=== PATIENT | male | born 1955 | race African-American/Black ===

== ENCOUNTER 2016-06-25 13:33 | Inpatient (IN) | payer OTHER ==
[~2016-06-25] VITALS: Ht 172.7 cm; Wt 60.1 kg
[2016-06-25] MEDS: ASPIRIN 81 MG CHEW TAB CHEW SCH (09:00)
[~2016-06-25 13:33] MED LIST: AMLO5 PO; ASPI81 CHEW; ATOR40TA49 PO; BRIM.2%O RIGHT EYE; CALC0.25 PO; GABA400 PO; HYDR10SO PO; LACT PO; MIDO5TAB PO; NOVOLOGMXP SQ; PRED5 PO; PROG5CAP PO; PROT40TA PO; RIVA15 PO; TEMA7.5 PO; VITA200017 PO
[2016-06-25 13:36] VITALS: BP 173/94; PULSE 56; RESP 18; TEMP 97.7; O2SAT 100
[2016-06-25] MEDS ORDERED: SODIUM CHLORIDE 0.9% FLUSH 5 ML FLUSH IVF PRN ×2 (13:45→17:30)
[2016-06-25 13:48] VITALS: O2SAT 100
--- NOTE | 2016-06-25 13:54 | PD ---
HPI Chief Complaint: Seizure Time Seen by Provider: 13:40 Travel History International Travel<30 days: No Contact w/Intl Traveler<30days: No Traveled to known affect area: No History of Present Illness HPI This is a 61-year-old male who presents to the emergency department having been witnessed in a wheelchair on the road falling forward hitting his head and having a seizure. Patient had a generalized tonic-clonic seizure which lasted about 2 minutes and then subsided. He was noted to have a blood sugar of 26 in the field. He was given an amp of D50 and his blood sugar improved to the 110s. Despite his blood sugar improving he had another witnessed seizure that lasted about a minute long with EMS. The patient reports that he has a history of seizure but his primary care doctor Dr. Long and took him off of seizure medication. He is not sure why he is not sure what he used to be on. He does have a history of a kidney transplant and is followed by Dr. Cabezas. Currently he is reporting head pain and right knee pain. PFSH Past Medical History Hx Anticoagulant Therapy: Yes Arthritis: Yes Asthma: No Autoimmune Disease: No Blood Disorders: No Anxiety: No Depression: Yes Heart Rhythm Problems: No Cancer: No Cardiac Catheterization: Yes Cardiovascular Problems: Yes High Cholesterol: Yes Chemotherapy: No Chest Pain: Yes Congestive Heart Failure: No COPD: Yes Cerebrovascular Accident: No Coronary Artery Disease: Yes Diabetes: Yes Patient Takes Glucophage: No Dialysis: Yes (STOPPED DIALYSIS ON 05/18/2013) Diminished Hearing: No Endocrine: Yes Gastrointestinal Disorders: Yes (Hepatitis C) GERD: No Glaucoma: Yes (NO SIGHT RT EYE) Genitourinary: Yes (RIGHT KIDNEY TRANSPLANT) Headaches: Yes Hepatitis: Yes (HEPATITIS C) Hiatal Hernia: No Hypertension: Yes Immune Disorder: No Implanted Vascular Access Dvce: Yes (AV FISTULA) Kidney Stones: No Medical other: Yes Musculoskeletal: Yes (LEFT BKA) Neurologic: Yes Psychiatric: No Reproductive: No Respiratory: Yes Immunizations Current: Yes Migraines: No Radiation Therapy: No Renal Failure: Yes (KIDNEY TRANSPLANT) Seizures: No Sickle Cell Disease: No Sleep Apnea: No Thyroid Disease: No Ulcer: Yes Tetanus Vaccination: Unknown Past Surgical History Abdominal Surgery: No AICD: No Arteriovenous Shunt: Yes (NOT IN USE, LEFT AV SHUNT) Body Medical Devices: CARDIAC STENT Cardiac Surgery: Yes (cardiac stenting) Coronary Stent: Yes Ear Surgery: No Endocrine Surgery: No Eye Surgery: Yes (r eye removed due to glaucoma) Genitourinary Surgery: Yes (MAY 17, 2013 - RIGHT KIDNEY TRANSPLANT) Gynecologic Surgery: No Hysterectomy: No Insulin Pump: No Joint Replacement: No Neurologic Surgery: No Oral Surgery: No Pacemaker: No Thoracic Surgery: No Other Surgery: Yes (cysy on back, LBKA, OD enuceation, kidney transplant) Social History Alcohol Use: No Tobacco Use: No (STATES HE QUIT 2006) Substance Use: No Allergies-Medications (Allergen,Severity, Reaction): Coded Allergies: No Known Allergies (Unverified , 06/25/16) Reported Meds & Prescriptions Reported Meds & Active Scripts Active Midodrine Hcl (Midodrine) 5 Mg Tab 5 Mg PO TID 30 Days Please hold until seen by drying machine receiver Norvasc (Amlodipine Besylate) 5 Mg Tab 5 Mg PO DAILY 30 Days Please use if systolic blood pressure greater than 140 Temazepam7.5 M1 7.5 Mg Cap 7.5 Mg PO HS PRN Lipitor 40 Mg Tab (Atorvastatin Calcium) 40 Mg Tab 40 Mg PO HS Neurontin (Gabapentin) 400 Mg Cap 400 Mg PO Q8HR Acidophilu1 1 Tab Tab 1 Tab PO Q12HR Xarelto 15 Mg T15 Mg 15 Mg Tab 15 Mg PO BIDPC Hydrocodone/Acetaminophen (Miscellaneous Medication) 1 Tab 1 Tab PO Q4H PRN Aspirin Low Str81 M3 81 Mg Chw 81 Mg CHEW DAILY Novolog Mix 70/30 100 Units/Ml Inj 16 Units SQ DAILY@08,17 30 Days Prograf5 M1 5 Mg Cap 5 Mg PO Q12HR Alphagan 0.2% (Brimonidine Tartrate) 5 Ml Soln 1 Drop RIGHT EYE HS Calcitriol 0.25 Mcg Cap 0.25 Mcg PO DAILY Vitamin D3 Super Strength (Cholecalciferol) 2,000 Unit Cap 2,000 Unit PO DAILY Protonix (Pantoprazole Sodium) 40 Mg Tabdr 40 Mg PO DAILY Deltasone 5 mg Tab (Prednisone) 5 Mg Tab 5 Mg PO DAILY Review of Systems Except as stated in HPI: all other systems reviewed are Neg Physical Exam Narrative GENERAL: Unwell-appearing, covered in sand SKIN: Abrasion in the mid right forehead and on the right patella HEAD: Atraumatic. Normocephalic. EYES: Pupils equal and round. No injection or drainage. ENT: Moist mucous membranes NECK: Trachea midline. Cervical collar in place. CARDIOVASCULAR: Regular rate and rhythm. No murmur appreciated. RESPIRATORY: Clear to auscultation. Breath sounds equal bilaterally. GASTROINTESTINAL: Abdomen soft, non-tender, nondistended. MUSCULOSKELETAL: Left BKA. NEUROLOGICAL: Awake and alert. No obvious cranial nerve deficits. Moving all extremities. PSYCHIATRIC: Appropriate mood and affect; insight and judgment normal. Data Data Last Documented VS Vital Signs Date Time Temp Pulse Resp B/P Pulse Ox O2 Delivery O2 Flow Rate FiO2 06/25/16 13:51 56 18 100 Room Air 06/25/16 13:36 97.7 173/94 Orders Complete Blood Count With Diff (06/25/16 13:41) Drug Screen, Random Urine (06/25/16 13:41) Blood Glucose (06/25/16 13:41) Ecg Monitoring (06/25/16 13:41) Iv Access Insert/Monitor (06/25/16 13:41) Oximetry (06/25/16 13:41) Comprehensive Metabolic Panel (06/25/16 13:41) Sodium Chloride 0.9% Flush (Ns Flush) (06/25/16 13:45) Ua Includes Microscopic (06/25/16 13:41) Ct Brain W/O Iv Contrast(Rout) (06/25/16 ) Ct Cerv Spine W/O Contrast (06/25/16 ) Fosphenytoin Inj (Cerebyx Inj) (06/25/16 14:00) Knee, Complete (4vws) (06/25/16 ) Morphine Inj (Morphine Inj) (06/25/16 14:00) Consult Vascular Access Team (06/25/16 ) Vascular Poc Ultrasound (06/25/16 ) D10w Inj (Dextrose 10% In Water Inj) (06/25/16 16:30) Dextrose 50% In Rosaura (Syr) Inj (D50w (Syr (06/25/16 16:30) Admit Order (Ed Use Only) (06/25/16 16:26) Labs Laboratory Tests Test 06/25/16 15:14 White Blood Count 7.0 TH/MM3 Red Blood Count 6.68 MIL/MM3 Hemoglobin 16.1 GM/DL Hematocrit 51.6 % Mean Corpuscular Volume 77.2 FL Mean Corpuscular Hemoglobin 24.1 PG Mean Corpuscular Hemoglobin 31.2 % Concent Red Cell Distribution Width 18.9 % Platelet Count 175 TH/MM3 Mean Platelet Volume 9.8 FL Neutrophils (%) (Auto) 83.1 % Lymphocytes (%) (Auto) 8.3 % Monocytes (%) (Auto) 7.9 % Eosinophils (%) (Auto) 0.3 % Basophils (%) (Auto) 0.4 % Neutrophils # (Auto) 5.8 TH/MM3 Lymphocytes # (Auto) 0.6 TH/MM3 Monocytes # (Auto) 0.6 TH/MM3 Eosinophils # (Auto) 0.0 TH/MM3 Basophils # (Auto) 0.0 TH/MM3 CBC Comment AUTO DIFF Sodium Level 142 MEQ/L Potassium Level 3.9 MEQ/L Chloride Level 109 MEQ/L Carbon Dioxide Level 25.2 MEQ/L Anion Gap 8 MEQ/L Blood Urea Nitrogen 38 MG/DL Creatinine 1.57 MG/DL Estimat Glomerular Filtration 55 ML/MIN Rate Random Glucose 51 MG/DL Calcium Level 9.0 MG/DL Total Bilirubin 1.2 MG/DL Aspartate Amino Transf 27 U/L (AST/SGOT) Alanine Aminotransferase 25 U/L (ALT/SGPT) Alkaline Phosphatase 97 U/L Total Protein 7.7 GM/DL Albumin 3.5 GM/DL MDM Medical Decision Making Medical Screen Exam Complete: Yes Emergency Medical Condition: Yes Interpretation(s) Afebrile, no tachycardia, hypertensive No leukocytosis Renal insufficiency with elevated BUN Urinalysis: No infection Urine drug screen is negative for infection Differential Diagnosis Seizure, hypoglycemia, infection, medication toxicity, electrolyte abnormality Narrative Course This is a 61-year-old male who has a history kidney transplant and diabetes who presents to the emergency department having had a seizure in the setting of hypoglycemia. He was placed on a monitor and an IV was established in the emergency department. Blood sugar was rechecked several times and ultimately went down to 40 despite EMS treatment with D50. Patient was given an additional D50 dose, was given a meal and was started on D10 normal saline. He was given a bolus of fosphenytoin in the setting of seizure. He has no evidence of sepsis. His creatinine is slightly elevated but at baseline. Patient will be admitted for close monitoring of blood glucose. Critical Care Narrative Aggregate critical care time was 35 minutes. Time to perform other separately billable procedures was not included in the critical care time. My time did not include minutes spent treating any other patients simultaneously or on activities that did not directly contribute to the patient's treatment. The services I provided to this patient were to treat and/or prevent clinically significant deterioration that could result in: disability, I provided critical care services requiring my management, as noted below: Chart data review, documentation time, medication orders and management, vital sign assessments/reviewing monitor data, ordering and reviewing lab tests, ordering and interpreting/reviewing x-rays and diagnostic studies, care of the patient and discussion of the patient with the admitting physicians. Physician Communication Physician Communication Discussed with Dr. Faustin Diagnosis Primary Impression: Hypoglycemia Additional Impression: Seizure Admitting Information Admitting Physician Requests: Admit Veronica Foote MD Jun 25, 2016 13:54
[2016-06-25] MEDS ORDERED: FOSPHENYTOIN INJ 800 MGPE in SODIUM CHLORIDE 0.9% INJ 50 ML IV ONE (14:00)
[2016-06-25] MEDS ORDERED: MORPHINE SULFATE 4 MG/ML INJ IV PUSH ONE (14:00)
--- NOTE | 2016-06-25 14:33 | RADRPT ---
EXAM DATE/TIME: 06/25/2016 14:17 [facility] COMPARISON: CT BRAIN W/O CONTRAST, March 22, 2016, 13:46. INDICATIONS : Possible seizure today; head and neck pain. RADIATION DOSE: 35.79 CTDIvol (mGy) MEDICAL HISTORY : Cardiovascular disease. Hypertension. Hepatitis C. SURGICAL HISTORY : None. ENCOUNTER: Initial ACUITY: 1 day PAIN SCALE: 4/10 LOCATION: cranial TECHNIQUE: Multiple contiguous axial images were obtained of the head. Using automated exposure control and adj ustment of the mA and/or kV according to patient size, radiation dose was kept as low as reasonably a chievable to obtain optimal diagnostic quality images. FINDINGS: CEREBRUM: The ventricles are normal for age. No evidence of midline shift, mass lesion, hemorrhage or acute in farction. No extra-axial fluid collections are seen. POSTERIOR FOSSA: The cerebellum and brainstem are intact. The 4th ventricle is midline. The cerebellopontine angle i s unremarkable. EXTRACRANIAL: The visualized portion of the orbits is intact. SKULL: The calvaria is intact. No evidence of skull fracture. CONCLUSION: Negative for an acute process. Timmy Rodríguez MD FACR on June 25, 2016 at 14:30 Board Certified Radiologist. This report was verified electronically.
--- NOTE | 2016-06-25 14:49 | RADRPT ---
EXAM DATE/TIME: 06/25/2016 14:17 [facility] COMPARISON: CT CERVICAL SPINE W/O CONTRAST, March 22, 2016, 13:46. INDICATIONS: Possible seizure today; head and neck pain. RADIATION DOSE: 17.99 CTDIvol (mGy) MEDICAL HISTORY: Cardiovascular disease. Hyperparathyroidism. Hepatitis C. SURGICAL HISTORY: None. ENCOUNTER: Initial ACUITY: 1 day PAIN SCALE: 4/10 LOCATION: Neck TECHNIQUE: Volumetric scanning of the cervical spine was performed. Multiplanar reconstructions in the sagittal, coronal and oblique axial planes were performed. Using automated exposure control and adjustment o f the mA and/or kV according to patient size, radiation dose was kept as low as reasonably achievable to obtain optimal diagnostic quality images. FINDINGS: Extensive degenerative changes are present in the cervical spine with partially bridging osteophytes at C4-C5, C6 and C7. There are degenerative changes at C1 and C2. C2-C3: There is very minimal disc bulging eccentric to the right without significant spinal stenosis, neural foramina are adequate. C3-C4: There is very minimal interspace ridging present without significant spinal stenosis, neural foramina adequate. C4-C5: Mild uncinate ridging is present with minimal right-sided neural foramina encroachment. C5-C6: Moderate uncinate ridging is present with mild bilateral neural foramina encroachment. C6-C7: The bony spinal canal is normal in size. No evidence of disc bulge or herniation. The neural forami na are bilaterally patent. C7-T1: The bony spinal canal is normal in size. No evidence of disc bulge or herniation. The neural forami na are bilaterally patent. CONCLUSION: Degenerative changes as described above in the cervical spine. Most significant finding is the bridg ing osteophytes anteriorly. Timmy Rodríguez MD FACR on June 25, 2016 at 14:31 Board Certified Radiologist. This report was verified electronically.
--- NOTE | 2016-06-25 14:55 | RADRPT ---
EXAM DATE/TIME: 06/25/2016 14:28 [facility] COMPARISON: No previous studies available for comparison. INDICATIONS : Pain after falling. MEDICAL HISTORY : Hypertension. Hepatitis C. Cardiovascular disease. Seizures. SURGICAL HISTORY : Left lower leg amputation. ENCOUNTER: Initial ACUITY: 1 day PAIN SCORE: 4/10 LOCATION: Right Knee FINDINGS: Mineralization is normal. There is no evidence of fracture or joint effusion. Alignment is normal. Th ere are prominent vascular calcifications in the soft tissues. CONCLUSION: No acute bony findings Salas Gonzalez MD on June 25, 2016 at 14:49 Board Certified Radiologist. This report was verified electronically.
[2016-06-25 15:25] LABS: AUTOMATED NEUTROPHIL # 5.8 TH/MM3 (1.8-7.7); BASOPHIL % 0.4 % (0.0-2.0); EOSINOPHIL % 0.3 % (0.0-4.0); HEMATOCRIT 51.6 % (39.0-51.0); LYMPH % 8.3 % (9.0-44.0); LYMPHOCYTE # 0.6 TH/MM3 (1.0-4.8); MEAN CELL VOLUME 77.2 FL (80.0-100.0); MEAN CORPUSCULAR HEMOGLOBIN 24.1 PG (27.0-34.0); MEAN CORPUSCULAR HGB CONC 31.2 % (32.0-36.0); MONO % 7.9 % (0.0-8.0); NEUT % 83.1 % (16.0-70.0); PLATELET COUNT 175 TH/MM3 (150-450); RED BLOOD COUNT 6.68 MIL/MM3 (4.50-5.90); RED CELL DISTRIBUTION WIDTH 18.9 % (11.6-17.2)
[2016-06-25 15:44] LABS: HEMO FLAGS AUTO DIFF
[2016-06-25 15:46] LABS: ALT (GPT) 25 U/L (12-78); ANION GAP 8 MEQ/L (5-15); AST (GOT) 27 U/L (15-37); BICARBONATE 25.2 MEQ/L (21.0-32.0); BLOOD UREA NITROGEN 38 MG/DL (7-18); CHLORIDE 109 MEQ/L (98-107); GLOMERULAR FILTRATION RATE 55 ML/MIN (>89); POTASSIUM 3.9 MEQ/L (3.5-5.1); SODIUM (NA) 142 MEQ/L (136-145)
[2016-06-25 15:49] LABS: ALKALINE PHOSPHATASE 97 U/L (45-117); TOTAL BILIRUBIN ADULT 1.2 MG/DL (0.2-1.0)
[2016-06-25] MEDS ORDERED: DEXTROSE 50% IN WATER 50 ML SYRINGE IV ONE (16:30)
[2016-06-25] MEDS ORDERED: DEXTROSE 10% INJ 1,000 ML IV SCH (16:30)
[2016-06-25] MEDS ORDERED: cloNIDine HCL 0.1 MG TAB PO PRN (17:30)
[2016-06-25] MEDS ORDERED: GLUCAGON 1 MG/ML VIAL OTHER PRN (17:30)
[2016-06-25] MEDS ORDERED: DEXTROSE 50% IN WATER 50 ML VIAL(D50) IV PUSH PRN (17:30)
[2016-06-25] MEDS: predniSONE 5 MG TAB PO SCH (17:30)
--- NOTE | 2016-06-25 17:38 | HHI.HP ---
Dr. Monet [facility] Service [facility] Primary Care Physician Matt Monet MD Admission Diagnosis hypoglycemia, seizure Diagnoses: Chief Complaint: Seizure Travel History International Travel<30 Days: No Contact w/Intl Traveler <30 Da: No Traveled to Known Affected Are: No History of Present Illness 61-year-old male with past medical history of renal transplant, HTN, HLD, DM, GERD, glaucoma, CAD, hep C, DVT who presented after seizure. The patient states that he was taking the bus to perform in today. He states he was feeling dizzy, and the next thing he knows he was in the ED. According to bystanders, the patient fell out of his wheelchair and was having generalized tonic-clonic seizure activity which lasted approximately 2 minutes. He was noted to be hyperglycemic with a blood glucose of 26 by EMS. He was given D50 in the field. Blood glucoses in the ED have been 86 and 51. The patient was started on D10 infusion. Other than the dizziness, the patient denies any sweating, shortness of breath, chest pain, vision changes. He did sustain abrasions to his forehead and right knee. He states he takes 16 units of insulin twice a day at home, managed by his PCP, Dr Monet. He does not check his blood sugar at home. He states that he has a history of seizures, last seizure 3 months ago, however he denies ever being put on antiseizure medication. He was at one point on gabapentin for extremity neuropathy and mood. He also reports that he used to be on Xarelto for LLE stump DVT, but he stopped taking that. Review of Systems Other 10 point review of systems performed and was negative except as stated in the history of present illness Past Family Social History Past Medical History Chronic kidney disease status post renal transplant Hypertension Hyperlipidemia Diabetes mellitus GERD Glaucoma Cardiac artery disease Hepatitis C History of DVT Possible history of seizures Past Surgical History Kidney transplant 2006 Cardiac catheterization with PCI Hx LUE AVF Left AKA Right eye enucleation Reported Medications Midodrine Hcl (Midodrine) 5 Mg Tab 5 Mg PO TID 30 Days Please hold until seen by residential therapist Norvasc (Amlodipine Besylate) 5 Mg Tab 5 Mg PO DAILY 30 Days Please use if systolic blood pressure greater than 140 Temazepam7.5 M1 7.5 Mg Cap 7.5 Mg PO HS PRN Lipitor 40 Mg Tab (Atorvastatin Calcium) 40 Mg Tab 40 Mg PO HS Neurontin (Gabapentin) 400 Mg Cap 400 Mg PO Q8HR Acidophilu1 1 Tab Tab 1 Tab PO Q12HR Xarelto 15 Mg T15 Mg 15 Mg Tab 15 Mg PO BIDPC Hydrocodone/Acetaminophen (Miscellaneous Medication) 1 Tab 1 Tab PO Q4H PRN Aspirin Low Str81 M3 81 Mg Chw 81 Mg CHEW DAILY Novolog Mix 70/30 100 Units/Ml Inj 16 Units SQ DAILY@ 30 Days Prograf5 M1 5 Mg Cap 5 Mg PO Q12HR Alphagan 0.2% (Brimonidine Tartrate) 5 Ml Soln 1 Drop RIGHT EYE HS Calcitriol 0.25 Mcg Cap 0.25 Mcg PO DAILY Vitamin D3 Super Strength (Cholecalciferol) 2,000 Unit Cap 2,000 Unit PO DAILY Protonix (Pantoprazole Sodium) 40 Mg Tabdr 40 Mg PO DAILY Deltasone 5 mg Tab (Prednisone) 5 Mg Tab 5 Mg PO DAILY Allergies: Coded Allergies: No Known Allergies (Unverified , 06/25/16) Active Ordered Medications Current Medications Medications (Trade) Dose Ordered Sig/Pramod Route Start Time Stop Time Status Last Admin IV Flush 2 ml 2 ml UNSCH PRN IVF 06/25/16 13:45 (Dextrose 10% In Water Inj) 1,000 ml @ 42 mls/hr [id number] IV 06/25/16 16:30 (Norvasc) 5 mg DAILY PO 06/26/16 09:00 UNV (Lipitor) 40 mg HS PO 06/25/16 21:00 UNV (Alphagan 0.2% Opth Soln) 1 drop HS RIGHT EYE 06/25/16 21:00 UNV (Rocaltrol) 0.25 mcg DAILY PO 06/26/16 09:00 UNV (Protonix) 40 mg DAILY PO 06/26/16 09:00 UNV (Deltasone) 5 mg DAILY PO 06/25/16 17:30 Non-Formulary Medication 81 mg DAILY CHEW 06/26/16 09:00 UNV Non-Formulary Medication 2,000 unit DAILY PO 1/7/17 09:00 UNV Non-Formulary Medication 5 mg Q12HR PO 06/25/16 21:00 UNV Family History Father had high blood pressure and diabetes Social History Denies any alcohol, tobacco, or illegal drug use wheelchair bound Physical Exam Vital Signs Vital Signs Date Time Temp Pulse Resp B/P Pulse Ox O2 Delivery O2 Flow Rate FiO2 06/25/16 13:51 56 18 100 Room Air 06/25/16 13:48 100 Room Air 06/25/16 13:36 97.7 56 18 173/94 100 Physical Exam GENERAL: Well-developed well-nourished. In no acute distress. SKIN: Warm and dry. Superficial abrasions with bleeding on the forehead and right knee. HEENT: Normocephalic. Left eye pupil round. Right eye s/p enucleation. Mucous membranes pink and moist. CARDIOVASCULAR: Regular rate and rhythm. No murmur appreciated. RESPIRATORY: No accessory muscle use. Clear to auscultation. Breath sounds equal bilaterally. GASTROINTESTINAL: Abdomen soft, non-tender, nondistended. Bowel sounds x4. MUSCULOSKELETAL: Left AKA. No clubbing or cyanosis. No edema. NEUROLOGICAL: Awake and alert. No focal neurological deficits. Moves upper and lower extremities spontaneously. Normal speech. Strength 5/5. PSYCHIATRIC: Appropriate mood and affect; insight and judgment fair to normal. Laboratory Laboratory Tests Test 06/25/16 15:14 White Blood Count 7.0 Red Blood Count 6.68 Hemoglobin 16.1 Hematocrit 51.6 Mean Corpuscular Volume 77.2 Mean Corpuscular Hemoglobin 24.1 Mean Corpuscular Hemoglobin 31.2 Concent Red Cell Distribution Width 18.9 Platelet Count 175 Mean Platelet Volume 9.8 Neutrophils (%) (Auto) 83.1 Lymphocytes (%) (Auto) 8.3 Monocytes (%) (Auto) 7.9 Eosinophils (%) (Auto) 0.3 Basophils (%) (Auto) 0.4 Neutrophils # (Auto) 5.8 Lymphocytes # (Auto) 0.6 Monocytes # (Auto) 0.6 Eosinophils # (Auto) 0.0 Basophils # (Auto) 0.0 CBC Comment AUTO DIFF Sodium Level 142 Potassium Level 3.9 Chloride Level 109 Carbon Dioxide Level 25.2 Anion Gap 8 Blood Urea Nitrogen 38 Creatinine 1.57 Estimat Glomerular Filtration 55 Rate Random Glucose 51 Calcium Level 9.0 Total Bilirubin 1.2 Aspartate Amino Transf 27 (AST/SGOT) Alanine Aminotransferase 25 (ALT/SGPT) Alkaline Phosphatase 97 Total Protein 7.7 Albumin 3.5 Result Diagram: 06/25/16 1514 06/25/16 1514 Imaging Last Impressions Knee X-Ray 06/25/16 0000 Signed Impressions: Service Date/Time: Saturday, June 25, 2016 14:28 - CONCLUSION: No acute bony findings Salas Gonzalez MD Head CT 06/25/16 0000 Signed Impressions: Service Date/Time: Saturday, June 25, 2016 14:17 - CONCLUSION: Negative for an acute process. Timmy Rodríguez MD FACR Cervical Spine CT 06/25/16 0000 Signed Impressions: Service Date/Time: Saturday, June 25, 2016 14:17 - CONCLUSION: Degenerative changes as described above in the cervical spine. Most significant finding is the bridging osteophytes anteriorly. Timmy Rodríguez MD FACR Assessment and Plan Problem List: (1) Diabetes ICD Code: E11.9 Status: Chronic (2) Seizure ICD Code: R56.9 Status: Acute (3) Hypoglycemia ICD Code: E16.2 Status: Acute (4) Hypertension ICD Code: I10 Status: Chronic (5) Hyperlipidemia ICD Code: E78.5 Status: Chronic (6) Chronic kidney disease (CKD) ICD Code: N18.9 Status: Chronic Assessment and Plan 61-year-old male with past medical history of renal transplant, HTN, HLD, DM, GERD, glaucoma, CAD, hep C, DVT who presented after seizure Seizure: Likely secondary to hypoglycemia as below. Head CT performed, unremarkable. Reviewed EEG 12/03, no epileptic activity at that time. Reviewed brain MRI from 12/03, no acute process. Load with fosphenytoin in the ED. No further AEDs unless EEG positive. Check UDS. Seizure precautions. Neuro checks. PT/OT. Diabetes mellitus with symptomatic hypoglycemia: Patient with persistent hyperglycemia in the ED despite D50. Hold home insulin regimen. Continue D10 IVF. Low sliding scale coverage if needed with hypoglycemia protocol. Check hemoglobin A1c. Head and right knee injury: Secondary to seizure as above. Abrasions on the forehead and right knee on exam. Cervical spine CT with chronic degenerative changes, no acute process. Right knee x-ray with no fracture. Wound care consult. Oxycodone as needed for pain. Hypertension: Currently accelerated. Reconcile confirm home meds. Continue amlodipine. Clonidine as needed. CKD stage III with history of renal transplant: Creatinine 1.57, previously 1.47 on 05/26/16. Stable. Continue prednisone and Prograf. DVT prophylaxis: Would avoid SCDs with PVD. Hold off on chemical prophylaxis for now with bleeding abrasions. GUILLAUME nava. Written by Arben Talbot, acting as scribe for Dr. Faustin on 06/25/16 at 17:38. Code Status Full code Discussed Condition With Patient Attending Statement The documentation accurately reflects the work performed [id number] by me on at 17:38. Problem Qualifiers (1) Diabetes: Qualified Code: E10.649 - Type 1 diabetes mellitus with hypoglycemia and without coma (2) Hypertension: Qualified Code: I10 - Essential hypertension (3) Chronic kidney disease (CKD): Qualified Code: N18.3 - Chronic kidney disease (CKD), stage 3 (moderate) Arben Talbot Jun 25, 2016 17:38 Jimi Faustin DO Jun 25, 2016 19:01
[2016-06-25 17:42] LABS: BLOOD, URINE NEG (NEG); GLUCOSE,URINE 150 mg/dL (NEG); HYALINE CAST, URINE 1 /lpf (RARE); KETONE, URINE NEG (NEG); NITRITE,URINE NEG (NEG); PH, URINE 6.5 (5.0-8.5); URINE COLOR YELLOW (YELLW/STRAW)
[2016-06-25 17:58] LABS: AMPHETAMINE, URINE NEG (NEG); BARBITURATES, URINE NEG (NEG); COCAINE, URINE NEG (NEG)
[2016-06-25 19:00] LABS: CORRECTED NUCLEATED RBC 1 /100 WBC (0-0); EOSINOPHILS 1 % (0-4); NEUTROPHIL # MANUAL DIFF 6.2 TH/MM3 (1.8-7.7); POLYS (SEG NEUTROPHILS) 89 % (16-70); WBC DIFF SAMPLE 100
[2016-06-25 19:02] LABS: PLATELET ESTIMATE SMEAR NORMAL (NORMAL); PLATELET MORPHOLOGY NORMAL (NORMAL); SCAN/DIFF FINAL DIFF MANUAL
[2016-06-25 20:20] VITALS: BP 162/78; PULSE 58; RESP 16; O2SAT 99
[2016-06-25] MEDS: INSULIN ASPART SUPPLEMENTAL SCALE SQ SCH (20:58)
[2016-06-25] MEDS: ATORVASTATIN 40 MG TAB PO SCH (20:59)
[2016-06-25] MEDS ORDERED: TACROLIMUS PO SCH (21:00)
[2016-06-25] MEDS: TACROLIMUS 5 MG CAP PO SCH (22:54)
[2016-06-25] MEDS: BRIMONIDINE TARTRATE 0.2% OPHT SOLN 5 ML BTL RIGHT EYE SCH (22:54)
[2016-06-25] MEDS: SODIUM CHLORIDE 0.9% FLUSH 5 ML FLUSH IVF SCH (23:46)
[2016-06-26] VITALS (7 sets, daily range): BP systolic 116–159; BP diastolic 69–88; PULSE 59–72; RESP 16–18; TEMP 96.6–98; O2SAT 95–100
[2016-06-26] MEDS ORDERED: LORazepam 2 MG/ML VIAL IV PUSH PRN (03:00)
[2016-06-26 07:32] LABS: AUTOMATED NEUTROPHIL # 4.1 TH/MM3 (1.8-7.7); BASOPHIL % 0.6 % (0.0-2.0); EOSINOPHIL # 0.1 TH/MM3 (0-0.4); EOSINOPHIL % 1.5 % (0.0-4.0); HEMATOCRIT 53.9 % (39.0-51.0); LYMPH % 15.8 % (9.0-44.0); LYMPHOCYTE # 0.9 TH/MM3 (1.0-4.8); MEAN CELL VOLUME 76.8 FL (80.0-100.0); MEAN CORPUSCULAR HEMOGLOBIN 23.8 PG (27.0-34.0); MEAN CORPUSCULAR HGB CONC 31.1 % (32.0-36.0); MONO % 8.3 % (0.0-8.0); NEUT % 73.8 % (16.0-70.0); PLATELET COUNT 187 TH/MM3 (150-450); RED BLOOD COUNT 7.02 MIL/MM3 (4.50-5.90); RED CELL DISTRIBUTION WIDTH 19.3 % (11.6-17.2); WHITE BLOOD COUNT 5.5 TH/MM3 (4.0-11.0)
[2016-06-26 07:37] LABS: HEMO FLAGS AUTO DIFF
[2016-06-26] MEDS: INSULIN ASPART SUPPLEMENTAL SCALE SQ SCH ×4 (07:42→20:40)
[2016-06-26] MEDS ORDERED: amLODIPine BESYLATE 5 MG TAB PO SCH (09:00)
[2016-06-26] MEDS ORDERED: CHOLECALCIFEROL 2000 UNIT PO SCH (09:00)
[2016-06-26] MEDS ORDERED: ASPIRIN CHEW SCH (09:00)
[2016-06-26] MEDS: TACROLIMUS 5 MG CAP PO SCH ×2 (09:21→20:39)
[2016-06-26] MEDS: CHOLECALCIFEROL (VIT D3) 1000 UNIT TAB PO SCH (09:22)
[2016-06-26] MEDS: ASPIRIN 81 MG CHEW TAB CHEW SCH (09:22)
[2016-06-26] MEDS: predniSONE 5 MG TAB PO SCH (09:22)
[2016-06-26] MEDS: CALCITRIOL 0.25 MCG CAP PO SCH (09:22)
[2016-06-26] MEDS: PANTOPRAZOLE SOD 40 MG DELAYED RELEASE TAB PO SCH (09:22)
[2016-06-26] MEDS: SODIUM CHLORIDE 0.9% FLUSH 5 ML FLUSH IVF SCH ×2 (09:23→20:39)
--- NOTE | 2016-06-26 09:35 | HHI.PR ---
Subjective Remarks The patient was sitting up in a wheelchair. He said he had no events overnight. He had questions regarding his insurance inability to obtain a prosthesis for his left lower extremity. He mentions depression. He denies any plans to harm himself or others. Discussed with nursing. Objective Vitals Vital Signs Date Time Temp Pulse Resp B/P Pulse Ox O2 Delivery O2 Flow Rate FiO2 06/26/16 06:06 96.6 59 17 159/88 99 06/26/16 02:34 Room Air 06/26/16 02:34 60 16 156/69 98 Room Air 06/25/16 20:20 58 16 162/78 99 Room Air 06/25/16 13:51 56 18 100 Room Air 06/25/16 13:48 100 Room Air 06/25/16 13:36 97.7 56 18 173/94 100 I/O 06/25/16 06/25/16 06/25/16 06/26/16 06/26/16 06/26/16 06:59 14:59 22:59 06:59 14:59 22:59 Intake Total 482 ml Balance 482 ml Intake IV Total 482 ml Result Diagram: 06/26/16 0553 06/25/16 1514 Imaging Last Impressions Knee X-Ray 06/25/16 0000 Signed Impressions: Service Date/Time: Saturday, June 25, 2016 14:28 - CONCLUSION: No acute bony findings Salas Gonzalez MD Head CT 06/25/16 0000 Signed Impressions: Service Date/Time: Saturday, June 25, 2016 14:17 - CONCLUSION: Negative for an acute process. Timmy Rodríguez MD FACR Cervical Spine CT 06/25/16 0000 Signed Impressions: Service Date/Time: Saturday, June 25, 2016 14:17 - CONCLUSION: Degenerative changes as described above in the cervical spine. Most significant finding is the bridging osteophytes anteriorly. Timmy Rodríguez MD FACR Objective Remarks GENERAL: Well-developed well-nourished. In no acute distress. SKIN: Warm and dry. Bandage on the forehead. HEENT: Normocephalic. Left eye pupil round. Right eye s/p enucleation. Mucous membranes pink and moist. CARDIOVASCULAR: Regular rate and rhythm. Grade 3 systolic murmur appreciated. RESPIRATORY: No accessory muscle use. Clear to auscultation. Breath sounds equal bilaterally. GASTROINTESTINAL: Abdomen soft, non-tender, nondistended. Bowel sounds x4. MUSCULOSKELETAL: Left AKA. No clubbing or cyanosis. No edema. NEUROLOGICAL: Awake and alert. No focal neurological deficits. Moves upper and lower extremities spontaneously. Normal speech. Strength 5/5. PSYCHIATRIC: Slightly flattened affect. Procedures None. Medications and IVs Current Medications Medications (Trade) Dose Ordered Sig/Pramod Route Start Time Stop Time Status Last Admin (Norvasc) 5 mg DAILY PO 06/26/16 09:00 06/26/16 09:22 (Lipitor) 40 mg HS PO 06/25/16 21:00 (Alphagan 0.2% Opth Soln) 1 drop HS RIGHT EYE 06/25/16 21:00 06/25/16 22:54 (Rocaltrol) 0.25 mcg DAILY PO 06/26/16 09:00 06/26/16 09:22 (Protonix) 40 mg DAILY PO 06/26/16 09:00 06/26/16 09:22 (Deltasone) 5 mg DAILY PO 06/25/16 17:30 06/26/16 09:22 (NS Flush) 2 ml UNSCH PRN IVF 06/25/16 17:30 (NS Flush) 2 ml BID IVF 06/25/16 21:00 06/26/16 09:23 (Vitamin D3) 2,000 units DAILY PO 06/26/16 09:00 06/26/16 09:22 (D50w (Vial) Inj) 25 ml UNSCH PRN IV PUSH 06/25/16 17:30 (Glucagon Inj) 1 mg UNSCH PRN OTHER 06/25/16 17:30 (Catapres) 0.1 mg Q6H PRN PO 06/25/16 17:30 (Roxicodone) 5 mg Q4H PRN PO 06/25/16 17:45 06/26/16 06:01 (Aspirin Chew) 81 mg DAILY CHEW 06/25/16 09:00 06/26/16 09:22 (Prograf) 5 mg Q12HR PO 06/25/16 21:00 06/26/16 09:21 Lorazepam 1 mg 1 mg Q5M PRN IV PUSH 06/26/16 03:00 (D5W-NS 1000 ml Inj) 1,000 ml @ 42 mls/hr [id number] IV 06/26/16 09:45 06/26/16 09:43 A/P Problem List: (1) Diabetes ICD Code: E11.9 Status: Chronic (2) Seizure ICD Code: R56.9 Status: Acute (3) Hypoglycemia ICD Code: E16.2 Status: Acute (4) Hypertension ICD Code: I10 Status: Chronic (5) Hyperlipidemia ICD Code: E78.5 Status: Chronic (6) Chronic kidney disease (CKD) ICD Code: N18.9 Status: Chronic Assessment and Plan Seizure disorder Likely secondary to hypoglycemia. Head CT performed, unremarkable. Reviewed EEG 12/03, no epileptic activity at that time. Reviewed brain MRI from 12/03, no acute process. Loaded with fosphenytoin in the ED. - No further AEDs indicated unless EEG positive. - Check UDS. - Seizure precautions. - Neuro checks/ seizure precautions. - PT/OT. Case management consult for possible rehab. - IVFs with dextrose. - Ativan as needed. - consider neurology consult. Diabetes mellitus with symptomatic hypoglycemia Patient with persistent hypoglycemia in the ED despite D50. - Hold home insulin regimen. - Change D10 to D5W. - Low sliding scale coverage if needed with hypoglycemia protocol. - Check hemoglobin A1c. Head and right knee injury Secondary to seizure. Abrasions on the forehead and right knee on exam. Cervical spine CT with chronic degenerative changes, no acute process. Right knee x-ray with no fracture. - Wound care consult. - Oxycodone as needed for pain. Hypertension Currently elevated. - Continue home meds. Increase amlodipine 06/26. - Clonidine as needed. CKD stage III with history of renal transplant Creatinine 1.57, previously 1.47 on 05/26/16. Stable. - Continue prednisone and Prograf. - avoid nephrotoxic agents. - check Prograf level. DVT The pt was previously on Xarelto but has not taken that medication in many months. - d/c Xarelto s/t noncompliance and the pt being a fall risk. - outpt follow-up. DVT prophylaxis: Heparin. Discharge Planning Awaiting clinical improvement. Problem Qualifiers (1) Diabetes: Qualified Code: E10.649 - Type 1 diabetes mellitus with hypoglycemia and without coma (2) Hypertension: Qualified Code: I10 - Essential hypertension (3) Chronic kidney disease (CKD): Qualified Code: N18.3 - Chronic kidney disease (CKD), stage 3 (moderate) Jiim Faustin DO Jun 26, 2016 09:35
[2016-06-26] MEDS ORDERED: DEXT 5%-NACL 0.9% 1000 ML INJ 1,000 ML IV SCH (09:45)
[2016-06-26] MEDS ORDERED: amLODIPine BESYLATE 5 MG TAB PO ONE (10:00)
[2016-06-26 10:23] LABS: SCAN/DIFF AUTO DIFF CONFIRMED; TARGET CELLS 1+ (NORMAL)
[2016-06-26] MEDS: HEPARIN SODIUM - SQ 10,000 UNITS/ML VIAL SQ SCH ×2 (13:49→21:31)
[2016-06-26 19:21] LABS: ALKALINE PHOSPHATASE 96 U/L (45-117); ALT (GPT) 23 U/L (12-78); ANION GAP 7 MEQ/L (5-15); AST (GOT) 29 U/L (15-37); BLOOD UREA NITROGEN 34 MG/DL (7-18); CHLORIDE 105 MEQ/L (98-107); GLOMERULAR FILTRATION RATE 59 ML/MIN (>89); POTASSIUM 4.9 MEQ/L (3.5-5.1); SODIUM (NA) 139 MEQ/L (136-145); TOTAL BILIRUBIN ADULT 0.8 MG/DL (0.2-1.0)
--- NOTE | 2016-06-26 20:01 | MG ---
cc: MORGAN KLEIN M.D. Lab No: 17-30 Date: 06/26/2016 Age: Sex: M Race: TECHNIQUE: 17 channel EEG. DESCRIPTION: The background rhythm is a symmetrical alpha rhythm, frequency 8 Hz, amplitude is about 10-20 microvolts. There is some muscle artifact present. There are no lateralizing features seen. There are no epileptiform discharges present. Photic results in a normal driving response. INTERPRETATION: Normal EEG. MD KEITH Martinez/JUN /4:58 PM /7:52 PM
[2016-06-26] MEDS: ATORVASTATIN 40 MG TAB PO SCH (20:39)
[2016-06-26] MEDS: BRIMONIDINE TARTRATE 0.2% OPHT SOLN 5 ML BTL RIGHT EYE SCH ×2 (20:42→20:44)
[2016-06-27 00:03] VITALS: BP 138/65; PULSE 70; RESP 17; TEMP 98; O2SAT 98
[2016-06-27 04:02] VITALS: BP 116/65; PULSE 69; RESP 17; TEMP 97.2; O2SAT 96
[2016-06-27 06:24] LABS: BICARBONATE 21.3 MEQ/L (21.0-32.0)
[2016-06-27 06:25] LABS: POTASSIUM 4.9 MEQ/L (3.5-5.1)
[2016-06-27] MEDS: INSULIN ASPART SUPPLEMENTAL SCALE SQ SCH ×3 (06:33→15:11)
[2016-06-27] MEDS: HEPARIN SODIUM - SQ 10,000 UNITS/ML VIAL SQ SCH ×2 (06:33→13:40)
[2016-06-27 08:00] VITALS: BP 109/79; PULSE 93; RESP 18; TEMP 97.5; O2SAT 96
[2016-06-27] MEDS ORDERED: amLODIPine BESYLATE 5 MG TAB PO SCH (09:00)
[2016-06-27] MEDS: predniSONE 5 MG TAB PO SCH (09:53)
[2016-06-27] MEDS: ASPIRIN 81 MG CHEW TAB CHEW SCH (09:53)
[2016-06-27] MEDS: PANTOPRAZOLE SOD 40 MG DELAYED RELEASE TAB PO SCH (09:53)
[2016-06-27] MEDS: TACROLIMUS 5 MG CAP PO SCH (09:53)
[2016-06-27] MEDS: CHOLECALCIFEROL (VIT D3) 1000 UNIT TAB PO SCH (09:53)
[2016-06-27] MEDS: SODIUM CHLORIDE 0.9% FLUSH 5 ML FLUSH IVF SCH (09:54)
[2016-06-27] MEDS: CALCITRIOL 0.25 MCG CAP PO SCH (11:12)
[2016-06-27 12:00] VITALS: BP 134/72; PULSE 76; RESP 18; TEMP 97.9; O2SAT 95
[2016-06-27 13:54] LABS: HEMOGLOBIN A1a 1.2 %; HEMOGLOBIN A1b 1.4 %; HEMOGLOBIN Ao 77.9 %; HEMOGLOBIN F 1.6 %; HEMOGLOBIN LA1C 1.9 %; HEMOGLOBIN P3 4.9 %
[2016-06-27] MEDS ORDERED: OXYC-392 PO (15:55)
[2016-06-27] MEDS ORDERED: NOVOLOGMXP SQ (15:55)
--- NOTE | 2016-06-27 15:56 | HHI.DCPOC ---
Discharge Care Plan Diagnosis: (1) Diabetes (2) Chronic kidney disease (CKD) (3) Seizure (4) Hypoglycemia (5) Head injury, acute, without loss of consciousness Goals to Promote Your Health * To prevent worsening of your condition and complications * To maintain your health at the optimal level Directions to Meet Your Goals Take your medications as prescribed Follow your dietary instruction Follow activity as directed Keep your appointments as scheduled Take your immunizations and boosters as scheduled If your symptoms worsen call your PCP, if no PCP go to Urgent Care Center or Emergency Room Smoking is Dangerous to Your Health. Avoid second hand smoke Call the 24-hour hour crisis hotline for domestic abuse at Jimi Faustin DO Jun 27, 2016 15:56
[2016-06-27 16:00] VITALS: BP 124/74; PULSE 86; RESP 18; TEMP 97.6; O2SAT 96
--- NOTE | 2016-06-27 16:02 | HHI.PR ---
Subjective Remarks The patient said that he was feeling well. He said that the reason he passed out was because his sugars were too low. He was wondering what insulin regimen he should be on. Otherwise he said he wanted to go home. He had no other acute complaints. Discussed with nursing. Objective Vitals Vital Signs Date Time Temp Pulse Resp B/P Pulse Ox O2 Delivery O2 Flow Rate FiO2 06/27/16 12:00 97.9 76 18 134/72 95 06/27/16 08:00 97.5 93 18 109/79 96 06/27/16 04:02 97.2 69 17 116/65 96 06/27/16 00:03 98.0 70 17 138/65 98 06/26/16 20:36 98.0 69 18 116/73 100 06/26/16 16:00 97.8 72 18 140/82 100 I/O 06/26/16 06/26/16 06/26/16 06/27/16 06/27/16 06/27/16 07:00 15:00 23:00 07:00 15:00 23:00 Intake Total 482 ml 763 ml 612 ml 240 ml Output Total 290 ml Balance 482 ml 763 ml 322 ml 240 ml Intake Oral 480 ml 480 ml 240 ml IV Total 482 ml 283 ml 132 ml Output Urine Total 290 ml # Voids 5 1 1 # Bowel Movements 4 0 0 Result Diagram: 06/26/16 0553 06/27/16 0515 Imaging Last Impressions Knee X-Ray 06/25/16 0000 Signed Impressions: Service Date/Time: Saturday, June 25, 2016 14:28 - CONCLUSION: No acute bony findings Salas Gonzalez MD Head CT 06/25/16 0000 Signed Impressions: Service Date/Time: Saturday, June 25, 2016 14:17 - CONCLUSION: Negative for an acute process. Timmy Rodríguez MD FACR Cervical Spine CT 06/25/16 0000 Signed Impressions: Service Date/Time: Saturday, June 25, 2016 14:17 - CONCLUSION: Degenerative changes as described above in the cervical spine. Most significant finding is the bridging osteophytes anteriorly. Timmy Rodríguez MD FACR Objective Remarks GENERAL: Well-developed well-nourished. In no acute distress. SKIN: Warm and dry. Bandage on the forehead. HEENT: Normocephalic. Left eye pupil round. Right eye s/p enucleation. Mucous membranes pink and moist. CARDIOVASCULAR: Regular rate and rhythm. Grade 3 systolic murmur appreciated. RESPIRATORY: No accessory muscle use. Clear to auscultation. Breath sounds equal bilaterally. GASTROINTESTINAL: Abdomen soft, non-tender, nondistended. Bowel sounds x4. MUSCULOSKELETAL: Left AKA. No clubbing or cyanosis. No edema. NEUROLOGICAL: Awake and alert. No focal neurological deficits. Moves upper and lower extremities spontaneously. Normal speech. Strength 5/5. PSYCHIATRIC: Mood and affect appropriate. Procedures None. Medications and IVs Current Medications Medications (Trade) Dose Ordered Sig/Pramod Route Start Time Stop Time Status Last Admin (Lipitor) 40 mg HS PO 06/25/16 21:00 06/26/16 20:39 (Alphagan 0.2% Opth Soln) 1 drop HS RIGHT EYE 06/25/16 21:00 06/26/16 20:44 (Rocaltrol) 0.25 mcg DAILY PO 06/26/16 09:00 06/27/16 11:12 (Protonix) 40 mg DAILY PO 06/26/16 09:00 06/27/16 09:53 (Deltasone) 5 mg DAILY PO 06/25/16 17:30 06/27/16 09:53 (NS Flush) 2 ml UNSCH PRN IVF 06/25/16 17:30 (NS Flush) 2 ml BID IVF 06/25/16 21:00 06/27/16 09:54 (Vitamin D3) 2,000 units DAILY PO 06/26/16 09:00 06/27/16 09:53 (D50w (Vial) Inj) 25 ml UNSCH PRN IV PUSH 06/25/16 17:30 (Glucagon Inj) 1 mg UNSCH PRN OTHER 06/25/16 17:30 (Catapres) 0.1 mg Q6H PRN PO 06/25/16 17:30 (Roxicodone) 5 mg Q4H PRN PO 06/25/16 17:45 06/27/16 13:40 (Aspirin Chew) 81 mg DAILY CHEW 06/25/16 09:00 06/27/16 09:53 (Prograf) 5 mg Q12HR PO 06/25/16 21:00 06/27/16 09:53 (Ativan Inj) 1 mg Q5M PRN IV PUSH 06/26/16 03:00 (Norvasc) 10 mg DAILY PO 06/27/16 09:00 06/27/16 09:53 (Heparin Inj) 5,000 units Q8HR SQ 06/26/16 14:00 06/27/16 13:40 A/P Problem List: (1) Diabetes ICD Code: E11.9 Status: Chronic (2) Seizure ICD Code: R56.9 Status: Acute (3) Hypoglycemia ICD Code: E16.2 Status: Acute (4) Hypertension ICD Code: I10 Status: Chronic (5) Hyperlipidemia ICD Code: E78.5 Status: Chronic (6) Chronic kidney disease (CKD) ICD Code: N18.9 Status: Chronic Assessment and Plan Seizure disorder Likely secondary to hypoglycemia. Head CT performed, unremarkable. Urine drug screen negative. Reviewed EEG 12/03, no epileptic activity at that time. Reviewed brain MRI from 12/03, no acute process. Loaded with fosphenytoin in the ED. EEG negative. - d/c D5W. - Neuro checks/ seizure precautions. - PT/OT. Case management consult. - Ativan as needed. - decrease insulin regimen upon discharge. Diabetes mellitus with symptomatic hypoglycemia Patient with persistent hypoglycemia in the ED despite D50. Improved and now off of D5W. A1c around 10%. - resume home insulin regimen at 10 units 70/30 daily. The pt was on BID dosing at home. Check blood sugars often at home. - follow up with PCP. - Low sliding scale coverage. Head and right knee injury Secondary to seizure. Abrasions on the forehead and right knee on exam. Cervical spine CT with chronic degenerative changes, no acute process. Right knee x-ray with no fracture. - Wound care consult requested. - Oxycodone as needed for pain. Hypertension Improved. - Continue home meds. - Clonidine as needed. CKD stage III with history of renal transplant Creatinine 1.57, previously 1.47 on 05/26/16. Stable. Prograf level therapeutic. - Continue prednisone and Prograf. - avoid nephrotoxic agents. DVT The pt was previously on Xarelto but has not taken that medication in many months. - hold Xarelto s/t noncompliance and the pt being a fall risk. - outpt follow-up. DVT prophylaxis: Heparin. Discharge Planning D/c home. Problem Qualifiers (1) Diabetes: Qualified Code: E10.649 - Type 1 diabetes mellitus with hypoglycemia and without coma (2) Hypertension: Qualified Code: I10 - Essential hypertension (3) Chronic kidney disease (CKD): Qualified Code: N18.3 - Chronic kidney disease (CKD), stage 3 (moderate) Jimi Faustin DO Jun 27, 2016 16:02
== END 2016-06-27 20:30 | disposition home or self-care (01) | DRG 638 ==
LOC: NEPE 13:33 → NEDA 16:30 → N06B 06-26 05:37
PROVIDERS: ADMIT Hospitalist; ATTEND Hospitalist
DX: E10.649 Type 1 diabetes mellitus with hypoglycemia without coma (principal); G40.89 Other seizures; N18.3 Chronic kidney disease, stage 3 (moderate); Z94.0 Kidney transplant status; Z89.612 Acquired absence of left leg above knee; I12.9 Hypertensive chronic kidney disease with stage 1 through stage 4 chronic kidney disease, or unspecified chronic kidney disease; M25.561 Pain in right knee; M19.90 Unspecified osteoarthritis, unspecified site; F32.9 Major depressive disorder, single episode, unspecified; E78.00 Pure hypercholesterolemia, unspecified; J44.9 Chronic obstructive pulmonary disease, unspecified; I25.10 Atherosclerotic heart disease of native coronary artery without angina pectoris; B19.20 Unspecified viral hepatitis C without hepatic coma; H54.41 Blindness, right eye, normal vision left eye; H40.9 Unspecified glaucoma; Z87.891 Personal history of nicotine dependence; E78.5 Hyperlipidemia, unspecified; K21.9 Gastro-esophageal reflux disease without esophagitis; G62.9 Polyneuropathy, unspecified; Z91.19 Patient's noncompliance with other medical treatment and regimen; Z99.3 Dependence on wheelchair; Z86.718 Personal history of other venous thrombosis and embolism; Z79.4 Long term (current) use of insulin; S00.81XA Abrasion of other part of head, initial encounter; S80.211A Abrasion, right knee, initial encounter; W05.0XXA Fall from non-moving wheelchair, initial encounter; Y92.410 Unspecified street and highway as the place of occurrence of the external cause
CPT/HCPCS: 70450; 72125; 73564; 76937; 80048; 80053; 80197; 80307; 81001; 82948; 83036; 83735; 85007; 85025; 85027; 95819; 96374; J1644; J1815; J2270; J7042; J7507; J7512; Q2009

== ENCOUNTER 2016-10-27 01:36 | Emergency (ER) | payer OTHER ==
[~2016-10-27 01:36] MED LIST changes: +OXYC-392 PO
--- NOTE | 2016-10-27 02:12 | PD ---
HPI Chief Complaint: General Weakness Time Seen by Provider: 01:45 Travel History International Travel<30 days: No Contact w/Intl Traveler<30days: No History of Present Illness HPI The patient is a 61 year old male who presents to the [facility] emergency department with a history of reportedly experiencing a burning/hot sensation on the right side of his body that began 3-4 weeks ago. He reports that he saw his primary care physician at the [facility], however he did not think to mention it to them. He reports that he resides at home and has a caregiver that helps him. The patient reports that today he began to have diarrhea and has had 4 episodes. The patient denies having any blood in his stool or black or tarry stools. The patient reports having a subjective fever. The patient reports having right-sided upper and lower quadrant abdominal pain. The patient reports that when he has a burning sensation in the right side of his body and makes him have tremors on the left side of his body. He denies having any chest pain or chest pressure. He denies having any shortness of breath. He denies having any cough or congestion. The patient denies neck pain, vomiting, urinary symptoms, one-sided weakness, slurred speech, facial droop, or difficulty with word finding ability. PFSH Past Medical History Narrative Medical The patient's past medical history is significant for a history of renal failure previously on dialysis with an AV fistula in the left upper extremity, however in April 2013 he had a renal transplant done and is no longer on dialysis. 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 Hx Anticoagulant Therapy: Yes Arthritis: Yes Asthma: No Autoimmune Disease: No Blood Disorders: No Anxiety: No Depression: Yes Heart Rhythm Problems: No Cancer: No Cardiac Catheterization: Yes Cardiovascular Problems: Yes High Cholesterol: Yes Chemotherapy: No Chest Pain: Yes Congestive Heart Failure: No COPD: Yes Cerebrovascular Accident: No Coronary Artery Disease: Yes Diabetes: Yes Dialysis: Yes (STOPPED DIALYSIS ON 05/18/2013) Diminished Hearing: No Endocrine: Yes Gastrointestinal Disorders: Yes (Hepatitis C) GERD: No Glaucoma: Yes (NO SIGHT RT EYE) Genitourinary: Yes (RIGHT KIDNEY TRANSPLANT) Headaches: Yes Hepatitis: Yes (HEPATITIS C) Hiatal Hernia: No Hypertension: Yes Immune Disorder: No Implanted Vascular Access Dvce: Yes (AV FISTULA) Kidney Stones: No Musculoskeletal: Yes (LEFT BKA 2005) Neurologic: Yes Psychiatric: No Reproductive: No Respiratory: Yes Immunizations Current: Yes Migraines: No Radiation Therapy: No Renal Failure: Yes (KIDNEY TRANSPLANT) Seizures: No Sickle Cell Disease: No Sleep Apnea: No Thyroid Disease: No Ulcer: Yes Past Surgical History Narrative Surgical The patient's past surgical history is significant for a left [id number] amputation, history of cardiac catheterization with stent placement, history of AV fistula placement, right eye removal due to glaucoma Abdominal Surgery: No AICD: No Arteriovenous Shunt: Yes (NOT IN USE, LEFT AV SHUNT) Body Medical Devices: CARDIAC STENT Cardiac Surgery: Yes (cardiac stenting) Coronary Stent: Yes Ear Surgery: No Endocrine Surgery: No Eye Surgery: Yes (r eye removed due to glaucoma) Genitourinary Surgery: Yes (MAY 17, 2013 - RIGHT KIDNEY TRANSPLANT) Gynecologic Surgery: No Hysterectomy: No Insulin Pump: No Joint Replacement: No Neurologic Surgery: No Oral Surgery: No Pacemaker: No Thoracic Surgery: No Other Surgery: Yes (cysy on back, LBKA, OD enuceation, kidney transplant) Social History Alcohol Use: No Tobacco Use: No (STATES HE QUIT 2006) Substance Use: No Allergies-Medications (Allergen,Severity, Reaction): Coded Allergies: No Known Allergies (Unverified , 10/27/16) Reported Meds & Prescriptions Reported Meds & Active Scripts Active Oxycodone (Oxycodone HCl) 5 Mg Tab 5 Mg PO Q4H PRN Novolog Mix 70-30 Inj (Insulin Aspart Prota 70%/Aspart 30%) 1,000 Unit/10 Ml Vial 10 Units SQ DAILY Midodrine Hcl (Midodrine) 5 Mg Tab 5 Mg PO TID 30 Days Please hold until 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 by 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 Norvasc (Amlodipine Besylate) 5 Mg Tab 5 Mg PO DAILY 30 Days Please use if systolic blood pressure greater than 140 Temazepam7.5 M1 7.5 Mg Cap 7.5 Mg PO HS PRN Lipitor 40 Mg Tab (Atorvastatin Calcium) 40 Mg Tab 40 Mg PO HS Neurontin (Gabapentin) 400 Mg Cap 400 Mg PO Q8HR Acidophilu1 1 Tab Tab 1 Tab PO Q12HR Xarelto 15 Mg T15 Mg 15 Mg Tab 15 Mg PO BIDPC Hydrocodone/Acetaminophen (Miscellaneous Medication) 1 Tab 1 Tab PO Q4H PRN Aspirin Low Str81 M3 81 Mg Chw 81 Mg CHEW DAILY Prograf5 M1 5 Mg Cap 5 Mg PO Q12HR Alphagan 0.2% (Brimonidine Tartrate) 5 Ml Soln 1 Drop RIGHT EYE HS Calcitriol 0.25 Mcg Cap 0.25 Mcg PO DAILY Vitamin D3 Super Strength (Cholecalciferol) 2,000 Unit Cap 2,000 Unit PO DAILY Protonix (Pantoprazole Sodium) 40 Mg Tabdr 40 Mg PO DAILY Deltasone 5 mg Tab (Prednisone) 5 Mg Tab 5 Mg PO DAILY Review of Systems Except as stated in HPI: all other systems reviewed are Neg General / Constitutional: No: Fever Eyes: No: Visual changes HENT: No: Headaches, Congestion Cardiovascular: No: Chest Pain or Discomfort, Dyspnea on exertion Respiratory: No: Cough, Shortness of Breath Gastrointestinal: Positive: Diarrhea, Abdominal Pain, Changes in Bowel Habits, No: Nausea, Vomiting, Hematemesis, Hematochezia, Constipation, Indigestion, Loss of Appetite Genitourinary: No: Dysuria Musculoskeletal: Positive: Pain (burning sensation of the right side of the body) Skin: Positive Other (burning sensation in the right side of the body), No Rash Neurologic: Positive: Tremor, No: Weakness, Focal Abnormalities, Slurred Speech, Sensory Disturbance Psychiatric: No: Depression Endocrine: No: Polydipsia Hematologic/Lymphatic: No: Easy Bruising Physical Exam Narrative General: The patient is a well-developed well-nourished male experiencing intermittent tremulousness involving the left upper extremity. Head and Neck exam: Head is normocephalic atraumatic. Eyes: The patient has an irregularly and of the right eye. The patient's left eye pupil is reactive to light. Nose: Midline septum with pink mucous membranes Mouth: Dentition unremarkable. Moist mucus membranes. Posterior oropharynx is not erythematous. No tonsillar hypertrophy. Uvula midline. Airway patent. Neck: No palpable lymphadenopathy. No nuchal rigidity. No thyromegaly. Cardiovascular: Regular rate and rhythm without murmurs, gallops, or rubs. Lungs: Clear to auscultation bilaterally. No wheezes, rhonchi, or rales. Abdomen: Soft, with tenderness on palpation of the right upper and right lower quadrant of the abdomen, no other tenderness on palpation of the midepigastric area, left upper or left lower quadrant of the abdomen. No guarding, rebound, or rigidity. Negative Manlius sign. No focal tenderness on palpation of McBurney' s point. Normal bowel sounds are audible. Extremities: No clubbing, cyanosis, or edema. The patient has a left ractz-kep-tjec amputation. The patient has 2+ pulses in bilateral upper extremities. The patient has a 2+ dorsalis pedis pulse in the right lower extremity. Back: No spinous process tenderness to palpation. Right-sided CVA tenderness on palpation. Neurologic Exam: Cranial nerves 2-12 were intact on exam. Strength is 5/5 in all 4 extremities. No sensory deficits noted. The patient is intermittently tremulous on examination worse on the left side of his body. Skin Exam: No rash noted. Intact skin that is warm and dry. Data Data Last Documented VS Vital Signs Date Time Temp Pulse Resp B/P Pulse Ox O2 Delivery O2 Flow Rate FiO2 10/27/16 07:00 69 19 210/100 97 Room Air 10/27/16 02:28 98.3 Orders Electrocardiogram (10/27/16 02:02) Complete Blood Count With Diff (10/27/16 02:02) Comprehensive Metabolic Panel (10/27/16 02:02) Creatine Kinase (Cpk) (10/27/16 02:02) Ckmb (Isoenzyme) Profile (10/27/16 02:02) Troponin I (10/27/16 02:02) B-Type Natriuretic Peptide (10/27/16 02:02) Prothrombin Time / Inr (Pt) (10/27/16 02:02) Act Partial Throm Time (Ptt) (10/27/16 02:02) Blood Culture (10/27/16 02:02) Lipase (10/27/16 02:02) Urinalysis - C+S If Indicated (10/27/16 02:02) Magnesium (Mg) (10/27/16 02:02) Ammonia (10/27/16 02:02) Thyroid Stimulating Hormone (10/27/16 02:02) Chest, Single Ap (10/27/16 02:02) Ct Brain W/O Iv Contrast(Rout) (10/27/16 02:02) Ct Abd/Pel W Iv Contrast(Rout) (10/27/16 02:02) Iv Access Insert/Monitor (10/27/16 02:02) Ecg Monitoring (10/27/16 02:02) Oximetry (10/27/16 02:02) Drug Screen, Random Urine (10/27/16 02:02) Alcohol (Ethanol) (10/27/16 02:02) Salicylates (Aspirin) (10/27/16 02:02) Tylenol (Acetaminophen) (10/27/16 02:02) Lactic Acid Sepsis Protocol (10/27/16 02:02) CKMB (10/27/16 03:40) CKMB% (10/27/16 03:40) Iohexol 350 Inj (Omnipaque 350 Inj) (10/27/16 05:51) Labs Laboratory Tests Test 10/27/16 10/27/16 10/27/16 02:10 02:25 03:40 White Blood Count 4.7 TH/MM3 Red Blood Count 6.03 MIL/MM3 Hemoglobin 15.3 GM/DL Hematocrit 47.5 % Mean Corpuscular Volume 78.8 FL Mean Corpuscular Hemoglobin 25.5 PG Mean Corpuscular Hemoglobin 32.3 % Concent Red Cell Distribution Width 16.3 % Platelet Count 171 TH/MM3 Mean Platelet Volume 9.6 FL Neutrophils (%) (Auto) 59.2 % Lymphocytes (%) (Auto) 25.5 % Monocytes (%) (Auto) 12.5 % Eosinophils (%) (Auto) 2.0 % Basophils (%) (Auto) 0.8 % Neutrophils # (Auto) 2.8 TH/MM3 Lymphocytes # (Auto) 1.2 TH/MM3 Monocytes # (Auto) 0.6 TH/MM3 Eosinophils # (Auto) 0.1 TH/MM3 Basophils # (Auto) 0.0 TH/MM3 CBC Comment DIFF FINAL Differential Comment Prothrombin Time 10.9 SEC Prothromb Time International 1.0 RATIO Ratio Activated Partial 25.9 SEC Thromboplast Time B-Type Natriuretic Peptide 75 PG/ML Salicylates Level LESS THAN 1.7 MG/DL Lactic Acid Level 0.8 mmol/L Sodium Level 143 MEQ/L Potassium Level 4.0 MEQ/L Chloride Level 105 MEQ/L Carbon Dioxide Level 27.4 MEQ/L Anion Gap 11 MEQ/L Blood Urea Nitrogen 28 MG/DL Creatinine 1.31 MG/DL Estimat Glomerular Filtration 68 ML/MIN Rate Random Glucose 135 MG/DL Calcium Level 8.8 MG/DL Magnesium Level 2.0 MG/DL Total Bilirubin 0.8 MG/DL Aspartate Amino Transf 43 U/L (AST/SGOT) Alanine Aminotransferase 30 U/L (ALT/SGPT) Alkaline Phosphatase 114 U/L Ammonia 21 MCMOL/L Total Creatine Kinase 203 U/L Creatine Kinase MB 1.5 NG/ML Troponin I LESS THAN 0.02 NG/ML Total Protein 7.0 GM/DL Albumin 3.2 GM/DL Lipase 312 U/L Thyroid Stimulating Hormone 1.310 uIU/ML 3rd Gen Acetaminophen Level LESS THAN 2.0 MCG/ML Ethyl Alcohol Level LESS THAN 3 MG/DL MDM Medical Decision Making Medical Screen Exam Complete: Yes Emergency Medical Condition: Yes Medical Record Reviewed: Yes Interpretation(s) Last Impressions Head CT 10/27/16201 Signed Impressions: Service Date/Time: Thursday, October 27, 2016 05:39 - CONCLUSION: No acute disease. Beka Delacruz Jr., MD Chest X-Ray 10/27/16201 Signed Impressions: Service Date/Time: Thursday, October 27, 2016 02:29 - CONCLUSION: No acute infiltrate. Hyperinflation suggesting COPD. Beka Delacruz Jr., MD Abdomen/Pelvis CT 10/27/16201 Signed Impressions: Service Date/Time: Thursday, October 27, 2016 05:42 - CONCLUSION: 1. No acute on amounting. 2. Diverticulosis of the colon. 3. Right renal transplant. 4. 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 Beka Delacruz Jr., MD Differential Diagnosis Neuropathy, versus skin infection, versus intra-abdominal process such as acute cholecystitis, versus colitis, versus appendicitis, versus malingering, versus somatization Narrative Course During the course of the patients emergency department visit, the patients history, examination, and differential diagnosis were reviewed with the patient. The patient had IV access obtained and blood work sent for analysis. The patient was placed on a lunchroom monitor with oximetry and blood pressure monitoring. An EKG was done on arrival. The patient was noted to have a sinus rhythm heart rate is 71, no acute ST segment elevation or depression. The patients laboratory studies were reviewed and remarkable for a white count of 4.7, hemoglobin 15.3, platelets 171 with 12.5 monocytes , CMP is remarkable for BUN of 28, creatinine 1.31, glucose 135, lactic acid 0.8, AST 43, CPK 203, troponin I less than 0.02, ammonia level is 21, albumin 3.2, TSH 1.3, lipase 312 , PT PTT unremarkable. Salicylate less than 1.7, acetaminophen less than 2, alcohol level less than 3. Radiology studies were reviewed and remarkable for a chest x-ray that shows no acute abnormality, COPD changes are noted. CT scan of the brain showed no acute abnormality. CT scan of the abdomen and pelvis showed no acute abnormality. Diverticulosis is noted. We did discuss the possibility that the burning sensations on the right side of his body could be related to a neuropathy. I recommended that he have close follow-up with his primary care doctor to discuss this further. We did discuss that there are medications that can help with nerve related pain if the symptoms continue. The patient is resting comfortably and feels better, is alert and in no distress. The patients results and examination findings were discussed with the patient. The repeat examination is unremarkable and benign. The history, exam, diagnostic testing, and current condition do not suggest any significant pathology to warrant further testing, continued ED treatment, admission, or surgical evaluation at this point. The vital signs have been stable. The patient does not have uncontrollable pain, intractable vomiting, or other significant symptoms. The patient's condition is stable and appropriate for discharge. The patient will pursue further outpatient evaluation with a primary care physician or other designated or consulting physician as indicated in the discharge instructions. The patient expressed understanding and was agreeable with this plan. Diagnosis Primary Impression: Abdominal pain Qualified Code: R10.11 - Right upper quadrant abdominal pain Additional Impressions: Tremulousness Burning sensation Referrals: Primary Care Physician 2 days Patient Instructions: Abdominal Pain (ED), General Instructions Med/Other Pt SpecificInfo: No Change to Meds Disposition: 01 DISCHARGE HOME Condition: Stable Emma Swan MD October 27, 2016 02:12
[2016-10-27 02:28] VITALS: BP 182/104; PULSE 87; RESP 20; TEMP 98.3; O2SAT 98
[2016-10-27 02:37] LABS: AUTOMATED NEUTROPHIL # 2.8 TH/MM3 (1.8-7.7); BASOPHIL % 0.8 % (0.0-2.0); EOSINOPHIL # 0.1 TH/MM3 (0-0.4); HEMATOCRIT 47.5 % (39.0-51.0); HEMO FLAGS DIFF FINAL; LYMPH % 25.5 % (9.0-44.0); LYMPHOCYTE # 1.2 TH/MM3 (1.0-4.8); MEAN CELL VOLUME 78.8 FL (80.0-100.0); MEAN CORPUSCULAR HEMOGLOBIN 25.5 PG (27.0-34.0); MEAN CORPUSCULAR HGB CONC 32.3 % (32.0-36.0); MONO % 12.5 % (0.0-8.0); NEUT % 59.2 % (16.0-70.0); PLATELET COUNT 171 TH/MM3 (150-450); RED BLOOD COUNT 6.03 MIL/MM3 (4.50-5.90); RED CELL DISTRIBUTION WIDTH 16.3 % (11.6-17.2); WHITE BLOOD COUNT 4.7 TH/MM3 (4.0-11.0)
--- NOTE | 2016-10-27 02:47 | RADRPT ---
EXAM DATE/TIME: 10/27/2016 02:29 [facility] COMPARISON: CHEST SINGLE AP, March 15, 2016, 21:01. INDICATIONS : Cough. MEDICAL HISTORY : Cardiovascular disease. Hypertension Hepatitis C. SURGICAL HISTORY : None. ENCOUNTER: Initial ACUITY: 1 day PAIN SCORE: 4/10 LOCATION: Bilateral chest FINDINGS: A single portable frontal view the chest show lungs to be hyperinflated. No infiltrate or effusion. H eart is mildly enlarged. Bony structures are unremarkable. CONCLUSION: No acute infiltrate. Hyperinflation suggesting COPD. Beka Delacruz Jr., MD on October 27, 2016 at 2:45 Board Certified Radiologist. This report was verified electronically.
[2016-10-27 02:48] LABS: APTT (PATIENT) 25.9 SEC (24.3-30.1); PROTHROMBIN TIME - PATIENT 10.9 SEC (9.8-11.6)
[2016-10-27 04:36] VITALS: BP 190/102; PULSE 68; RESP 18; O2SAT 99
[2016-10-27 05:17] LABS: ANION GAP 11 MEQ/L (5-15); AST (GOT) 43 U/L (15-37); BICARBONATE 27.4 MEQ/L (21.0-32.0); BLOOD UREA NITROGEN 28 MG/DL (7-18); CHLORIDE 105 MEQ/L (98-107); GLOMERULAR FILTRATION RATE 68 ML/MIN (>89); SODIUM (NA) 143 MEQ/L (136-145)
[2016-10-27 05:23] LABS: ACETAMINOPHEN LESS THAN 2.0 MCG/ML (10.0-30.0); ALKALINE PHOSPHATASE 114 U/L (45-117); ALT (GPT) 30 U/L (12-78); CREATINE KINASE 203 U/L (39-308); TOTAL BILIRUBIN ADULT 0.8 MG/DL (0.2-1.0)
[2016-10-27 05:35] LABS: CKMB 1.5 NG/ML (0.5-3.6)
[2016-10-27] MEDS ORDERED: IOHEXOL 350 MG/ML 10 ML VIAL (for RAD DIAG) IV ONE (05:51)
--- NOTE | 2016-10-27 06:26 | RADRPT ---
EXAM DATE/TIME: 10/27/2016 05:39 [facility] COMPARISON: CT BRAIN W/O CONTRAST, June 25, 2016, 14:17. INDICATIONS : Fever with altered mental status. RADIATION DOSE: 45.85 CTDIvol (mGy) MEDICAL HISTORY : Cardiovascular disease. Hypertension. Chronic obstructive pulmonary disease.Hep C DVT Diabetes SURGICAL HISTORY : Right kidney transplant ENCOUNTER: Initial ACUITY: 1 day PAIN SCALE: 0/10 LOCATION: cranial TECHNIQUE: Multiple contiguous axial images were obtained of the head. Using automated exposure control and adj ustment of the mA and/or kV according to patient size, radiation dose was kept as low as reasonably a chievable to obtain optimal diagnostic quality images. FINDINGS: CEREBRUM: The ventricles are normal for age. No evidence of midline shift, mass lesion, hemorrhage or acute in farction. No extra-axial fluid collections are seen. POSTERIOR FOSSA: The cerebellum and brainstem are intact. The 4th ventricle is midline. The cerebellopontine angle i s unremarkable. EXTRACRANIAL: The right globe is small. Left lobe is unremarkable. SKULL: The calvaria is intact. No evidence of skull fracture. CONCLUSION: No acute disease. Beka Delacruz Jr., MD on October 27, 2016 at 6:24 Board Certified Radiologist. This report was verified electronically.
--- NOTE | 2016-10-27 06:31 | RADRPT ---
EXAM DATE/TIME: 10/27/2016 05:42 [facility] COMPARISON: CT ABDOMEN & PELVIS W CONTRAST, January 08, 2013, 2:34. INDICATIONS : Right upper and lower qaudrant pain. IV CONTRAST: 90 cc Omnipaque 350 (iohexol) IV ORAL CONTRAST: No oral contrast ingested. RADIATION DOSE: 4.71 CTDIvol (mGy) MEDICAL HISTORY : Cardiovascular disease. Hypertension. Chronic obstructive pulmonary disease.Hep C DVT Diabetes SURGICAL HISTORY : Right kidney transplant ENCOUNTER: Initial ACUITY: 1 day PAIN SCALE: 6/10 LOCATION: Right upper quadrant lower qaudrant TECHNIQUE: Volumetric scanning of the abdomen and pelvis was performed. Using automated exposure control and ad justment of the mA and/or kV according to patient size, radiation dose was kept as low as reasonably achievable to obtain optimal diagnostic quality images. FINDINGS: LOWER LUNGS: Mild cardiomegaly without effusion. Coronary artery atherosclerotic calcifications. Clear lung bases. LIVER: Homogeneous density without lesion. There is no dilation of the biliary tree. No calcified gallston es. SPLEEN: Normal size without lesion. PANCREAS: Within normal limits. KIDNEYS: The [place] kidneys are atrophic. There is a right lower quadrant renal transplant. No hydronephrosis. The transplant enhances normally with contrast. ADRENAL GLANDS: Within normal limits. VASCULAR: There is no aortic aneurysm. There is occlusion of the left superficial femoral artery within its pro ximal extent. BOWEL/MESENTERY: The stomach, small bowel, and colon demonstrate no acute abnormality. There is no free intraperitone al air or fluid. Diffuse colon diverticulosis without acute inflammation. ABDOMINAL WALL: Within normal limits. RETROPERITONEUM: There is no lymphadenopathy. BLADDER: No wall thickening or mass. REPRODUCTIVE: Within normal limits. INGUINAL: There is no lymphadenopathy or hernia. MUSCULOSKELETAL: Within normal limits for patient age. CONCLUSION: 1. No acute on amounting. 2. Diverticulosis of the colon. 3. Right renal transplant. 4. 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 Beka Delacruz Jr., MD on October 27, 2016 at 6:25 Board Certified Radiologist. This report was verified electronically.
[2016-10-27 07:00] VITALS: BP 210/100; PULSE 69; RESP 19; O2SAT 97
--- NOTE | 2016-10-27 19:44 | EKG ---
Date Performed: 10/27/2016 Time Performed: 01:31:44 PTAGE: 61 years EKG: Sinus rhythm ANTEROSEPTAL Q WAVES Compared to prior tracing no significant change DOCTOR: Jasmine Arboleda Interpretating Date/Time 10/27/2016 19:42:44
== END 2016-10-27 07:45 | disposition home or self-care (01) ==
LOC: NEPE 01:36
DX: R10.11 Right upper quadrant pain (principal); R25.1 Tremor, unspecified; R20.8 Other disturbances of skin sensation; R05 Cough; I25.10 Atherosclerotic heart disease of native coronary artery without angina pectoris; B19.20 Unspecified viral hepatitis C without hepatic coma; J44.9 Chronic obstructive pulmonary disease, unspecified; E11.22 Type 2 diabetes mellitus with diabetic chronic kidney disease; I12.0 Hypertensive chronic kidney disease with stage 5 chronic kidney disease or end stage renal disease; N18.6 End stage renal disease; Z79.4 Long term (current) use of insulin; Z79.899 Other long term (current) drug therapy; Z87.891 Personal history of nicotine dependence; Z94.0 Kidney transplant status
CPT/HCPCS: 70450; 71010; 74177; 80053; 80307; 82140; 82550; 82552; 83605; 83690; 83735; 83880; 84443; 84484; 85025; 85610; 85730; 87040; 93005; 99285; Q9967

== ENCOUNTER 2017-02-03 14:05 | Observation (INO) | payer OTHER ==
[~2017-02-03] VITALS: Ht 165.1 cm; Wt 56.3 kg
[2017-02-03] VITALS (7 sets, daily range): BP systolic 114–170; BP diastolic 68–97; PULSE 66–69; RESP 16; TEMP 97.1–99.1; O2SAT 97–100
[2017-02-03] MEDS ORDERED: SODIUM CHLOR 0.9% 1000 ML INJ 1,000 ML IV ONE (14:18)
--- NOTE | 2017-02-03 14:22 | PD ---
HPI Chief Complaint: General Weakness Time Seen by Provider: 14:18 Travel History International Travel<30 days: No Contact w/Intl Traveler<30days: No Traveled to known affect area: No History of Present Illness HPI 61-year-old male with history of diabetes, hypertension, high cholesterol, right eye blindness, glaucoma, renal transplant, currently on tacrolimus, status post left AKA, multiple medical issues, presents to the ER today for 1 week history of general weakness, frequent urination, and was found by EMS on the side of the road appearing fairly tired and initially was disoriented. However, he is awake and oriented here in the ER. He denies any recent vomiting , fevers, chest pains, shortness of breath, or any other symptoms. Modifying Factors: None Associated Signs & Symptoms: General weakness, frequent urination, lethargy Risk Factors: Diabetic, multiple medical issues PFSH Past Medical History Hx Anticoagulant Therapy: Yes Arthritis: Yes Asthma: No Autoimmune Disease: No Blood Disorders: No Anxiety: No Depression: Yes Heart Rhythm Problems: No Cancer: No Cardiac Catheterization: Yes Cardiovascular Problems: Yes High Cholesterol: Yes Chemotherapy: No Chest Pain: Yes Congestive Heart Failure: No COPD: Yes Cerebrovascular Accident: No Coronary Artery Disease: Yes Diabetes: Yes Patient Takes Glucophage: No Dialysis: Yes (STOPPED DIALYSIS ON 05/18/2013) Diminished Hearing: No Endocrine: Yes Gastrointestinal Disorders: Yes (Hepatitis C) GERD: No Glaucoma: Yes (NO SIGHT RT EYE) Genitourinary: Yes (RIGHT KIDNEY TRANSPLANT) Headaches: Yes Hepatitis: Yes (HEPATITIS C) Hiatal Hernia: No Hypertension: Yes Immune Disorder: No Implanted Vascular Access Dvce: Yes (AV FISTULA) Kidney Stones: No Medical other: Yes Musculoskeletal: Yes (LEFT BKA 2005) Neurologic: Yes Psychiatric: No Reproductive: No Respiratory: Yes Immunizations Current: Yes Migraines: No Radiation Therapy: No Renal Failure: Yes (KIDNEY TRANSPLANT) Seizures: No Sickle Cell Disease: No Sleep Apnea: No Thyroid Disease: No Ulcer: Yes Tetanus Vaccination: Unknown Past Surgical History Abdominal Surgery: No AICD: No Arteriovenous Shunt: Yes (NOT IN USE, LEFT AV SHUNT) Body Medical Devices: CARDIAC STENT Cardiac Surgery: Yes (cardiac stenting) Coronary Stent: Yes Ear Surgery: No Endocrine Surgery: No Eye Surgery: Yes (r eye removed due to glaucoma) Genitourinary Surgery: Yes (MAY 17, 2013 - RIGHT KIDNEY TRANSPLANT) Gynecologic Surgery: No Hysterectomy: No Insulin Pump: No Joint Replacement: No Neurologic Surgery: No Oral Surgery: No Pacemaker: No Thoracic Surgery: No Other Surgery: Yes (cysy on back, LBKA, OD enuceation, kidney transplant) Social History Alcohol Use: No Tobacco Use: No (STATES HE QUIT 2006) Substance Use: No Allergies-Medications (Allergen,Severity, Reaction): Coded Allergies: No Known Allergies (Unverified , 10/27/16) Reported Meds & Prescriptions Reported Meds & Active Scripts Active Oxycodone (Oxycodone HCl) 5 Mg Tab 5 Mg PO Q4H PRN Novolog Mix 70-30 Inj (Insulin Aspart Prota 70%/Aspart 30%) 1,000 Unit/10 Ml Vial 10 Units SQ DAILY Reported Systane (Eyelid Cleanser Combination #9) 1 Each Towelette 1 Drop LEFT EYE BID Combigan Opth Drops (Brimonidine-Timolol Opth Drops) 0.2-0.5% Soln 1 Drop LEFT EYE TID Vitamin D (Cholecalciferol) 2,000 Unit Cap 1 Cap PO DAILY Flomax (Tamsulosin HCl) 0.4 Mg Cap 0.4 Mg PO HS Furosemide 40 Mg Tab 40 Mg PO DAILY Atorvastatin (Atorvastatin Calcium) 40 Mg Tab 40 Mg PO HS Calcitriol 0.25 Mcg Cap 0.25 Mcg PO DAILY Aspirin 81 (Aspirin) 81 Mg Tabdr 81 Mg PO DAILY Metoprolol Tartrate 100 Mg Tab 100 Mg PO BID Pantoprazole (Pantoprazole Sodium) 40 Mg Tab 40 Mg PO DAILY Gabapentin 400 Mg Cap 400 Cap PO TID Prednisone 5 Mg Tab 5 Mg PO DAILY Tacrolimus 1 Mg Cap 5 Mg PO Q12H Review of Systems Except as stated in HPI: all other systems reviewed are Neg Physical Exam Narrative GENERAL: Well-developed elderly -Italian male patient currently in mild distress, tired appearing. Awake and oriented 3. SKIN: Focused skin assessment warm/dry. HEAD: Atraumatic. Normocephalic. EYES: Right eye blindness. Left Pupil equal and round. No scleral icterus. No injection or drainage. ENT: No nasal bleeding or discharge. Mucous membranes pink and moist. NECK: Trachea midline. No JVD. CARDIOVASCULAR: Regular rate and rhythm. No murmur appreciated. RESPIRATORY: No accessory muscle use. Clear to auscultation. Breath sounds equal bilaterally. GASTROINTESTINAL: Abdomen soft, non-tender, nondistended. Hepatic and splenic margins not palpable. MUSCULOSKELETAL: No obvious deformities. No clubbing. No cyanosis. No edema. Left leg AKA. NEUROLOGICAL: Awake and alert. No obvious cranial nerve deficits. Motor grossly within normal limits. Normal speech. PSYCHIATRIC: Appropriate mood and affect; insight and judgment normal. Data Data Last Documented VS Vital Signs Date Time Temp Pulse Resp B/P Pulse Ox O2 Delivery O2 Flow Rate FiO2 02/03/17 15:21 99 02/03/17 14:15 69 16 02/03/17 14:11 99.1 114/68 Orders Electrocardiogram (02/03/17 14:18) Complete Blood Count With Diff (02/03/17 14:18) Comprehensive Metabolic Panel (02/03/17 14:18) Magnesium (Mg) (02/03/17 14:18) Ckmb (Isoenzyme) Profile (02/03/17 14:18) Troponin I (02/03/17 14:18) Act Partial Throm Time (Ptt) (02/03/17 14:18) Prothrombin Time / Inr (Pt) (02/03/17 14:18) Urinalysis - C+S If Indicated (02/03/17 14:18) Chest, Single Ap (02/03/17 14:18) Ecg Monitoring (02/03/17 14:18) Iv Access Insert/Monitor (02/03/17 14:18) Oximetry (02/03/17 14:18) Sodium Chloride 0.9% Flush (Ns Flush) (02/03/17 14:30) Sodium Chlor 0.9% 1000 Ml Inj (Ns 1000 M (02/03/17 14:18) Lactic Acid Sepsis Protocol (02/03/17 14:18) Blood Culture (02/03/17 14:18) Lorazepam Inj (Ativan Inj) (02/03/17 15:06) Lorazepam Inj (Ativan Inj) (02/03/17 15:09) Lorazepam Inj (Ativan Inj) (02/03/17 16:30) Lorazepam Inj (Ativan Inj) (02/03/17 16:30) Insulin Human Regular Inj (Novolin R Inj (02/03/17 16:45) Tacrolimus ([id number]) Prograf (02/03/17 16:38) Labs Laboratory Tests Test 02/03/17 15:00 White Blood Count 5.3 TH/MM3 Red Blood Count 6.78 MIL/MM3 Hemoglobin 16.6 GM/DL Hematocrit 54.8 % Mean Corpuscular Volume 80.9 FL Mean Corpuscular Hemoglobin 24.5 PG Mean Corpuscular Hemoglobin 30.2 % Concent Red Cell Distribution Width 15.2 % Platelet Count 246 TH/MM3 Mean Platelet Volume 11.8 FL Neutrophils (%) (Auto) 78.6 % Lymphocytes (%) (Auto) 12.8 % Monocytes (%) (Auto) 7.6 % Eosinophils (%) (Auto) 0.6 % Basophils (%) (Auto) 0.4 % Neutrophils # (Auto) 4.2 TH/MM3 Lymphocytes # (Auto) 0.7 TH/MM3 Monocytes # (Auto) 0.4 TH/MM3 Eosinophils # (Auto) 0.0 TH/MM3 Basophils # (Auto) 0.0 TH/MM3 CBC Comment AUTO DIFF Prothrombin Time 11.5 SEC Prothromb Time International 1.0 RATIO Ratio Activated Partial 26.0 SEC Thromboplast Time Sodium Level 133 MEQ/L Potassium Level 4.3 MEQ/L Chloride Level 97 MEQ/L Carbon Dioxide Level 24.6 MEQ/L Anion Gap 11 MEQ/L Blood Urea Nitrogen 43 MG/DL Creatinine 1.90 MG/DL Estimat Glomerular Filtration 44 ML/MIN Rate Random Glucose 530 MG/DL Lactic Acid Level 1.4 mmol/L Calcium Level 9.6 MG/DL Magnesium Level 1.8 MG/DL Total Bilirubin 1.2 MG/DL Aspartate Amino Transf 18 U/L (AST/SGOT) Alanine Aminotransferase 25 U/L (ALT/SGPT) Alkaline Phosphatase 118 U/L Total Creatine Kinase 51 U/L Troponin I 0.03 NG/ML Total Protein 7.3 GM/DL Albumin 3.2 GM/DL [facility] Medical Decision Making Medical Screen Exam Complete: Yes Emergency Medical Condition: Yes Medical Record Reviewed: Yes Interpretation(s) Initial EKG shows sinus rhythm at a rate of 67 bpm with LVH. Last 24 hours Impressions Chest X-Ray 02/03/17 2898 Signed Impressions: Service Date/Time: January 14:25 - CONCLUSION: No acute disease. Luke Zepeda MD Laboratory Tests Test 02/03/17 15:00 Red Blood Count 6.78 MIL/MM3 (4.50-5.90) Hematocrit 54.8 % (39.0-51.0) Mean Corpuscular Hemoglobin 24.5 PG (27.0-34.0) Mean Corpuscular Hemoglobin 30.2 % Concent (32.0-36.0) Mean Platelet Volume 11.8 FL (7.0-11.0) Neutrophils (%) (Auto) 78.6 % (16.0-70.0) Lymphocytes # (Auto) 0.7 TH/MM3 (1.0-4.8) Sodium Level 133 MEQ/L (136-145) Chloride Level 97 MEQ/L (98-107) Blood Urea Nitrogen 43 MG/DL (7-18) Creatinine 1.90 MG/DL (0.60-1.30) Estimat Glomerular Filtration 44 ML/MIN (>89) Rate Random Glucose 530 MG/DL (74-106) Total Bilirubin 1.2 MG/DL (0.2-1.0) Alkaline Phosphatase 118 U/L (45-117) Albumin 3.2 GM/DL (3.4-5.0) Differential Diagnosis Dehydration versus hyperglycemia versus DKA versus sepsis versus metabolic issues versus heat exhaustion versus UTI Narrative Course While in the ER, patient has a generalized seizure but is atypical and that the patient is able to respond to direction and speaks a few words. He was given 2 doses of 2 mg Ativan with resolution a seizure. Lab work shows elevated BUN and creatinine of bit above baseline concerning for underlying dehydration. His blood pressure was low and IV fluids had been given in the ER. At this point, my plan would be to admit him for further evaluation and treatment. Case was discussed with Dr. Mendez for admission. Diagnosis Primary Impression: Seizure Additional Impressions: Hyperglycemia due to type 1 diabetes mellitus Dehydration Admitting Information Admitting Physician Requests: Admit Keena Stewart MD Feb 03, 2017 14:22
[2017-02-03] MEDS ORDERED: PANT40TA3 PO (14:27)
[2017-02-03] MEDS ORDERED: EYELPAD2 LEFT EYE (14:27)
[2017-02-03] MEDS ORDERED: ASPI-110 PO (14:27)
[2017-02-03] MEDS ORDERED: FURO40TA PO (14:27)
[2017-02-03] MEDS ORDERED: VITA200013 PO (14:27)
[2017-02-03] MEDS ORDERED: ATOR40TA16 PO (14:27)
[2017-02-03] MEDS ORDERED: PRED5TAB PO (14:27)
[2017-02-03] MEDS ORDERED: TACR1CAP PO (14:27)
[2017-02-03] MEDS ORDERED: TAMS5CAP PO (14:27)
[2017-02-03] MEDS ORDERED: GABA400C5 PO (14:27)
[2017-02-03] MEDS ORDERED: METO100T PO (14:27)
[2017-02-03] MEDS ORDERED: CALC0.25 PO (14:27)
[2017-02-03] MEDS ORDERED: COMB0.2S LEFT EYE (14:27)
[2017-02-03] MEDS ORDERED: SODIUM CHLORIDE 0.9% FLUSH 10 ML FLUSH IVF PRN (14:30)
--- NOTE | 2017-02-03 14:50 | RADRPT ---
EXAM DATE/TIME: 02/03/2017 14:25 [facility] COMPARISON: CHEST SINGLE AP, October 27, 2016, 2:29. INDICATIONS : Chest pain, weakness. MEDICAL HISTORY : Hypertension. Hypercholesterolemia. Hepatitis C. CAD. COPD. DVT. PVD. Diabetic. SURGICAL HISTORY : Cardiac stents. AV shunt. Left nephrectomy. Right kidney transplant. Left BKA. ENCOUNTER: Initial ACUITY: 1 day PAIN SCORE: 7/10 LOCATION: chest FINDINGS: A single view of the chest demonstrates the lungs to be symmetrically aerated without evidence of mas s, infiltrate or effusion. The cardiomediastinal contours are unremarkable. Osseous structures are intact. CONCLUSION: No acute disease. Luke Zepeda MD on February 03, 2017 at 14:48 Board Certified Radiologist. This report was verified electronically.
[2017-02-03] MEDS ORDERED: LORazepam 2 MG/ML VIAL ONE ×2 (15:06→15:09)
[2017-02-03 15:30] LABS: AUTOMATED NEUTROPHIL # 4.2 TH/MM3 (1.8-7.7); BASOPHIL % 0.4 % (0.0-2.0); CHLORIDE 97 MEQ/L (98-107); EOSINOPHIL % 0.6 % (0.0-4.0); HEMATOCRIT 54.8 % (39.0-51.0); LYMPH % 12.8 % (9.0-44.0); LYMPHOCYTE # 0.7 TH/MM3 (1.0-4.8); MEAN CELL VOLUME 80.9 FL (80.0-100.0); MEAN CORPUSCULAR HEMOGLOBIN 24.5 PG (27.0-34.0); MEAN CORPUSCULAR HGB CONC 30.2 % (32.0-36.0); MONO % 7.6 % (0.0-8.0); NEUT % 78.6 % (16.0-70.0); PLATELET COUNT 246 TH/MM3 (150-450); POTASSIUM 4.3 MEQ/L (3.5-5.1); RED BLOOD COUNT 6.78 MIL/MM3 (4.50-5.90); RED CELL DISTRIBUTION WIDTH 15.2 % (11.6-17.2); SODIUM (NA) 133 MEQ/L (136-145); WHITE BLOOD COUNT 5.3 TH/MM3 (4.0-11.0)
[2017-02-03 15:34] LABS: ANION GAP 11 MEQ/L (5-15); BICARBONATE 24.6 MEQ/L (21.0-32.0); BLOOD UREA NITROGEN 43 MG/DL (7-18); MAGNESIUM 1.8 MG/DL (1.5-2.5)
[2017-02-03 15:36] LABS: PROTHROMBIN TIME - PATIENT 11.5 SEC (9.8-11.6)
[2017-02-03 15:37] LABS: ALT (GPT) 25 U/L (12-78); AST (GOT) 18 U/L (15-37); GLOMERULAR FILTRATION RATE 44 ML/MIN (>89)
[2017-02-03 15:39] LABS: TOTAL BILIRUBIN ADULT 1.2 MG/DL (0.2-1.0)
[2017-02-03 15:48] LABS: HEMO FLAGS AUTO DIFF
[2017-02-03 16:25] LABS: ALKALINE PHOSPHATASE 118 U/L (45-117)
[2017-02-03 16:26] LABS: CREATINE KINASE 51 U/L (39-308)
[2017-02-03] MEDS ORDERED: LORazepam 2 MG/ML VIAL IV PUSH ONE ×2 (16:30)
[2017-02-03] MEDS ORDERED: INSULIN HUMAN REGULAR 1,000 UNITS/10 ML VIAL IV PUSH ONE (16:45)
[2017-02-03 16:57] LABS: SCAN/DIFF AUTO DIFF CONFIRMED
[2017-02-03] MEDS ORDERED: DEXTROSE 50% IN WATER 50 ML VIAL(D50) IV PRN (17:15)
[2017-02-03] MEDS ORDERED: ONDANSETRON HCL 4 MG/2 ML VIAL IVP PRN (17:15)
[2017-02-03] MEDS ORDERED: SODIUM CHLORIDE 0.9% FLUSH 10 ML FLUSH IV FLUSH PRN (17:15)
[2017-02-03] MEDS ORDERED: NALOXONE HCL 0.4 MG/ML AMP IV PRN (17:15)
[2017-02-03] MEDS ORDERED: GLUCAGON 1 MG/ML VIAL OTHER PRN (17:15)
[2017-02-03] MEDS ORDERED: SENNOSIDES 8.6 MG TAB PO PRN (17:15)
[2017-02-03] MEDS ORDERED: ACETAMINOPHEN 325 MG TAB PO PRN (17:15)
[2017-02-03] MEDS ORDERED: MAGNESIUM HYDROXIDE SUSP 30 ML CUP PO PRN (17:15)
[2017-02-03] MEDS ORDERED: LACTULOSE SYRUP 20 GM/30 ML CUP PO PRN (17:15)
[2017-02-03] MEDS ORDERED: BISACODYL 10 MG SUPP RECTAL PRN (17:15)
--- NOTE | 2017-02-03 17:21 | HHI.HP ---
[facility] Service [facility] Primary Care Physician Matt Monet MD Admission Diagnosis dehydration/altered mental status/seizures Diagnoses: (1) Uncontrolled diabetes mellitus Diagnosis: Principal (2) Metabolic encephalopathy Diagnosis: Principal (3) Seizure-like activity Diagnosis: Principal (4) Acute on chronic kidney disease, stage 3 Diagnosis: Principal Chief Complaint: Brought in by EMS because of found on roadside feel tired and is orientated Travel History International Travel<30 Days: No Contact w/Intl Traveler <30 Da: No Traveled to Known Affected Are: No History of Present Illness Written by Nima Mg, acting as scribe for Dr. Mendez on 02/03/17 at 17: 06. 61-year-old male who has known the hospital from multiple admissions with rather complex medical history of hypertension, hyperlipidemia, coronary artery disease, diabetes, blindness right eye, left below the knee amputation, chronic kidney disease status post transplantation who was brought to the hospital by EMS because he was found on the roadside fairly tired and this orientated. Was unable to obtain any information from the patient at bedside secondary to patient given 4 mg of Ativan due to seizure-like activity. Information was taken from ER physician and medical records. ER physician indicated that the patient was brought in by EMS and patient had questionable seizure-like activity however the patient was responding and following commands during this activity, however patient was given Ativan 2 mg 2 for the activity. Patient had workup done which did indicate worsening of his renal functions. Laboratory studies do indicate elevated glucose in which ER physician stated that the patient did not take his insulin this morning. No obvious signs of infection have been found. ER physician is recommending that the patient be observed in the hospital for further workup and recommendations. Review of Systems ROS Limitations: Clinical Condition Past Family Social History Past Medical History Unable to obtain any information from the patient, information taken from medical records Hypertension Hyperlipidemia Diabetes Coronary artery disease History coronary stent placement Right eye blindness Status post kidney transplant in April 2013 for the indication of end-stage renal disease History of hepatitis C exposure Chronic anemia Hyperparathyroidism Peripheral vascular disease History of glaucoma History of depression History of COPD Past Surgical History Unable to obtain information with the patient, information taken from medical records Right eye surgery Left below the knee amputation Kidney transplant AV fistula Allergies: Coded Allergies: No Known Allergies (Unverified , 10/27/16) Family History Unable to obtain any information from the patient, information taken from medical records Reviewed is significant for diabetes Social History Unable to obtain any information from the patient, information taken from medical records Patient states that he quit smoking in 2005, prior to that he smoked a pack of cigarettes a day since he was 19 years old. Patient states that he quit drinking alcohol in 2005, patient states that he quit using crack cocaine in 2005. Physical Exam Vital Signs Vital Signs Date Time Temp Pulse Resp B/P Pulse Ox O2 Delivery O2 Flow Rate FiO2 02/03/17 15:21 99 02/03/17 14:15 69 16 97 02/03/17 14:11 99.1 69 16 114/68 97 Physical Exam GENERAL: Well-developed, well-nourished, in no acute distress. Patient is difficult to arouse, unknown whether due to encephalopathy or medication effect. Unable to obtain orientation HEENT: Head is normocephalic without any lesions or masses noted. Facial features are symmetric. Eyes: Right eye is enucleated, left thigh appears to be bulging and injected. NECK: Supple without any masses. Trachea midline no deviation. No JVD, no bruits are appreciated CARDIAC: Regular rhythm, regular rate. S1/S2 are heard. 2/6 aortic murmur, no gallops or rubs. LUNGS: Clear to auscultation bilaterally. No wheeze, rhonchi or rales. No use of accessory muscles on inspiration or expiration. ABDOMEN: Soft, nontender. Nondistended. Bowel sounds heard in all 4 quadrants. No organomegaly or masses. Negative rebound, negative guarding. Patient wearing diaper which appears to be wet with urine, however no stool noted EXTREMITIES: No edema, pulses are equal bilaterally. No cyanosis or clubbing. Left [id number] amputation, right foot second digit amputation NEUROLOGY: Unable to ascertain mood and affect. Unable to obtain cranial nerves. Patient with altered mentation likely secondary to medication effect Laboratory Laboratory Tests Test 02/03/17 15:00 White Blood Count 5.3 Red Blood Count 6.78 Hemoglobin 16.6 Hematocrit 54.8 Mean Corpuscular Volume 80.9 Mean Corpuscular Hemoglobin 24.5 Mean Corpuscular Hemoglobin 30.2 Concent Red Cell Distribution Width 15.2 Platelet Count 246 Mean Platelet Volume 11.8 Neutrophils (%) (Auto) 78.6 Lymphocytes (%) (Auto) 12.8 Monocytes (%) (Auto) 7.6 Eosinophils (%) (Auto) 0.6 Basophils (%) (Auto) 0.4 Neutrophils # (Auto) 4.2 Lymphocytes # (Auto) 0.7 Monocytes # (Auto) 0.4 Eosinophils # (Auto) 0.0 Basophils # (Auto) 0.0 CBC Comment AUTO DIFF Differential Comment AUTO DIFF CONFIRMED Prothrombin Time 11.5 Prothromb Time International 1.0 Ratio Activated Partial 26.0 Thromboplast Time Sodium Level 133 Potassium Level 4.3 Chloride Level 97 Carbon Dioxide Level 24.6 Anion Gap 11 Blood Urea Nitrogen 43 Creatinine 1.90 Estimat Glomerular Filtration 44 Rate Random Glucose 530 Lactic Acid Level 1.4 Calcium Level 9.6 Magnesium Level 1.8 Total Bilirubin 1.2 Aspartate Amino Transf 18 (AST/SGOT) Alanine Aminotransferase 25 (ALT/SGPT) Alkaline Phosphatase 118 Total Creatine Kinase 51 Troponin I 0.03 Total Protein 7.3 Albumin 3.2 Date/Time Procedure Status Source Growth 02/03/17 15:28 Aerobic Blood Culture Received Blood Peripheral Pending 02/03/17 15:28 Anaerobic Blood Culture Received Blood Peripheral Pending Result Diagram: 02/03/17 1500 02/03/17 1500 Imaging Last Impressions Chest X-Ray 02/03/17 1418 Signed Impressions: Service Date/Time: January 14:25 - CONCLUSION: No acute disease. Luke Zepeda MD Assessment and Plan Assessment and Plan Metabolic encephalopathy, unknown etiology Could be secondary to post ictal state, seizures, medication effect Obtain CT scan of the brain, urine drug screen, alcohol level Seizure precautions Obtain EEG Ativan as needed for seizures Diabetes, uncontrolled Patient with elevated glucose, however no anion gap Accu-Cheks with sliding scale insulin Check beta hydroxybutyrate Acute renal failure superimposed on chronic kidney disease stage III in a patient with known renal transplant Could be secondary to dehydration, poor by mouth intake Continue IV hydration Monitor renal functions Avoid nephrotoxins Continue antirejection medication DVT prevention Subcutaneous heparin This note was transcribed by scribe [Nima Mg]. I, Dr. Howard Mendez personally performed the history, physical exam, and medical decision making; and confirmed the accuracy of the information in the transcribed note. Authenticated by Dr. Howard Mendez on 02/03/17 at 1715. Nima Mg Feb 03, 2017 17:21 Howard Mendez MD Feb 03, 2017 18:01
[2017-02-03] MEDS ORDERED: LORazepam 2 MG/ML VIAL IV PUSH PRN (17:30)
[2017-02-03] MEDS: SODIUM CHLOR 0.9% 1000 ML INJ 1,000 ML IV SCH (17:33)
[2017-02-03 17:35] LABS: BETA-HYDROXYBUTYRATE 2.54 MMOL/L (0.00-0.39)
[2017-02-03 17:48] LABS: ALCOHOL LESS THAN 3 MG/DL (0-5)
[2017-02-03 17:59] LABS: BLOOD, URINE SMALL (NEG); GLUCOSE,URINE 500 mg/dL (NEG); KETONE, URINE TRACE mg/dL (NEG); NITRITE,URINE NEG (NEG); PH, URINE 5.5 (5.0-8.5)
[2017-02-03] MEDS ORDERED: NON-FORMULARY DRUG (Brimonidine-Timolol Opth Drops (Combigan Opth Drops) 1 DROP) LEFT EYE SCH (18:00)
[2017-02-03 18:07] LABS: URINE COLOR YELLOW (YELLW/STRAW)
[2017-02-03 18:08] LABS: COMMENT (UR) CULT NOT INDICATED; CULTURE IF INDICATED CULT NOT INDICATED; RBC, URINE 0-3 /hpf (0-3); SQUAMOUS EPITHELIAL CELL URINE 0-5 /hpf (0-5)
[2017-02-03] MEDS: HEPARIN SODIUM - SQ 10,000 UNITS/ML VIAL SQ SCH (18:44)
[2017-02-03] MEDS: TACROLIMUS 5 MG CAP PO SCH (20:00)
[2017-02-03] MEDS: TAMSULOSIN HCL 0.4 MG CAP PO SCH (21:00)
[2017-02-03] MEDS: ATORVASTATIN 40 MG TAB PO SCH (21:00)
--- NOTE | 2017-02-03 21:20 | RADRPT ---
EXAM DATE/TIME: 02/03/2017 19:58 [facility] COMPARISON: CT BRAIN W/O CONTRAST, October 27, 2016, 5:39. INDICATIONS : Found unresponsive. Altered mental status RADIATION DOSE: 64.74 CTDIvol (mGy) MEDICAL HISTORY : Hypertension. Seizures. Diabetes mellitus type 2.Blind right eye SURGICAL HISTORY : Non-responsive. right eye surgery ENCOUNTER: Initial ACUITY: 1 day PAIN SCALE: Non-responsive LOCATION: cranial TECHNIQUE: Multiple contiguous axial images were obtained of the head. Using automated exposure control and adj ustment of the mA and/or kV according to patient size, radiation dose was kept as low as reasonably a chievable to obtain optimal diagnostic quality images. DICOM format image data is available electro nically for review and comparison. FINDINGS: CEREBRUM: The ventricles are normal for age. No evidence of midline shift, mass lesion, hemorrhage or acute in farction. No extra-axial fluid collections are seen. POSTERIOR FOSSA: The cerebellum and brainstem are intact. The 4th ventricle is midline. The cerebellopontine angle i s unremarkable. EXTRACRANIAL: Right eye prosthesis all previously ruptured right globe unchanged since October. SKULL: The calvaria is intact. No evidence of skull fracture. CONCLUSION: 1. No acute intracranial abnormalities. Chronic white matter ischemic changes. Extensive dental alexa s. Right eye prosthesis or previously ruptured globe. Kem Vidal MD on February 03, 2017 at 21:15 Board Certified Radiologist. This report was verified electronically.
[2017-02-03] MEDS: TIMOLOL MALEATE 0.5% OPHT SOLN 5 ML BTL LEFT EYE SCH (21:53)
[2017-02-03] MEDS: BRIMONIDINE TARTRATE 0.2% OPHT SOLN 5 ML BTL LEFT EYE SCH (21:53)
[2017-02-03] MEDS: SODIUM CHLORIDE 0.9% FLUSH 10 ML FLUSH IV FLUSH SCH (21:55)
[2017-02-03] MEDS: INSULIN ASPART SUPPLEMENTAL SCALE SQ SCH (22:06)
[2017-02-04] VITALS (8 sets, daily range): BP systolic 111–153; BP diastolic 79–90; PULSE 69–81; RESP 16–20; TEMP 96.7–99.1; O2SAT 97–100
[2017-02-04] MEDS: SODIUM CHLOR 0.9% 1000 ML INJ 1,000 ML IV SCH ×3 (01:55→15:10)
[2017-02-04] MEDS ORDERED: MORPHINE SULFATE 4 MG/ML INJ IV PUSH ONE (02:30)
[2017-02-04] MEDS: TACROLIMUS 5 MG CAP PO SCH ×2 (06:00→18:41)
[2017-02-04 06:01] LABS: AUTOMATED NEUTROPHIL # 6.5 TH/MM3 (1.8-7.7); BASOPHIL % 0.1 % (0.0-2.0); EOSINOPHIL % 0.4 % (0.0-4.0); HEMATOCRIT 48.8 % (39.0-51.0); HEMO FLAGS DIFF FINAL; LYMPH % 11.5 % (9.0-44.0); LYMPHOCYTE # 0.9 TH/MM3 (1.0-4.8); MEAN CELL VOLUME 79.6 FL (80.0-100.0); MEAN CORPUSCULAR HEMOGLOBIN 26.3 PG (27.0-34.0); MONO % 7.9 % (0.0-8.0); NEUT % 80.1 % (16.0-70.0); PLATELET COUNT 181 TH/MM3 (150-450); RED BLOOD COUNT 6.13 MIL/MM3 (4.50-5.90); RED CELL DISTRIBUTION WIDTH 14.5 % (11.6-17.2)
[2017-02-04] MEDS: HEPARIN SODIUM - SQ 10,000 UNITS/ML VIAL SQ SCH ×2 (06:12→18:41)
[2017-02-04] MEDS: INSULIN ASPART SUPPLEMENTAL SCALE SQ SCH ×4 (06:16→21:57)
[2017-02-04 06:27] LABS: BICARBONATE 23.7 MEQ/L (21.0-32.0); POTASSIUM 3.9 MEQ/L (3.5-5.1)
[2017-02-04] MEDS: CALCITRIOL 0.25 MCG CAP PO SCH (08:55)
[2017-02-04] MEDS: predniSONE 5 MG TAB PO SCH (08:55)
[2017-02-04] MEDS: BRIMONIDINE TARTRATE 0.2% OPHT SOLN 5 ML BTL LEFT EYE SCH ×2 (08:56→21:53)
[2017-02-04] MEDS: ASPIRIN EC 81 MG TABEC PO SCH (08:56)
[2017-02-04] MEDS: TIMOLOL MALEATE 0.5% OPHT SOLN 5 ML BTL LEFT EYE SCH ×2 (08:57→21:53)
[2017-02-04] MEDS: CHOLECALCIFEROL (VIT D3) 1000 UNIT TAB PO SCH (08:57)
[2017-02-04] MEDS: PANTOPRAZOLE SOD 40 MG DELAYED RELEASE TAB PO SCH (08:58)
[2017-02-04] MEDS: SODIUM CHLORIDE 0.9% FLUSH 10 ML FLUSH IV FLUSH SCH ×2 (08:59→21:00)
--- NOTE | 2017-02-04 10:19 | HHI.PR ---
Subjective Remarks Reviewing the events leading up to the hospitalization. The patient reports has been feeling very weak. He remembered being outside and apparently he passed out. Currently reports is feeling okay except for generalized weakness. He admits that he does not take insulin every day. He could not tell me about his other home medications. Objective Vitals Vital Signs Date Time Temp Pulse Resp B/P Pulse Ox O2 Delivery O2 Flow Rate FiO2 02/04/17 09:45 98.0 77 16 150/86 100 02/04/17 04:00 99.1 72 18 145/82 99 02/04/17 00:00 97.4 69 18 111/79 97 02/03/17 20:35 99 Nasal Cannula 3.00 02/03/17 20:00 66 02/03/17 20:00 97.6 66 16 149/76 100 02/03/17 18:20 97.1 69 16 160/97 100 02/03/17 18:03 99 Nasal Cannula 2.00 02/03/17 15:21 99 02/03/17 15:15 67 16 170/88 100 Nasal Cannula 2 02/03/17 14:15 69 16 97 02/03/17 14:11 99.1 69 16 114/68 97 I/O 02/03/17 02/03/17 02/03/17 02/04/17 02/04/17 02/04/17 07:00 15:00 23:00 07:00 15:00 23:00 Intake Total 1000 ml Output Total 400 ml Balance 600 ml Intake IV Total 1000 ml Output Urine Total 400 ml # Bowel Movements 0 Result Diagram: 02/04/17 0508 02/04/17 0508 Imaging Last Impressions Chest X-Ray 02/03/17 1418 Signed Impressions: Service Date/Time: January 14:25 - CONCLUSION: No acute disease. Luke Zepeda MD Head CT 02/03/17 0000 Signed Impressions: Service Date/Time: January 19:58 - CONCLUSION: 1. No acute intracranial abnormalities. Chronic white matter ischemic changes. Extensive dental caries. Right eye prosthesis or previously ruptured globe. Kem Vidal MD Objective Remarks GENERAL: Chronically ill-appearing male in no apparent distress. CARDIOVASCULAR: Normal rate and regular rhythm. 2/6 JARVIS, best heard in aortic area. RESPIRATORY: Good respiratory efforts. Breath sounds equal and clear to auscultation bilaterally. GASTROINTESTINAL: Abdomen soft, non-tender, non-distended. Normal active bowel sounds MUSCULOSKELETAL: Status post left AKA, stump is healed. Status post right second toe amputation. NEURO: Alert & Oriented x4 to person, place, time, situation. PSYCH: Appropriate mood and affect. A/P Problem List: (1) Uncontrolled diabetes mellitus ICD Code: E11.65 Status: Acute (2) Metabolic encephalopathy ICD Code: G93.41 Status: Acute (3) Seizure-like activity ICD Code: R56.9 Status: Acute (4) Acute on chronic kidney disease, stage 3 ICD Code: N18.3 Status: Acute Assessment and Plan Metabolic encephalopathy, unknown etiology. Could be secondary to post ictal state, seizures, uremia, pain medication side effect. Patient is noncompliant with insulin. Blood glucose on presentation was in the 400s. Head CT was unremarkable for any acute brain abnormalities. - Encephalopathy resolved. Ativan as needed for seizures. It was reported patient had seizures but EEG has been normal. Diabetes, uncontrolled. Non compliant with medications. Hemoglobin A1c last month was 13 Accu-Cheks with sliding scale insulin. Patient counseled on the need to be compliant. Acute renal failure superimposed on chronic kidney disease stage III in a patient with known renal transplant - Improving with IV hydration. Continue IV hydration Monitor renal functions Avoid nephrotoxins Continue antirejection medication Physical deconditioning: Physical therapy consult. DVT prevention Subcutaneous heparin Discharge Planning Obtain physical therapy evaluation. Started diet. If continues to improve. May be discharged tomorrow. He is noncompliant, getting close to his baseline. Howard Mendez MD Feb 04, 2017 10:19
--- NOTE | 2017-02-04 14:52 | EKG ---
Date Performed: 02/03/2017 Time Performed: 14:12:44 PTAGE: 61 years EKG: Sinus rhythm LEFT VENTRICULAR HYPERTROPHY AND ST-T CHANGE ABNORMAL ECG PREVIOUS TRACING 10/27/201607.20.44 Since previous tracing, no significant change noted DOCTOR: Moe Stallworth Interpretating Date/Time 02/04/2017 14:52:20
[2017-02-04] MEDS ORDERED: ACETAMINOPHEN/HYDROcodone 325 MG/5 MG TAB PO PRN (21:15)
[2017-02-04] MEDS: ATORVASTATIN 40 MG TAB PO SCH (21:54)
[2017-02-04] MEDS: TAMSULOSIN HCL 0.4 MG CAP PO SCH (21:54)
[2017-02-05] MEDS: SODIUM CHLOR 0.9% 1000 ML INJ 1,000 ML IV SCH ×2 (01:07→09:51)
[2017-02-05 01:31] VITALS: BP 166/91; PULSE 78; RESP 22; TEMP 98; O2SAT 99
[2017-02-05] MEDS: TACROLIMUS 5 MG CAP PO SCH (06:35)
[2017-02-05] MEDS: HEPARIN SODIUM - SQ 10,000 UNITS/ML VIAL SQ SCH (06:35)
[2017-02-05] MEDS: INSULIN ASPART SUPPLEMENTAL SCALE SQ SCH ×3 (07:00→16:00)
[2017-02-05 07:21] LABS: POTASSIUM 4.3 MEQ/L (3.5-5.1)
[2017-02-05 07:25] LABS: BICARBONATE 20.8 MEQ/L (21.0-32.0)
[2017-02-05 08:00] VITALS: BP 148/87; PULSE 79; RESP 16; TEMP 98.5; O2SAT 92
[2017-02-05 08:10] VITALS: O2SAT 94
[2017-02-05] MEDS: SODIUM CHLORIDE 0.9% FLUSH 10 ML FLUSH IV FLUSH SCH (09:00)
[2017-02-05] MEDS: TIMOLOL MALEATE 0.5% OPHT SOLN 5 ML BTL LEFT EYE SCH (09:48)
[2017-02-05] MEDS: BRIMONIDINE TARTRATE 0.2% OPHT SOLN 5 ML BTL LEFT EYE SCH (09:48)
[2017-02-05] MEDS: ASPIRIN EC 81 MG TABEC PO SCH (09:50)
[2017-02-05] MEDS: CALCITRIOL 0.25 MCG CAP PO SCH (09:50)
[2017-02-05] MEDS: PANTOPRAZOLE SOD 40 MG DELAYED RELEASE TAB PO SCH (09:50)
[2017-02-05] MEDS: CHOLECALCIFEROL (VIT D3) 1000 UNIT TAB PO SCH (09:51)
[2017-02-05] MEDS: predniSONE 5 MG TAB PO SCH (09:51)
[2017-02-05 12:00] VITALS: BP 139/82; PULSE 71; RESP 18; TEMP 98.2; O2SAT 93
--- NOTE | 2017-02-05 12:34 | HHI.PR ---
Objective Vitals Vital Signs Date Time Temp Pulse Resp B/P Pulse Ox O2 Delivery O2 Flow Rate FiO2 02/05/17 08:10 94 Nasal Cannula 2.00 02/05/17 08:00 98.5 79 16 148/87 92 02/05/17 04:44 02/05/17 01:31 98.0 78 22 166/91 99 02/04/17 20:30 99 Nasal Cannula 2.00 02/04/17 16:00 97.7 81 20 140/90 100 I/O 02/04/17 02/04/17 02/04/17 02/05/17 02/05/17 02/05/17 07:00 15:00 23:00 07:00 15:00 23:00 Intake Total 0 ml 2497 ml Output Total 525 ml 750 ml Balance -525 ml 2497 ml -750 ml Intake Oral 0 ml 840 ml IV Total 1657 ml Output Urine Total 525 ml 750 ml # Bowel Movements 1 0 Result Diagram: 02/04/17 0508 02/05/17 0552 A/P Problem List: (1) Uncontrolled diabetes mellitus ICD Code: E11.65 - Type 2 diabetes mellitus with hyperglycemia Status: Acute (2) Metabolic encephalopathy ICD Code: G93.41 - Metabolic encephalopathy Status: Acute (3) Seizure-like activity ICD Code: R56.9 - Unspecified convulsions Status: Acute (4) Acute on chronic kidney disease, stage 3 ICD Code: N18.3 - Chronic kidney disease, stage 3 (moderate) Status: Acute Megan Ferguson MD Feb 05, 2017 12:34
--- NOTE | 2017-02-05 13:19 | HHI.DS ---
Discharge Summary Admission Date Feb 03, 2017 at 16:55 Discharge Date: Feb 05, 2017 Admitting Diagnosis dehydration/altered mental status/seizures (1) Uncontrolled diabetes mellitus ICD Code: E11.65 Diagnosis: Principal (2) Metabolic encephalopathy ICD Code: G93.41 Diagnosis: Principal (3) Seizure-like activity ICD Code: R56.9 Diagnosis: Principal (4) Acute on chronic kidney disease, stage 3 ICD Code: N18.3 Diagnosis: Principal Procedures None Brief History - From Admission Written by Nima Mg, acting as scribe for Dr. Mendez on 02/03/17 at 17: 06. 61-year-old male who has known the hospital from multiple admissions with rather complex medical history of hypertension, hyperlipidemia, coronary artery disease, diabetes, blindness right eye, left below the knee amputation, chronic kidney disease status post transplantation who was brought to the hospital by EMS because he was found on the roadside fairly tired and this orientated. Was unable to obtain any information from the patient at bedside secondary to patient given 4 mg of Ativan due to seizure-like activity. Information was taken from ER physician and medical records. ER physician indicated that the patient was brought in by EMS and patient had questionable seizure-like activity however the patient was responding and following commands during this activity, however patient was given Ativan 2 mg 2 for the activity. Patient had workup done which did indicate worsening of his renal functions. Laboratory studies do indicate elevated glucose in which ER physician stated that the patient did not take his insulin this morning. No obvious signs of infection have been found. ER physician is recommending that the patient be observed in the hospital for further workup and recommendations. CBC/BMP: 02/04/17 0508 02/05/17 0552 Significant Findings Laboratory Tests Test 02/03/17 02/03/17 02/04/17 02/05/17 15:00 17:50 05:08 05:52 Red Blood Count 6.78 MIL/MM3 6.13 MIL/MM3 (4.50-5.90) (4.50-5.90) Hematocrit 54.8 % (39.0-51.0) Mean Corpuscular Hemoglobin 24.5 PG 26.3 PG (27.0-34.0) (27.0-34.0) Mean Corpuscular Hemoglobin 30.2 % Concent (32.0-36.0) Mean Platelet Volume 11.8 FL (7.0-11.0) Neutrophils (%) (Auto) 78.6 % 80.1 % (16.0-70.0) (16.0-70.0) Lymphocytes # (Auto) 0.7 TH/MM3 0.9 TH/MM3 (1.0-4.8) (1.0-4.8) Sodium Level 133 MEQ/L (136-145) Chloride Level 97 MEQ/L 110 MEQ/L 111 MEQ/L (98-107) (98-107) (98-107) Blood Urea Nitrogen 43 MG/DL (7-18) 38 MG/DL (7-18) 26 MG/DL (7-18) Creatinine 1.90 MG/DL (0.60-1.30) Estimat Glomerular Filtration 44 ML/MIN (>89) 68 ML/MIN (>89) 75 ML/MIN (>89) Rate Random Glucose 530 MG/DL 142 MG/DL 177 MG/DL (74-106) (74-106) (74-106) Total Bilirubin 1.2 MG/DL (0.2-1.0) Alkaline Phosphatase 118 U/L (45-117) Albumin 3.2 GM/DL (3.4-5.0) B-Hydroxybutyrate 2.54 MMOL/L (0.00-0.39) Urine Glucose (UA) 500 mg/dL (NEG) Urine Ketones TRACE mg/dL (NEG) Urine Occult Blood SMALL (NEG) Mean Corpuscular Volume 79.6 FL (80.0-100.0) Carbon Dioxide Level 20.8 MEQ/L (21.0-32.0) Imaging Last Impressions Chest X-Ray 02/03/17 1418 Signed Impressions: Service Date/Time: January 14:25 - CONCLUSION: No acute disease. Luke Zepeda MD Head CT 02/03/17 0000 Signed Impressions: Service Date/Time: January 19:58 - CONCLUSION: 1. No acute intracranial abnormalities. Chronic white matter ischemic changes. Extensive dental caries. Right eye prosthesis or previously ruptured globe. Kem Vidal MD PE at Discharge GENERAL: Chronically ill-appearing male in no apparent distress. CARDIOVASCULAR: Normal rate and regular rhythm. 2/6 JARVIS, best heard in aortic area. RESPIRATORY: Good respiratory efforts. Breath sounds equal and clear to auscultation bilaterally. GASTROINTESTINAL: Abdomen soft, non-tender, non-distended. Normal active bowel sounds MUSCULOSKELETAL: Status post left AKA, stump is healed. Status post right second toe amputation. NEURO: Alert & Oriented x4 to person, place, time, situation. PSYCH: Appropriate mood and affect. Hospital Course The patient presented with altered mental status with unknown etiology possibly secondary to a post ictal state her pain medication side effect. Blood glucose on presentation was in the 400s and patient is noncompliant with insulin and does not check his blood sugars. Head CT was unremarkable, his encephalopathy resolved. He had no further episodes of altered mental status. His EEG was normal. The patient also had some mild acute kidney injury superimposed on top of chronic kidney disease stage III in a patient with previous known renal transplant this resolved with IV fluids. The patient is stable and will be discharged home. He is noncompliant, I recommend that he follow-up with his primary care physician Dr. Simon within the next 2 days. We will arrange him a ride home as he states he primarily gets around by wheeling himself in his wheelchair. Pt Condition on Discharge: Stable Discharge Disposition: Discharge Home Discharge Time: > 30 minutes Discharge Instructions DIET: Follow Instructions for: Heart Healthy Diet, Diabetic Diet Activities you can perform: Regular-No Restrictions Continued Medications: Aspirin DR (Aspirin 81) 81 Mg Tabdr 81 MG PO DAILY Ref 0 TAB Atorvastatin (Atorvastatin) 40 Mg Tab 40 MG PO HS Cholesterol Management #30 Ref 0 TAB Brimonidine-Timolol Opth Drops (Combigan Opth Drops) 0.2-0.5% Soln 1 DROP LEFT EYE TID Glaucoma Ref 0 BOTTLE Calcitriol (Calcitriol) 0.25 Mcg Cap 0.25 MCG PO DAILY Calcium Supplement #30 Ref 0 CAP Cholecalciferol (Vitamin D) 2,000 Unit Cap 1 CAP PO DAILY Eyelid Cleanser Combination #9 (Systane) 1 Each Towelette 1 DROP LEFT EYE BID Furosemide (Furosemide) 40 Mg Tab 40 MG PO DAILY #30 Ref 0 TAB Gabapentin (Gabapentin) 400 Mg Cap 400 CAP PO TID #30 Ref 0 CAP Insulin Aspart Protam-Asp 70-30 Inj (Novolog Mix 70-30 Inj) 1,000 Unit/10 Ml Vial 10 UNITS SQ DAILY Blood Sugar Management #10 Ref 0 ML Metoprolol Tartrate (Metoprolol Tartrate) 100 Mg Tab 100 MG PO BID #60 Ref 0 TAB Oxycodone (Oxycodone) 5 Mg Tab 5 MG PO Q4H PRN pain #12 TAB Pantoprazole (Pantoprazole) 40 Mg Tab 40 MG PO DAILY Reflux #30 Ref 0 TAB Prednisone (Prednisone) 5 Mg Tab 5 MG PO DAILY Ref 0 TAB Tacrolimus (Tacrolimus) 1 Mg Cap 5 MG PO Q12H Prevent Transplant Reject #240 Ref 0 CAP Tamsulosin (Flomax) 0.4 Mg Cap 0.4 MG PO HS Manage Prostate Problems #30 Ref 0 CAP Megan Ferguson MD Feb 05, 2017 13:19
--- NOTE | 2017-02-07 08:08 | MG ---
cc: RAY PACHECO M.D. Lab No: [id number] Date: Age: Sex: M Race: Hyperventilation was not performed. HISTORY: Generalized weakness. A 61-year-old man with seizures. Headaches. Syncope. MEDICATIONS: Ativan. DESCRIPTION OF THE RECORDING: A normal-appearing 11 hertz, 50 microvolt diffuse rhythm is seen. The recording overall is synchronous and symmetric. I do not see any hemisphere asymmetries. No epileptiform or seizure activity is noted. Hyperventilation was not performed. Photic stimulation was performed without significant posterior driving. IMPRESSION: A normal EEG. No evidence for a focal or diffuse abnormality. MD AJAY Sharma/JUN /7:42 PM /8:07 AM
== END 2017-02-05 16:12 | disposition home or self-care (01) ==
LOC: PHED 14:05 → PHEDA 16:55 → PH3A 18:15
PROVIDERS: ADMIT Family Medicine; ATTEND Family Medicine
DX: G93.41 Metabolic encephalopathy (principal); E11.22 Type 2 diabetes mellitus with diabetic chronic kidney disease; E11.65 Type 2 diabetes mellitus with hyperglycemia; E78.5 Hyperlipidemia, unspecified; I12.0 Hypertensive chronic kidney disease with stage 5 chronic kidney disease or end stage renal disease; N17.9 Acute kidney failure, unspecified; N18.3 Chronic kidney disease, stage 3 (moderate); I25.10 Atherosclerotic heart disease of native coronary artery without angina pectoris; Z91.19 Patient's noncompliance with other medical treatment and regimen; R56.9 Unspecified convulsions; Z94.0 Kidney transplant status; Z91.14 Patient's other noncompliance with medication regimen; Z79.899 Other long term (current) drug therapy; Z79.4 Long term (current) use of insulin
CPT/HCPCS: 51702; 70450; 71010; 76937; 80048; 80053; 80197; 80307; 81001; 82010; 82550; 82948; 83605; 83735; 84484; 85025; 85610; 85730; 87040; 93005; 95819; 96361; 96372; 96374; 97162; 99285; G0378; G8987; G8988; J1644; J1815; J2060; J2270; J7030; J7507; J7512

== ENCOUNTER 2017-02-06 17:38 | Inpatient (IN) | payer OTHER ==
[~2017-02-06] VITALS: Ht 172.7 cm; Wt 65.8 kg
[2017-02-06] VITALS (9 sets, daily range): BP systolic 82–153; BP diastolic 49–73; PULSE 97–111; RESP 16–18; TEMP 101.1–103; O2SAT 97–98
[~2017-02-06 17:38] MED LIST changes: -AMLO5 PO; +ASPI-110 PO; -ASPI81 CHEW; +ATOR40TA16 PO; -ATOR40TA49 PO; -BRIM.2%O RIGHT EYE; +COMB0.2S LEFT EYE; +EYELPAD2 LEFT EYE; +FURO40TA PO; -GABA400 PO; +GABA400C5 PO; -HYDR10SO PO; -LACT PO; +METO100T PO; -MIDO5TAB PO; +PANT40TA3 PO; -PRED5 PO; +PRED5TAB PO; -PROG5CAP PO; -PROT40TA PO; -RIVA15 PO; +TACR1CAP PO; +TAMS5CAP PO; -TEMA7.5 PO; +VITA200013 PO; -VITA200017 PO
[2017-02-06] MEDS ORDERED: PANTOPRAZOLE INJ 80 MG in SODIUM CHLORIDE 0.9% INJ 35 ML IV ONE (17:58)
[2017-02-06] MEDS ORDERED: SODIUM CHLOR 0.9% 1000 ML INJ 1,000 ML IV SCH (17:58)
[2017-02-06] MEDS ORDERED: PANTOPRAZOLE INJ 80 MG in SODIUM CHLORIDE 0.9% INJ 100 ML IV SCH (17:58)
--- NOTE | 2017-02-06 17:58 | PD ---
HPI Chief Complaint: GI bleed Time Seen by Provider: 17:45 Travel History International Travel<30 days: No Contact w/Intl Traveler<30days: No Traveled to known affect area: No History of Present Illness HPI This 61-year-old male is brought by ambulance with complaint that he vomited blood tonight. Says he did not have much to eat today. He was admitted to the hospital a few days ago with dehydration. He has a history of kidney transplant in 2012. He has a history of diabetes since he age of 42. 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 He has no history of GI bleed. He does not drink alcohol. He does say that he had some blood in his urine after the Mcmillan catheter was removed yesterday. After coming into the emergency department patient was noted to have a fever PFSH Past Medical History Hx Anticoagulant Therapy: Yes Arthritis: Yes Asthma: No Autoimmune Disease: No Blood Disorders: No Anxiety: No Depression: Yes Heart Rhythm Problems: No Cancer: No Cardiac Catheterization: Yes Cardiovascular Problems: Yes High Cholesterol: Yes Chemotherapy: No Chest Pain: Yes Congestive Heart Failure: No COPD: Yes Cerebrovascular Accident: No Coronary Artery Disease: Yes Diabetes: Yes Dialysis: Yes (STOPPED DIALYSIS ON 05/18/2013) Diminished Hearing: No Endocrine: Yes Gastrointestinal Disorders: Yes (Hepatitis C) GERD: No Glaucoma: Yes (NO SIGHT RT EYE) Genitourinary: Yes (RIGHT KIDNEY TRANSPLANT) Headaches: Yes Hepatitis: Yes (HEPATITIS C) Hiatal Hernia: No Hypertension: Yes Immune Disorder: No Implanted Vascular Access Dvce: Yes (AV FISTULA) Kidney Stones: No Musculoskeletal: Yes (LEFT BKA 2005) Neurologic: Yes Psychiatric: No Reproductive: No Respiratory: Yes Immunizations Current: Yes Migraines: No Radiation Therapy: No Renal Failure: Yes (KIDNEY TRANSPLANT) Seizures: No Sickle Cell Disease: No Sleep Apnea: No Thyroid Disease: No Ulcer: Yes Past Surgical History Abdominal Surgery: No AICD: No Arteriovenous Shunt: Yes (NOT IN USE, LEFT AV SHUNT) Body Medical Devices: CARDIAC STENT Cardiac Surgery: Yes (cardiac stenting) Coronary Stent: Yes Ear Surgery: No Endocrine Surgery: No Eye Surgery: Yes (r eye removed due to glaucoma) Genitourinary Surgery: Yes (MAY 17, 2013 - RIGHT KIDNEY TRANSPLANT) Gynecologic Surgery: No Hysterectomy: No Insulin Pump: No Joint Replacement: No Neurologic Surgery: No Oral Surgery: No Pacemaker: No Thoracic Surgery: No Other Surgery: Yes (cysy on back, LBKA, OD enuceation, kidney transplant) Social History Alcohol Use: No Tobacco Use: No (STATES HE QUIT 2006) Substance Use: No Allergies-Medications (Allergen,Severity, Reaction): Coded Allergies: No Known Allergies (Unverified , 10/27/16) Reported Meds & Prescriptions Reported Meds & Active Scripts Active Oxycodone (Oxycodone HCl) 5 Mg Tab 5 Mg PO Q4H PRN Novolog Mix 70-30 Inj (Insulin Aspart Prota 70%/Aspart 30%) 1,000 Unit/10 Ml Vial 10 Units SQ DAILY Reported Systane (Eyelid Cleanser Combination #9) 1 Each Towelette 1 Drop LEFT EYE BID Combigan Opth Drops (Brimonidine-Timolol Opth Drops) 0.2-0.5% Soln 1 Drop LEFT EYE TID Vitamin D (Cholecalciferol) 2,000 Unit Cap 1 Cap PO DAILY Flomax (Tamsulosin HCl) 0.4 Mg Cap 0.4 Mg PO HS Furosemide 40 Mg Tab 40 Mg PO DAILY Atorvastatin (Atorvastatin Calcium) 40 Mg Tab 40 Mg PO HS Calcitriol 0.25 Mcg Cap 0.25 Mcg PO DAILY Aspirin 81 (Aspirin) 81 Mg Tabdr 81 Mg PO DAILY Metoprolol Tartrate 100 Mg Tab 100 Mg PO BID Pantoprazole (Pantoprazole Sodium) 40 Mg Tab 40 Mg PO DAILY Gabapentin 400 Mg Cap 400 Cap PO TID Prednisone 5 Mg Tab 5 Mg PO DAILY Tacrolimus 1 Mg Cap 5 Mg PO Q12H Review of Systems General / Constitutional: Positive: Fever, Chills Eyes: No: Diploplia, Blurred Vision HENT: No: Headaches Cardiovascular: No: Chest Pain or Discomfort, Palpitations Respiratory: No: Cough Gastrointestinal: Positive: Nausea, Vomiting Genitourinary: Positive: Hematuria, No: Urgency, Frequency Musculoskeletal: No: Myalgias, Arthralgias Skin: No Rash, No Itching Neurologic: Positive: Weakness Psychiatric: No: Anxiety, Depression Endocrine: No: Heat Intolerance Hematologic/Lymphatic: No: Easy Bruising Physical Exam Narrative GENERAL: Thin male chronically ill SKIN: Focused skin assessment warm/dry. HEAD: Atraumatic. Normocephalic. EYES: He is blind in the right eye ENT: No nasal bleeding or discharge. Mucous membranes pink and moist. NECK: Trachea midline. No JVD. CARDIOVASCULAR: Regular rate and rhythm. No murmur appreciated. RESPIRATORY: No accessory muscle use. Clear to auscultation. Breath sounds equal bilaterally. GASTROINTESTINAL: Abdomen soft, non-tender, nondistended. Hepatic and splenic margins not palpable. MUSCULOSKELETAL: No obvious deformities. No clubbing. No cyanosis. No edema. There is a left [id number] amputation NEUROLOGICAL: Awake and alert. No obvious cranial nerve deficits. Motor grossly within normal limits. Normal speech. PSYCHIATRIC: Appropriate mood and affect; insight and judgment normal. Data Data Last Documented VS Vital Signs Date Time Temp Pulse Resp B/P (MAP) Pulse Ox O2 Delivery O2 Flow Rate FiO2 02/06/17 21:16 102.4 111 16 114/72 (86) 97 Orders Orders Complete Blood Count With Diff (02/06/17 17:58) Comprehensive Metabolic Panel (02/06/17 17:58) Prothrombin Time / Inr (Pt) (02/06/17 17:58) Act Partial Throm Time (Ptt) (02/06/17 17:58) Ua Includes Microscopic (02/06/17 17:58) Type And Screen (02/06/17 17:58) Ecg Monitoring (02/06/17 17:58) Iv Access Insert/Monitor (02/06/17 17:58) Oximetry (02/06/17 17:58) Ondansetron Inj (Zofran Inj) (02/06/17 18:00) Sodium Chlor 0.9% 1000 Ml Inj (Ns 1000 M (02/06/17 17:58) Sodium Chloride 0.9% Flush (Ns Flush) (02/06/17 18:00) Sodium Chloride 0.9... W/Pantoprazole In (02/06/17 17:58) Chest, Single Ap (02/06/17 17:58) Blood Culture (02/06/17 18:03) Lactic Acid Sepsis Protocol (02/06/17 18:04) Pantoprazole Inj (Protonix Inj) (02/06/17 19:15) Pantoprazole Inj (Protonix Inj) (02/06/17 19:15) Acetaminophen (Tylenol) (02/06/17 20:00) Sodium Chlorid 0.9% 500 Ml Inj (Ns 500 M (02/06/17 20:00) Piperacil-Tazo 4.5 Gm Premix (Zosyn 4.5 (02/06/17 20:30) Sodium Chlor 0.9% 1000 Ml Inj (Ns 1000 M (02/06/17 21:00) Sodium Chlor 0.9% 1000 Ml Inj (Ns 1000 M (02/06/17 21:30) Insulin Human Regular Inj (Novolin R Inj (02/06/17 21:30) Beta Hydroxybutyrate (Acetone) (02/06/17 20:29) Labs Laboratory Tests Test 02/06/17 19:15 02/06/17 20:29 02/06/17 20:30 Prothrombin Time 14.2 SEC Prothromb Time International Ratio 1.3 RATIO Activated Partial Thromboplast Time 29.0 SEC White Blood Count 17.3 TH/MM3 Red Blood Count 5.52 MIL/MM3 Hemoglobin 14.0 GM/DL Hematocrit 44.4 % Mean Corpuscular Volume 80.3 FL Mean Corpuscular Hemoglobin 25.4 PG Mean Corpuscular Hemoglobin Concent 31.6 % Red Cell Distribution Width 14.9 % Platelet Count 164 TH/MM3 Mean Platelet Volume 10.6 FL Neutrophils (%) (Auto) 95.0 % Lymphocytes (%) (Auto) 1.3 % Monocytes (%) (Auto) 3.6 % Eosinophils (%) (Auto) 0.0 % Basophils (%) (Auto) 0.1 % Neutrophils # (Auto) 16.5 TH/MM3 Lymphocytes # (Auto) 0.2 TH/MM3 Monocytes # (Auto) 0.6 TH/MM3 Eosinophils # (Auto) 0.0 TH/MM3 Basophils # (Auto) 0.0 TH/MM3 CBC Comment AUTO DIFF Differential Total Cells Counted 100 Neutrophils % (Manual) 72 % Band Neutrophils % 17 % Lymphocytes % 3 % Monocytes % 4 % Neutrophils # (Manual) 16.1 TH/MM3 Metamyelocytes 4 % Differential Comment FINAL DIFF MANUAL Platelet Estimate NORMAL Platelet Morphology Comment CLUMPED Ovalocytes 1+ Blood Urea Nitrogen 31 MG/DL Creatinine 1.80 MG/DL Random Glucose 357 MG/DL Total Protein 5.6 GM/DL Albumin 2.1 GM/DL Calcium Level 7.8 MG/DL Alkaline Phosphatase 87 U/L Aspartate Amino Transf (AST/SGOT) 19 U/L Alanine Aminotransferase (ALT/SGPT) 15 U/L Total Bilirubin 1.8 MG/DL Sodium Level 143 MEQ/L Potassium Level 3.9 MEQ/L Chloride Level 107 MEQ/L Carbon Dioxide Level 18.5 MEQ/L Anion Gap 18 MEQ/L Estimat Glomerular Filtration Rate 47 ML/MIN Lactic Acid Level 2.6 mmol/L Urine Color YELLOW Urine Turbidity MOD Urine pH 5.5 Urine Specific [place] 1.020 Urine Protein 100 mg/dL Urine Glucose (UA) 1000 OR GREATER mg/dL Urine Ketones 15 mg/dL Urine Occult Blood MOD Urine Nitrite NEG Urine Bilirubin NEG Urine Leukocyte Esterase TRACE Urine RBC 4-9 /hpf Urine WBC 15-19 /hpf Urine WBC Clumps OCC Urine Squamous Epithelial Cells 0-5 /hpf Urine Bacteria MANY /hpf MDM Medical Decision Making Medical Screen Exam Complete: Yes Emergency Medical Condition: Yes Medical Record Reviewed: Yes Differential Diagnosis Differential includes GI bleed, sepsis, UTI, pneumonia Narrative Course Chest x-ray is negative. He does have UTI with 15-19 white cells. He has been started on Zosyn and vancomycin. He did have brown stool is guaiac positive. He is on Protonix drip Sepsis Criteria SIRS Criteria (2 or more): Temp > 100.9 or < 96.8, Heart rate over 90, WBC > 35054, < 4000 or > 10% bands Sepsis Criteria (SIRS+source): Infect source susp/known Severe Sepsis (+one): Lactate >2 Diagnosis Primary Impression: Urinary tract infection Additional Impressions: Sepsis possible GI bleed Admitting Information Admitting Physician Requests: Admit Luis Richardson MD Feb 06, 2017 17:58
[2017-02-06] MEDS ORDERED: SODIUM CHLORIDE 0.9% FLUSH 10 ML FLUSH IVF PRN (18:00)
[2017-02-06] MEDS ORDERED: ONDANSETRON HCL 4 MG/2 ML VIAL IVP ONE (18:00)
--- NOTE | 2017-02-06 18:55 | RADRPT ---
EXAM DATE/TIME: 02/06/2017 18:46 [facility] COMPARISON: CHEST SINGLE AP, February 03, 2017, 14:25. INDICATIONS : Weakness. Nausea. Congestion. MEDICAL HISTORY : None. SURGICAL HISTORY : None. ENCOUNTER: Initial ACUITY: 1 day PAIN SCORE: 5/10 LOCATION: Bilateral chest FINDINGS: The lungs are clear without infiltrate, nodule, or mass. There is no appreciable pleural effusion fo r technique. Heart and mediastinum are unremarkable. CONCLUSION: No acute cardiopulmonary disease. Yvette Blackwell MD on February 06, 2017 at 18:53 Board Certified Radiologist. This report was verified electronically.
[2017-02-06] MEDS ORDERED: PANTOPRAZOLE 80 MG/35 ML NS - BOLUS IV ONE ×2 (19:15)
[2017-02-06] MEDS: PANTOPRAZOLE 80 MG/100 ML NS IV SCH ×2 (19:48)
[2017-02-06] MEDS ORDERED: ACETAMINOPHEN 325 MG TAB PO ONE (20:00)
[2017-02-06] MEDS ORDERED: SODIUM CHLORID 0.9% 500 ML INJ 500 ML IV ONE (20:00)
[2017-02-06 20:14] LABS: INTERNATIONAL NORMALIZED RATIO 1.3 RATIO; PROTHROMBIN TIME - PATIENT 14.2 SEC (9.8-11.6)
[2017-02-06] MEDS ORDERED: PIPERACIL-TAZO 4.5 GM PREMIX 100 ML IV ONE (20:30)
[2017-02-06 20:46] LABS: BLOOD, URINE MOD (NEG); GLUCOSE,URINE 1000 OR GREATER mg/dL (NEG); KETONE, URINE 15 mg/dL (NEG); NITRITE,URINE NEG (NEG); PH, URINE 5.5 (5.0-8.5)
[2017-02-06 20:55] LABS: CHLORIDE 107 MEQ/L (98-107); POTASSIUM 3.9 MEQ/L (3.5-5.1); SODIUM (NA) 143 MEQ/L (136-145)
[2017-02-06] MEDS ORDERED: SODIUM CHLOR 0.9% 1000 ML INJ 1,000 ML IV ONE ×3 (21:00→22:15)
[2017-02-06 21:02] LABS: AUTOMATED NEUTROPHIL # 16.5 TH/MM3 (1.8-7.7); BASOPHIL % 0.1 % (0.0-2.0); HEMATOCRIT 44.4 % (39.0-51.0); LYMPH % 1.3 % (9.0-44.0); LYMPHOCYTE # 0.2 TH/MM3 (1.0-4.8); MEAN CELL VOLUME 80.3 FL (80.0-100.0); MEAN CORPUSCULAR HEMOGLOBIN 25.4 PG (27.0-34.0); MEAN CORPUSCULAR HGB CONC 31.6 % (32.0-36.0); MONO % 3.6 % (0.0-8.0); PLATELET COUNT 164 TH/MM3 (150-450); RED BLOOD COUNT 5.52 MIL/MM3 (4.50-5.90); RED CELL DISTRIBUTION WIDTH 14.9 % (11.6-17.2); WHITE BLOOD COUNT 17.3 TH/MM3 (4.0-11.0)
[2017-02-06 21:06] LABS: HEMO FLAGS AUTO DIFF
[2017-02-06 21:12] LABS: BACTERIA, URINE MANY /hpf; URINE COLOR YELLOW (YELLW/STRAW); WBC, URINE 15-19 /hpf (0-5)
[2017-02-06 21:13] LABS: SQUAMOUS EPITHELIAL CELL URINE 0-5 /hpf (0-5)
[2017-02-06 21:16] LABS: ALKALINE PHOSPHATASE 87 U/L (45-117); ALT (GPT) 15 U/L (12-78); ANION GAP 18 MEQ/L (5-15); AST (GOT) 19 U/L (15-37); BICARBONATE 18.5 MEQ/L (21.0-32.0); BLOOD UREA NITROGEN 31 MG/DL (7-18); GLOMERULAR FILTRATION RATE 47 ML/MIN (>89); TOTAL BILIRUBIN ADULT 1.8 MG/DL (0.2-1.0)
[2017-02-06 21:22] LABS: BANDS 17 % (0-6); METAMYELOCYTES 4 % (0-1); NEUTROPHIL # MANUAL DIFF 16.1 TH/MM3 (1.8-7.7); POLYS (SEG NEUTROPHILS) 72 % (16-70); WBC DIFF SAMPLE 100
[2017-02-06 21:23] LABS: OVALOCYTES 1+ (NORMAL); PLATELET ESTIMATE SMEAR NORMAL (NORMAL); PLATELET MORPHOLOGY CLUMPED (NORMAL); SCAN/DIFF FINAL DIFF MANUAL
[2017-02-06] MEDS ORDERED: INSULIN HUMAN REGULAR 1,000 UNITS/10 ML VIAL SQ ONE (21:30)
[2017-02-06] MEDS ORDERED: ACETAMINOPHEN 325 MG TAB PO PRN (21:45)
[2017-02-06] MEDS ORDERED: NALOXONE HCL 0.4 MG/ML AMP IV PRN (21:45)
[2017-02-06] MEDS ORDERED: DEXTROSE 50% IN WATER 50 ML VIAL(D50) IV PRN (21:45)
[2017-02-06] MEDS ORDERED: SENNOSIDES 8.6 MG TAB PO PRN (21:45)
[2017-02-06] MEDS ORDERED: oxyCODONE/ACETAMINOPHEN 10 MG/325 MG TAB PO PRN (21:45)
[2017-02-06] MEDS ORDERED: LACTULOSE SYRUP 20 GM/30 ML CUP PO PRN (21:45)
[2017-02-06] MEDS ORDERED: GLUCAGON 1 MG/ML VIAL OTHER PRN (21:45)
[2017-02-06] MEDS ORDERED: ONDANSETRON HCL 4 MG/2 ML VIAL IVP PRN (21:45)
[2017-02-06] MEDS ORDERED: VANCOMYCIN INJ 750 MG in SODIUM CHLOR 0.9% 250 ML INJ 250 ML IV ONE (21:45)
[2017-02-06] MEDS ORDERED: SODIUM CHLORIDE 0.9% FLUSH 10 ML FLUSH IV FLUSH PRN (21:45)
[2017-02-06] MEDS ORDERED: oxyCODONE/ACETAMINOPHEN 5 MG/325 MG TAB PO PRN (21:45)
[2017-02-06 22:02] LABS: BETA-HYDROXYBUTYRATE 7.41 MMOL/L (0.00-0.39)
[2017-02-06 22:15] LABS: CREATINE KINASE 88 U/L (39-308)
[2017-02-06] MEDS ORDERED: IBUPROFEN 400 MG TAB PO ONE (22:15)
[2017-02-06] MEDS: ACETAMINOPHEN 325 MG TAB PO PRN (22:25)
[2017-02-06] MEDS: SODIUM CHLOR 0.9% 1000 ML INJ 1,000 ML IV SCH (22:25)
[2017-02-06 22:38] LABS: LACTIC ACID GHOST NOT REPORTABLE
[2017-02-06] MEDS ORDERED: HYDROCORTISONE SOD SUCCINATE 100 MG VIAL IV PUSH ONE (23:15)
[2017-02-07] VITALS (25 sets, daily range): BP systolic 57–149; BP diastolic 38–74; PULSE 78–98; RESP 14–21; TEMP 98.2–100; O2SAT 93–100
[2017-02-07] MEDS: TACROLIMUS 5 MG CAP PO SCH ×3 (00:03→20:51)
[2017-02-07] MEDS ORDERED: SODIUM CHLORID 0.9% 500 ML INJ 500 ML IV ONE (00:15)
[2017-02-07] MEDS ORDERED: NOREPINEPHRINE-DEXTROSE DRIP 250 ML IV PRN (01:15)
[2017-02-07] MEDS ORDERED: TERBUTALINE INJ 1 MG/ML AMP SQ PRN ×2 (01:15→06:00)
[2017-02-07] MEDS ORDERED: PIPERACIL-TAZO 3.375 GM PREMIX 50 ML IV SCH (03:00)
[2017-02-07] MEDS: PANTOPRAZOLE 80 MG/100 ML NS IV SCH ×4 (05:33→15:23)
[2017-02-07 05:47] LABS: AUTOMATED NEUTROPHIL # 17.9 TH/MM3 (1.8-7.7); BASOPHIL % 0.1 % (0.0-2.0); HEMATOCRIT 46.8 % (39.0-51.0); HEMO FLAGS AUTO DIFF; LYMPH % 1.5 % (9.0-44.0); LYMPHOCYTE # 0.3 TH/MM3 (1.0-4.8); MEAN CELL VOLUME 83.4 FL (80.0-100.0); MEAN CORPUSCULAR HEMOGLOBIN 25.7 PG (27.0-34.0); MEAN CORPUSCULAR HGB CONC 30.9 % (32.0-36.0); MONO % 6.4 % (0.0-8.0); PLATELET COUNT 134 TH/MM3 (150-450); RED BLOOD COUNT 5.61 MIL/MM3 (4.50-5.90); RED CELL DISTRIBUTION WIDTH 16.3 % (11.6-17.2); WHITE BLOOD COUNT 19.4 TH/MM3 (4.0-11.0)
[2017-02-07] MEDS ORDERED: SODIUM CHLOR 0.9% 1000 ML INJ 100 ML IV ONE (05:50)
[2017-02-07] MEDS ORDERED: SODIUM CHLOR 0.9% 1000 ML INJ 1,000 ML IV ONE ×2 (05:50)
[2017-02-07] MEDS ORDERED: PIPERACIL-TAZO 4.5 GM PREMIX 100 ML IV SCH ×2 (06:00→09:00)
[2017-02-07] MEDS ORDERED: CHLORHEXIDINE GLUCONATE 2 % 1 PACK (2 CLOTHS) TOP PRN ×2 (06:00→07:00)
[2017-02-07] MEDS ORDERED: Vancomycin Consult Pharmacy 1 EA OTHER SCH (06:00)
[2017-02-07] MEDS ORDERED: MISCELLANEOUS NURSING INFORMATION XX SCH ×2 (06:00→07:00)
[2017-02-07] MEDS ORDERED: RESP: ALBUTEROL 2.5 MG/IPRATROPIUM 0.5 MG NEB (PRN) INH (06:00)
[2017-02-07] MEDS ORDERED: SODIUM CHLORIDE 0.9% FLUSH 10 ML FLUSH IV FLUSH PRN (06:00)
[2017-02-07] MEDS ORDERED: VANCOMYCIN INJ 1,000 MG in SODIUM CHLOR 0.9% 250 ML INJ 250 ML IV SCH (06:00)
--- NOTE | 2017-02-07 06:00 | HHI.HP ---
[facility] Service Critical Care Medicine Primary Care Physician Matt Monet MD Admission Diagnosis UTI, SEPSIS, POSS GI BLEED Diagnosis: Travel History International Travel<30 Days: No Contact w/Intl Traveler <30 Da: No Traveled to Known Affected Are: No Review of Systems Constitutional: COMPLAINS OF: Fatigue, DENIES: Diaphoretic episodes, Fever, Weight gain, Weight loss, Chills, Dizziness, Change in appetite, Night Sweats Endocrine: DENIES: Heat/cold intolerance, Polydipsia, Polyuria, Polyphagia Eyes: DENIES: Blurred vision, Diplopia, Eye inflammation, Eye pain, Vision loss , Photosensitivity, Double Vision Ears, nose, mouth, throat: DENIES: Tinnitus, Hearing loss, Vertigo, Nasal discharge, Oral lesions, Throat pain, Hoarseness, Ear Pain, Running Nose, Epistaxis, Sinus Pain, Toothache, Odynophagia Respiratory: DENIES: Apneas, Cough, Snoring, Wheezing, Hemoptysis, Sputum production, Shortness of breath Cardiovascular: DENIES: Chest pain, Palpitations, Syncope, Dyspnea on Exertion , PND, Lower Extremity Edema, Orthopnea, Claudication Gastrointestinal: COMPLAINS OF: Abdominal pain, Nausea, Vomiting, DENIES: Black stools, Bloody stools, Constipation, Diarrhea, Difficulty Swallowing, Anorexia Genitourinary: DENIES: Sexual dysfunction, Urinary frequency, Urinary incontinence, Urgency, Hematuria, Dysuria, Nocturia, Penile Discharge, Testicular Pain, Testicular Swelling Musculoskeletal: DENIES: Joint pain, Muscle aches, Stiffness, Joint Swelling, Back pain, Neck pain Integumentary: DENIES: Abnormal pigmentation, Nail changes, Pruritus, Rash Hematologic/lymphatic: DENIES: Bruising, Lymphadenopathy Immunologic/allergic: DENIES: Eczema, Urticaria Neurologic: DENIES: Abnormal gait, Headache, Localized weakness, Paresthesias, Seizures, Speech Problems, Tremor, Poor Balance Psychiatric: DENIES: Anxiety, Confusion, Mood changes, Depression, Hallucinations, Agitation, Suicidal Ideation, Homicidal Ideation, Delusions Past Family Social History Allergies: Coded Allergies: No Known Allergies (Unverified , 10/27/16) Past Medical History Hypertension Hyperlipidemia Diabetes Coronary artery disease History coronary stent placement Right eye blindness Status post kidney transplant in April 2013 for the indication of end-stage renal disease History of hepatitis C exposure Chronic anemia Hyperparathyroidism Peripheral vascular disease History of glaucoma History of depression History of COPD Past Surgical History Right eye surgery - removal Left below the knee amputation Kidney transplant AV fistula Reported Medications Reported Meds & Active Scripts Active Oxycodone (Oxycodone HCl) 5 Mg Tab 5 Mg PO Q4H PRN Novolog Mix 70-30 Inj (Insulin Aspart Prota 70%/Aspart 30%) 1,000 Unit/10 Ml Vial 10 Units SQ DAILY Reported Systane (Eyelid Cleanser Combination #9) 1 Each Towelette 1 Drop LEFT EYE BID Combigan Opth Drops (Brimonidine-Timolol Opth Drops) 0.2-0.5% Soln 1 Drop LEFT EYE TID Vitamin D (Cholecalciferol) 2,000 Unit Cap 1 Cap PO DAILY Flomax (Tamsulosin HCl) 0.4 Mg Cap 0.4 Mg PO HS Furosemide 40 Mg Tab 40 Mg PO DAILY Atorvastatin (Atorvastatin Calcium) 40 Mg Tab 40 Mg PO HS Calcitriol 0.25 Mcg Cap 0.25 Mcg PO DAILY Aspirin 81 (Aspirin) 81 Mg Tabdr 81 Mg PO DAILY Metoprolol Tartrate 100 Mg Tab 100 Mg PO BID Pantoprazole (Pantoprazole Sodium) 40 Mg Tab 40 Mg PO DAILY Gabapentin 400 Mg Cap 400 Cap PO TID Prednisone 5 Mg Tab 5 Mg PO DAILY Tacrolimus 1 Mg Cap 5 Mg PO Q12H Active Ordered Medications Current Medications Medications (Trade) Dose Ordered Sig/Pramod Route PRN Reason Start Time Stop Time Status Last Admin Dose Admin Pantoprazole Sodium 80 mg/ Sodium Chloride 100 ml @ 10 mls/hr Q10H IV 02/06/17 19:15 02/07/17 05:33 Piperacillin Sod/ Tazobactam Sod 50 ml @ 100 mls/hr Q6H IV 02/07/17 03:00 02/07/17 03:52 Atorvastatin Calcium (Lipitor) 40 mg HS PO 02/07/17 21:00 Calcitriol (Rocaltrol) 0.25 mcg DAILY PO 02/07/17 09:00 Gabapentin (Neurontin) 400 mg TID PO 02/07/17 09:00 Prednisone (Deltasone) 5 mg DAILY PO 02/07/17 09:00 Tacrolimus (Prograf) 5 mg Q12H PO 02/06/17 21:45 02/07/17 00:03 Patient Own Medication PT OWN MED: SYST... BID LEFT EYE 02/07/17 09:00 Dextrose (D50w (Vial) Inj) 50 ml UNSCH PRN IV HYPOGLYCEMIA-SEE COMMENTS 02/06/17 21:45 Glucagon (Glucagon Inj) 1 mg UNSCH PRN OTHER HYPOGLYCEMIA-SEE COMMENTS 02/06/17 21:45 Insulin Aspart (NovoLOG SUPPLEMENTAL SCALE) 1 ACHS SLIDING SCALE SQ 02/07/17 07:00 Sodium Chloride 1,000 ml @ 70 mls/hr [id number] IV 02/06/17 21:38 02/06/17 22:25 Sodium Chloride (NS Flush) 2 ml UNSCH PRN IV FLUSH FLUSH AFTER USING IV ACCESS 02/06/17 21:45 Sodium Chloride (NS Flush) 2 ml BID IV FLUSH 02/07/17 09:00 Acetaminophen (Tylenol) 650 mg Q4H PRN PO TEMP > 100.4 02/06/17 21:45 02/06/17 22:25 Ondansetron HCl (Zofran Inj) 4 mg Q6H PRN IVP NAUSEA OR VOMITING 02/06/17 21:45 Acetaminophen (Tylenol) 650 mg Q6H PRN PO PAIN SCALE 1 TO 2 02/06/17 21:45 Oxycodone/ Acetaminophen (Percocet 5-325 Mg) 1 tab Q6H PRN PO PAIN SCALE 3 TO 5 02/06/17 21:45 Oxycodone/ Acetaminophen (Percocet 10-325 Mg) 1 tab Q6H PRN PO PAIN SCALE 6 TO 10 02/06/17 21:45 Morphine Sulfate (Morphine Inj) 1 mg Q3H PRN IV BREAKTHROUGH PAIN 02/06/17 21:45 Naloxone HCl (Narcan Inj) 0.4 mg UNSCH PRN IV SEE LABEL COMMENTS 02/06/17 21:45 Senna/Docusate Sodium (Zuleyka-Colace) 1 tab BID PO 02/07/17 09:00 Sennosides (Senokot) 17.2 mg Q12H PRN PO MODERATE - SEVERE CONSTIPATION 02/06/17 21:45 Lactulose (Lactulose Liq) 30 ml DAILY PRN PO SEVERE CONSITIPATION 02/06/17 21:45 Brimonidine Tartrate (Alphagan 0.2% Opth Soln) 1 drop DAILY@0900,1400,2100 LEFT EYE 02/07/17 09:00 Timolol Maleate (Timoptic 0.5% Opth Soln) 1 drop DAILY@0900,1400,2100 LEFT EYE 02/07/17 09:00 Norepinephrine Bitartrate 250 ml @ 7.5 mls/hr TITRATE PRN IV Blood pressure management 02/07/17 01:15 Terbutaline Sulfate (Brethine Inj) 1 mg UNSCH PRN SQ For Extravasation 02/07/17 01:15 Family History Reviewed is significant for diabetes Social History Patient states that he quit smoking in 2005, prior to that he smoked a pack of cigarettes a day since he was 19 years old. Patient states that he quit drinking alcohol in 2005, patient states that he quit using crack cocaine in 2005. Physical Exam Vital Signs Vital Signs Date Time Temp Pulse Resp B/P (MAP) Pulse Ox O2 Delivery O2 Flow Rate FiO2 02/07/17 04:00 90 02/07/17 03:34 98.6 89 21 99/58 (72) 97 02/07/17 03:10 139/69 (92) 02/07/17 03:05 126/74 (91) 02/07/17 02:55 78/55 (63) 02/07/17 02:49 88 18 109/40 (63) 99 Room Air 02/07/17 02:35 78 57/44 (48) 02/07/17 02:30 86 66/41 (49) 02/07/17 02:20 87 88/42 (57) 02/07/17 02:05 85 16 90/38 (55) 100 Room Air 02/07/17 01:29 98.9 90 16 91/40 (57) 100 Room Air 02/07/17 01:06 96 16 90/41 (57) 95 Room Air 02/07/17 00:52 96 16 70/49 (56) 95 Room Air 02/07/17 00:24 100.0 98 18 89/42 (58) 97 Room Air 02/06/17 23:30 101 18 82/49 (60) 97 Room Air 02/06/17 22:50 101.1 110 92/54 (67) 97 02/06/17 22:12 102.5 111 16 97/58 (71) 97 02/06/17 21:52 97 21 02/06/17 21:16 102.4 111 16 114/72 (86) 97 02/06/17 20:49 102.7 110 16 106/66 (79) 97 02/06/17 20:17 97 02/06/17 20:03 103.0 110 16 153/71 (98) 97 02/06/17 17:51 102.0 97 18 141/73 (95) 98 Physical Exam GENERAL: Well-nourished, well-developed patient. SKIN: Warm and dry. HEAD: Normocephalic. EYES: No scleral icterus. No injection or drainage. NECK: Supple, trachea midline. No JVD or lymphadenopathy. CARDIOVASCULAR: Regular rate and rhythm without murmurs, gallops, or rubs. RESPIRATORY: Breath sounds equal bilaterally. No accessory muscle use. GASTROINTESTINAL: Abdomen soft, non-tender, nondistended. MUSCULOSKELETAL: No cyanosis, or edema. Status post left leg amputation BACK: Nontender without obvious deformity. NEURO EXAM: GCS: M6 V5 E4 Mental Status: The patient is alert and oriented to person, place, and time with normal speech. Cranial Nerves: Visual acuity intact on left. The right eye is missing. Voice is normal. Tongue protrudes midline and moves symmetrically. Reflexes: Biceps, patellar, and Achilles are 2/4 on the right. No clonus. Left leg is missing Sensation: Sensation is intact on the right Motor: Good muscle tone. Strength is 5/5 Laboratory Laboratory Tests Test 02/06/17 19:15 02/06/17 20:29 02/06/17 20:30 02/06/17 23:07 Prothrombin Time 14.2 Prothromb Time International Ratio 1.3 Activated Partial Thromboplast Time 29.0 White Blood Count 17.3 Red Blood Count 5.52 Hemoglobin 14.0 Hematocrit 44.4 Mean Corpuscular Volume 80.3 Mean Corpuscular Hemoglobin 25.4 Mean Corpuscular Hemoglobin Concent 31.6 Red Cell Distribution Width 14.9 Platelet Count 164 Mean Platelet Volume 10.6 Neutrophils (%) (Auto) 95.0 Lymphocytes (%) (Auto) 1.3 Monocytes (%) (Auto) 3.6 Eosinophils (%) (Auto) 0.0 Basophils (%) (Auto) 0.1 Neutrophils # (Auto) 16.5 Lymphocytes # (Auto) 0.2 Monocytes # (Auto) 0.6 Eosinophils # (Auto) 0.0 Basophils # (Auto) 0.0 CBC Comment AUTO DIFF Differential Total Cells Counted 100 Neutrophils % (Manual) 72 Band Neutrophils % 17 Lymphocytes % 3 Monocytes % 4 Neutrophils # (Manual) 16.1 Metamyelocytes 4 Differential Comment FINAL DIFF MANUAL Platelet Estimate NORMAL Platelet Morphology Comment CLUMPED Ovalocytes 1+ Blood Urea Nitrogen 31 Creatinine 1.80 Random Glucose 357 Total Protein 5.6 Albumin 2.1 Calcium Level 7.8 Alkaline Phosphatase 87 Aspartate Amino Transf (AST/SGOT) 19 Alanine Aminotransferase (ALT/SGPT) 15 Total Bilirubin 1.8 Sodium Level 143 Potassium Level 3.9 Chloride Level 107 Carbon Dioxide Level 18.5 Anion Gap 18 Estimat Glomerular Filtration Rate 47 Lactic Acid Level 2.6 2.1 Total Creatine Kinase 88 B-Hydroxybutyrate 7.41 Urine Color YELLOW Urine Turbidity MOD Urine pH 5.5 Urine Specific [place] 1.020 Urine Protein 100 Urine Glucose (UA) 1000 OR GREATER Urine Ketones 15 Urine Occult Blood MOD Urine Nitrite NEG Urine Bilirubin NEG Urine Leukocyte Esterase TRACE Urine RBC 4-9 Urine WBC 15-19 Urine WBC Clumps OCC Urine Squamous Epithelial Cells 0-5 Urine Bacteria MANY Test 02/07/17 03:30 02/07/17 04:52 White Blood Count 19.4 Red Blood Count 5.61 Hemoglobin 14.4 Hematocrit 46.8 Mean Corpuscular Volume 83.4 Mean Corpuscular Hemoglobin 25.7 Mean Corpuscular Hemoglobin Concent 30.9 Red Cell Distribution Width 16.3 Platelet Count 134 Mean Platelet Volume 10.6 Neutrophils (%) (Auto) 92.0 Lymphocytes (%) (Auto) 1.5 Monocytes (%) (Auto) 6.4 Eosinophils (%) (Auto) 0.0 Basophils (%) (Auto) 0.1 Neutrophils # (Auto) 17.9 Lymphocytes # (Auto) 0.3 Monocytes # (Auto) 1.3 Eosinophils # (Auto) 0.0 Basophils # (Auto) 0.0 CBC Comment AUTO DIFF Date/Time Source Procedure Growth Status 02/06/17 20:30 Blood Peripheral Aerobic Blood Culture Pending Received 02/06/17 20:30 Blood Peripheral Anaerobic Blood Culture Pending Received Result Diagram: 02/07/17 0452 02/06/172028 Caprini VTE Risk Assessment Caprini VTE Risk Assessment: Mod/High Risk (score >= 2) Caprini Risk Assessment Model Point Value = 1 Point Value = 2 Point Value = 3 Point Value = 5 Age 41-60 Minor surgery BMI > 25 kg/m2 Swollen legs Varicose veins or History of unexplained or recurrent spontaneous Oral contraceptives or hormone replacement Sepsis (< 1 month) Serious lung disease, including pneumonia (< 1 month) Abnormal pulmonary function Acute myocardial infarction Congestive heart failure (< 1 month) History of inflammatory bowel disease Medical patient at bed rest Age 61-74 Arthroscopic surgery Major open surgery (> 45 min) Laparoscopic surgery (> 45 min) Malignancy Confined to bed (> 72 hours) Immobilizing plaster cast Central venous access Age >= 75 History of VTE Family history of VTE Factor V Leiden Prothrombin [id number] Lupus anticoagulant Anticardiolipin antibodies Elevated serum homocysteine Heparin-induced thrombocytopenia Other congenital or acquired thrombophilia Stroke (< 1 month) Elective arthroplasty Hip, pelvis, or leg fracture Acute spinal cord injury (< 1 month) Prophylaxis Regimen Total Risk Factor Score Risk Level Prophylaxis Regimen 0-1 Low Early ambulation 2 Moderate Order ONE of the following: *Sequential Compression Device (SCD) *Heparin 5000 units SQ BID 3-4 Higher Order ONE of the following medications: *Heparin 5000 units SQ TID *Enoxaparin/Lovenox 40 mg SQ daily (WT < 150 kg, CrCl > 30 mL/min) *Enoxaparin/Lovenox 30 mg SQ daily (WT < 150 kg, CrCl > 10-29 mL/min) *Enoxaparin/Lovenox 30 mg SQ BID (WT < 150 kg, CrCl > 30 mL/min) AND/OR *Sequential Compression Device (SCD) 5 or more Highest Order ONE of the following medications: *Heparin 5000 units SQ TID (Preferred with Epidurals) *Enoxaparin/Lovenox 40 mg SQ daily (WT < 150 kg, CrCl > 30 mL/min) *Enoxaparin/Lovenox 30 mg SQ daily (WT < 150 kg, CrCl > 10-29 mL/min) *Enoxaparin/Lovenox 30 mg SQ BID (WT < 150 kg, CrCl > 30 mL/min) AND *Sequential Compression Device (SCD) Assessment and Plan Assessment and Plan Hematemesis - Protonix IV twice a day - Nothing by mouth - GI consult evaluation - H&H stable - Due to monitor trend Hypotension - Leukocytosis and fever in the ED - Possible sepsis - Aggressive IV fluids resuscitation - Broad-spectrum antibiotics - Follow-up cultures - Infectious disease consult evaluation Diabetes/DKA - Insulin drip per DKA protocol - Hold long acting insulins due to nothing by mouth as well due to GI bleed Acute on chronic kidney failure - IV fluids resuscitation - Nephrology consult - Monitor tacrolimus level - Strict I's and O's - Creatinine and electrolyte level DVT GI prophylaxis - Teds SCDs - No pharmacological DVT prophylaxis due to questionable GI bleed - IV Protonix twice a day Critical Care: The total critical care time was 35 minutes. Time to perform other separately billable procedures was not included in the critical care time. Luis Kaye MD Feb 07, 2017 06:00
[2017-02-07 06:20] LABS: BICARBONATE 15.8 MEQ/L (21.0-32.0); POTASSIUM 4.4 MEQ/L (3.5-5.1)
[2017-02-07] MEDS ORDERED: GLUCAGON 1 MG/ML VIAL OTHER PRN ×2 (06:45→20:45)
[2017-02-07] MEDS ORDERED: POTASSIUM CHLOR 40 MEQ PREMIX 100 ML IV PRN ×2 (07:00)
[2017-02-07] MEDS ORDERED: SODIUM BICARBONATE 8.4% SOLN 50 MEQ/50 ML VIAL IV PRN ×2 (07:00)
[2017-02-07] MEDS ORDERED: POTASSIUM CHLOR 20 MEQ PREMIX 100 ML IV PRN ×5 (07:00)
[2017-02-07] MEDS ORDERED: SODIUM PHOSPHATE INJ 15 MMOL in SODIUM CHLORIDE 0.9% INJ 100 ML IV PRN (07:00)
[2017-02-07] MEDS: INSULIN ASPART SUPPLEMENTAL SCALE SQ SCH ×4 (07:00→20:51)
[2017-02-07] MEDS ORDERED: INSULIN ASPART SUPPLEMENTAL SCALE SQ SCH ×2 (07:00→21:00)
[2017-02-07 07:03] LABS: BANDS 28 % (0-6); METAMYELOCYTES 5 % (0-1); MYELOCYTES 6 % (0-0); NEUTROPHIL # MANUAL DIFF 18.8 TH/MM3 (1.8-7.7); POLYS (SEG NEUTROPHILS) 58 % (16-70); WBC DIFF SAMPLE 100
[2017-02-07 07:04] LABS: DOHLE BODIES PRESENT (NONE SEEN); PLATELET ESTIMATE SMEAR LOW (NORMAL); PLATELET MORPHOLOGY NORMAL (NORMAL); SCAN/DIFF FINAL DIFF MANUAL; TOXIC VACUOLATION PRESENT (NONE SEEN)
[2017-02-07] MEDS: PANTOPRAZOLE SODIUM 40 MG VIAL IV SCH ×2 (07:30→18:00)
[2017-02-07] MEDS: DEXT 5%-NACL 0.9% 1000 ML INJ 1,000 ML IV SCH ×4 (08:30→20:49)
[2017-02-07] MEDS ORDERED: SODIUM CHLORIDE 0.9% FLUSH 10 ML FLUSH IV FLUSH SCH (09:00)
[2017-02-07] MEDS ORDERED: NON-FORMULARY DRUG (Brimonidine-Timolol Opth Drops (Combigan Opth Drops) 1 DROP) LEFT EYE SCH (09:00)
[2017-02-07] MEDS ORDERED: predniSONE 5 MG TAB PO SCH (09:00)
[2017-02-07] MEDS: SYSTANE LEFT EYE SCH ×2 (09:00→20:51)
[2017-02-07] MEDS ORDERED: INSULIN REGULAR (IV INFUSION) 100 UNITS in SODIUM CHLORIDE 0.9% INJ 99 ML IV SCH (10:00)
--- NOTE | 2017-02-07 10:05 | PD.CONS ---
HPI History of Present Illness This is a 61 year old male who was brought to the ER by ambulance for evaluation and treatment after he vomited blood. The patient is a very poor historian and it is difficult to obtain any information from him. He states that he started having nausea and vomiting last and he went to the ER in [place] and then discharged home. According to the records he was admitted on 02/03 through 02/05 for uncontrolled diabetes, metabolic encephalopathy, seizure activity, and acute on chronic kidney disease. His symptoms resolved and he was discharged home. He then states that he had hematemesis on Tuesday. He initially told me that he was not having any abdominal pain, but later stated that he had severe abdominal pain whenever he vomits. He does have a history of heartburn but states he is able to control this with diet. He denies any current abdominal pain. He has not seen any blood in his stool, but reports that he was told by someone else that dark stool like his means he is having GI bleeding. He has a history of kidney transplant in 2012 and is on prednisone and tacrolimus. He takes Protonix. He denies any history of GI bleeding. He does have a history of hepatitis stating that he was diagnosed a few years ago. He is treatment elie. He denies any history of liver cirrhosis. He does not believe that he is ever had an upper endoscopy. He does not take Ibuprofen/Motrin/Aleve. He reports that he quit drinking 10 years ago. (Heidi Kim) PFSH Past Medical History Chronic kidney disease , S/P renal transplant Hypertension Hyperlipidemia Diabetes mellitus GERD Glaucoma Cardiac artery disease Hepatitis C, Tx naive History of DVT Possible history of seizures Past Surgical History Kidney transplant 2006 Cardiac catheterization with PCI Hx LUE AVF Left AKA Right eye enucleation (Heidi Kim) Coded Allergies: No Known Allergies (Unverified , 10/27/16) Medications Allergies Coded Allergies Type Severity Reaction Last Updated Verified No Known Allergies 10/27/16 No Active Scripts Medications Dose Route/Sig Max Daily Dose Days Date Category Systane (Eyelid Cleanser Combination #9) 1 Each Towelette 1 Drop LEFT EYE BID 02/03/17 Reported Combigan Opth Drops (Brimonidine-Timolol Opth Drops) 0.2-0.5% Soln 1 Drop LEFT EYE TID 02/03/17 Reported Vitamin D (Cholecalciferol) 2,000 Unit Cap 1 Cap PO DAILY 02/03/17 Reported Flomax (Tamsulosin HCl) 0.4 Mg Cap 0.4 Mg PO HS 02/03/17 Reported Furosemide 40 Mg Tab 40 Mg PO DAILY 02/03/17 Reported Atorvastatin (Atorvastatin Calcium) 40 Mg Tab 40 Mg PO HS 02/03/17 Reported Calcitriol 0.25 Mcg Cap 0.25 Mcg PO DAILY 02/03/17 Reported Aspirin 81 (Aspirin) 81 Mg Tabdr 81 Mg PO DAILY 02/03/17 Reported Metoprolol Tartrate 100 Mg Tab 100 Mg PO BID 02/03/17 Reported Pantoprazole (Pantoprazole Sodium) 40 Mg Tab 40 Mg PO DAILY 02/03/17 Reported Gabapentin 400 Mg Cap 400 Cap PO TID 02/03/17 Reported Prednisone 5 Mg Tab 5 Mg PO DAILY 02/03/17 Reported Tacrolimus 1 Mg Cap 5 Mg PO Q12H 02/03/17 Reported Oxycodone (Oxycodone HCl) 5 Mg Tab 5 Mg PO Q4H PRN 06/27/16 Rx Novolog Mix 70-30 Inj (Insulin Aspart Prota 70%/Aspart 30%) 1,000 Unit/10 Ml Vial 10 Units SQ DAILY 06/27/16 Rx Family History Father had high blood pressure and diabetes Social History Denies any alcohol (quit drinking 10 years ago), tobacco, or illegal drug use (Heidi Kim) Review of Systems Constitutional: COMPLAINS OF: Fatigue, DENIES: Weight loss Respiratory: DENIES: Cough, Hemoptysis, Sputum production Cardiovascular: DENIES: Chest pain Gastrointestinal: COMPLAINS OF: Abdominal pain, Black stools, Nausea, Vomiting , Heartburn, Hematemesis, DENIES: Bloody stools, Constipation, Diarrhea Musculoskeletal: DENIES: Joint pain Neurologic: DENIES: Headache Psychiatric: COMPLAINS OF: Confusion (Heidi Kim) GI Exam Vitals I&O Vital Signs Date Time Temp Pulse Resp B/P (MAP) Pulse Ox O2 Delivery O2 Flow Rate FiO2 02/07/17 07:50 99 21 02/07/17 06:00 88 02/07/17 04:00 90 02/07/17 04:00 90 14 93/51 (65) 96 02/07/17 03:34 98.6 89 21 99/58 (72) 97 02/07/17 03:10 139/69 (92) 02/07/17 03:05 126/74 (91) 02/07/17 02:55 78/55 (63) 02/07/17 02:49 88 18 109/40 (63) 99 Room Air 02/07/17 02:35 78 57/44 (48) 02/07/17 02:30 86 66/41 (49) 02/07/17 02:20 87 88/42 (57) 02/07/17 02:05 85 16 90/38 (55) 100 Room Air 02/07/17 01:29 98.9 90 16 91/40 (57) 100 Room Air 02/07/17 01:06 96 16 90/41 (57) 95 Room Air 02/07/17 00:52 96 16 70/49 (56) 95 Room Air 02/07/17 00:24 100.0 98 18 89/42 (58) 97 Room Air 02/06/17 23:30 101 18 82/49 (60) 97 Room Air 02/06/17 22:50 101.1 110 92/54 (67) 97 02/06/17 22:12 102.5 111 16 97/58 (71) 97 02/06/17 21:52 97 21 02/06/17 21:16 102.4 111 16 114/72 (86) 97 02/06/17 20:49 102.7 110 16 106/66 (79) 97 02/06/17 20:17 97 02/06/17 20:03 103.0 110 16 153/71 (98) 97 02/06/17 17:51 102.0 97 18 141/73 (95) 98 I/O 02/06/17 02/06/17 02/06/17 02/07/17 02/07/17 02/07/17 07:00 15:00 23:00 07:00 15:00 23:00 Intake Total 2413 ml 5628 ml Output Total 250 ml Balance 2413 ml 5378 ml Intake Oral 300 ml IV Total 2413 ml 5328 ml Output Urine Total 250 ml # Voids 4 # Bowel Movements 1 Laboratory Test 02/06/17 19:15 02/06/17 20:29 02/06/17 20:30 02/06/17 23:07 Prothrombin Time 14.2 SEC Prothromb Time International Ratio 1.3 RATIO Activated Partial Thromboplast Time 29.0 SEC White Blood Count 17.3 TH/MM3 Red Blood Count 5.52 MIL/MM3 Hemoglobin 14.0 GM/DL Hematocrit 44.4 % Mean Corpuscular Volume 80.3 FL Mean Corpuscular Hemoglobin 25.4 PG Mean Corpuscular Hemoglobin Concent 31.6 % Red Cell Distribution Width 14.9 % Platelet Count 164 TH/MM3 Mean Platelet Volume 10.6 FL Neutrophils (%) (Auto) 95.0 % Lymphocytes (%) (Auto) 1.3 % Monocytes (%) (Auto) 3.6 % Eosinophils (%) (Auto) 0.0 % Basophils (%) (Auto) 0.1 % Neutrophils # (Auto) 16.5 TH/MM3 Lymphocytes # (Auto) 0.2 TH/MM3 Monocytes # (Auto) 0.6 TH/MM3 Eosinophils # (Auto) 0.0 TH/MM3 Basophils # (Auto) 0.0 TH/MM3 CBC Comment AUTO DIFF Differential Total Cells Counted 100 Neutrophils % (Manual) 72 % Band Neutrophils % 17 % Lymphocytes % 3 % Monocytes % 4 % Neutrophils # (Manual) 16.1 TH/MM3 Metamyelocytes 4 % Differential Comment FINAL DIFF MANUAL Platelet Estimate NORMAL Platelet Morphology Comment CLUMPED Ovalocytes 1+ Blood Urea Nitrogen 31 MG/DL Creatinine 1.80 MG/DL Random Glucose 357 MG/DL Total Protein 5.6 GM/DL Albumin 2.1 GM/DL Calcium Level 7.8 MG/DL Alkaline Phosphatase 87 U/L Aspartate Amino Transf (AST/SGOT) 19 U/L Alanine Aminotransferase (ALT/SGPT) 15 U/L Total Bilirubin 1.8 MG/DL Sodium Level 143 MEQ/L Potassium Level 3.9 MEQ/L Chloride Level 107 MEQ/L Carbon Dioxide Level 18.5 MEQ/L Anion Gap 18 MEQ/L Estimat Glomerular Filtration Rate 47 ML/MIN Lactic Acid Level 2.6 mmol/L 2.1 mmol/L Total Creatine Kinase 88 U/L B-Hydroxybutyrate 7.41 MMOL/L Urine Color YELLOW Urine Turbidity MOD Urine pH 5.5 Urine Specific [place] 1.020 Urine Protein 100 mg/dL Urine Glucose (UA) 1000 OR GREATER mg/dL Urine Ketones 15 mg/dL Urine Occult Blood MOD Urine Nitrite NEG Urine Bilirubin NEG Urine Leukocyte Esterase TRACE Urine RBC 4-9 /hpf Urine WBC 15-19 /hpf Urine WBC Clumps OCC Urine Squamous Epithelial Cells 0-5 /hpf Urine Bacteria MANY /hpf Test 02/07/17 03:30 02/07/17 04:52 Nasal Screen MRSA (PCR) MRSA NOT DETECTED White Blood Count 19.4 TH/MM3 Red Blood Count 5.61 MIL/MM3 Hemoglobin 14.4 GM/DL Hematocrit 46.8 % Mean Corpuscular Volume 83.4 FL Mean Corpuscular Hemoglobin 25.7 PG Mean Corpuscular Hemoglobin Concent 30.9 % Red Cell Distribution Width 16.3 % Platelet Count 134 TH/MM3 Mean Platelet Volume 10.6 FL Neutrophils (%) (Auto) 92.0 % Lymphocytes (%) (Auto) 1.5 % Monocytes (%) (Auto) 6.4 % Eosinophils (%) (Auto) 0.0 % Basophils (%) (Auto) 0.1 % Neutrophils # (Auto) 17.9 TH/MM3 Lymphocytes # (Auto) 0.3 TH/MM3 Monocytes # (Auto) 1.3 TH/MM3 Eosinophils # (Auto) 0.0 TH/MM3 Basophils # (Auto) 0.0 TH/MM3 CBC Comment AUTO DIFF Differential Total Cells Counted 100 Neutrophils % (Manual) 58 % Band Neutrophils % 28 % Lymphocytes % 1 % Monocytes % 2 % Neutrophils # (Manual) 18.8 TH/MM3 Metamyelocytes 5 % Myelocytes 6 % Differential Comment FINAL DIFF MANUAL Toxic Vacuolation PRESENT Dohle Bodies PRESENT Platelet Estimate LOW Platelet Morphology Comment NORMAL Blood Urea Nitrogen 34 MG/DL Creatinine 2.53 MG/DL Random Glucose 328 MG/DL Calcium Level 8.3 MG/DL Sodium Level 141 MEQ/L Potassium Level 4.4 MEQ/L Chloride Level 109 MEQ/L Carbon Dioxide Level 15.8 MEQ/L Anion Gap 16 MEQ/L Estimat Glomerular Filtration Rate 32 ML/MIN Date/Time Source Procedure Growth Status 02/06/17 20:30 Blood Peripheral Aerobic Blood Culture Pending Received 02/06/17 20:30 Blood Peripheral Anaerobic Blood Culture Pending Received Physical Examination HEENT: Normocephalic; atraumatic; no jaundice. CHEST: CTA CARDIAC: RRR ABDOMEN: Soft, nondistended, nontender; no hepatosplenomegaly; bowel sounds are present in all four quadrants. EXTREMITIES: Left AKA SKIN: Normal; no rash; no jaundice. 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 Pt brought to the ER by [facility] for c/o hematemesis. He is a very poor historian and is not able to provide a good history. He has not had any hematemesis or vomiting since arrival to floor. HH stable 14.4/46.8---> 13.4/45.0. He denies abdominal pain, but then stated that he had severe abdominal pain when he vomited. He is not having any pain right now. No hx of PUD. Denies liver cirrhosis. He does have hx of renal transplant and takes prednisone. He is on PPI at home. He is in no acute distress. Will cont. PPI and schedule for EGD in am. - Leukocytosis. WBC 15.4. Pt on chronic steroids. - Elevated Glucose/Uncontrolled DM. Per attending. - Acute on CKD with hx of renal transplant. Creat 2.57. - CAD, HTN, Hyperlipidemia, PVD, Depression, COPD. - Hx HCV antibodies, but undetectable viral load x 2. PLAN: - Plan for egd in am - Obtain consents - NPO after MN - Clear liquids today - PPI - Monitor HH - Transfuse as necessary - Supportive care - Further recommendations to follow based on results of above - Pt seen and examined by Dr. Mclaughlin and myself and this note is written on his behalf (Heidi Kim) Physician Comments Seen and examined with Heidi. Plan as lined up above. EGD in AM , further recommendations to follow. (Miah Mclaughlin MD) Heidi Kim Feb 07, 2017 10:05 Miah Mclaughlin MD Feb 07, 2017 17:38
[2017-02-07] MEDS ORDERED: DEXTROSE 50% IN WATER 50 ML SYRINGE IV PRN (10:30)
[2017-02-07 11:01] LABS: ALT (GPT) 18 U/L (12-78); ANION GAP 17 MEQ/L (5-15); AST (GOT) 37 U/L (15-37); BICARBONATE 14.5 MEQ/L (21.0-32.0); BLOOD UREA NITROGEN 33 MG/DL (7-18); CHLORIDE 112 MEQ/L (98-107); GLOMERULAR FILTRATION RATE 31 ML/MIN (>89); POTASSIUM 4.3 MEQ/L (3.5-5.1); SODIUM (NA) 143 MEQ/L (136-145)
[2017-02-07 11:03] LABS: ALKALINE PHOSPHATASE 100 U/L (45-117); TOTAL BILIRUBIN ADULT 1.4 MG/DL (0.2-1.0)
[2017-02-07 11:05] LABS: AUTOMATED NEUTROPHIL # 14.5 TH/MM3 (1.8-7.7); BASOPHIL % 0.2 % (0.0-2.0); EOSINOPHIL # 0.1 TH/MM3 (0-0.4); EOSINOPHIL % 0.7 % (0.0-4.0); LYMPH % 0.9 % (9.0-44.0); LYMPHOCYTE # 0.1 TH/MM3 (1.0-4.8); MEAN CELL VOLUME 84.4 FL (80.0-100.0); MEAN CORPUSCULAR HEMOGLOBIN 25.2 PG (27.0-34.0); MONO % 4.4 % (0.0-8.0); NEUT % 93.8 % (16.0-70.0); PLATELET COUNT 141 TH/MM3 (150-450); RED BLOOD COUNT 5.33 MIL/MM3 (4.50-5.90); RED CELL DISTRIBUTION WIDTH 16.6 % (11.6-17.2); WHITE BLOOD COUNT 15.4 TH/MM3 (4.0-11.0)
[2017-02-07 11:10] LABS: HEMO FLAGS AUTO DIFF; MEAN CORPUSCULAR HGB CONC 29.8 % (32.0-36.0)
[2017-02-07] MEDS: SODIUM CHLOR 0.9% 1000 ML INJ 1,000 ML IV SCH ×7 (11:30→20:30)
[2017-02-07] MEDS: CALCITRIOL 0.25 MCG CAP PO SCH (11:32)
[2017-02-07] MEDS: SODIUM CHLORIDE 0.9% FLUSH 10 ML FLUSH IV FLUSH SCH ×2 (11:32→20:51)
[2017-02-07] MEDS: BRIMONIDINE TARTRATE 0.2% OPHT SOLN 5 ML BTL LEFT EYE SCH ×3 (11:32→20:50)
[2017-02-07] MEDS: TIMOLOL MALEATE 0.5% OPHT SOLN 5 ML BTL LEFT EYE SCH ×3 (11:32→20:50)
[2017-02-07] MEDS: DOCUSATE SODIUM 50 MG/SENNA 8.6 MG TAB PO SCH ×2 (11:33→20:51)
[2017-02-07] MEDS: GABAPENTIN 400 MG CAP PO SCH ×3 (11:35→18:18)
[2017-02-07 12:00] LABS: BANDS 24 % (0-6); METAMYELOCYTES 3 % (0-1); MYELOCYTES 1 % (0-0); NEUTROPHIL # MANUAL DIFF 14.8 TH/MM3 (1.8-7.7); POLYS (SEG NEUTROPHILS) 68 % (16-70); WBC DIFF SAMPLE 100
[2017-02-07 12:01] LABS: OVALOCYTES 1+ (NORMAL); PLATELET ESTIMATE SMEAR LOW (NORMAL); PLATELET MORPHOLOGY NORMAL (NORMAL); SCAN/DIFF FINAL DIFF MANUAL
[2017-02-07 12:39] LABS: LACTIC ACID GHOST NOT REPORTABLE
[2017-02-07] MEDS: POTASSIUM CHLOR 20 MEQ PREMIX 100 ML IV PRN ×2 (12:40→14:45)
--- NOTE | 2017-02-07 14:33 | PD.ID.CON ---
History of Present Illness Service ID Consult Requested By Dr Kaye Reason for Consult sepsis Primary Care Physician Matt Monet MD Diagnoses: History of Present Illness Pt is a poor historian and told me he dosenot know what happened to him This 61-year-old male with multiple med problems including kidney transplant in 2012, diabetes, COPD brought by ambulance with hemastoemesis x 1 day. Sp left leg AKA 2/2 diabetes complication and is blind in the right eye. He has no history of GI bleed. He does not drink alcohol. Has HCV On presentation leukocytosis 15-17 K, has bandemia up to 28% and lactic acidosi up to 3.1; his creatinin went up to 2.59 He has negative blood cultures for 1 day Review of Systems ROS Limitations: Poor Historian Past Family Social History Allergies: Coded Allergies: No Known Allergies (Unverified , 10/27/16) Past Medical History Hypertension Hyperlipidemia Diabetes Coronary artery disease History coronary stent placement Right eye blindness Status post kidney transplant in April 2013 for the indication of end-stage renal disease History of hepatitis C exposure Chronic anemia Hyperparathyroidism Peripheral vascular disease History of glaucoma History of depression History of COPD Past Surgical History Right eye surgery - removal 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 quit drinking alcohol in 2005, quit using crack cocaine in 2005. Physical Exam Vital Signs Vital Signs Date Time Temp Pulse Resp B/P (MAP) Pulse Ox O2 Delivery O2 Flow Rate FiO2 02/07/17 07:50 99 21 02/07/17 06:00 88 02/07/17 04:00 90 02/07/17 04:00 90 14 93/51 (65) 96 02/07/17 03:34 98.6 89 21 99/58 (72) 97 02/07/17 03:10 139/69 (92) 02/07/17 03:05 126/74 (91) 02/07/17 02:55 78/55 (63) 02/07/17 02:49 88 18 109/40 (63) 99 Room Air 02/07/17 02:35 78 57/44 (48) 02/07/17 02:30 86 66/41 (49) 02/07/17 02:20 87 88/42 (57) 02/07/17 02:05 85 16 90/38 (55) 100 Room Air 02/07/17 01:29 98.9 90 16 91/40 (57) 100 Room Air 02/07/17 01:06 96 16 90/41 (57) 95 Room Air 02/07/17 00:52 96 16 70/49 (56) 95 Room Air 02/07/17 00:24 100.0 98 18 89/42 (58) 97 Room Air 02/06/17 23:30 101 18 82/49 (60) 97 Room Air 02/06/17 22:50 101.1 110 92/54 (67) 97 02/06/17 22:12 102.5 111 16 97/58 (71) 97 02/06/17 21:52 97 21 02/06/17 21:16 102.4 111 16 114/72 (86) 97 02/06/17 20:49 102.7 110 16 106/66 (79) 97 02/06/17 20:17 97 02/06/17 20:03 103.0 110 16 153/71 (98) 97 02/06/17 17:51 102.0 97 18 141/73 (95) 98 Physical Exam CONSTITUTIONAL/GENERAL: This is an adequately nourished patient, in no apparent distress, appears acutely ill TUBES/LINES/DRAINS: SKIN: + ? minimal jaundice, rashes, or lesions. Skin temperature appropriate. Not diaphoretic. HEAD: Atraumatic. Normocephalic. EYES: OD - absent OS with some injected conjuntiva + ? minimal scleral icterus. No drainage. Fundi not examined. ENT: Hearing grossly normal. Nose without bleeding or purulent drainage.Oral mucosae dry without visible erythema, exudates, masses, or lesions. Dentition is poor NECK: Trachea midline. Supple, nontender. CARDIOVASCULAR: Regular rate and rhythm without murmurs, gallops, or rubs. No JVD. Peripheral pulses symmetric. RESPIRATORY/CHEST: Symmetric, unlabored respirations. Clear to auscultation. Breath sounds equal bilaterally. No wheezes, rales, or rhonchi. GASTROINTESTINAL: Abdomen soft, non-tender, distended. No hepato-splenomegaly, or palpable masses. No guarding. Bowel sounds present. GENITOURINARY: Without palpable bladder distension. Mcmillan catheter in place. He has a non tender RLQ mass cw renal allograft MUSCULOSKELETAL: Extremities without clubbing, cyanosis, or edema. No joint tenderness or effusion noted. No calf tenderness. No mottling or clubbing. LYMPHATICS: No palpable cervical or supraclavicular adenopathy. NEUROLOGICAL: Lethargic, but arousable. Somewhat confused .. Motor and sensory grossly within normal limits. Follows commands. Normal speech Moves all extremities. PSYCHIATRIC: calm and coopertaive Laboratory Laboratory Tests Test 02/06/17 19:15 02/06/17 20:29 02/06/17 20:30 02/06/17 23:07 Prothrombin Time 14.2 Prothromb Time International Ratio 1.3 Activated Partial Thromboplast Time 29.0 White Blood Count 17.3 Red Blood Count 5.52 Hemoglobin 14.0 Hematocrit 44.4 Mean Corpuscular Volume 80.3 Mean Corpuscular Hemoglobin 25.4 Mean Corpuscular Hemoglobin Concent 31.6 Red Cell Distribution Width 14.9 Platelet Count 164 Mean Platelet Volume 10.6 Neutrophils (%) (Auto) 95.0 Lymphocytes (%) (Auto) 1.3 Monocytes (%) (Auto) 3.6 Eosinophils (%) (Auto) 0.0 Basophils (%) (Auto) 0.1 Neutrophils # (Auto) 16.5 Lymphocytes # (Auto) 0.2 Monocytes # (Auto) 0.6 Eosinophils # (Auto) 0.0 Basophils # (Auto) 0.0 CBC Comment AUTO DIFF Differential Total Cells Counted 100 Neutrophils % (Manual) 72 Band Neutrophils % 17 Lymphocytes % 3 Monocytes % 4 Neutrophils # (Manual) 16.1 Metamyelocytes 4 Differential Comment FINAL DIFF MANUAL Platelet Estimate NORMAL Platelet Morphology Comment CLUMPED Ovalocytes 1+ Blood Urea Nitrogen 31 Creatinine 1.80 Random Glucose 357 Total Protein 5.6 Albumin 2.1 Calcium Level 7.8 Alkaline Phosphatase 87 Aspartate Amino Transf (AST/SGOT) 19 Alanine Aminotransferase (ALT/SGPT) 15 Total Bilirubin 1.8 Sodium Level 143 Potassium Level 3.9 Chloride Level 107 Carbon Dioxide Level 18.5 Anion Gap 18 Estimat Glomerular Filtration Rate 47 Lactic Acid Level 2.6 2.1 Total Creatine Kinase 88 B-Hydroxybutyrate 7.41 Urine Color YELLOW Urine Turbidity MOD Urine pH 5.5 Urine Specific [place] 1.020 Urine Protein 100 Urine Glucose (UA) 1000 OR GREATER Urine Ketones 15 Urine Occult Blood MOD Urine Nitrite NEG Urine Bilirubin NEG Urine Leukocyte Esterase TRACE Urine RBC 4-9 Urine WBC 15-19 Urine WBC Clumps OCC Urine Squamous Epithelial Cells 0-5 Urine Bacteria MANY Test 02/07/17 03:30 02/07/17 04:52 02/07/17 10:25 02/07/17 10:30 Nasal Screen MRSA (PCR) MRSA NOT DETECTED White Blood Count 19.4 15.4 Red Blood Count 5.61 5.33 Hemoglobin 14.4 13.4 Hematocrit 46.8 45.0 Mean Corpuscular Volume 83.4 84.4 Mean Corpuscular Hemoglobin 25.7 25.2 Mean Corpuscular Hemoglobin Concent 30.9 29.8 Red Cell Distribution Width 16.3 16.6 Platelet Count 134 141 Mean Platelet Volume 10.6 10.0 Neutrophils (%) (Auto) 92.0 93.8 Lymphocytes (%) (Auto) 1.5 0.9 Monocytes (%) (Auto) 6.4 4.4 Eosinophils (%) (Auto) 0.0 0.7 Basophils (%) (Auto) 0.1 0.2 Neutrophils # (Auto) 17.9 14.5 Lymphocytes # (Auto) 0.3 0.1 Monocytes # (Auto) 1.3 0.7 Eosinophils # (Auto) 0.0 0.1 Basophils # (Auto) 0.0 0.0 CBC Comment AUTO DIFF AUTO DIFF Differential Total Cells Counted 100 100 Neutrophils % (Manual) 58 68 Band Neutrophils % 28 24 Lymphocytes % 1 3 Monocytes % 2 1 Neutrophils # (Manual) 18.8 14.8 Metamyelocytes 5 3 Myelocytes 6 1 Differential Comment FINAL DIFF MANUAL FINAL DIFF MANUAL Toxic Vacuolation PRESENT Dohle Bodies PRESENT Platelet Estimate LOW LOW Platelet Morphology Comment NORMAL NORMAL Blood Urea Nitrogen 34 33 Creatinine 2.53 2.57 Random Glucose 328 350 Calcium Level 8.3 7.6 Sodium Level 141 143 Potassium Level 4.4 4.3 Chloride Level 109 112 Carbon Dioxide Level 15.8 14.5 Anion Gap 16 17 Estimat Glomerular Filtration Rate 32 31 Ovalocytes 1+ Total Protein 5.5 Albumin 2.0 Alkaline Phosphatase 100 Aspartate Amino Transf (AST/SGOT) 37 Alanine Aminotransferase (ALT/SGPT) 18 Total Bilirubin 1.4 Lactic Acid Level 3.1 Date/Time Source Procedure Growth Status 02/07/17 10:30 Blood Peripheral Aerobic Blood Culture Pending Received 02/07/17 10:30 Blood Peripheral Anaerobic Blood Culture Pending Received Result Diagram: 02/07/17 1025 02/07/17 1025 Imaging CXR negative Course His blood clx just showed a GNR in 09/21 Assessment and Plan Assessment and Plan Sepsis with gram negative bacteremia in immunopcopromised pt sp renal allograft - fever, leukocotosuis and lactic acidosis Probably complicated UTI Critically ill ARF on CKD Leukocytosis, severe bandemia : worse REC's: - fu urine clx - monitor clinically - dc vancomycin - if urine negative and/or shows GI smx will get no contrasted CT Zoë Hebert MD Feb 07, 2017 14:33
[2017-02-07] MEDS: PIPERACIL-TAZO 3.375 GM PREMIX 50 ML IV SCH (18:18)
[2017-02-07] MEDS ORDERED: DEXTROSE 50% IN WATER 50 ML VIAL(D50) IV PRN (20:45)
[2017-02-07] MEDS: ATORVASTATIN 40 MG TAB PO SCH (20:51)
[2017-02-07] MEDS: TAMSULOSIN HCL 0.4 MG CAP PO SCH (20:51)
[2017-02-07 23:26] LABS: BETA-HYDROXYBUTYRATE 0.12 MMOL/L (0.00-0.39); BICARBONATE 20.1 MEQ/L (21.0-32.0); MAGNESIUM 1.4 MG/DL (1.5-2.5); POTASSIUM 4.3 MEQ/L (3.5-5.1)
[2017-02-08] VITALS (13 sets, daily range): BP systolic 100–175; BP diastolic 51–63; PULSE 82–100; RESP 14–21; TEMP 97.6–99; O2SAT 91–99
[2017-02-08] MEDS ORDERED: VANCOMYCIN 1,000 MG/NS 250 ML IV SCH ×2
[2017-02-08] MEDS: PIPERACIL-TAZO 3.375 GM PREMIX 50 ML IV SCH ×3 (00:28→12:59)
[2017-02-08] MEDS ORDERED: DC Insulin drip 2 hrs post basal insulin dose ONE (00:45)
[2017-02-08] MEDS ORDERED: DEXTROSE 50% IN WATER 50 ML VIAL(D50) IV PRN (00:45)
[2017-02-08] MEDS ORDERED: GLUCAGON 1 MG/ML VIAL OTHER PRN (00:45)
[2017-02-08] MEDS ORDERED: DC previous DKA orders (HMC 1917) ONE (00:45)
[2017-02-08] MEDS: MAGNESIUM SULFATE 1 GM PREMIX 100 ML IV SCH ×2 (01:26→03:11)
[2017-02-08] MEDS: PANTOPRAZOLE 80 MG/100 ML NS IV SCH ×4 (02:19→12:59)
[2017-02-08 02:41] LABS: BACTERIA, URINE RARE /hpf; BLOOD, URINE SMALL (NEG); CALCIUM OXALATE CRYSTALS,URINE RARE /hpf; GLUCOSE,URINE 1000 mg/dL (NEG); KETONE, URINE 10 mg/dL (NEG); MUCUS URINE FEW /lpf (OCC); NITRITE,URINE NEG (NEG); PH, URINE 5.5 (5.0-8.5); URINE COLOR YELLOW (YELLW/STRAW)
[2017-02-08 02:43] LABS: COMMENT (UR) CULTURE INDICATED; CULTURE IF INDICATED CULTURE INDICATED
[2017-02-08] MEDS: CHLORHEXIDINE GLUCONATE 2 % 1 PACK (2 CLOTHS) TOP SCH (03:11)
[2017-02-08] MEDS ORDERED: CHLORHEXIDINE GLUCONATE 2 % 1 PACK (2 CLOTHS) TOP SCH (04:00)
[2017-02-08] MEDS: PANTOPRAZOLE SODIUM 40 MG VIAL IV SCH ×2 (06:00→18:21)
[2017-02-08] MEDS: INSULIN ASPART SUPPLEMENTAL SCALE SQ SCH ×4 (06:33→22:48)
[2017-02-08 07:36] LABS: AUTOMATED NEUTROPHIL # 14.1 TH/MM3 (1.8-7.7); BASOPHIL # 0.1 TH/MM3 (0-0.2); BASOPHIL % 0.6 % (0.0-2.0); EOSINOPHIL # 0.4 TH/MM3 (0-0.4); EOSINOPHIL % 2.4 % (0.0-4.0); HEMATOCRIT 43.2 % (39.0-51.0); LYMPH % 1.9 % (9.0-44.0); LYMPHOCYTE # 0.3 TH/MM3 (1.0-4.8); MEAN CELL VOLUME 81.8 FL (80.0-100.0); MEAN CORPUSCULAR HEMOGLOBIN 25.7 PG (27.0-34.0); MEAN CORPUSCULAR HGB CONC 31.5 % (32.0-36.0); MONO % 6.4 % (0.0-8.0); NEUT % 88.7 % (16.0-70.0); PLATELET COUNT 88 TH/MM3 (150-450); RED BLOOD COUNT 5.28 MIL/MM3 (4.50-5.90); RED CELL DISTRIBUTION WIDTH 16.9 % (11.6-17.2); WHITE BLOOD COUNT 15.9 TH/MM3 (4.0-11.0)
[2017-02-08 07:37] LABS: HEMO FLAGS AUTO DIFF
[2017-02-08 07:40] LABS: BANDS 35 % (0-6); METAMYELOCYTES 5 % (0-1); MYELOCYTES 3 % (0-0); NEUTROPHIL # MANUAL DIFF 15.3 TH/MM3 (1.8-7.7); PLATELET ESTIMATE SMEAR LOW (NORMAL); PLATELET MORPHOLOGY ENLARGED (NORMAL); POLYS (SEG NEUTROPHILS) 53 % (16-70); TOXIC GRANULATION 1+ (NORMAL); TOXIC VACUOLATION PRESENT (NONE SEEN); WBC DIFF SAMPLE 100
[2017-02-08 07:41] LABS: SCAN/DIFF FINAL DIFF MANUAL
[2017-02-08] MEDS: INSULIN DETEMIR 100 UNITS/ML VIAL SQ SCH (09:00)
[2017-02-08] MEDS: SODIUM CHLORIDE 0.9% FLUSH 10 ML FLUSH IV FLUSH SCH ×2 (09:00→22:28)
[2017-02-08] MEDS: DOCUSATE SODIUM 50 MG/SENNA 8.6 MG TAB PO SCH ×2 (09:00→21:00)
--- NOTE | 2017-02-08 10:55 | PD.CONS ---
HPI Service Nephrology Consult Requested By Reason for Consult Acute on CKD Primary Care Physician Matt Monet MD History of Present Illness This is a 61 y.o AAM with a hx of renal transplant and CKD 2 who came to ER for evaluation of hematemesis with abdominal pain. He presented with fever, fatigue, and vomiting. He was febrile on arrival with leukocytosis , and elevated lactic acid with the source of infection appears to be from UTI. Other PMH of HTN, DM II, CAD, and hepatitis C untreated. 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 He is confused this morning, answering only simple questions. Creatinine on arrival was 1.8 that has gradually increased to 3.19 today. He is making some urine via li but his renal transplant is extremely tender to palpation. We were consulted for management of renal failure. He is in route to EGD this morning, on Protonix gtt for GI bleed. He in on 0.9% NS @ 75 cc/hr. (Nila Mckeon) Review of Systems ROS Limitations: Altered Mental Status Constitutional: COMPLAINS OF: Fatigue, Change in appetite Cardiovascular: DENIES: Chest pain Gastrointestinal: COMPLAINS OF: Abdominal pain, Vomiting (Nila Mckeon) Past Family Social History Allergies: Coded Allergies: No Known Allergies (Unverified , 10/27/16) Past Medical History Status post kidney transplant in April 2013 for the indication of end-stage renal disease CKD 2, baseline creatinine 1.2, GFR 75 Hypertension Hyperlipidemia Diabetes Coronary artery disease History coronary stent placement Right eye blindness Hepatitis C exposure Chronic anemia Hyperparathyroidism Peripheral vascular disease History of glaucoma History of depression History of COPD Past Surgical History Right eye surgery - removal Left below the knee amputation Kidney transplant AV fistula Reported Medications Oxycodone (Oxycodone HCl) 5 Mg Tab 5 Mg PO Q4H PRN Novolog Mix 70-30 Inj (Insulin Aspart Prota 70%/Aspart 30%) 1,000 Unit/10 Ml Vial 10 Units SQ DAILY Systane (Eyelid Cleanser Combination #9) 1 Each Towelette 1 Drop LEFT EYE BID Combigan Opth Drops (Brimonidine-Timolol Opth Drops) 0.2-0.5% Soln 1 Drop LEFT EYE TID Vitamin D (Cholecalciferol) 2,000 Unit Cap 1 Cap PO DAILY Flomax (Tamsulosin HCl) 0.4 Mg Cap 0.4 Mg PO HS Furosemide 40 Mg Tab 40 Mg PO DAILY Atorvastatin (Atorvastatin Calcium) 40 Mg Tab 40 Mg PO HS Calcitriol 0.25 Mcg Cap 0.25 Mcg PO DAILY Aspirin 81 (Aspirin) 81 Mg Tabdr 81 Mg PO DAILY Metoprolol Tartrate 100 Mg Tab 100 Mg PO BID Pantoprazole (Pantoprazole Sodium) 40 Mg Tab 40 Mg PO DAILY Gabapentin 400 Mg Cap 400 Cap PO TID Prednisone 5 Mg Tab 5 Mg PO DAILY Tacrolimus 1 Mg Cap 5 Mg PO Q12H Active Ordered Medications Current Medications Medications (Trade) Dose Ordered Sig/Pramod Route Start Time Stop Time Status Last Admin Pantoprazole Sodium 80 mg/ Sodium Chloride 100 ml @ 10 mls/hr Q10H IV 02/06/17 19:15 02/08/17 02:19 (Lipitor) 40 mg HS PO 02/07/17 21:00 02/07/17 20:51 (Rocaltrol) 0.25 mcg DAILY PO 02/07/17 09:00 02/07/17 11:32 (Neurontin) 400 mg TID PO 02/07/17 09:00 02/07/17 18:18 (Deltasone) 5 mg DAILY PO 02/07/17 09:00 02/07/17 11:32 (Prograf) 5 mg Q12H PO 02/06/17 21:45 02/07/17 20:51 Patient Own Medication PT OWN MED: SYST... BID LEFT EYE 02/07/17 09:00 (NovoLOG SUPPLEMENTAL SCALE) 1 ACHS SLIDING SCALE SQ 02/07/17 07:00 (NS Flush) 2 ml UNSCH PRN IV FLUSH 02/06/17 21:45 (NS Flush) 2 ml BID IV FLUSH 02/07/17 09:00 02/07/17 20:51 (Tylenol) 650 mg Q4H PRN PO 02/06/17 21:45 02/06/17 22:25 (Zofran Inj) 4 mg Q6H PRN IVP 02/06/17 21:45 (Tylenol) 650 mg Q6H PRN PO 02/06/17 21:45 (Percocet 5-325 Mg) 1 tab Q6H PRN PO 02/06/17 21:45 (Percocet 10-325 Mg) 1 tab Q6H PRN PO 02/06/17 21:45 (Morphine Inj) 1 mg Q3H PRN IV 02/06/17 21:45 (Narcan Inj) 0.4 mg UNSCH PRN IV 02/06/17 21:45 (Zuleyka-Colace) 1 tab BID PO 02/07/17 09:00 02/07/17 11:33 (Senokot) 17.2 mg Q12H PRN PO 02/06/17 21:45 (Lactulose Liq) 30 ml DAILY PRN PO 02/06/17 21:45 (Alphagan 0.2% Opth Soln) 1 drop DAILY@0900,1400,2100 LEFT EYE 02/07/17 09:00 02/07/17 20:50 (Timoptic 0.5% Opth Soln) 1 drop DAILY@0900,1400,2100 LEFT EYE 02/07/17 09:00 02/07/17 20:50 Sodium Chloride 1,000 ml @ 75 mls/hr [id number] IV 02/07/17 05:50 (Protonix Inj) 40 mg Q12H IV 02/07/17 06:00 02/07/17 07:30 (Duoneb Neb) 1 ampule Q2HR NEB PRN INH 02/07/17 06:00 Pharmacy Profile Note 0 ml @ 0 mls/hr UNSCH OTHER 02/07/17 06:00 Norepinephrine Bitartrate 250 ml @ 7.5 mls/hr TITRATE PRN IV 02/07/17 06:00 (Brethine Inj) 1 mg UNSCH PRN SQ 02/07/17 06:00 (Flomax) 0.4 mg HS PO 02/07/17 21:00 02/07/17 20:51 Miscellaneous Information 1 Q361D XX 02/07/17 07:00 02/07/17 07:00 (Chlorhexidine 2% Cloth) 3 pack Taper DAILY@04 TOP 02/08/17 04:00 02/04/18 03:59 02/08/17 03:11 (Chlorhexidine 2% Cloth) 3 pack UNSCH PRN TOP 02/07/17 07:00 Miscellaneous Information SPECIFIC LAB TO BE LILIANA... 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, lives alone uses wheelchair needs assistance with ADLs (Nila Mckeon) Physical Exam Vital Signs Vital Signs Date Time Temp Pulse Resp B/P (MAP) Pulse Ox O2 Delivery O2 Flow Rate FiO2 02/08/17 10:38 91 02/08/17 08:00 97.8 84 16 115/51 (72) 95 02/08/17 08:00 84 02/08/17 06:00 82 02/08/17 04:00 99.0 84 14 111/53 (72) 95 02/08/17 04:00 84 02/08/17 02:00 86 02/08/17 00:00 98.1 90 19 135/59 (84) 97 02/08/17 00:00 90 02/07/17 23:44 93 21 02/07/17 22:00 87 02/07/17 20:00 99.2 85 14 111/56 (74) 97 02/07/17 20:00 85 02/07/17 18:00 84 02/07/17 16:00 88 02/07/17 16:00 98.8 88 17 126/58 (80) 96 02/07/17 14:00 92 02/07/17 12:00 91 02/07/17 12:00 98.5 91 19 149/68 (95) 98 Physical Exam Elderly AAM who appears ill dry mucous membranes; lungs clear S1/S2, regular rate, no murmurs abd flat, right lower quadrant tender to palpation li draining ext: no edema, left AKA Laboratory Laboratory Tests Test 02/07/17 15:12 02/07/17 22:35 02/08/17 02:20 02/08/17 05:30 Lactic Acid Level 3.0 Blood Urea Nitrogen 40 Creatinine 3.19 Random Glucose 155 Calcium Level 7.5 Phosphorus Level 0.4 Magnesium Level 1.4 Sodium Level 145 Potassium Level 4.3 Chloride Level 116 Carbon Dioxide Level 20.1 Anion Gap 9 Estimat Glomerular Filtration Rate 24 B-Hydroxybutyrate 0.12 Urine Color YELLOW Urine Turbidity CLOUDY Urine pH 5.5 Urine Specific [place] 1.021 Urine Protein 100 Urine Glucose (UA) 1000 Urine Ketones 10 Urine Occult Blood SMALL Urine Nitrite NEG Urine Bilirubin NEG Urine Urobilinogen LESS THAN 2.0 Urine Leukocyte Esterase SMALL Urine RBC 4 Urine WBC 18 Urine Calcium Oxalate Crystals RARE Urine Amorphous Sediment RARE Urine Bacteria RARE Urine Mucus FEW Microscopic Urinalysis Comment CULTURE INDICATED White Blood Count 15.9 Red Blood Count 5.28 Hemoglobin 13.6 Hematocrit 43.2 Mean Corpuscular Volume 81.8 Mean Corpuscular Hemoglobin 25.7 Mean Corpuscular Hemoglobin Concent 31.5 Red Cell Distribution Width 16.9 Platelet Count 88 Mean Platelet Volume 11.0 Neutrophils (%) (Auto) 88.7 Lymphocytes (%) (Auto) 1.9 Monocytes (%) (Auto) 6.4 Eosinophils (%) (Auto) 2.4 Basophils (%) (Auto) 0.6 Neutrophils # (Auto) 14.1 Lymphocytes # (Auto) 0.3 Monocytes # (Auto) 1.0 Eosinophils # (Auto) 0.4 Basophils # (Auto) 0.1 CBC Comment AUTO DIFF Differential Total Cells Counted 100 Neutrophils % (Manual) 53 Band Neutrophils % 35 Lymphocytes % 1 Monocytes % 3 Neutrophils # (Manual) 15.3 Metamyelocytes 5 Myelocytes 3 Differential Comment FINAL DIFF MANUAL Toxic Granulation 1+ Toxic Vacuolation PRESENT Platelet Estimate LOW Platelet Morphology Comment ENLARGED Date/Time Source Procedure Growth Status 02/07/17 10:30 Blood Peripheral Aerobic Blood Culture - Preliminary Gram Negative Benjamin Resulted 02/07/17 10:30 Blood Peripheral Anaerobic Blood Culture Pending Resulted 02/08/17 02:20 Urine Clean Catch Urine Culture Pending Received (Nila Mckeon) Result Diagram: 02/08/1730 02/07/17 2235 Imaging Last 72 hours Impressions Chest X-Ray 02/06/17 1168 Signed Impressions: Service Date/Time: Monday, February 06, 2017 18:46 - CONCLUSION: No acute cardiopulmonary disease. Yvette Blackwell MD (Nila Mckeon) Assessment and Plan Problem List: (1) Acute renal insufficiency ICD Codes: N28.9 - Disorder of kidney and ureter, unspecified Status: Acute Plan: Baseline CKD 2, creatinine 1.2, GFR 75 DEANA may be due to sepsis, end organ hypoperfusion renal function is worsening per today's labs he is on 0.9% NS, change to bicarb drip, oral intake encouraged obtain US of transplanted kidney avoid nephrotoxins daily renal panel continue immunosuppression as below (2) Renal transplant recipient ICD Codes: Z94.0 - Kidney transplant status Status: Chronic Plan: on prednisone and tacrolimus his tacrolimus level is pending (3) GI bleed ICD Codes: K92.2 - Gastrointestinal hemorrhage, unspecified Plan: GI following, to have EGD today on protonix drip (4) Diabetes ICD Codes: E11.9 - Diabetes mellitus Status: Chronic Plan: was in DKA, since arrival glucose has improved, beta hydroxybutyrate has normalized and his anion gap has closed continue insulin therapy (5) Sepsis ICD Codes: A41.9 - Sepsis, unspecified organism Status: Acute Plan: suspected urosepsis, cultures is in process ID following, he is on Zosyn now, given a dose of vancomycin follow lactic acid monitor clinically (6) Metabolic encephalopathy ICD Codes: G93.41 - Metabolic encephalopathy Status: Acute Plan: due to infection continue supportive care (Nila Mckeon) Assessment and Plan patient was seen and examined. Agree with above assessment and plan. Acute kidney injury: pre-renal vs ATN. Rule out pyelonephritis. Continue IVF. BP was really low: could have resulted in hypoperfusion injury to the kidney. Continue antibiotic. Obtain US of the transplanted kidney. Blood transfusion. GI workup. (Roshan Burciaga MD) Nila Mckeon Feb 08, 2017 10:55 Roshan Burciaga MD Feb 08, 2017 16:22
--- NOTE | 2017-02-08 11:47 | GIPROC ---
[facility] [address] [facility]. [facility], [id number] EGD PROCEDURE REPORT EXAM DATE: 02/08/2017 PATIENT NAME: Stephan Jackson MR #: [id number] BIRTHDATE: 1955 ATTENDING: Miah Mclaughlin MD ORDER #: [id number] CHIEF ACCOUNTING OFFICER: Georgia Montelongo and Clara Wynne STATUS: inpatient INDICATIONS: The patient is a 61 yr old male here for an EGD due to hematemesis PROCEDURE PERFORMED: EGD w/ biopsy MEDICATIONS: None and Per Anesthesia. TOPICAL ANESTHETIC: none CONSENT: The patient understands the risks and benefits of the procedure and understands that these risks include, but are not limited to: sedation, allergic reaction, infection, perforation and/or bleeding. Alternative means of evaluation and treatment include, among others: physical exam, x-rays, and/or surgical intervention. The patient elects to proceed with this endoscopic procedure. medical equipment was checked for proper function. Hand hygiene and appropriate measures for infection prevention was taken. After the risks, benefits and alternatives of the procedure were thoroughly explained, Informed consent was verified, confirmed and timeout was successfully executed by the treatment team. The patient was anesthetized with topical anesthesia and the Pentax [id number] endoscope was introduced through the mouth and advanced to the second portion of the duodenum. Retroflexion was performed and was normal The gastroscope was then slowly withdrawn and removed. ESOPHAGUS: The esophagus was otherwise normal. STOMACH: There was erythematous erosive gastritis in the gastric antrum. Multiple biopsies were performed. DUODENUM: The duodenal mucosa appeared normal in the bulb and second portion of the duodenum. ADVERSE EVENTS: There were no complications. IMPRESSIONS: 1. The esophagus was otherwise normal 2. There was erythematous gastritis in the gastric antrum; multiple biopsies were performed 3. Normal duodenal mucosa in the bulb and second portion of the duodenum 4. Retroflexion was performed and was normal RECOMMENDATIONS: Await biopsy results. Biopsy results will not be ready for 7-10 days. If you don't hear from us in two weeks, call our office for biopsy results. PATIENT CONDITION: stable DISPOSITION: Observation REPEAT EXAM: NONE Miah Mclaughlin MD eSigned: Miah Mclaughlin MD 02/08/2017 11:47 AM cc:
[2017-02-08] MEDS ORDERED: DO NOT ADM ANY ANTICOAGULANT DRUGS PRN (12:00)
[2017-02-08] MEDS: GABAPENTIN 400 MG CAP PO SCH ×2 (12:58→18:21)
[2017-02-08] MEDS: methylPREDNISolone SOD SUCC 40 MG/1 ML VIAL IV PUSH SCH (12:59)
[2017-02-08] MEDS: TACROLIMUS 5 MG CAP PO SCH ×2 (13:00→22:28)
[2017-02-08] MEDS: SYSTANE LEFT EYE SCH ×2 (13:00→21:00)
[2017-02-08] MEDS: CALCITRIOL 0.25 MCG CAP PO SCH (13:01)
[2017-02-08] MEDS: TIMOLOL MALEATE 0.5% OPHT SOLN 5 ML BTL LEFT EYE SCH (13:01)
[2017-02-08] MEDS: BRIMONIDINE TARTRATE 0.2% OPHT SOLN 5 ML BTL LEFT EYE SCH (13:02)
[2017-02-08] MEDS: SODIUM CHLOR 0.9% 1000 ML INJ 1,000 ML IV SCH ×2 (13:03→21:50)
--- NOTE | 2017-02-08 14:55 | HHI.IDPN ---
Subjective Subjective Remarks sp EGD today, found gastritis ANuric, UOP is minimal More + blood clx afebrile + diarrhea, 3 liquid BMs today co abd pain Antibiotics zosyn Past Medical History renal ttransplant Allergies: Coded Allergies: No Known Allergies (Unverified , 10/27/16) Objective . Vital Signs Date Time Temp Pulse Resp B/P (MAP) Pulse Ox O2 Delivery O2 Flow Rate FiO2 02/08/17 14:00 93 02/08/17 13:23 98 02/08/17 13:15 98.1 98 18 146/63 (90) 95 02/08/17 12:20 103 16 96 Nasal Cannula 2 02/08/17 12:15 98.5 102 16 136/72 (93) 96 Nasal Cannula 2 02/08/17 12:00 104 16 137/70 (92) 95 Nasal Cannula 2 02/08/17 11:45 105 16 137/65 (89) 99 Nasal Cannula 3 02/08/17 11:40 98.6 111 16 138/80 (99) 97 Nasal Cannula 3 02/08/17 10:38 91 02/08/17 08:00 97.8 84 16 115/51 (72) 95 02/08/17 08:00 84 02/08/17 06:00 82 02/08/17 04:00 99.0 84 14 111/53 (72) 95 02/08/17 04:00 84 02/08/17 02:00 86 02/08/17 00:00 98.1 90 19 135/59 (84) 97 02/08/17 00:00 90 02/07/17 23:44 93 21 02/07/17 22:00 87 02/07/17 20:00 99.2 85 14 111/56 (74) 97 02/07/17 20:00 85 02/07/17 18:00 84 02/07/17 16:00 88 02/07/17 16:00 98.8 88 17 126/58 (80) 96 02/08/17 02/08/17 02/09/17 15:00 23:00 07:00 Intake Total 693 ml Output Total 50 ml Balance 643 ml IV Total 543 ml Other 150 ml Output Urine Total 50 ml Estimated Blood Loss 0 ml . Laboratory Tests Test 02/06/17 20:29 02/07/17 04:52 02/07/17 10:25 02/08/17 05:30 White Blood Count 17.3 TH/MM3 19.4 TH/MM3 15.4 TH/MM3 15.9 TH/MM3 Red Blood Count 5.52 MIL/MM3 5.61 MIL/MM3 5.33 MIL/MM3 5.28 MIL/MM3 Hemoglobin 14.0 GM/DL 14.4 GM/DL 13.4 GM/DL 13.6 GM/DL Hematocrit 44.4 % 46.8 % 45.0 % 43.2 % Mean Corpuscular Volume 80.3 FL 83.4 FL 84.4 FL 81.8 FL Mean Corpuscular Hemoglobin 25.4 PG 25.7 PG 25.2 PG 25.7 PG Mean Corpuscular Hemoglobin Concent 31.6 % 30.9 % 29.8 % 31.5 % Red Cell Distribution Width 14.9 % 16.3 % 16.6 % 16.9 % Platelet Count 164 TH/MM3 134 TH/MM3 141 TH/MM3 88 TH/MM3 Mean Platelet Volume 10.6 FL 10.6 FL 10.0 FL 11.0 FL Neutrophils (%) (Auto) 95.0 % 92.0 % 93.8 % 88.7 % Lymphocytes (%) (Auto) 1.3 % 1.5 % 0.9 % 1.9 % Monocytes (%) (Auto) 3.6 % 6.4 % 4.4 % 6.4 % Eosinophils (%) (Auto) 0.0 % 0.0 % 0.7 % 2.4 % Basophils (%) (Auto) 0.1 % 0.1 % 0.2 % 0.6 % Neutrophils # (Auto) 16.5 TH/MM3 17.9 TH/MM3 14.5 TH/MM3 14.1 TH/MM3 Lymphocytes # (Auto) 0.2 TH/MM3 0.3 TH/MM3 0.1 TH/MM3 0.3 TH/MM3 Monocytes # (Auto) 0.6 TH/MM3 1.3 TH/MM3 0.7 TH/MM3 1.0 TH/MM3 Eosinophils # (Auto) 0.0 TH/MM3 0.0 TH/MM3 0.1 TH/MM3 0.4 TH/MM3 Basophils # (Auto) 0.0 TH/MM3 0.0 TH/MM3 0.0 TH/MM3 0.1 TH/MM3 CBC Comment AUTO DIFF AUTO DIFF AUTO DIFF AUTO DIFF Differential Total Cells Counted 100 100 100 100 Neutrophils % (Manual) 72 % 58 % 68 % 53 % Band Neutrophils % 17 % 28 % 24 % 35 % Lymphocytes % 3 % 1 % 3 % 1 % Monocytes % 4 % 2 % 1 % 3 % Neutrophils # (Manual) 16.1 TH/MM3 18.8 TH/MM3 14.8 TH/MM3 15.3 TH/MM3 Metamyelocytes 4 % 5 % 3 % 5 % Differential Comment FINAL DIFF MANUAL FINAL DIFF MANUAL FINAL DIFF MANUAL FINAL DIFF MANUAL Platelet Estimate NORMAL LOW LOW LOW Platelet Morphology Comment CLUMPED NORMAL NORMAL ENLARGED Ovalocytes 1+ 1+ Myelocytes 6 % 1 % 3 % Toxic Vacuolation PRESENT PRESENT Dohle Bodies PRESENT Toxic Granulation 1+ Laboratory Tests Test 02/06/17 20:29 02/06/17 23:07 02/07/17 04:52 02/07/17 10:25 Blood Urea Nitrogen 31 MG/DL 34 MG/DL 33 MG/DL Creatinine 1.80 MG/DL 2.53 MG/DL 2.57 MG/DL Random Glucose 357 MG/DL 328 MG/DL 350 MG/DL Total Protein 5.6 GM/DL 5.5 GM/DL Albumin 2.1 GM/DL 2.0 GM/DL Calcium Level 7.8 MG/DL 8.3 MG/DL 7.6 MG/DL Alkaline Phosphatase 87 U/L 100 U/L Aspartate Amino Transf (AST/SGOT) 19 U/L 37 U/L Alanine Aminotransferase (ALT/SGPT) 15 U/L 18 U/L Total Bilirubin 1.8 MG/DL 1.4 MG/DL Sodium Level 143 MEQ/L 141 MEQ/L 143 MEQ/L Potassium Level 3.9 MEQ/L 4.4 MEQ/L 4.3 MEQ/L Chloride Level 107 MEQ/L 109 MEQ/L 112 MEQ/L Carbon Dioxide Level 18.5 MEQ/L 15.8 MEQ/L 14.5 MEQ/L Anion Gap 18 MEQ/L 16 MEQ/L 17 MEQ/L Estimat Glomerular Filtration Rate 47 ML/MIN 32 ML/MIN 31 ML/MIN Lactic Acid Level 2.6 mmol/L 2.1 mmol/L Total Creatine Kinase 88 U/L Test 02/07/17 10:30 02/07/17 15:12 02/07/17 22:35 02/08/17 05:30 Lactic Acid Level 3.1 mmol/L 3.0 mmol/L Blood Urea Nitrogen 40 MG/DL Creatinine 3.19 MG/DL Random Glucose 155 MG/DL Calcium Level 7.5 MG/DL Phosphorus Level 0.4 MG/DL Magnesium Level 1.4 MG/DL Sodium Level 145 MEQ/L Potassium Level 4.3 MEQ/L Chloride Level 116 MEQ/L Carbon Dioxide Level 20.1 MEQ/L Anion Gap 9 MEQ/L Estimat Glomerular Filtration Rate 24 ML/MIN Microbiology Date/Time Source Procedure Growth Status 02/07/17 10:30 Blood Peripheral Aerobic Blood Culture - Preliminary Gram Negative Benjamin Resulted 02/07/17 10:30 Blood Peripheral Anaerobic Blood Culture - Preliminary NO GROWTH IN 1 DAY Resulted 02/07/17 10:25 Blood Peripheral Aerobic Blood Culture - Preliminary Gram Negative Benjamin Resulted 02/07/17 10:25 Blood Peripheral Anaerobic Blood Culture - Preliminary NO GROWTH IN 1 DAY Resulted 02/06/17 20:30 Blood Peripheral Aerobic Blood Culture - Preliminary Klebsiella Pneumoniae Resulted 02/06/17 20:30 Anaerobic Blood Culture - Preliminary Klebsiella Pneumoniae Resulted 02/06/17 20:25 Blood Peripheral Aerobic Blood Culture - Final Klebsiella Pneumoniae Resulted 02/06/17 20:25 Anaerobic Blood Culture - Preliminary Klebsiella Pneumoniae Resulted 02/08/17 02:20 Urine Clean Catch Urine Culture Pending Received Imaging Last Impressions Chest X-Ray 02/06/17 [id number] Signed Impressions: Service Date/Time: Monday, February 06, 2017 18:46 - CONCLUSION: No acute cardiopulmonary disease. Yvette Blackwell MD Physical Exam CONSTITUTIONAL/GENERAL: This is an adequately nourished patient, in no apparent distress, appears acutely ill TUBES/LINES/DRAINS: SKIN: + ? minimal jaundice, rashes, or lesions. Skin temperature appropriate. Not diaphoretic. HEAD: Atraumatic. Normocephalic. EYES: OD - absent OS with some injected conjuntiva + ? minimal scleral icterus. No drainage. Fundi not examined. ENT: Hearing grossly normal. Nose without bleeding or purulent drainage.Oral mucosae dry without visible erythema, exudates, masses, or lesions. Dentition is poor NECK: Trachea midline. Supple, nontender. CARDIOVASCULAR: Regular rate and rhythm without murmurs, gallops, or rubs. No JVD. Peripheral pulses symmetric. RESPIRATORY/CHEST: Symmetric, unlabored respirations. Clear to auscultation. Breath sounds equal bilaterally. No wheezes, rales, or rhonchi. GASTROINTESTINAL: Abdomen soft, non-tender, distended. No hepato-splenomegaly, or palpable masses. No guarding. Bowel sounds present. GENITOURINARY: Without palpable bladder distension. Mcmillan catheter in place with minimal amount of urine He has a non tender RLQ mass cw renal allograft MUSCULOSKELETAL: Extremities without clubbing, cyanosis, or edema. No joint tenderness or effusion noted. No calf tenderness. No mottling or clubbing. LYMPHATICS: No palpable cervical or supraclavicular adenopathy. NEUROLOGICAL: Lethargic, but arousable Motor and sensory grossly within normal limits. Follows commands. Normal speech Moves all extremities. PSYCHIATRIC: calm and coopertaive Assessment & Plan Remarks Sepsis with gram negative bacteremia in immunopcopromised pt sp renal allograft - fever, leukocotosuis and lactic acidosis - High grade Kleb pneumo bacteremia Probably complicated UTI Critically ill ARF on CKD, now anuric Abx associated diarrhea Abd pain, distention REC's: - fu urine clx - not contrasted CT A/P stool for C.diff adjust Pip Tazo repeat blood clx Zoë Hebert MD Feb 08, 2017 14:55
[2017-02-08] MEDS ORDERED: DIATRIZOATE MEGLUM/DIATRIZOATE SOD 9 ML CUP PO ONE (15:45)
[2017-02-08] MEDS ORDERED: PROPOFOL 200 MG/20 ML AMP IV ONE (16:30)
[2017-02-08] MEDS ORDERED: LACTATED RINGER'S 1000 ML INJ 500 ML IV ONE (16:32)
--- NOTE | 2017-02-08 17:45 | RADRPT ---
EXAM DATE/TIME: 02/08/2017 15:17 [place] COMPARISON: US KIDNEY / TRANSPLANT, May 21, 2013, 7:55. INDICATIONS : Increased lab values. MEDICAL HISTORY : Peripheral vascular disease. Hypercholesterolemia. Hepatitis C. Glaucoma. Coronaryartery disease. Hyp erlipidemia. Chest pain. HTN. DVT. Ulcer. COPD. Mumps. Renal disease and failure. Gait problems. Di abetes. SURGICAL HISTORY : Coronary artery stent. Left cataract extraction. Right eye removed. Left AV shunt. Cardiac catheter ization. Right kidney transplant. Left below knee amputation. Blood transfusions. Dialysis. ENCOUNTER: Initial ACUITY: 1 day PAIN SCORE: 6/10 LOCATION: Right lower quadrant MEASUREMENTS: TRANSPLANT KIDNEY: 13.1 x 6.5 x 7.0 cm LOCATION: Right lower quadrant. ARCUATE ARTERIES RESISTIVE INDEX: Upper - 1.0 Mid - 1.0 Lower - 1.0 MAIN RENAL ARTERY VELOCITY: (cm/sec): 22 MAIN RENAL VEIN: Patent EXTERNAL ILIAC ARTERY VELOCITY (cm/sec): 41.2 * NORMAL DOPPLER FINDINGS Arcuate arteries - RI = 0.6 - 0.8 Renal artery = under 200 cm/sec Renal vein = May be monophasic with continuous flow or demonstrate some pulsatility with cardiac cycl e FINDINGS: TRANSPLANT KIDNEY: Normal cortical thickness and echotexture. There is moderate hydronephrosis throughout the transplant . No stone or mass appreciated. A tiny focus of fluid adjacent to the superolateral pole. This measur es approximately 2 cm in greatest dimension. URINARY BLADDER: Not visualized. CONCLUSION: 1. Hydronephrosis. 2. Mild elevation of the resistive indices which can relate to the hydronephrosis. 3. 2 cm focus of fluid adjacent to the renal transplant. This is simple in appearance. Beka Delacruz Jr., MD on February 08, 2017 at 17:36 Board Certified Radiologist. This report was verified electronically.
[2017-02-08] MEDS: PIPERACIL-TAZO 2.25 GM PREMIX 50 ML IV SCH (18:21)
--- NOTE | 2017-02-08 18:33 | HHI.PR ---
Objective Vitals Result Diagram: 02/08/17 0530 02/07/17 2235 Anthony Mcallister MD Feb 08, 2017 18:33
--- NOTE | 2017-02-08 19:07 | HHI.CCPN ---
Subjective Remarks/Hospital Course 02/08: patient went for EGD yesterday with lots of blood in the stomach but no active signs of bleeding. today went back to EGD which found gastritis without any evidence of ulcerative disease. anion gap closed yesterday and transitioned off of insulin drip. blood growing klebsiella and ID on board, on abx. patient without complaints and feeling well and improved from yesterday. ROS negative. Objective Vital Signs Date Time Temp Pulse Resp B/P (MAP) Pulse Ox O2 Delivery O2 Flow Rate FiO2 02/08/17 17:45 97.8 100 18 100/61 (74) 93 02/08/17 12:20 Nasal Cannula 2 02/07/17 23:44 21 Intake and Output 02/08/17 02/08/17 02/08/17 07:59 15:59 23:59 Intake Total 1625 ml 693 ml Output Total 175 ml 50 ml Balance 1450 ml 643 ml Result Diagram: 02/08/1730 02/07/172234 Objective Remarks GENERAL: Well-nourished, well-developed patient. SKIN: Warm and dry. HEAD: Normocephalic. EYES: No scleral icterus. No injection or drainage. NECK: Supple, trachea midline. No JVD CARDIOVASCULAR: Regular rate and rhythm without murmurs, gallops, or rubs. RESPIRATORY: Breath sounds equal bilaterally. No accessory muscle use. GASTROINTESTINAL: Abdomen soft, non-tender, nondistended. MUSCULOSKELETAL: No cyanosis, or edema. Status post left leg amputation BACK: Nontender without obvious deformity. NEURO EXAM: RASS 0. CAM - . GCS 15. follows commands. A/P Assessment and Plan Hematemesis - Protonix IV twice a day, d/c drip. - advance diet. - GI consult evaluation - H&H stable - gastritis per EGD. Hypotension- resolved. Klebsiella Bacteremia - Leukocytosis and fever - resolving sepsis. - Aggressive IV fluids resuscitation - Broad-spectrum antibiotics - Follow-up cultures - Infectious disease consult evaluation Diabetes DKA- resolved. - SSI. Acute on chronic kidney injury - IV fluids resuscitation - Nephrology consult - Monitor tacrolimus level - Strict I's and O's - Creatinine and electrolyte level DVT GI prophylaxis - Teds SCDs - No pharmacological DVT prophylaxis due to gastritis. may likely be able to start tomorrow. - IV Protonix twice a day dispo: stable for transfer to floor with hospitalist following. Alexi Mills MD Feb 08, 2017 19:07
[2017-02-08 20:18] LABS: C. DIFF EPI 027 PRESUMPTIVE NEGATIVE (NEGATIVE)
[2017-02-08] MEDS: TAMSULOSIN HCL 0.4 MG CAP PO SCH (22:27)
[2017-02-08] MEDS: ATORVASTATIN 40 MG TAB PO SCH (22:27)
--- NOTE | 2017-02-08 23:08 | RADRPT ---
EXAM DATE/TIME: 02/08/2017 20:13 [facility] COMPARISON: CT ABDOMEN & PELVIS W CONTRAST, October 27, 2016, 5:42. CT ABDOMEN & PELVIS W/O CONTRAST, November 12, 2015, 21:47. INDICATIONS : Diffuse pain abdomen pain. ORAL CONTRAST: Partial prescribed oral contrast ingested. RADIATION DOSE: 11.35 CTDIvol (mGy) MEDICAL HISTORY : Cardiovascular disease. Hypertension. PVD, CAD. SURGICAL HISTORY : Carotid stent. Kidney transplant, AV Shunt. ENCOUNTER: Initial ACUITY: 2 days PAIN SCALE: Non-responsive LOCATION: Bilateral upper quadrant TECHNIQUE: Volumetric scanning of the abdomen and pelvis was performed. Using automated exposure control and ad justment of the mA and/or kV according to patient size, radiation dose was kept as low as reasonably achievable to obtain optimal diagnostic quality images. DICOM format image data is available electro nically for review and comparison. FINDINGS: LOWER LUNGS: There our small bilateral pleural effusions, right larger than left with associated compressive atele ctasis. There is right coronary artery calcification. Right gynecomastia is visualized. LIVER: Homogeneous density without lesion on this noncontrast examination. There is no dilation of the bili lisa tree. No calcified gallstones. SPLEEN: Normal size without lesion. PANCREAS: Within normal limits. KIDNEYS: Both [place] kidneys are atrophic. There is no hydronephrosis or mass. Right lower quadrant renal [place] splant is present with distended collecting system. There are surrounding surgical clips. ADRENAL GLANDS: Within normal limits. VASCULAR: There is no aortic aneurysm. There is severe arterial vascular calcification. BOWEL/MESENTERY: Stomach is distended but demonstrates no acute finding. Small bowel and colon demonstrate no acute ab normality. There is sigmoid diverticulosis. Small volume of free fluid is present within the abdomen and pelvis. There is no free intraperitoneal air. Appendix is normal. ABDOMINAL WALL: There is mild diffuse subcutaneous edema. RETROPERITONEUM: There is no lymphadenopathy. BLADDER: Decompressed with a Mcmillan catheter present. REPRODUCTIVE: Within normal limits. INGUINAL: There is no lymphadenopathy or hernia. MUSCULOSKELETAL: There are degenerative changes of the lumbar spine and hip joints. No acute finding is identified. CONCLUSION: 1. No acute abnormality is identified to explain the diffuse abdominal pain. 2. Small bilateral pleural effusions, right larger than left, with associated compressive atelectasis . 3. Anasarca. 4. [place] kidneys are atrophic consistent with history of end-stage renal disease. Right lower quadra nt transplant demonstrates mild degree of hydronephrosis. There is a small volume of free fluid in th e abdomen and pelvis. 5. Severe atherosclerotic disease. Salas Thompson MD on February 08, 2017 at 23:01 Board Certified Radiologist. This report was verified electronically.
[2017-02-09] VITALS (8 sets, daily range): BP systolic 112–160; BP diastolic 59–91; PULSE 78–92; RESP 17–20; TEMP 96.4–97.5; O2SAT 94–100
[2017-02-09] MEDS: BRIMONIDINE TARTRATE 0.2% OPHT SOLN 5 ML BTL LEFT EYE SCH ×4 (00:35→20:37)
[2017-02-09] MEDS: TIMOLOL MALEATE 0.5% OPHT SOLN 5 ML BTL LEFT EYE SCH ×4 (00:35→20:37)
[2017-02-09] MEDS: PIPERACIL-TAZO 2.25 GM PREMIX 50 ML IV SCH ×4 (00:46→17:43)
[2017-02-09] MEDS: PANTOPRAZOLE SODIUM 40 MG VIAL IV SCH ×2 (03:54→17:43)
[2017-02-09] MEDS: CHLORHEXIDINE GLUCONATE 2 % 1 PACK (2 CLOTHS) TOP SCH (04:00)
[2017-02-09] MEDS: INSULIN ASPART SUPPLEMENTAL SCALE SQ SCH ×4 (05:25→20:38)
[2017-02-09] MEDS: SODIUM CHLORIDE 0.9% FLUSH 10 ML FLUSH IV FLUSH SCH ×2 (09:00→20:37)
[2017-02-09] MEDS: DOCUSATE SODIUM 50 MG/SENNA 8.6 MG TAB PO SCH ×2 (09:41→20:40)
[2017-02-09] MEDS: TACROLIMUS 5 MG CAP PO SCH ×2 (10:07→20:42)
[2017-02-09] MEDS: GABAPENTIN 400 MG CAP PO SCH ×3 (10:07→17:43)
[2017-02-09] MEDS: CALCITRIOL 0.25 MCG CAP PO SCH (10:07)
[2017-02-09] MEDS: methylPREDNISolone SOD SUCC 40 MG/1 ML VIAL IV PUSH SCH (10:08)
[2017-02-09] MEDS: INSULIN DETEMIR 100 UNITS/ML VIAL SQ SCH (10:11)
[2017-02-09] MEDS: SYSTANE LEFT EYE SCH ×2 (10:14→20:37)
[2017-02-09] MEDS: SODIUM CHLOR 0.9% 1000 ML INJ 1,000 ML IV SCH (11:31)
--- NOTE | 2017-02-09 14:00 | MB ---
cc: LEDY RANKIN DATE OF CONSULTATION: 02/09/2017 HISTORY OF PRESENT ILLNESS This is a 61-year-old male who is a very poor historian. He stated he has had a recent seizure and was having fever at home. According to the chart, however, it says that he vomited blood last week and was being re-admitted. He does have a history of kidney transplant, at one point had pain over his transplanted area but presently he denies any pain. PAST MEDICAL HISTORY His past medical history is noted for: 1. Chronic kidney disease. 2. Hypertension. 3. Hyperlipidemia. 4. Diabetes. 5. Gastroesophageal reflux disease. 6. Glaucoma. 7. Coronary artery disease. 8. Hep C. 9. DVT. 10. Seizure disorder. 11. Kidney transplant 2006. 12. Cardiac catheterization. 13. Left AKA. 14. Right eye enucleation. ALLERGIES NO KNOWN DRUG ALLERGIES. MEDICATION For medications, please refer to the chart. FAMILY HISTORY Family history is notable for hypertension and diabetes. SOCIAL HISTORY Denies smoking, drinking or using drugs. REVIEW OF SYSTEMS Notes fatigue and some abdominal pain with nausea, vomiting but denies any bloody stools. Notes occasional confusion. The remaining review of systems were reviewed and are negative. PHYSICAL EXAMINATION VITAL SIGNS: His present vital signs, temperature is 97.1, heart rate 92, respiratory rate 18, 120/85. GENERAL: He is a well-developed, well-nourished 61-year-old male in no acute distress. HEENT: Normocephalic, atraumatic. Pupils: Right eye blindness. Left extraocular movements intact. NECK: Neck is supple. HEART: Regular rate and rhythm. LUNGS: Lungs are clear. ABDOMEN: Soft, nontender, nondistended. : Shows normal male external genitalia. Testes are descended. Mcmillan catheter is in place. EXTREMITIES: Show no cyanosis, clubbing or edema. LABORATORY VALUES White count 15.9, hemoglobin 13.6, hematocrit 43.2, platelet count of 88,000. Sodium 145, potassium 4.3, chloride 116, CO2 is 20, BUN 40, creatinine 3.1, glucose of 155, PT 14.2, INR 1.3, PTT is 29. Urinalysis shows 1000 glucose, small blood, 4 red cells, 18 white cells. Urine culture from 02/08 shows less than 10,000 CFU's. Initial blood culture from 02/06 showed Klebsiella pneumonia. IMAGING STUDIES Imaging studies include a CT scan of the abdomen and pelvis which shows mild degree of hydronephrosis of the right kidney with a small volume of free fluid in the abdomen and the pelvis. Renal ultrasound shows a 2 cm focus of fluid adjacent to the renal transplant which is simple in appearance and mild elevation in resistant indices which can relate to hydronephrosis. ASSESSMENT A 61-year-old male admitted with hematemesis and abdominal pain with possible fever, probable UTI given history and positive blood culture, urine culture was taken two days after antibiotics were started and is therefore negative. Continue with IV antibiotics. Maintain Mcmillan catheter. In the next few days we will recommend a repeat ultrasound to see if the hydronephrosis has improved and will reassess the resistive indexes. If evidence of obstruction may need a percutaneous nephrostomy tube placement, but will continue to monitor for now. Thank you for the consult and allowing me to participate in the care of this patient. Ledy FREEMAN /1:08 PM /1:41 PM
--- NOTE | 2017-02-09 14:23 | HHI.NPPN ---
Subjective Renal Failure: Chronic, Acute Interval History Awaiting AM labs. Called phlebotomy and they report he is a very difficult stick. The patient is resting, no major complaints. His abdomen is less tender. (Nila Mckeon) Objective Data Data 02/09/17 02/10/17 18:59 06:59 Intake Total 1000 ml Balance 1000 ml IV Total 1000 ml Vital Signs Date Time Temp Pulse Resp B/P (MAP) Pulse Ox O2 Delivery O2 Flow Rate FiO2 02/09/17 12:00 97.1 92 18 120/85 (97) 95 02/09/17 09:12 96 21 02/09/17 08:00 97.5 88 17 160/65 (96) 100 02/09/17 04:00 96.4 91 18 156/91 (112) 97 02/09/17 00:00 97.0 80 20 112/66 (81) 94 02/08/17 20:00 97.6 99 20 175/55 (95) 95 02/08/17 19:19 98 02/08/17 17:45 97.8 100 18 100/61 (74) 93 02/08/17 16:00 99 02/08/17 16:00 98.1 99 21 127/58 (81) 99 (Nila Mckeon) -: 02/08/17 0530 02/07/17 2235 Imaging Last 72 hours Impressions Renal Ultrasound 02/08/17 0000 Signed Impressions: Service Date/Time: Wednesday, February 08, 2017 15:17 - CONCLUSION: 1. Hydronephrosis. 2. Mild elevation of the resistive indices which can relate to the hydronephrosis. 3. 2 cm focus of fluid adjacent to the renal transplant. This is simple in appearance. Beka Delacruz Jr., MD Abdomen/Pelvis CT 02/08/17 0000 Signed Impressions: Service Date/Time: Wednesday, February 08, 2017 20:13 - CONCLUSION: 1. No acute abnormality is identified to explain the diffuse abdominal pain. 2. Small bilateral pleural effusions, right larger than left, with associated compressive atelectasis. 3. Anasarca. 4. [place] kidneys are atrophic consistent with history of end-stage renal disease. Right lower quadrant transplant demonstrates mild degree of hydronephrosis. There is a small volume of free fluid in the abdomen and pelvis. 5. Severe atherosclerotic disease. Salas Thompson MD Chest X-Ray 02/06/17 [id number] Signed Impressions: Service Date/Time: Monday, February 06, 2017 18:46 - CONCLUSION: No acute cardiopulmonary disease. Yvette Blackwell MD Tubes & Lines: Li (Maynor Mckeonon B. [employer] [place]) Physical Exam General Appearance: Well Developed, No Acute Distress, Comfortable (Mike,Nila B. [employer] [place]) Eyes Eye Exam: Pupils Equal (Mike,Nila [employer] [place]) Throat Throat Exam: Oral Mucosa [place] & Moist (Mike,Nila B. [employer] [place]) Pulmonary Resp Exam: Clear Bilaterally, Breath Sounds Equal (Mike,Nila [employer]. [employer] [place]) Cardiology CV Exam: Regular, Normal Sinus Rhythm (Mike,Nila [employer]. [employer] [place]) Gastrointestinal/Abdomen GI Exam: Soft, Bowel Sounds Present GI Remarks renal transplant palpable RLQ, non tender (Mike,Nila [employer] [place]) Musculoskeletal MS Exam: Joints Intact, Normal Tone, Unable to Ambulate MS Remarks s/p left AKA , well healed (Mike,Nila [employer] [place]) Integumentary Skin Exam: Clear, Warm, Dry (Mike,Nila [employer] [place]) Extremeties Extremities Exam: No Edema (Mike,Nila [employer]. [employer] [place]) Neurologic Neuro Exam: Alert, Awake, Oriented, Speech Clear, Moving All Extremities (Mike,Nila [employer]. [employer] [place]) Psychiatric Psych Exam: Appropriate Responses (MikeNila B. [employer] [place]) Assessment/Plan Discussed Condition With: Patient Assessment Summary: DEANA/Acute Renal Failure, Anemia of CKD, Proteinuria, Diabetes Mellitus, Transplant Kidney Status Electrolyte Assessment: Metabolic Acidosis Problem List: (1) Acute renal insufficiency ICD Codes: N28.9 - Disorder of kidney and ureter, unspecified Status: Acute Plan: Baseline CKD 2, creatinine 1.2, GFR 75 DEANA may be due to sepsis, hypotension, and end organ hypoperfusion renal US and CT show hydronephrosis of transplanted kidney urology has evaluated and recommend li with repeat US in next 1-2 days to ensure resolution; if blockage is present may need nephrostomy tube awaiting renal panel from today continue IVF, 1/2 NS @ 75 cc/hr until labs result avoid nephrotoxins , renally dose medications when appropriate daily renal panel continue immunosuppression as below (2) Renal transplant recipient ICD Codes: Z94.0 - Kidney transplant status Status: Chronic Plan: on tacrolimus 5 mg BID prednisone changed to IV solumedrol his tacrolimus level is pending (3) GI bleed ICD Codes: K92.2 - Gastrointestinal hemorrhage, unspecified Plan: GI following, off protonix drip (on BID dosing) he apparently had blood in the stomach without identification of site of bleeding on EGD, + gastritis (4) Diabetes ICD Codes: E11.9 - Diabetes mellitus Status: Chronic Plan: resolved DKA continue insulin therapy , monitor glucose (5) Sepsis ICD Codes: A41.9 - Sepsis, unspecified organism Status: Acute Plan: suspected urosepsis, although culture is negative (he was given antibiotics prior to culture being obtained) + Klebsiella ID following, he is on Zosyn and vancomycin follow lactic acid monitor clinically (6) Metabolic encephalopathy ICD Codes: G93.41 - Metabolic encephalopathy Status: Acute Plan: due to infection continue supportive care (Nila Mckeon) Plan patient was seen and examined. All the notes were reviewed. Labs ordered this morning, but results not available for some reason. Urology note reviewed. Continue antibiotic. Dr. Jose Eduardo Randle will follow from tomorrow, I will be back on Tuesday. (Roshan Burciaga MD) Nila Mckeon Feb 09, 2017 14:23 Roshan Burciaga MD Feb 09, 2017 20:32
--- NOTE | 2017-02-09 14:32 | HHI.PR ---
Subjective Remarks now very hungry- no further episodes of nausea or vomiting or hematemesis Objective Vitals Vital Signs Date Time Temp Pulse Resp B/P (MAP) Pulse Ox O2 Delivery O2 Flow Rate FiO2 02/09/17 12:00 97.1 92 18 120/85 (97) 95 02/09/17 09:12 96 21 02/09/17 08:00 97.5 88 17 160/65 (96) 100 02/09/17 04:00 96.4 91 18 156/91 (112) 97 02/09/17 00:00 97.0 80 20 112/66 (81) 94 02/08/17 20:00 97.6 99 20 175/55 (95) 95 02/08/17 19:19 98 02/08/17 17:45 97.8 100 18 100/61 (74) 93 02/08/17 16:00 99 02/08/17 16:00 98.1 99 21 127/58 (81) 99 I/O 02/08/17 02/08/17 02/08/17 02/09/17 02/09/17 02/09/17 07:00 15:00 23:00 07:00 15:00 23:00 Intake Total 1625 ml 693 ml 175 ml 475 ml 1000 ml Output Total 175 ml 50 ml 200 ml Balance 1450 ml 643 ml 175 ml 275 ml 1000 ml IV Total 1625 ml 543 ml 175 ml 475 ml 1000 ml Other 150 ml Output Urine Total 175 ml 50 ml 200 ml Estimated Blood Loss 0 ml # Voids 3 # Bowel Movements 1 4 Result Diagram: 02/08/17 0530 02/07/17 2235 Imaging Last Impressions Renal Ultrasound 02/08/17 0000 Signed Impressions: Service Date/Time: Wednesday, February 08, 2017 15:17 - CONCLUSION: 1. Hydronephrosis. 2. Mild elevation of the resistive indices which can relate to the hydronephrosis. 3. 2 cm focus of fluid adjacent to the renal transplant. This is simple in appearance. Beka Delacruz Jr., MD Abdomen/Pelvis CT 02/08/17 0000 Signed Impressions: Service Date/Time: Wednesday, February 08, 2017 20:13 - CONCLUSION: 1. No acute abnormality is identified to explain the diffuse abdominal pain. 2. Small bilateral pleural effusions, right larger than left, with associated compressive atelectasis. 3. Anasarca. 4. [place] kidneys are atrophic consistent with history of end-stage renal disease. Right lower quadrant transplant demonstrates mild degree of hydronephrosis. There is a small volume of free fluid in the abdomen and pelvis. 5. Severe atherosclerotic disease. Salas Thompson MD Chest X-Ray 02/06/17 [id number] Signed Impressions: Service Date/Time: Monday, February 06, 2017 18:46 - CONCLUSION: No acute cardiopulmonary disease. KFranklin Blackwell MD Objective Remarks awake and alert, oriented x 3 anicteric no nuchal rigidity lungs no rales or wheezes regular rhythm abdomen soft, nontender left AKA right lE- no edema neuro exam non focal Procedures 02/08- EGD- gastritis, biopsy done Urinary Catheter: Yes Assessment to: Continue Li insert reason: Measure Accurate Output Date of Insertion: Feb 06, 2017 A/P Assessment and Plan 61 years old male presenting with Hematemesis secondary to gastritis s/p EGD 02/08 with gastritis -change to po Protonix - advance to po regular diet- ADA, renal failure diet - H&H stable - PPI Hypotension- resolved. Klebsiella Bacteremia secondary to complicated UTI - Aggressive IV fluids resuscitation - on IV - Zosyn- ID service ff - Follow-up cultures - CT of the abdomen reviewed- Acute kidney injury on top of CKI- history of transplanted kidney - non oliguric- ff renal functions trending down and stabilizing. . patient very hard stick -keep li - Nephrology ff - seen by Urology- suggest ff up US in next few days Diabetes DKA- resolved. - SSI.. start home insulin regimen and adjust if tolerating good po - advance diet DVT GI prophylaxis - Teds SCDs - No pharmacological DVT prophylaxis due to gastritis. may likely be able to start tomorrow. - IV Protonix twice a day Anthony Mcallister MD Feb 09, 2017 14:32
[2017-02-09] MEDS: SODIUM CHLOR 0.45% 1000 ML INJ 1,000 ML IV SCH (15:21)
--- NOTE | 2017-02-09 15:52 | HHI.GIFU ---
Subjective Remarks Pt resting in bed, askign for solid food. NO bleeding. NO vomiting. (Kiana Villavicencio) Objective Vitals I&O Vital Signs Date Time Temp Pulse Resp B/P (MAP) Pulse Ox O2 Delivery O2 Flow Rate FiO2 02/09/17 12:00 97.1 92 18 120/85 (97) 95 02/09/17 09:12 96 21 02/09/17 08:00 97.5 88 17 160/65 (96) 100 02/09/17 04:00 96.4 91 18 156/91 (112) 97 02/09/17 00:00 97.0 80 20 112/66 (81) 94 02/08/17 20:00 97.6 99 20 175/55 (95) 95 02/08/17 19:19 98 02/08/17 17:45 97.8 100 18 100/61 (74) 93 02/08/17 16:00 99 02/08/17 16:00 98.1 99 21 127/58 (81) 99 I/O 02/08/17 02/08/17 02/08/17 02/09/17 02/09/17 02/09/17 07:00 15:00 23:00 07:00 15:00 23:00 Intake Total 1625 ml 693 ml 175 ml 475 ml 1000 ml 290 ml Output Total 175 ml 50 ml 200 ml 100 ml Balance 1450 ml 643 ml 175 ml 275 ml 1000 ml 190 ml IV Total 1625 ml 543 ml 175 ml 475 ml 1000 ml 290 ml Other 150 ml Output Urine Total 175 ml 50 ml 200 ml 100 ml Estimated Blood Loss 0 ml # Voids 3 # Bowel Movements 1 4 Laboratory Laboratory Tests Test 02/08/17 16:39 02/09/17 06:00 Stool C. difficile Toxin (PCR) NEGATIVE Stl C. difficile Toxin Epiderm 027 PRESUMPTIVE NEGATIVE Date/Time Source Procedure Growth Status 02/07/17 10:30 Blood Peripheral Aerobic Blood Culture - Final Klebsiella Pneumoniae Resulted 02/07/17 10:30 Blood Peripheral Anaerobic Blood Culture - Preliminary NO GROWTH IN 2 DAYS Resulted 02/08/17 02:20 Urine Clean Catch Urine Culture - Preliminary <10,000 CFU/ML GRAM NEGATIVE REMA Resulted Physical Exam HEENT: PERRL; normocephalic; atraumatic; no jaundice. right eye shut CHEST: CTA CARDIAC: Regular rate and rhythm with no murmur gallop or rubs. ABDOMEN: Soft, nondistended,mild diffuse TTP; no hepatosplenomegaly; bowel sounds are present in all four quadrants. EXTREMITIES: No clubbing, cyanosis, or edema. SKIN: Normal; no rash; no jaundice. AUTO DAMAGE ADJUSTER: No focal deficits; alert and oriented times three. (Kiana Villavicencio) Assessment and Plan Plan ASSESSMENT: - Upper GIB, Hematemesis. Pt brought to the ER by [facility] for c/o hematemesis. He is a very poor historian and is not able to provide a good history. He has not had any hematemesis or vomiting since arrival to floor. HH stable He denies abdominal pain, but then stated that he had severe abdominal pain when he vomited. He is not having any pain right now. No hx of PUD. Denies liver cirrhosis. He does have hx of renal transplant and takes prednisone. He is on PPI at home. s/p EGD found erythematous gastritis antrum, otherwise normal. - Leukocytosis. WBC 15.9. Pt on chronic steroids. - Elevated Glucose/Uncontrolled DM. Per attending. - Acute on CKD with hx of renal transplant. Creat 3.19 - CAD, HTN, Hyperlipidemia, PVD, Depression, COPD. - Hx HCV antibodies, but undetectable viral load x 2. PLAN: - await path - URSZULA - PPI - Monitor HH - Transfuse as necessary - Supportive care - Further recommendations to follow based on results of above - Pt seen and examined by Dr. Mclaughlin and myself and this note is written on his behalf (Kiana Villavicencio) Physician Comments Seen and examined, pathology results pending, will follow up with you. (Miah Mclaughlin MD) Kiana Villavicencio Feb 09, 2017 15:52 Miah Mclaughlin MD Feb 09, 2017 16:10
[2017-02-09] MEDS: TAMSULOSIN HCL 0.4 MG CAP PO SCH (20:37)
[2017-02-09] MEDS: ATORVASTATIN 40 MG TAB PO SCH (20:37)
[2017-02-09 22:18] LABS: BICARBONATE 12.1 MEQ/L (21.0-32.0); POTASSIUM 4.1 MEQ/L (3.5-5.1)
[2017-02-09 22:21] LABS: BETA-HYDROXYBUTYRATE 0.07 MMOL/L (0.00-0.39); CALCIUM-PROTEIN CORRECTED 8.2 MG/DL (8.5-10.1); TOTAL BILIRUBIN ADULT 0.6 MG/DL (0.2-1.0)
[2017-02-09] MEDS ORDERED: PHARMACY ORDERED LAB ONE (23:45)
[2017-02-10] VITALS (11 sets, daily range): BP systolic 136–188; BP diastolic 73–104; PULSE 76–92; RESP 16–20; TEMP 96.2–97.8; O2SAT 92–98
[2017-02-10] MEDS: PIPERACIL-TAZO 2.25 GM PREMIX 50 ML IV SCH ×4 (00:17→17:00)
[2017-02-10] MEDS: SODIUM CHLOR 0.9% 1000 ML INJ 1,000 ML IV SCH ×2 (00:30→12:24)
[2017-02-10] MEDS: SODIUM CHLOR 0.45% 1000 ML INJ 1,000 ML IV SCH ×2 (03:50→17:02)
[2017-02-10] MEDS: CHLORHEXIDINE GLUCONATE 2 % 1 PACK (2 CLOTHS) TOP SCH (04:00)
[2017-02-10] MEDS ORDERED: EPINEPHrine HCL (1:10,000) 1 MG/10 ML SYRINGE IV ONE ×2 (05:00)
[2017-02-10] MEDS ORDERED: SODIUM BICARBONATE 7.5% INJ 44.6 MEQ/50 ML SYR IV PUSH ONE (05:00)
[2017-02-10] MEDS ORDERED: ATROPINE SULFATE 1 MG/10 ML SYRINGE IV ONE (05:00)
[2017-02-10] MEDS ORDERED: SODIUM BICARBONATE 8.4% INJ 50 MEQ/50 ML SYR IV ONE (05:00)
[2017-02-10] MEDS ORDERED: AMIODARONE HCL 150 MG/3 ML VIAL IV ONE ×2 (05:00)
[2017-02-10] MEDS: PANTOPRAZOLE SODIUM 40 MG VIAL IV SCH (05:41)
[2017-02-10] MEDS: INSULIN ASPART SUPPLEMENTAL SCALE SQ SCH ×4 (05:46→21:00)
[2017-02-10] MEDS: TACROLIMUS 5 MG CAP PO SCH ×2 (08:28→21:33)
[2017-02-10] MEDS: CALCITRIOL 0.25 MCG CAP PO SCH (08:29)
[2017-02-10] MEDS: DOCUSATE SODIUM 50 MG/SENNA 8.6 MG TAB PO SCH ×2 (08:29→21:00)
[2017-02-10] MEDS: GABAPENTIN 400 MG CAP PO SCH ×2 (08:29→12:23)
[2017-02-10] MEDS: methylPREDNISolone SOD SUCC 40 MG/1 ML VIAL IV PUSH SCH (08:29)
[2017-02-10] MEDS: TIMOLOL MALEATE 0.5% OPHT SOLN 5 ML BTL LEFT EYE SCH ×3 (08:30→21:00)
[2017-02-10] MEDS: BRIMONIDINE TARTRATE 0.2% OPHT SOLN 5 ML BTL LEFT EYE SCH ×3 (08:30→21:00)
[2017-02-10] MEDS: INSULIN DETEMIR 100 UNITS/ML VIAL SQ SCH (08:37)
[2017-02-10] MEDS: SODIUM CHLORIDE 0.9% FLUSH 10 ML FLUSH IV FLUSH SCH ×2 (09:00→21:00)
[2017-02-10] MEDS: SYSTANE LEFT EYE SCH ×2 (09:00→21:00)
--- NOTE | 2017-02-10 10:48 | HHI.PR ---
Subjective Patient symptoms today Pt seen and examined. No vomiting. Feels ok. Objective Vital Signs Vital Signs Date Time Temp Pulse Resp B/P (MAP) Pulse Ox O2 Delivery O2 Flow Rate FiO2 02/10/17 09:00 97.8 82 20 185/104 (131) 98 02/10/17 08:00 97.0 80 18 161/84 (109) 96 02/10/17 04:00 96.2 81 18 148/88 (108) 96 02/10/17 00:00 97.6 76 18 136/87 (103) 95 02/09/17 20:00 96.6 80 18 119/77 (91) 97 02/09/17 16:45 78 02/09/17 16:00 96.5 88 17 133/59 (83) 95 02/09/17 12:00 97.1 92 18 120/85 (97) 95 Intake & Output 02/10/17 02/10/17 06:59 18:59 Intake Total 460 ml Output Total 600 ml Balance -140 ml Intake Oral 360 ml IV Total 100 ml Output Urine Total 600 ml # Voids 0 # Bowel Movements 1 Result Diagram: 02/08/17 0530 02/09/17 2030 Objective Remarks Abd:soft,nt,nd Li with clear urine Medications and IVs Current Medications Medications (Trade) Dose Ordered Sig/Pramod Route Start Time Stop Time Status Last Admin (Lipitor) 40 mg HS PO 02/07/17 21:00 02/09/17 20:37 (Rocaltrol) 0.25 mcg DAILY PO 02/07/17 09:00 02/10/17 08:29 (Neurontin) 400 mg TID PO 02/07/17 09:00 02/10/17 08:29 (Prograf) 5 mg Q12H PO 02/06/17 21:45 02/10/17 08:28 Patient Own Medication PT OWN MED: SYST... BID LEFT EYE 02/07/17 09:00 02/10/17 09:00 (NovoLOG SUPPLEMENTAL SCALE) 1 ACHS SLIDING SCALE SQ 02/07/17 07:00 02/10/17 05:46 (NS Flush) 2 ml UNSCH PRN IV FLUSH 02/06/17 21:45 02/08/17 12:59 (NS Flush) 2 ml BID IV FLUSH 02/07/17 09:00 02/09/17 20:37 (Tylenol) 650 mg Q4H PRN PO 02/06/17 21:45 02/06/17 22:25 (Zofran Inj) 4 mg Q6H PRN IVP 02/06/17 21:45 (Tylenol) 650 mg Q6H PRN PO 02/06/17 21:45 (Percocet 5-325 Mg) 1 tab Q6H PRN PO 02/06/17 21:45 (Percocet 10-325 Mg) 1 tab Q6H PRN PO 02/06/17 21:45 (Morphine Inj) 1 mg Q3H PRN IV 02/06/17 21:45 (Narcan Inj) 0.4 mg UNSCH PRN IV 02/06/17 21:45 (Zuleyka-Colace) 1 tab BID PO 02/07/17 09:00 02/10/17 08:29 (Senokot) 17.2 mg Q12H PRN PO 02/06/17 21:45 (Lactulose Liq) 30 ml DAILY PRN PO 02/06/17 21:45 (Alphagan 0.2% Opth Soln) 1 drop DAILY@0900,1400,2100 LEFT EYE 02/07/17 09:00 02/10/17 08:30 (Timoptic 0.5% Opth Soln) 1 drop DAILY@0900,1400,2100 LEFT EYE 02/07/17 09:00 02/10/17 08:30 Sodium Chloride 1,000 ml @ 75 mls/hr [id number] IV 02/07/17 05:50 02/10/17 00:30 (Protonix Inj) 40 mg Q12H IV 02/07/17 06:00 02/10/17 05:41 (Duoneb Neb) 1 ampule Q2HR NEB PRN INH 02/07/17 06:00 Norepinephrine Bitartrate 250 ml @ 7.5 mls/hr TITRATE PRN IV 02/07/17 06:00 (Brethine Inj) 1 mg UNSCH PRN SQ 02/07/17 06:00 (Flomax) 0.4 mg HS PO 02/07/17 21:00 02/09/17 20:37 Miscellaneous Information 1 Q361D XX 02/07/17 07:00 02/07/17 07:00 (Chlorhexidine 2% Cloth) 3 pack Taper DAILY@04 TOP 02/08/17 04:00 02/04/18 03:59 02/08/17 03:11 (Chlorhexidine 2% Cloth) 3 pack UNSCH PRN TOP 02/07/17 07:00 (Levemir Inj) 25 units DAILY SQ 02/08/17 09:00 02/10/17 08:37 (D50w (Vial) Inj) 50 ml UNSCH PRN IV 02/08/17 00:45 (Glucagon Inj) 1 mg UNSCH PRN OTHER 02/08/17 00:45 (SoluMEDROL INJ) 40 mg DAILY IV PUSH 02/08/17 12:00 02/10/17 08:29 Piperacillin Sod/ Tazobactam Sod 50 ml @ 100 mls/hr Q6HR IV 02/08/17 18:00 02/10/17 05:45 Sodium Chloride 1,000 ml @ 75 mls/hr [id number] IV 02/09/17 14:30 02/10/17 03:50 Assessment and Plan Assessment and Plan 61 y.o with h/o KTX with DEANA with sepsis and mild/moderate hydro of transplant kidney Creatinine worsening to 4. with BUN up to 56 Continue present medical management; IV ABX Maintain li catheter US in AM to evaluate hydronephrosis Srinath Ireland DO Feb 10, 2017 10:48
--- NOTE | 2017-02-10 11:11 | HHI.PR ---
Subjective Remarks no complains hungry, good po Objective Vitals Vital Signs Date Time Temp Pulse Resp B/P (MAP) Pulse Ox O2 Delivery O2 Flow Rate FiO2 02/10/17 09:00 97.8 82 20 185/104 (131) 98 02/10/17 08:00 97.0 80 18 161/84 (109) 96 02/10/17 04:00 96.2 81 18 148/88 (108) 96 02/10/17 00:00 97.6 76 18 136/87 (103) 95 02/09/17 20:00 96.6 80 18 119/77 (91) 97 02/09/17 16:45 78 02/09/17 16:00 96.5 88 17 133/59 (83) 95 02/09/17 12:00 97.1 92 18 120/85 (97) 95 I/O 02/09/17 02/09/17 02/09/17 02/10/17 02/10/17 02/10/17 06:59 14:59 22:59 06:59 14:59 22:59 Intake Total 475 ml 1000 ml 1960 ml 100 ml Output Total 200 ml 500 ml 200 ml Balance 275 ml 1000 ml 1460 ml -100 ml Intake Oral 1620 ml 0 ml IV Total 475 ml 1000 ml 340 ml 100 ml Output Urine Total 200 ml 500 ml 200 ml # Voids 3 0 # Bowel Movements 4 1 1 Result Diagram: 02/08/17 0530 02/09/17 2030 Imaging Last Impressions Renal Ultrasound 02/08/17 0000 Signed Impressions: Service Date/Time: Wednesday, February 08, 2017 15:17 - CONCLUSION: 1. Hydronephrosis. 2. Mild elevation of the resistive indices which can relate to the hydronephrosis. 3. 2 cm focus of fluid adjacent to the renal transplant. This is simple in appearance. Beka Delacruz Jr., MD Abdomen/Pelvis CT 02/08/17 0000 Signed Impressions: Service Date/Time: Wednesday, February 08, 2017 20:13 - CONCLUSION: 1. No acute abnormality is identified to explain the diffuse abdominal pain. 2. Small bilateral pleural effusions, right larger than left, with associated compressive atelectasis. 3. Anasarca. 4. [place] kidneys are atrophic consistent with history of end-stage renal disease. Right lower quadrant transplant demonstrates mild degree of hydronephrosis. There is a small volume of free fluid in the abdomen and pelvis. 5. Severe atherosclerotic disease. Salas Thompson MD Chest X-Ray 02/06/17 3038 Signed Impressions: Service Date/Time: Monday, February 06, 2017 18:46 - CONCLUSION: No acute cardiopulmonary disease. Yvette Blackwell MD Objective Remarks awake and alert, oriented x 3 anicteric no nuchal rigidity lungs no rales or wheezes regular rhythm abdomen soft, nontender some scrotal edema- mild erythema, no skin breakdown left AKA right LE- no edema neuro exam non focal Procedures 02/08- EGD- gastritis, biopsy done Date of Insertion: Feb 06, 2017 A/P Assessment and Plan 61 years old male presenting with Hematemesis secondary to gastritis s/p EGD 02/08 with gastritis -change to po Protonix - advance to po regular diet- ADA, renal failure diet - H&H stable - PPI Hypotension- resolved. Klebsiella Bacteremia secondary to complicated UTI Scrotal cellulitis - Aggressive IV fluids resuscitation - on IV - Zosyn- ID service ff - Follow-up cultures - CT of the abdomen reviewed- - pain and mild swelling of testicles and scrotum- get ultrasound Acute kidney injury on top of CKI- history of transplanted kidney - non oliguric- ff renal functions trending down and stabilizing. . patient very hard stick -keep li - Nephrology ff - seen by Urology- suggest ff up US in am Hypertension - now with elevated readings - start Amlodipine 2.5 mg po daily Diabetes Mellitus- elevated readings in pm due to steroids DKA- resolved. - SSI.. home insulin regimen and adjust if tolerating good po - advance diet - ff sugars DVT GI prophylaxis - Teds SCDs - No pharmacological DVT prophylaxis due to gastritis. may likely be able to start tomorrow. Anthony Mcallister MD Feb 10, 2017 11:11
[2017-02-10] MEDS: amLODIPine BESYLATE 5 MG TAB PO SCH (12:23)
--- NOTE | 2017-02-10 13:11 | HHI.GIFU ---
Subjective Remarks Resting in bed. No n/v today. Eating, but complains of diarrhea with anything he takes in- including water. He reports 3-4 loose/liquid stools today. (Heidi Kim) Objective Vitals I&O Vital Signs Date Time Temp Pulse Resp B/P (MAP) Pulse Ox O2 Delivery O2 Flow Rate FiO2 02/10/17 09:00 97.8 82 20 185/104 (131) 98 02/10/17 09:00 82 02/10/17 08:00 97.0 80 18 161/84 (109) 96 02/10/17 04:00 96.2 81 18 148/88 (108) 96 02/10/17 00:00 97.6 76 18 136/87 (103) 95 02/09/17 20:00 96.6 80 18 119/77 (91) 97 02/09/17 16:45 78 02/09/17 16:00 96.5 88 17 133/59 (83) 95 I/O 02/09/17 02/09/17 02/09/17 02/10/17 02/10/17 02/10/17 07:00 15:00 23:00 07:00 15:00 23:00 Intake Total 475 ml 1000 ml 1960 ml 100 ml 232 ml Output Total 200 ml 500 ml 200 ml Balance 275 ml 1000 ml 1460 ml -100 ml 232 ml Intake Oral 1620 ml 0 ml IV Total 475 ml 1000 ml 340 ml 100 ml 232 ml Output Urine Total 200 ml 500 ml 200 ml # Voids 3 0 # Bowel Movements 4 1 1 Laboratory Laboratory Tests Test 02/09/17 20:30 Blood Urea Nitrogen 56 Creatinine 4.68 Random Glucose 384 Total Protein 5.1 Albumin 1.5 Calcium Level 7.1 Phosphorus Level 2.1 Magnesium Level 2.0 Alkaline Phosphatase 97 Aspartate Amino Transf (AST/SGOT) 23 Alanine Aminotransferase (ALT/SGPT) 16 Total Bilirubin 0.6 Sodium Level 136 Potassium Level 4.1 Chloride Level 110 Carbon Dioxide Level 12.1 Anion Gap 14 Estimat Glomerular Filtration Rate 16 Protein Corrected Calcium 8.2 Tacrolimus (Prograf) Level 16.4 B-Hydroxybutyrate 0.07 Date/Time Source Procedure Growth Status 02/09/17 20:30 Blood Peripheral Aerobic Blood Culture - Preliminary Gram Negative Rema Resulted 02/09/17 20:30 Blood Peripheral Anaerobic Blood Culture - Preliminary NO GROWTH IN 1 DAY Resulted 02/08/17 02:20 Urine Clean Catch Urine Culture - Final <10,000 CFU/ML GRAM NEGATIVE REMA Complete Imaging Last Impressions Renal Ultrasound 02/08/17 0000 Signed Impressions: Service Date/Time: Wednesday, February 08, 2017 15:17 - CONCLUSION: 1. Hydronephrosis. 2. Mild elevation of the resistive indices which can relate to the hydronephrosis. 3. 2 cm focus of fluid adjacent to the renal transplant. This is simple in appearance. Beka Delacruz Jr., MD Abdomen/Pelvis CT 02/08/17 0000 Signed Impressions: Service Date/Time: Wednesday, February 08, 2017 20:13 - CONCLUSION: 1. No acute abnormality is identified to explain the diffuse abdominal pain. 2. Small bilateral pleural effusions, right larger than left, with associated compressive atelectasis. 3. Anasarca. 4. [place] kidneys are atrophic consistent with history of end-stage renal disease. Right lower quadrant transplant demonstrates mild degree of hydronephrosis. There is a small volume of free fluid in the abdomen and pelvis. 5. Severe atherosclerotic disease. Salas Thompson MD Chest X-Ray 02/06/17 1758 Signed Impressions: Service Date/Time: Monday, February 06, 2017 18:46 - CONCLUSION: No acute cardiopulmonary disease. Yvette Blackwell MD Physical Exam HEENT: Normocephalic; atraumatic; no jaundice. CHEST: CTA CARDIAC: Regular rate and rhythm with no murmur gallop or rubs. ABDOMEN: Soft, mildly bloated, nontender; no hepatosplenomegaly; bowel sounds are present in all four quadrants. EXTREMITIES: No clubbing, cyanosis, or edema. SKIN: Normal; no rash; no jaundice. CHEMICAL LABORATORY CHIEF: No focal deficits; alert and oriented times three. (Heidi Kim [facility]) Assessment and Plan Plan ASSESSMENT: - Upper GIB, Hematemesis. S/P EGD (02/08/17)----> 1. The esophagus was otherwise normal 2. There was erythematous gastritis in the gastric antrum; multiple biopsies were performed 3. Normal duodenal mucosa in the bulb and second portion of the duodenum 4. Retroflexion was performed and was normal. Pathology antral mucosa with mild chronic inflammation of the lamina propria. Acute inflammation is not identified. A clifford stain is negative for helicobacter. No further episodes. - Diarrhea, 3-4 loose stools today. Will check for CDiff. - Leukocytosis/Bacteremia. Cx with klebsiella pneumoniae, repeat with GNR. Zosyn. - Elevated Glucose/Uncontrolled DM. Per attending. - Acute on CKD with hx of renal transplant. Worsening renal funciton. Per renal - CAD, HTN, Hyperlipidemia, PVD, Depression, COPD. - Hx HCV antibodies, but undetectable viral load x 2. PLAN: - URSZULA - Send stool for CDiff - PPI - Monitor HH - Transfuse as necessary - Supportive care - Further recommendations to follow based on results of above - Pt seen and examined by Dr. Mclaughlin and myself and this note is written on his behalf (Heidi Kim) Physician Comments Agree with above plan, will follow up with you. (Miah Mclaughlin MD) Heidi Kim Feb 10, 2017 13:11 Miah Mclaughlin MD Feb 10, 2017 13:36
--- NOTE | 2017-02-10 19:24 | HHI.IDPN ---
Subjective Subjective Remarks saw pt less than 15 min prior to flat line observed on monitor He was talking to me and respnding appropriately He raised no c/o CT showed mild hydro - li placed Antibiotics zosyn Past Medical History renal ttransplant Allergies: Coded Allergies: No Known Allergies (Unverified , 10/27/16) Objective . Vital Signs Date Time Temp Pulse Resp B/P (MAP) Pulse Ox O2 Delivery O2 Flow Rate FiO2 02/10/17 16:00 96.7 77 18 155/73 (100) 95 02/10/17 13:00 96.5 79 18 136/89 (105) 96 02/10/17 12:00 96.5 79 18 136/89 (105) 96 02/10/17 09:00 97.8 82 20 185/104 (131) 98 02/10/17 09:00 82 02/10/17 08:00 97.0 80 18 161/84 (109) 96 02/10/17 04:00 96.2 81 18 148/88 (108) 96 02/10/17 00:00 97.6 76 18 136/87 (103) 95 02/09/17 20:00 96.6 80 18 119/77 (91) 97 02/10/17 02/10/17 02/11/17 15:00 23:00 07:00 Intake Total 780 ml Output Total 203 ml Balance 577 ml Intake Oral 120 ml IV Total 660 ml Output Urine Total 200 ml Stool Total 3 ml . Laboratory Tests Test 02/09/17 20:30 Blood Urea Nitrogen 56 MG/DL Creatinine 4.68 MG/DL Random Glucose 384 MG/DL Total Protein 5.1 GM/DL Albumin 1.5 GM/DL Calcium Level 7.1 MG/DL Phosphorus Level 2.1 MG/DL Magnesium Level 2.0 MG/DL Alkaline Phosphatase 97 U/L Aspartate Amino Transf (AST/SGOT) 23 U/L Alanine Aminotransferase (ALT/SGPT) 16 U/L Total Bilirubin 0.6 MG/DL Sodium Level 136 MEQ/L Potassium Level 4.1 MEQ/L Chloride Level 110 MEQ/L Carbon Dioxide Level 12.1 MEQ/L Anion Gap 14 MEQ/L Estimat Glomerular Filtration Rate 16 ML/MIN Protein Corrected Calcium 8.2 MG/DL Microbiology Date/Time Source Procedure Growth Status 02/09/17 20:30 Blood Peripheral Aerobic Blood Culture - Preliminary Gram Negative Rema Resulted 02/09/17 20:30 Blood Peripheral Anaerobic Blood Culture - Preliminary NO GROWTH IN 1 DAY Resulted 02/09/17 20:30 Blood Peripheral Aerobic Blood Culture - Preliminary Gram Negative Rema Resulted 02/09/17 20:30 Blood Peripheral Anaerobic Blood Culture - Preliminary NO GROWTH IN 1 DAY Resulted 02/08/17 02:20 Urine Clean Catch Urine Culture - Final <10,000 CFU/ML GRAM NEGATIVE REMA Complete Imaging Last Impressions Renal Ultrasound 02/08/17 0000 Signed Impressions: Service Date/Time: Wednesday, February 08, 2017 15:17 - CONCLUSION: 1. Hydronephrosis. 2. Mild elevation of the resistive indices which can relate to the hydronephrosis. 3. 2 cm focus of fluid adjacent to the renal transplant. This is simple in appearance. Beka Delacruz Jr., MD Abdomen/Pelvis CT 02/08/17 0000 Signed Impressions: Service Date/Time: Wednesday, February 08, 2017 20:13 - CONCLUSION: 1. No acute abnormality is identified to explain the diffuse abdominal pain. 2. Small bilateral pleural effusions, right larger than left, with associated compressive atelectasis. 3. Anasarca. 4. [place] kidneys are atrophic consistent with history of end-stage renal disease. Right lower quadrant transplant demonstrates mild degree of hydronephrosis. There is a small volume of free fluid in the abdomen and pelvis. 5. Severe atherosclerotic disease. Slaas Thompson MD Chest X-Ray 02/06/17 1758 Signed Impressions: Service Date/Time: Monday, February 06, 2017 18:46 - CONCLUSION: No acute cardiopulmonary disease. KFranklin Blackwell MD Physical Exam CONSTITUTIONAL/GENERAL: This is an adequately nourished patient, in no apparent distress, appears acutely ill TUBES/LINES/DRAINS: SKIN: + ? minimal jaundice, rashes, or lesions. Skin temperature appropriate. Not diaphoretic. HEAD: Atraumatic. Normocephalic. EYES: OD - absent OS with some injected conjuntiva + ? minimal scleral icterus. No drainage. Fundi not examined. ENT: Hearing grossly normal. Nose without bleeding or purulent drainage.Oral mucosae dry without visible erythema, exudates, masses, or lesions. Dentition is poor NECK: Trachea midline. Supple, nontender. CARDIOVASCULAR: Regular rate and rhythm without murmurs, gallops, or rubs. No JVD. Peripheral pulses symmetric. RESPIRATORY/CHEST: Symmetric, unlabored respirations. Clear to auscultation. Breath sounds equal bilaterally. No wheezes, rales, or rhonchi. GASTROINTESTINAL: Abdomen soft, non-tender, distended. No hepato-splenomegaly, or palpable masses. No guarding. Bowel sounds present. GENITOURINARY: Without palpable bladder distension. Li catheter in place with minimal amount of urine He has a non tender RLQ mass cw renal allograft MUSCULOSKELETAL: Extremities without clubbing, cyanosis, or edema. No joint tenderness or effusion noted. No calf tenderness. No mottling or clubbing. LYMPHATICS: No palpable cervical or supraclavicular adenopathy. NEUROLOGICAL: At the time of my exam pt wwas fully awake and alert and non focal PSYCHIATRIC: calm and coopertaive Assessment & Plan Remarks Sepsis with gram negative bacteremia in immunopcopromised pt sp renal allograft - fever, leukocotosuis and lactic acidosis - High grade Kleb pneumo bacteremia Complicated UTI, Kleb pneumo - persistent bactermia abd /pelvis CT unrevealing as far as abscess Critically ill - code in progress ? acute cardiac event Diarrhea, C.diff negative REC's: cont zosyn add IV levaquine 2 D echo Zoë Hebert MD Feb 10, 2017 19:24
--- NOTE | 2017-02-10 20:11 | HHI.FPPN ---
Addendum to progress note ADDENDUM Reason for addendum: Additonal documentation Additional information Residents (Dr. Hernandez and Dr. Crowell) responded to code blue called about 7:10 PM tonight. 61 year old male here with hematemesis secondary to gastritis with stable H&H, bacteremia secondary to complicated UTI, DEANA on CKD with renal transplant, and diabetes mellitus type II. Blood glucose measured and 136. Upon arrival, patient is intubated with bag valve mask for oxygenation and CPR is being performed. Dr. Kaye, body die maker, by the bedside. At 7:18 PM he was given epinephrine, followed by 2 amps of bicarb. At 7:20 he was given epinephrine. At 7:25 he was given epinephrine and atropine. At 7:28 he was given epinephrine. Initially he had pulseless electrical activity, but at 7:33 he had a shockable rhythm with V-fib. Unsynchronized shock was given and chest compressions were resumed. At 7:31 amiodarone 150 mg given, 7:32 epinephrine given, and 7:33 amiodarone 300 mg given. At 7:33 another unsynchronized shock given. At 7:35 bicarb given, 7:36 epi given, 7:38 Vfib noted and shock given. Bicarb given at that time. At 7:39 amiodarone 300 mg given. 7:40 shock given and epi given. 7: 41 there was spontaneous return of circulation. ABG was ordered at that time and patient transferred to the ICU. Jimi Hernandez MD R3 Feb 10, 2017 20:11
[2017-02-10 20:22] LABS: BLOOD GAS BASE EXCESS -17.1 mmol/L (-2-2); BLOOD GAS CARBOXYHEMOGLOBIN 0.9 % (0-4); BLOOD GAS HCO3 8 mmol/L (22-26); BLOOD GAS METHEMOGLOBIN 0.8 % (0-2); BLOOD GAS O2 HGB SATURATION 96 % (90-100); BLOOD GAS OXYGEN CONTENT 12.6 Vol % (12.0-20.0); BLOOD GAS PCO2 18 mmHg (38-42); BLOOD GAS PO2 99 mmHg (61-120); BLOOD GAS TOTAL HGB 9.3 G/DL (12.0-16.0); CRITICAL VALUE YES; OXYGEN DEVICE VENTILATOR; TEMP CORR TO 98.6
[2017-02-10 20:23] LABS: DRAW SITE ART LINE; FIO2 100 %; STAT YES; VENT SETTINGS PRVC/AC
[2017-02-10] MEDS: ATORVASTATIN 40 MG TAB PO SCH (21:00)
[2017-02-10] MEDS: GABAPENTIN 300 MG CAP PO SCH (21:00)
[2017-02-10] MEDS: TAMSULOSIN HCL 0.4 MG CAP PO SCH (21:00)
--- NOTE | 2017-02-10 21:06 | RADRPT ---
EXAM DATE/TIME: 02/10/2017 20:29 [facility] COMPARISON: CHEST SINGLE AP, February 06, 2017, 18:46. INDICATIONS : Foreign body. MEDICAL HISTORY : Cardiovascular disease. Hypertension PVD, CAD. SURGICAL HISTORY : Carotid stent. Kidney transplant, AV shunt. ENCOUNTER: Subsequent ACUITY: 1 day PAIN SCORE: Non-responsive. LOCATION: Bilateral chest FINDINGS: Portable AP view the chest demonstrates a normal-sized cardiac silhouette. Endotracheal tube tip is a t the aortic knob level measuring 4.4 cm from the yusuf. There is bilateral perihilar predominant ai rspace consolidation. No pneumothorax or pleural effusion is present. The bones and soft tissues demo nstrate no acute abnormality. Multiple lines overlie the patient. CONCLUSION: 1. Bilateral perihilar distribution consolidation new from the prior study from 4 days ago. The appea yvonne and distribution suggests pulmonary edema as the cause. 2. No concerning radiopaque foreign body is identified. There multiple lines overlying the patient an d ET tube is present. Salas Thompson MD on February 10, 2017 at 21:03 Board Certified Radiologist. This report was verified electronically.
[2017-02-10 21:43] LABS: APTT (PATIENT) 29.8 SEC (24.3-30.1); INTERNATIONAL NORMALIZED RATIO 1.1 RATIO; PROTHROMBIN TIME - PATIENT 12.6 SEC (9.8-11.6)
[2017-02-10 21:47] LABS: HEMATOCRIT 48.5 % (39.0-51.0); MEAN CELL VOLUME 77.9 FL (80.0-100.0); MEAN CORPUSCULAR HEMOGLOBIN 25.2 PG (27.0-34.0); MEAN CORPUSCULAR HGB CONC 32.3 % (32.0-36.0); PLATELET COUNT 118 TH/MM3 (150-450); RED BLOOD COUNT 6.24 MIL/MM3 (4.50-5.90); RED CELL DISTRIBUTION WIDTH 16.6 % (11.6-17.2); WHITE BLOOD COUNT 11.7 TH/MM3 (4.0-11.0)
--- NOTE | 2017-02-10 21:49 | HHI.NPPN ---
Subjective Renal Failure: Chronic, Acute Interval History s/p kidney transplant s/p code blue about 40 min resuscitation has 2nd code in unit doing poorly possible aspirated on chicken broth per Nurse Objective Data Data 02/10/17 02/11/17 19:00 07:00 Intake Total 780 ml Output Total 203 ml Balance 577 ml Intake Oral 120 ml IV Total 660 ml Output Urine Total 200 ml Stool Total 3 ml Vital Signs Date Time Temp Pulse Resp B/P (MAP) Pulse Ox O2 Delivery O2 Flow Rate FiO2 02/10/17 19:15 15.00 100 02/10/17 16:00 96.7 77 18 155/73 (100) 95 02/10/17 13:00 96.5 79 18 136/89 (105) 96 02/10/17 12:00 96.5 79 18 136/89 (105) 96 02/10/17 09:00 97.8 82 20 185/104 (131) 98 02/10/17 09:00 82 02/10/17 08:00 97.0 80 18 161/84 (109) 96 02/10/17 04:00 96.2 81 18 148/88 (108) 96 02/10/17 00:00 97.6 76 18 136/87 (103) 95 -: 02/08/17 0530 02/09/17 2030 Tubes & Lines: [place] Physical Exam General Appearance Remarks intubated Eyes Eye Remarks blind right eye left pupil dilated Pulmonary Resp Exam: Decreased Bases Cardiology CV Exam: Regular Gastrointestinal/Abdomen GI Exam: Distended, Bowel Sounds Absent Musculoskeletal MS Exam: Unable to Ambulate Integumentary Skin Exam: Clear, Warm, Dry Extremeties Extremities Exam: Trace Edema (Left AKA) Neurologic Neuro Exam: Unresponsive Assessment/Plan Discussed Condition With: Patient Assessment Summary: DEANA/Acute Renal Failure, Anemia of CKD, Proteinuria, Diabetes Mellitus, Transplant Kidney Status Electrolyte Assessment: Metabolic Acidosis Problem List: (1) Acute renal insufficiency ICD Codes: N28.9 - Disorder of kidney and ureter, unspecified Status: Acute Plan: in multi organ failure, aspirated on food/ has gram negative sepsis on going stop Tacrolimus as has unresolved sepsis prolong resuscitation renal US and CT show hydronephrosis of transplanted kidney BP maintains UOP low Cr was rising had Klebsiella sepsis Acidosis on bicarb drip follow labs (2) Renal transplant recipient ICD Codes: Z94.0 - Kidney transplant status Status: Chronic Plan: on tacrolimus 5 mg BID stopped as septic IV solumedrol his tacrolimus level reordered (3) GI bleed ICD Codes: K92.2 - Gastrointestinal hemorrhage, unspecified Plan: GI following, off protonix drip (on BID dosing) he apparently had blood in the stomach without identification of site of bleeding on EGD, + gastritis (4) Diabetes ICD Codes: E11.9 - Diabetes mellitus Status: Chronic Plan: resolved DKA continue insulin therapy , monitor glucose (5) Sepsis ICD Codes: A41.9 - Sepsis, unspecified organism Status: Acute Plan: suspected urosepsis, although culture is negative (he was given antibiotics prior to culture being obtained) + Klebsiella ID following, he is on Zosyn and Levaquin follow lactic acid monitor clinically (6) Metabolic encephalopathy ICD Codes: G93.41 - Metabolic encephalopathy Status: Acute Plan: due to infection continue supportive care (7) Cardiac arrest ICD Codes: I46.9 - Cardiac arrest, cause unspecified Status: Acute Plan: in ICU doing poorly, intubated septic and possible aspiration suspected Jose Eduardo Randle MD Feb 10, 2017 21:49
[2017-02-10 21:50] LABS: HEMO FLAGS AUTO DIFF
[2017-02-10 22:05] LABS: ALKALINE PHOSPHATASE 140 U/L (45-117); ALT (GPT) 41 U/L (12-78); ANION GAP 14 MEQ/L (5-15); AST (GOT) 90 U/L (15-37); BICARBONATE 22.6 MEQ/L (21.0-32.0); BLOOD UREA NITROGEN 58 MG/DL (7-18); CHLORIDE 108 MEQ/L (98-107); GLOMERULAR FILTRATION RATE 15 ML/MIN (>89); POTASSIUM 3.4 MEQ/L (3.5-5.1); SODIUM (NA) 145 MEQ/L (136-145); TOTAL BILIRUBIN ADULT 0.8 MG/DL (0.2-1.0)
[2017-02-10] MEDS: SODIUM BICARBONATE 8.4% INJ 150 MEQ in DEXTROSE 5% IN WATE 1000ML INJ 1,000 ML IV SCH ×2 (22:22)
--- NOTE | 2017-02-10 22:23 | RADRPT ---
EXAM DATE/TIME: 02/10/2017 21:51 [facility] COMPARISON: CT ABDOMEN & PELVIS W/O CONTRAST, February 08, 2017, 20:13. ABDOMEN KUB ONLY, January 26, 2016, 9:57. INDICATIONS : Abdominal distention; obstruction. MEDICAL HISTORY : Cardiovascular disease. Hypertension. PVD, CAD. SURGICAL HISTORY : Carotid stent. Kidney transplant, AV Shunt. ENCOUNTER: Subsequent ACUITY: 2 days PAIN SCORE: Non-responsive. LOCATION: Bilateral abdomen. FINDINGS: 2 supine frontal views of the abdomen demonstrates marked gaseous distention of the stomach and parti ally air distended colon. There a few segments of dilated small bowel measuring greater than 4 cm. No free air is appreciated. No organomegaly is seen. Bones demonstrate no acute finding. CONCLUSION: Stable gaseous distention of the stomach and colon with new dilated segment of small bowel in the mid abdomen. The dilated small bowel is new and abnormal. However, the overall distribution is not sugges tive of small bowel obstruction. Suggest performing a followup imaging to confirm resolution. Salas Thompson MD on February 10, 2017 at 22:19 Board Certified Radiologist. This report was verified electronically.
[2017-02-10 22:34] LABS: BANDS 9 % (0-6); CORRECTED NUCLEATED RBC 3 /100 WBC (0-0); MYELOCYTES 1 % (0-0); NEUTROPHIL # MANUAL DIFF 11.1 TH/MM3 (1.8-7.7); POLYS (SEG NEUTROPHILS) 85 % (16-70); WBC DIFF SAMPLE 100
[2017-02-10 22:37] LABS: PLATELET ESTIMATE SMEAR LOW (NORMAL); PLATELET MORPHOLOGY ENLARGED (NORMAL); SCAN/DIFF FINAL DIFF MANUAL
--- NOTE | 2017-02-10 23:14 | HHI.CCPN ---
Subjective Remarks/Hospital Course 02/08: patient went for EGD yesterday with lots of blood in the stomach but no active signs of bleeding. today went back to EGD which found gastritis without any evidence of ulcerative disease. anion gap closed yesterday and transitioned off of insulin drip. blood growing klebsiella and ID on board, on abx. patient without complaints and feeling well and improved from yesterday. ROS negative. 02/10 while on the floor patient choked on the dinner food, resulting in respiratory layer cardiopulmonary arrest requiring 35 minutes of CPR multiple shocks for V. fib rhythm and injections of epinephrine, including endotracheal intubation Objective Vital Signs Date Time Temp Pulse Resp B/P (MAP) Pulse Ox O2 Delivery O2 Flow Rate FiO2 02/10/17 21:00 83 02/10/17 20:00 97 100 02/10/17 20:00 97.5 16 188/96 (126) 02/10/17 19:15 15.00 02/08/17 12:20 Nasal Cannula Intake and Output 02/10/17 02/10/17 02/10/17 07:59 15:59 23:59 Intake Total 100 ml 780 ml Output Total 200 ml 203 ml Balance -100 ml 577 ml Result Diagram: 02/10/17203902/10/172039 Other Results Microbiology Date/Time Source Procedure Growth Status 02/08/17 02:20 Urine Clean Catch Urine Culture - Final <10,000 CFU/ML GRAM NEGATIVE REMA Complete Laboratory Tests Test 02/10/17 20:05 Blood Gas Puncture Site ART LINE Blood Gas Patient Temperature 98.6 Blood Gas HCO3 8 mmol/L (22-26) Blood Gas Base Excess -17.1 mmol/L (-2-2) Blood Gas Oxygen Saturation 96 % (90-100) Arterial Blood pH 7.30 (7.380-7.420) Arterial Blood Partial Pressure CO2 18 mmHg (38-42) Arterial Blood Partial Pressure O2 99 mmHg (61-120) Arterial Blood Oxygen Content 12.6 Vol % (12.0-20.0) Arterial Blood Carboxyhemoglobin 0.9 % (0-4) Arterial Blood Methemoglobin 0.8 % (0-2) Blood Gas Hemoglobin 9.3 G/DL (12.0-16.0) Oxygen Delivery Device VENTILATOR Blood Gas Ventilator Setting PRVC/AC Blood Gas Inspired Oxygen 100 % Objective Remarks GENERAL: Elderly sick appearing man intubated SKIN: Warm and dry. HEAD: Normocephalic. EYES: No scleral icterus. No injection or drainage on left. 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 No JVD CARDIOVASCULAR: Regular rate and rhythm without murmurs, gallops, or rubs. RESPIRATORY: Breath sounds equal bilaterally. No accessory muscle use. GASTROINTESTINAL: Abdomen soft, non-tender, distended. MUSCULOSKELETAL: No cyanosis, or edema. Status post left leg amputation BACK: Nontender without obvious deformity. NEURO EXAM: -2 Procedures 02/08- EGD- gastritis, biopsy done 02/10 cardiopulmonary resuscitation - Arterial line placed Date of Insertion: Feb 06, 2017 A/P Assessment and Plan Cardiopulmonary arrest - Due to aspiration - 35 minutes of CPR and ACLS protocol - Multiple cardioversions due to V. fib rhythm and injections of epinephrine - M4 E3 DVT, borderline neurological exam for hypothermia protocol, where not initiated hypothermia protocol due to sepsis and persistent bacteremia Respiratory failure - Due to above - No weaning until neurologically improved - Continue mechanical ventilation - CXR and ABG daily Hematemesis - Protonix IV twice a day, d/c drip. - advance diet. - GI consult evaluation - H&H stable - gastritis per EGD. Hypotension- resolved. Klebsiella Bacteremia - Leukocytosis and fever - resolving sepsis. - Aggressive IV fluids resuscitation - Broad-spectrum antibiotics - Follow-up cultures - Infectious disease consult appreciated Diabetes DKA- resolved. - SSI. Acute on chronic kidney injury - IV fluids resuscitation - Nephrology consult - Monitor tacrolimus level - Strict I's and O's - Creatinine and electrolyte level DVT GI prophylaxis - Teds SCDs - No pharmacological DVT prophylaxis due to gastritis. may likely be able to start tomorrow. - IV Protonix twice a day Critical Care: The total critical care time was 55 minutes. Time to perform other separately billable procedures was not included in the critical care time. Lius Kaye MD Feb 10, 2017 11:14 pm
--- NOTE | 2017-02-10 23:19 | PD.PROCEDR ---
Procedure Note Procedure Arterial line A time-out was completed verifying correct patient, procedure, site, positioning , and special equipment if applicable. The patients right groin was prepped and draped in sterile fashion. 1% Lidocaine was used to anesthetize the area. A 18G Arrow arterial line was introduced into the femoral artery. The catheter was threaded over the guide wire and the needle was removed with appropriate pulsatile blood return. The catheter was then sutured in place to the skin and a sterile dressing applied. Perfusion to the extremity distal to the point of catheter insertion was checked and found to be adequate. Estimated Blood Loss: 1ml The patient tolerated the procedure well and there were no complications. Luis Kaye MD Feb 10, 2017 11:19 pm
[2017-02-11] VITALS (16 sets, daily range): BP systolic 99–134; BP diastolic 53–90; PULSE 62–80; RESP 16–21; TEMP 94.5–97.7; O2SAT 76–100
[2017-02-11] MEDS: LEVOFLOXACIN 500 MG PREMIX INJ 100 ML IV SCH (00:25)
[2017-02-11] MEDS: PIPERACIL-TAZO 2.25 GM PREMIX 50 ML IV SCH ×4 (01:43→17:01)
[2017-02-11] MEDS ORDERED: LORazepam 2 MG/ML VIAL ONE ×2 (02:04→03:39)
[2017-02-11] MEDS ORDERED: levETIRAcetam 1000 MG INJ 100 ML IV ONE (02:15)
--- NOTE | 2017-02-11 02:46 | RADRPT ---
EXAM DATE/TIME: 02/11/2017 02:33 [facility] COMPARISON: CT BRAIN W/O CONTRAST, February 03, 2017, 19:58. INDICATIONS : Altered mental status. Seizure activity. RADIATION DOSE: 37.30 CTDIvol (mGy) MEDICAL HISTORY : Hypertension. Seizures. Diabetes mellitus type 1. SURGICAL HISTORY : Shunt ENCOUNTER: Subsequent ACUITY: 4 - 6 days PAIN SCALE: Non-responsive LOCATION: cranial TECHNIQUE: Multiple contiguous axial images were obtained of the head. Using automated exposure control and adj ustment of the mA and/or kV according to patient size, radiation dose was kept as low as reasonably a chievable to obtain optimal diagnostic quality images. DICOM format image data is available electro nically for review and comparison. FINDINGS: CEREBRUM: The ventricles are normal for age. No evidence of midline shift, mass lesion, hemorrhage or acute in farction. No extra-axial fluid collections are seen. POSTERIOR FOSSA: The cerebellum and brainstem are intact. The 4th ventricle is midline. The cerebellopontine angle i s unremarkable. EXTRACRANIAL: The right globe remains small and dense. SKULL: The calvaria is intact. No evidence of skull fracture. CONCLUSION: Continued abnormality in the right globe. No evidence of acute hemorrhage or acute change. Alf Britton MD on February 11, 2017 at 2:43 Board Certified Radiologist. This report was verified electronically.
[2017-02-11] MEDS ORDERED: MIDAZOLAM HCL 5 MG/ML VIAL (1 ML) ONE (02:59)
[2017-02-11] MEDS: CHLORHEXIDINE GLUCONATE 2 % 1 PACK (2 CLOTHS) TOP SCH (04:00)
[2017-02-11] MEDS ORDERED: LORazepam 2 MG/ML VIAL IV ONE (04:00)
[2017-02-11] MEDS ORDERED: MIDAZOLAM HCL 5 MG/ML VIAL (1 ML) IV ONE (04:00)
--- NOTE | 2017-02-11 04:55 | PD.PROCEDR ---
Procedure Note Procedure Centerline placement A time-out was completed verifying correct patient, procedure, site, positioning , and special equipment if applicable. The patient was placed in a dependent position appropriate for central line placement based on the vein to be cannulated. The patients right groin was prepped and draped in sterile fashion. 1% Lidocaine was used to anesthetize the surrounding skin area. A triple lumen 9-Malays[place] Cordis catheter was introduced into the the common femoral vein using the Seldinger technique and under ultrasound guidance. The catheter was threaded smoothly over the guide wire and appropriate blood return was obtained. Each lumen of the catheter was evacuated of air and flushed with sterile saline. The catheter was then sutured in place to the skin and a sterile dressing applied. Perfusion to the extremity distal to the point of catheter insertion was checked and found to be adequate. Estimated Blood Loss: 1ml The patient tolerated the procedure well and there were no complications. Luis Kaye MD Feb 11, 2017 04:55
[2017-02-11] MEDS ORDERED: SODIUM BICARBONATE 8.4% INJ 50 MEQ/50 ML SYR IV ONE (05:00)
[2017-02-11] MEDS ORDERED: EPINEPHrine HCL (1:10,000) 1 MG/10 ML SYRINGE IV ONE (05:00)
[2017-02-11 05:34] LABS: AUTOMATED NEUTROPHIL # 10.3 TH/MM3 (1.8-7.7); BASOPHIL % 0.4 % (0.0-2.0); HEMATOCRIT 41.5 % (39.0-51.0); LYMPH % 1.9 % (9.0-44.0); LYMPHOCYTE # 0.2 TH/MM3 (1.0-4.8); MEAN CELL VOLUME 77.8 FL (80.0-100.0); MEAN CORPUSCULAR HEMOGLOBIN 25.4 PG (27.0-34.0); MEAN CORPUSCULAR HGB CONC 32.7 % (32.0-36.0); MONO % 7.1 % (0.0-8.0); NEUT % 90.6 % (16.0-70.0); PLATELET COUNT 72 TH/MM3 (150-450); RED BLOOD COUNT 5.33 MIL/MM3 (4.50-5.90); RED CELL DISTRIBUTION WIDTH 16.6 % (11.6-17.2); WHITE BLOOD COUNT 11.4 TH/MM3 (4.0-11.0)
[2017-02-11 05:35] LABS: HEMO FLAGS AUTO DIFF
[2017-02-11] MEDS: LORazepam 2 MG/ML VIAL IV PRN ×3 (05:43→11:30)
[2017-02-11 05:52] LABS: BICARBONATE 25.6 MEQ/L (21.0-32.0); MAGNESIUM 1.9 MG/DL (1.5-2.5)
--- NOTE | 2017-02-11 05:56 | PD.PROCEDR ---
Procedure Note Procedure Endotracheal Intubation A time-out was completed verifying correct patient, procedure, site, positioning , and special equipment if applicable. The patient was placed in a flat position. Sedation was obtained using Etomidate 20mg. The patient was easily ventilated using an ambu bag. The [employer]/ MAC 4 BLADE was used and inserted into the oropharynx at which time there was a Grade 1 view of the vocal cords. A 8-japanese endotracheal tube was inserted and visualized going through the vocal cords. The stylette was removed. Colorimetric change was visualized on the CO2 meter. Breath sounds were heard in both lung torrez equally. The endotracheal tube was placed at 23 cm, measured at the teeth. A chest x-ray was ordered to assess for pneumothorax and verify endotrachealtube placement. Estimated Blood Loss: 0 The patient tolerated the procedure well and there were no complications. Luis Kaye MD Feb 11, 2017 5:56 am
--- NOTE | 2017-02-11 06:03 | RADRPT ---
EXAM DATE/TIME: 02/11/2017 04:52 [facility] COMPARISON: CHEST SINGLE AP, February 10, 2017, 20:29. INDICATIONS : Respiratory failure. MEDICAL HISTORY : Venous insufficiency. Cardiovascular disease. Hypertension PVD, CAD SURGICAL HISTORY : Carotid stent. Kidney transplant, AV shunt. ENCOUNTER: Subsequent ACUITY: 4 - 6 days PAIN SCORE: Non-responsive. LOCATION: Bilateral chest FINDINGS: A single view of the chest demonstrates bilateral pulmonary infiltrate right greater than left. Endot john tube in good position. The cardiomediastinal contours are unremarkable. Osseous structures are intact. CONCLUSION: Patchy perihilar pulmonary infiltrates right greater than left. ET tube is in good position. Alf Britton MD on February 11, 2017 at 6:00 Board Certified Radiologist. This report was verified electronically.
[2017-02-11] MEDS: INSULIN ASPART SUPPLEMENTAL SCALE SQ SCH ×4 (06:22→20:44)
[2017-02-11] MEDS ORDERED: LORazepam 2 MG/ML VIAL IV STA (06:50)
[2017-02-11] MEDS ORDERED: PILL SPLITTER OTHER PRN (07:00)
[2017-02-11 07:01] LABS: PLATELET ESTIMATE SMEAR LOW (NORMAL); PLATELET MORPHOLOGY NORMAL (NORMAL); SCAN/DIFF AUTO DIFF CONFIRMED
[2017-02-11] MEDS: SODIUM BICARBONATE 8.4% INJ 150 MEQ in DEXTROSE 5% IN WATE 1000ML INJ 1,000 ML IV SCH ×4 (07:51→16:24)
[2017-02-11] MEDS: PROPOFOL 1000 MG/100 ML IV PRN ×3 (07:58→20:24)
[2017-02-11] MEDS: INSULIN DETEMIR 100 UNITS/ML VIAL SQ SCH (09:00)
[2017-02-11] MEDS: amLODIPine BESYLATE 5 MG TAB PO SCH (09:00)
[2017-02-11] MEDS: PANTOPRAZOLE SOD 40 MG DELAYED RELEASE TAB PO SCH (09:00)
[2017-02-11] MEDS: TIMOLOL MALEATE 0.5% OPHT SOLN 5 ML BTL LEFT EYE SCH ×3 (09:00→20:23)
[2017-02-11] MEDS: SODIUM CHLORIDE 0.9% FLUSH 10 ML FLUSH IV FLUSH SCH ×2 (09:00→20:22)
[2017-02-11] MEDS: DOCUSATE SODIUM 50 MG/SENNA 8.6 MG TAB PO SCH ×2 (09:00→20:23)
[2017-02-11] MEDS: SYSTANE LEFT EYE SCH ×2 (09:00→20:23)
[2017-02-11] MEDS: methylPREDNISolone SOD SUCC 40 MG/1 ML VIAL IV PUSH SCH (09:00)
[2017-02-11] MEDS: BRIMONIDINE TARTRATE 0.2% OPHT SOLN 5 ML BTL LEFT EYE SCH ×3 (09:00→20:23)
[2017-02-11] MEDS: CALCITRIOL 0.25 MCG CAP PO SCH (09:00)
--- NOTE | 2017-02-11 09:53 | HHI.NPPN ---
Subjective Renal Failure: Chronic, Acute Additional Remarks had PEA/V tach/Shock/seizures on Vent after aspiration Objective Data Data Vital Signs Date Time Temp Pulse Resp B/P (MAP) Pulse Ox O2 Delivery O2 Flow Rate FiO2 02/11/17 07:56 100 40 02/11/17 04:08 100 50 02/11/17 04:00 100 02/11/17 04:00 97.6 76 16 124/53 (76) 76 02/11/17 02:34 100 100 02/11/17 01:12 100 60 02/11/17 00:00 97.5 80 16 134/79 (97) 97 02/11/17 00:00 100 02/10/17 23:00 81 02/10/17 21:00 83 02/10/17 20:00 97 100 02/10/17 20:00 100 02/10/17 20:00 97.5 92 16 188/96 (126) 92 02/10/17 19:45 98 100 02/10/17 19:15 15.00 100 02/10/17 16:00 96.7 77 18 155/73 (100) 95 02/10/17 13:00 96.5 79 18 136/89 (105) 96 02/10/17 12:00 96.5 79 18 136/89 (105) 96 -: 02/11/17 0500 02/11/17 0500 Tubes & Lines: [place]millan Physical Exam General Appearance: Well Developed Appearance Remarks intubated Eyes Eye Remarks blind right eye left pupil dilated Pulmonary Resp Exam: Decreased Bases Cardiology CV Exam: Regular Gastrointestinal/Abdomen GI Exam: Bowel Sounds Present, Distended Musculoskeletal MS Exam: Unable to Ambulate Integumentary Skin Exam: Clear, Warm, Dry Extremeties Extremities Exam: Trace Edema (Left AKA) Neurologic Neuro Exam: Unresponsive Assessment/Plan Discussed Condition With: Patient Assessment Summary: DEANA/Acute Renal Failure, Anemia of CKD, Proteinuria, Diabetes Mellitus, Transplant Kidney Status Electrolyte Assessment: Metabolic Acidosis Problem List: (1) Acute renal insufficiency ICD Codes: N28.9 - Disorder of kidney and ureter, unspecified Status: Acute Plan: in multi organ failure, aspirated on food/ has gram negative sepsis on going off Tacrolimus as has unresolved sepsis prolong resuscitation renal US and CT show hydronephrosis of transplanted kidney BP maintains UOP about 600 cc overnight Cr 4.7 slight decline may still need dialysis prognosis is guarded had Klebsiella sepsis Acidosis on bicarb drip follow labs replace K/po4 (2) Renal transplant recipient ICD Codes: Z94.0 - Kidney transplant status Status: Chronic Plan: on tacrolimus 5 mg BID stopped as septic IV solumedrol his tacrolimus level reordered (3) GI bleed ICD Codes: K92.2 - Gastrointestinal hemorrhage, unspecified Plan: GI following, off protonix drip (on BID dosing) he apparently had blood in the stomach without identification of site of bleeding on EGD, + gastritis (4) Diabetes ICD Codes: E11.9 - Diabetes mellitus Status: Chronic Plan: resolved DKA continue insulin therapy , monitor glucose (5) Sepsis ICD Codes: A41.9 - Sepsis, unspecified organism Status: Acute Plan: suspected urosepsis, although culture is negative (he was given antibiotics prior to culture being obtained) + Klebsiella ID following, he is on Zosyn and Levaquin follow lactic acid monitor clinically (6) Metabolic encephalopathy ICD Codes: G93.41 - Metabolic encephalopathy Status: Acute Plan: due to infection continue supportive care (7) Cardiac arrest ICD Codes: I46.9 - Cardiac arrest, cause unspecified Status: Acute Plan: in ICU doing poorly, intubated septic and aspiration suspected Jose Eduardo Randle MD Feb 11, 2017 09:53
--- NOTE | 2017-02-11 09:53 | RADRPT ---
EXAM DATE/TIME: 02/11/2017 07:56 [facility] COMPARISON: US KIDNEY / TRANSPLANT, February 08, 2017, 15:17. INDICATIONS : Increased lab values. MEDICAL HISTORY : Glaucoma.Coronary artery disease. Peripheral vascular disease. Anticoagulant therapy. Hypercholestero lemia. Hyperlipidemia. Hypertension. Deep vein thrombosis. Chronic obstructive pulmonary disorder. He patitis C. Ulcer. Mumps. Renal failure. Dialysis. Arthritis. Osteoporosis. Diabetes. Blood transfusio n. C.diff. SURGICAL HISTORY : Coronary artery stent. Left cataract removal. Right opthalectomy. Left AV shunt. Right renal betancourt splant. Left Nephrectomy. Left above the knee amputation. Cyst removal from back. ENCOUNTER: Subsequent ACUITY: 1 day PAIN SCORE: Nonresponsive. LOCATION: Right lower quadrant MEASUREMENTS: TRANSPLANT KIDNEY: 12.2 x 7.2 x 7.3 cm LOCATION: Right lower quadrant. PREVIOUS ULTRASOUND: Feb 08 2017 RA/EIA Ratio: 0.8Values over 1.8 indicate transplant renal artery stenosis. PREVIOUS ARCUATE ARTERIES INDEX: Upper - 1.0 Mid - 1.0 Lower - 1.0 ARCUATE ARTERIES RESISTIVE INDEX: Upper - 0.6 Mid - 0.7 Lower - 0.6 RA/EIA Ratio: 0.4 MAIN RENAL ARTERY VELOCITY: (cm/sec): 41 MAIN RENAL VEIN: Patent EXTERNAL ILIAC ARTERY VELOCITY (cm/sec): 105 * NORMAL DOPPLER FINDINGS Arcuate arteries - RI = 0.6 - 0.8 Renal artery = under 200 cm/sec Renal vein = May be monophasic with continuous flow or demonstrate some pulsatility with cardiac cycl e FINDINGS: TRANSPLANT KIDNEY: Normal cortical thickness and echotexture. Stable moderate hydronephrosis with stable small amount of perinephric fluid near the superior pole. No stones or masses. URINARY BLADDER: Not visualized. CONCLUSION: 1. Improved resistive indices, now in the normal range. 2. Stable hydronephrosis 3. Stable small amount of simple perinephric fluid. Jimbo De La Torre MD on February 11, 2017 at 9:48 Board Certified Radiologist. This report was verified electronically.
--- NOTE | 2017-02-11 09:56 | RADRPT ---
EXAM DATE/TIME: 02/11/2017 08:19 [facility] COMPARISON: No previous studies available for comparison. INDICATIONS : Scrotal pain. MEDICAL HISTORY : Glaucoma.Coronary artery disease. Peripheral vascular disease. Anticoagulant therapy. Hypercholestero lemia. Hyperlipidemia. Hypertension. Deep vein thrombosis. Chronic obstructive pulmonary disorder. He patitis C. Ulcer. Mumps. Renal failure. Dialysis. Arthritis. Osteoporosis. Diabetes. Blood transfusio n. C.diff. SURGICAL HISTORY : Coronary artery stent. Left cataract removal. Right opthalectomy. Left AV shunt. Right renal transpla nt. Left Nephrectomy. Left above the knee amputation. Cyst removal from back. ENCOUNTER: Initial ACUITY: 1 day PAIN SCORE: Non-Responsive LOCATION: Bilateral scrotum. MEASUREMENTS: RIGHT TESTICLE: 4.0 x 2.9 x 2.5cm LEFT TESTICLE: 3.9 x 2.5 x 2.7cm FINDINGS: RIGHT TESTICLE: Homogeneous echotexture without intra or extratesticular mass. Blood flow is symmetric and within no rmal limits. No hydrocele or varicocele. There is a small 5 x 6 x 5 mm anechoic cyst in the right ep ididymis. LEFT TESTICLE: Homogeneous echotexture without intra or extratesticular mass. Blood flow is symmetric and within no rmal limits. No hydrocele or varicocele. Epididymis is within normal limits. SCROTUM: Diffuse soft tissue edema involving the scrotum. No significant hydrocele or varicocele. CONCLUSION: 1. Small right epididymal cyst. 2. Diffuse scrotal soft tissue edema. 3. Otherwise, unremarkable testicular ultrasound examination. Jimbo De La Torre MD on February 11, 2017 at 9:51 Board Certified Radiologist. This report was verified electronically.
--- NOTE | 2017-02-11 10:22 | HHI.GIFU ---
Subjective Remarks Pt choked while eating last night and coded. He was intubated and placed on mechanical ventilator and is currently in the ICU. Nursing staff unable to place NGT and he vomited overnight. KUB with gaseous distention of the stomach and colon with a new dilated segment of small bowel in the mid abdomen. GI asked to see patient for EGD with NGT placement. (Heidi Kim) Objective Vitals I&O Vital Signs Date Time Temp Pulse Resp B/P (MAP) Pulse Ox O2 Delivery O2 Flow Rate FiO2 02/11/17 07:56 100 40 02/11/17 07:00 70 02/11/17 04:08 100 50 02/11/17 04:00 100 02/11/17 04:00 97.6 76 16 124/53 (76) 76 02/11/17 02:34 100 100 02/11/17 01:12 100 60 02/11/17 00:00 97.5 80 16 134/79 (97) 97 02/11/17 00:00 100 02/10/17 23:00 81 02/10/17 21:00 83 02/10/17 20:00 97 100 02/10/17 20:00 100 02/10/17 20:00 97.5 92 16 188/96 (126) 92 02/10/17 19:45 98 100 02/10/17 19:15 15.00 100 02/10/17 16:00 96.7 77 18 155/73 (100) 95 02/10/17 13:00 96.5 79 18 136/89 (105) 96 02/10/17 12:00 96.5 79 18 136/89 (105) 96 I/O 02/10/17 02/10/17 02/10/17 02/11/17 02/11/17 02/11/17 07:00 15:00 23:00 07:00 15:00 23:00 Intake Total 100 ml 780 ml 1523 ml Output Total 200 ml 203 ml 600 ml Balance -100 ml 577 ml 923 ml Intake Oral 0 ml 120 ml IV Total 100 ml 660 ml 1523 ml Output Urine Total 200 ml 200 ml 600 ml Stool Total 3 ml # Voids 0 # Bowel Movements 1 Laboratory Laboratory Tests Test 02/10/17 20:05 02/10/17 20:40 02/11/17 05:00 Blood Gas Puncture Site ART LINE Blood Gas Patient Temperature 98.6 Blood Gas HCO3 8 Blood Gas Base Excess -17.1 Blood Gas Oxygen Saturation 96 Arterial Blood pH 7.30 Arterial Blood Partial Pressure CO2 18 Arterial Blood Partial Pressure O2 99 Arterial Blood Oxygen Content 12.6 Arterial Blood Carboxyhemoglobin 0.9 Arterial Blood Methemoglobin 0.8 Blood Gas Hemoglobin 9.3 Oxygen Delivery Device VENTILATOR Blood Gas Ventilator Setting PRVC/AC Blood Gas Inspired Oxygen 100 White Blood Count 11.7 11.4 Red Blood Count 6.24 5.33 Hemoglobin 15.7 13.6 Hematocrit 48.5 41.5 Mean Corpuscular Volume 77.9 77.8 Mean Corpuscular Hemoglobin 25.2 25.4 Mean Corpuscular Hemoglobin Concent 32.3 32.7 Red Cell Distribution Width 16.6 16.6 Platelet Count 118 72 Mean Platelet Volume 10.8 10.5 CBC Comment AUTO DIFF AUTO DIFF Differential Total Cells Counted 100 Neutrophils % (Manual) 85 Band Neutrophils % 9 Lymphocytes % 3 Monocytes % 2 Neutrophils # (Manual) 11.1 Myelocytes 1 Nucleated Red Blood Cells 3 Differential Comment FINAL DIFF MANUAL AUTO DIFF CONFIRMED Atypical Lymphocytes Platelet Estimate LOW LOW Platelet Morphology Comment ENLARGED NORMAL Prothrombin Time 12.6 Prothromb Time International Ratio 1.1 Activated Partial Thromboplast Time 29.8 Blood Urea Nitrogen 58 64 Creatinine 4.97 4.76 Random Glucose 182 136 Total Protein 5.5 Albumin 1.5 1.3 Calcium Level 8.2 7.6 Alkaline Phosphatase 140 Aspartate Amino Transf (AST/SGOT) 90 Alanine Aminotransferase (ALT/SGPT) 41 Total Bilirubin 0.8 Sodium Level 145 145 Potassium Level 3.4 3.0 Chloride Level 108 109 Carbon Dioxide Level 22.6 25.6 Anion Gap 14 10 Estimat Glomerular Filtration Rate 15 15 Lactic Acid Level 4.9 Neutrophils (%) (Auto) 90.6 Lymphocytes (%) (Auto) 1.9 Monocytes (%) (Auto) 7.1 Eosinophils (%) (Auto) 0.0 Basophils (%) (Auto) 0.4 Neutrophils # (Auto) 10.3 Lymphocytes # (Auto) 0.2 Monocytes # (Auto) 0.8 Eosinophils # (Auto) 0.0 Basophils # (Auto) 0.0 Red Cell Morphology Comment NORMAL Phosphorus Level 2.4 Magnesium Level 1.9 Date/Time Source Procedure Growth Status 02/09/17 20:30 Blood Peripheral Aerobic Blood Culture - Preliminary Gram Negative Rema Resulted 02/09/17 20:30 Blood Peripheral Anaerobic Blood Culture - Preliminary NO GROWTH IN 1 DAY Resulted 02/08/17 02:20 Urine Clean Catch Urine Culture - Final <10,000 CFU/ML GRAM NEGATIVE REMA Complete Imaging Last Impressions Renal Ultrasound 02/11/17 0700 Signed Impressions: Service Date/Time: Saturday, February 11, 2017 07:56 - CONCLUSION: 1. Improved resistive indices, now in the normal range. 2. Stable hydronephrosis 3. Stable small amount of simple perinephric fluid. Jimbo De La Torre MD Scrotum Ultrasound 02/11/17 0600 Signed Impressions: Service Date/Time: Saturday, February 11, 2017 08:19 - CONCLUSION: 1. Small right epididymal cyst. 2. Diffuse scrotal soft tissue edema. 3. Otherwise, unremarkable testicular ultrasound examination. Jimbo De La Torre MD Chest X-Ray 02/11/17 0600 Signed Impressions: Service Date/Time: Saturday, February 11, 2017 04:52 - CONCLUSION: Patchy perihilar pulmonary infiltrates right greater than left. ET tube is in good position. Alf Britton MD Head CT 02/11/17 0000 Signed Impressions: Service Date/Time: Saturday, February 11, 2017 02:33 - CONCLUSION: Continued abnormality in the right globe. No evidence of acute hemorrhage or acute change. Alf Britton MD Abdomen X-Ray 02/10/17 0000 Signed Impressions: Service Date/Time: January 21:51 - CONCLUSION: Stable gaseous distention of the stomach and colon with new dilated segment of small bowel in the midabdomen. The dilated small bowel is new and abnormal. However, the overall distribution is not suggestive of small bowel obstruction. Suggest performing a followup imaging to confirm resolution. Salas Thompson MD Abdomen/Pelvis CT 02/08/17 0000 Signed Impressions: Service Date/Time: Wednesday, February 08, 2017 20:13 - CONCLUSION: 1. No acute abnormality is identified to explain the diffuse abdominal pain. 2. Small bilateral pleural effusions, right larger than left, with associated compressive atelectasis. 3. Anasarca. 4. [place] kidneys are atrophic consistent with history of end-stage renal disease. Right lower quadrant transplant demonstrates mild degree of hydronephrosis. There is a small volume of free fluid in the abdomen and pelvis. 5. Severe atherosclerotic disease. Salas Thompson MD Physical Exam HEENT: Normocephalic; atraumatic; no jaundice. CHEST: OETT to sophie, resp. even/unlabored, course breath sounds. CARDIAC: RRR ABDOMEN: Soft, mildly distended, no hepatosplenomegaly; bowel sounds are hypoactive EXTREMITIES:Left AKA SKIN: Normal; no rash; no jaundice. TOPPIECE CUTTER: Sedated on vent. (Heidi Kim) Assessment and Plan Plan ASSESSMENT: - Nausea/vomiting with gaseous distention of stomach, small bowel, colon. KUB ( 02/10/17)----> Stable gaseous distention of the stomach and colon with new dilated segment of small bowel in the midabdomen. The dilated small bowel is new and abnormal. However, the overall distribution is not suggestive of small bowel obstruction. Suggest performing a followup imaging to confirm resolution. Nursing staff unable to place NGT. Will plan for EGD today with NGT placement. Further imaging to be determined by Dr. Mclaughlin after EGD. Once NGT placed, then will place to [facility]. - S/P Code. Per report, choked while eating and went into cardiopulmonary arrest, s/p ACLS protocol. - Resp. failure/COPD. Vent per CCM. Levaquin, Zosy, Steroid, nebs - Upper GIB, Hematemesis. S/P EGD (02/08/17)----> 1. The esophagus was otherwise normal 2. There was erythematous gastritis in the gastric antrum; multiple biopsies were performed 3. Normal duodenal mucosa in the bulb and second portion of the duodenum 4. Retroflexion was performed and was normal. Pathology antral mucosa with mild chronic inflammation of the lamina propria. Acute inflammation is not identified. A clifford stain is negative for helicobacter. No further episodes. HH 13.6/41.5 - Diarrhea, 3-4 loose stools today. CDiff negative on 02/08. - Leukocytosis/Bacteremia. Cx with klebsiella pneumoniae, repeat with GNR. Levaquin, Zosyn. - Elevated Glucose/Uncontrolled DM. Per attending. - Acute on CKD with hx of renal transplant. Creat 4.76. Renal following. - CAD, HTN, Hyperlipidemia, PVD, Depression - Hx HCV antibodies, but undetectable viral load x 2. PLAN: - Plan for EGD with NGT placement today - Obtain consents - Once NGT inserted, place to [facility] - Reglan 5mg IV q8h - Cont. PPI - Monitor HH - Transfuse as necessary - Supportive care - Further imaging to be determined by Dr. Mclaughlin after EGD - Pt seen and examined by Dr. Mclaughlin and myself and this note is written on his behalf (Heidi Kim) Physician Comments Seen with Heidi, will plan EGD with NGT placement today. (Miah Mclaughlin MD) Heidi Kim Feb 11, 2017 10:22 Miah Mclaughlin MD Feb 11, 2017 10:56
--- NOTE | 2017-02-11 10:51 | HHI.CCPN ---
Subjective Remarks/Hospital Course 02/08: patient went for EGD yesterday with lots of blood in the stomach but no active signs of bleeding. today went back to EGD which found gastritis without any evidence of ulcerative disease. anion gap closed yesterday and transitioned off of insulin drip. blood growing klebsiella and ID on board, on abx. patient without complaints and feeling well and improved from yesterday. ROS negative. 02/10 while on the floor patient choked on the dinner food, resulting in respiratory layer cardiopulmonary arrest requiring 35 minutes of CPR multiple shocks for V. fib rhythm and injections of epinephrine, including endotracheal intubation 02/11: Remains sedated, orally intubated on mechanical ventilation. Having myoclonic seizures. Multiple attempted NG tube/OG tube placement unsuccessful overnight hence GI evaluation awaited to place NG tube as well as for further evaluation of dilated bowel loops noted on KUB. Has been loaded with Keppra and is currently on propofol and having intermittent myoclonus. Objective Vital Signs Date Time Temp Pulse Resp B/P (MAP) Pulse Ox O2 Delivery O2 Flow Rate FiO2 02/11/17 08:00 100 02/11/17 08:00 97.7 70 21 129/59 (82) 100 02/10/17 19:15 15.00 02/08/17 12:20 Nasal Cannula Intake and Output 02/11/17 02/11/17 02/12/17 08:00 16:00 00:00 Intake Total 1523 ml Output Total 600 ml Balance 923 ml Result Diagram: 02/11/17 0500 02/11/17 0500 Other Results Laboratory Tests Test 02/10/17 20:05 02/10/17 20:40 02/11/17 05:00 Blood Gas Puncture Site ART LINE Blood Gas Patient Temperature 98.6 Blood Gas HCO3 8 mmol/L Blood Gas Base Excess -17.1 mmol/L Blood Gas Oxygen Saturation 96 % Arterial Blood pH 7.30 Arterial Blood Partial Pressure CO2 18 mmHg Arterial Blood Partial Pressure O2 99 mmHg Arterial Blood Oxygen Content 12.6 Vol % Arterial Blood Carboxyhemoglobin 0.9 % Arterial Blood Methemoglobin 0.8 % Blood Gas Hemoglobin 9.3 G/DL Oxygen Delivery Device VENTILATOR Blood Gas Ventilator Setting PRVC/AC Blood Gas Inspired Oxygen 100 % White Blood Count 11.7 TH/MM3 11.4 TH/MM3 Red Blood Count 6.24 MIL/MM3 5.33 MIL/MM3 Hemoglobin 15.7 GM/DL 13.6 GM/DL Hematocrit 48.5 % 41.5 % Mean Corpuscular Volume 77.9 FL 77.8 FL Mean Corpuscular Hemoglobin 25.2 PG 25.4 PG Mean Corpuscular Hemoglobin Concent 32.3 % 32.7 % Red Cell Distribution Width 16.6 % 16.6 % Platelet Count 118 TH/MM3 72 TH/MM3 Mean Platelet Volume 10.8 FL 10.5 FL CBC Comment AUTO DIFF AUTO DIFF Differential Total Cells Counted 100 Neutrophils % (Manual) 85 % Band Neutrophils % 9 % Lymphocytes % 3 % Monocytes % 2 % Neutrophils # (Manual) 11.1 TH/MM3 Myelocytes 1 % Nucleated Red Blood Cells 3 /100 WBC Differential Comment FINAL DIFF MANUAL AUTO DIFF CONFIRMED Atypical Lymphocytes % Platelet Estimate LOW LOW Platelet Morphology Comment ENLARGED NORMAL Prothrombin Time 12.6 SEC Prothromb Time International Ratio 1.1 RATIO Activated Partial Thromboplast Time 29.8 SEC Blood Urea Nitrogen 58 MG/DL 64 MG/DL Creatinine 4.97 MG/DL 4.76 MG/DL Random Glucose 182 MG/DL 136 MG/DL Total Protein 5.5 GM/DL Albumin 1.5 GM/DL 1.3 GM/DL Calcium Level 8.2 MG/DL 7.6 MG/DL Alkaline Phosphatase 140 U/L Aspartate Amino Transf (AST/SGOT) 90 U/L Alanine Aminotransferase (ALT/SGPT) 41 U/L Total Bilirubin 0.8 MG/DL Sodium Level 145 MEQ/L 145 MEQ/L Potassium Level 3.4 MEQ/L 3.0 MEQ/L Chloride Level 108 MEQ/L 109 MEQ/L Carbon Dioxide Level 22.6 MEQ/L 25.6 MEQ/L Anion Gap 14 MEQ/L 10 MEQ/L Estimat Glomerular Filtration Rate 15 ML/MIN 15 ML/MIN Lactic Acid Level 4.9 mmol/L Neutrophils (%) (Auto) 90.6 % Lymphocytes (%) (Auto) 1.9 % Monocytes (%) (Auto) 7.1 % Eosinophils (%) (Auto) 0.0 % Basophils (%) (Auto) 0.4 % Neutrophils # (Auto) 10.3 TH/MM3 Lymphocytes # (Auto) 0.2 TH/MM3 Monocytes # (Auto) 0.8 TH/MM3 Eosinophils # (Auto) 0.0 TH/MM3 Basophils # (Auto) 0.0 TH/MM3 Red Cell Morphology Comment NORMAL Phosphorus Level 2.4 MG/DL Magnesium Level 1.9 MG/DL Imaging Last 48 hours Impressions Renal Ultrasound 02/11/17 07 Signed Impressions: Service Date/Time: Saturday, February 11, 2017 07:56 - CONCLUSION: 1. Improved resistive indices, now in the normal range. 2. Stable hydronephrosis 3. Stable small amount of simple perinephric fluid. Jimbo De La Torre MD Scrotum Ultrasound 02/11/17 06 Signed Impressions: Service Date/Time: Saturday, February 11, 2017 08:19 - CONCLUSION: 1. Small right epididymal cyst. 2. Diffuse scrotal soft tissue edema. 3. Otherwise, unremarkable testicular ultrasound examination. Jimbo De La Torre MD Chest X-Ray 02/11/17599 Signed Impressions: Service Date/Time: Saturday, February 11, 2017 04:52 - CONCLUSION: Patchy perihilar pulmonary infiltrates right greater than left. ET tube is in good position. Alf Britton MD Head CT 02/11/17 0000 Signed Impressions: Service Date/Time: Saturday, February 11, 2017 02:33 - CONCLUSION: Continued abnormality in the right globe. No evidence of acute hemorrhage or acute change. Alf Britton MD Chest X-Ray 02/10/17 0000 Signed Impressions: Service Date/Time: January 20:29 - CONCLUSION: 1. Bilateral perihilar distribution consolidation new from the prior study from 4 days ago. The appearance and distribution suggests pulmonary edema as the cause. 2. No concerning radiopaque foreign body is identified. There multiple lines overlying the patient and ET tube is present. Salas Thompson MD Abdomen X-Ray 02/10/17 0000 Signed Impressions: Service Date/Time: January 21:51 - CONCLUSION: Stable gaseous distention of the stomach and colon with new dilated segment of small bowel in the midabdomen. The dilated small bowel is new and abnormal. However, the overall distribution is not suggestive of small bowel obstruction. Suggest performing a followup imaging to confirm resolution. Salas Thompson MD Objective Remarks GENERAL: Elderly sick appearing man intubated SKIN: Warm and dry. HEAD: Normocephalic. EYES: No scleral icterus. No injection or drainage on left. 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 No JVD CARDIOVASCULAR: Regular rate and rhythm without murmurs, gallops, or rubs. RESPIRATORY: Breath sounds equal bilaterally. No accessory muscle use. GASTROINTESTINAL: Abdomen soft, non-tender, distended. MUSCULOSKELETAL: No cyanosis, or edema. Status post left leg amputation BACK: Nontender without obvious deformity. NEURO EXAM: -2 Procedures 02/08- EGD- gastritis, biopsy done 02/10 cardiopulmonary resuscitation - Arterial line placed Date of Insertion: Feb 06, 2017 A/P Assessment and Plan Cardiopulmonary arrest Suspected anoxic brain injury secondary to cardiac arrest - Due to aspiration - 35 minutes of CPR and ACLS protocol - Multiple cardioversions due to V. fib rhythm and injections of epinephrine - M4 E3 DVT, borderline neurological exam for hypothermia protocol, did not initiate hypothermia protocol due to sepsis and persistent bacteremia - Myoclonic seizures noted. EEG and neurology consult requested. - Continue Keppra, Ativan when necessary. Propofol for sedation. Daily sedation vacation if seizures controlled. Acute Respiratory failure on mechanical ventilation - Due to above - No weaning until neurologically improved - Continue mechanical ventilation -Vent bundle, bronchodilators as needed. Hematemesis - Protonix IV twice a day, -Unable to place OG tube. GI consult requested to reevaluate for OG tube placement as well as for further evaluation of dilated bowel loops on KUB. - H&H stable - gastritis per EGD. Hypotension- resolved. Klebsiella Bacteremia - Leukocytosis and fever - resolving sepsis. - Aggressive IV fluids resuscitation - Broad-spectrum antibiotics - Follow-up cultures -Antibiotics per ID Diabetes DKA- resolved. - SSI. Hold Levemir is nothing by mouth currently. Once tube feeds started will resume Levemir. Acute on chronic kidney injury - IV fluids resuscitation - Nephrology consult - Monitor tacrolimus level - Strict I's and O's - Creatinine and electrolyte level DVT GI prophylaxis - Teds SCDs - No pharmacological DVT prophylaxis due to gastritis. may likely be able to start tomorrow. - IV Protonix twice a day Discussed with COATING INSPECTOR, discussed with the GI ONLINE CONTENT DEVELOPER. Consult palliative care to assist with deciding goals of therapy in view of poor prognosis. Condition critical with significant anoxic brain injury following cardiac arrest on mechanical ventilation with active myoclonic seizures. The total critical care time was 40 minutes. Time to perform other separately billable procedures was not included in the critical care time. Calvin Leger MD Feb 11, 2017 10:51
[2017-02-11] MEDS: GABAPENTIN 300 MG CAP PO SCH (10:53)
[2017-02-11] MEDS ORDERED: POTASSIUM PHOSPHATE INJ 15 MMOL in SODIUM CHLORIDE 0.9% INJ 150 ML IV ONE (11:00)
[2017-02-11] MEDS ORDERED: ePHEDrine/NS 25 MG/5 ML SYR IV ONE (12:00)
--- NOTE | 2017-02-11 12:36 | MG ---
cc: JONO GRANT MD Lab No: Date: 02/11/2017 Age: 61 Sex: M Race: ___ DATE OF [address] Leger MEDICAL HISTORY 1. Seizure on anticoagulation therapy 2. Hepatitis 3. Depression 4. Coronary artery disease 5. Hyperlipidemia 6. COPD 7. Dialysis 8. AV fistula 9. Nephrectomy 10. Dizziness and syncope 11. The patient is intubated. MEDICATIONS 1. Propofol 2. Sodium bicarb 3. Levofloxacin 4. Norvasc 5. Lopressor DESCRIPTION At the beginning of the EEG recording, there were spike and wave activity generalized throughout the recording. Intermittent in between the episodes, the background activity revealed multiple sharp waves. During the recording, the annotated epochs where body and head twitching was marked correlate with electrographic epileptogenic activity. During the recording, there were bilateral phase reversal, sharp waves and multiple spikes noted. The patient was given Ativan during the recording and notably in epoch 81 there was a reduction in the electric electrographic seizure activity with intermittent less frequent sharp wave and spikes. Towards the end of the EEG recording, there were no electrical seizures noted. Hyperventilation was not done. Photic stimulation did not elicit a driving response. INTERPRETATION This is an abnormal EEG with a evidence of electrographic seizures and multiple epileptiform discharges, sharp waves and spikes, with polyspike and wave activity. After the patient received Ativan, there was a decrease in the electrographic seizures with intermittent sharp wave and spikes. The finding were relayed to the electrical instrument technician, and this was relayed to the attending physician. MD AMELIA Servin/WILLIE /12:08 PM /12:22 PM AMBER
--- NOTE | 2017-02-11 13:11 | HHI.PR ---
Subjective Patient symptoms today Events noted. Pt intubated and sedated. Objective Vital Signs Vital Signs Date Time Temp Pulse Resp B/P (MAP) Pulse Ox O2 Delivery O2 Flow Rate FiO2 02/11/17 12:00 100 02/11/17 12:00 96.0 63 16 99/58 (72) 95 02/11/17 11:52 96 40 02/11/17 08:00 100 02/11/17 08:00 97.7 70 21 129/59 (82) 100 02/11/17 07:56 100 40 02/11/17 07:00 70 02/11/17 04:08 100 50 02/11/17 04:00 100 02/11/17 04:00 97.6 76 16 124/53 (76) 76 02/11/17 02:34 100 100 02/11/17 01:12 100 60 02/11/17 00:00 97.5 80 16 134/79 (97) 97 02/11/17 00:00 100 02/10/17 23:00 81 02/10/17 21:00 83 02/10/17 20:00 97 100 02/10/17 20:00 100 02/10/17 20:00 97.5 92 16 188/96 (126) 92 02/10/17 19:45 98 100 02/10/17 19:15 15.00 100 02/10/17 16:00 96.7 77 18 155/73 (100) 95 Intake & Output 02/11/17 02/11/17 06:59 18:59 Intake Total 1523 ml 50 ml Output Total 600 ml Balance 923 ml 50 ml IV Total 1523 ml 50 ml Output Urine Total 600 ml Result Diagram: 02/11/17 0500 02/11/17 0500 Imaging Last 24 hours Impressions Renal Ultrasound 02/11/17 0700 Signed Impressions: Service Date/Time: Saturday, February 11, 2017 07:56 - CONCLUSION: 1. Improved resistive indices, now in the normal range. 2. Stable hydronephrosis 3. Stable small amount of simple perinephric fluid. Jimbo De La Torre MD Scrotum Ultrasound 02/11/17 0600 Signed Impressions: Service Date/Time: Saturday, February 11, 2017 08:19 - CONCLUSION: 1. Small right epididymal cyst. 2. Diffuse scrotal soft tissue edema. 3. Otherwise, unremarkable testicular ultrasound examination. Jimbo De La Torre MD Chest X-Ray 02/11/17 0600 Signed Impressions: Service Date/Time: Saturday, February 11, 2017 04:52 - CONCLUSION: Patchy perihilar pulmonary infiltrates right greater than left. ET tube is in good position. Alf Britton MD Head CT 02/11/17 0000 Signed Impressions: Service Date/Time: Saturday, February 11, 2017 02:33 - CONCLUSION: Continued abnormality in the right globe. No evidence of acute hemorrhage or acute change. Alf Britton MD Objective Remarks Abd:soft,nt,nd Li with clear urine 02/11 Abd:soft,nt,nd Li with clear urine Medications and IVs Current Medications Medications (Trade) Dose Ordered Sig/Pramod Route Start Time Stop Time Status Last Admin (Lipitor) 40 mg HS PO 02/07/17 21:00 02/09/17 20:37 (Rocaltrol) 0.25 mcg DAILY PO 02/07/17 09:00 02/10/17 08:29 Patient Own Medication PT OWN MED: SYST... BID LEFT EYE 02/07/17 09:00 02/10/17 21:00 (NovoLOG SUPPLEMENTAL SCALE) 1 ACHS SLIDING SCALE SQ 02/07/17 07:00 02/10/17 17:04 (NS Flush) 2 ml UNSCH PRN IV FLUSH 02/06/17 21:45 02/08/17 12:59 (NS Flush) 2 ml BID IV FLUSH 02/07/17 09:00 02/11/17 09:00 (Tylenol) 650 mg Q4H PRN PO 02/06/17 21:45 02/06/17 22:25 (Zofran Inj) 4 mg Q6H PRN IVP 02/06/17 21:45 (Tylenol) 650 mg Q6H PRN PO 02/06/17 21:45 (Percocet 5-325 Mg) 1 tab Q6H PRN PO 02/06/17 21:45 (Percocet 10-325 Mg) 1 tab Q6H PRN PO 02/06/17 21:45 02/10/17 13:19 (Morphine Inj) 1 mg Q3H PRN IV 8/20/17 21:45 (Narcan Inj) 0.4 mg UNSCH PRN IV 02/06/17 21:45 (Zuleyka-Colace) 1 tab BID PO 02/07/17 09:00 02/10/17 08:29 (Senokot) 17.2 mg Q12H PRN PO 02/06/17 21:45 (Lactulose Liq) 30 ml DAILY PRN PO 02/06/17 21:45 (Alphagan 0.2% Opth Soln) 1 drop DAILY@0900,1400,2100 LEFT EYE 02/07/17 09:00 02/11/17 09:00 (Timoptic 0.5% Opth Soln) 1 drop DAILY@0900,1400,2100 LEFT EYE 02/07/17 09:00 02/11/17 09:00 (Duoneb Neb) 1 ampule Q2HR NEB PRN INH 02/07/17 06:00 Norepinephrine Bitartrate 250 ml @ 7.5 mls/hr TITRATE PRN IV 02/07/17 06:00 (Brethine Inj) 1 mg UNSCH PRN SQ 02/07/17 06:00 (Flomax) 0.4 mg HS PO 02/07/17 21:00 02/09/17 20:37 Miscellaneous Information 1 Q361D XX 02/07/17 07:00 02/07/17 07:00 (Chlorhexidine 2% Cloth) 3 pack Taper DAILY@04 TOP 02/08/17 04:00 02/04/18 03:59 02/11/17 04:00 (Chlorhexidine 2% Cloth) 3 pack UNSCH PRN TOP 02/07/17 07:00 (Levemir Inj) 25 units DAILY SQ 02/08/17 09:00 02/10/17 08:37 (D50w (Vial) Inj) 50 ml UNSCH PRN IV 02/08/17 00:45 (Glucagon Inj) 1 mg UNSCH PRN OTHER 02/08/17 00:45 (SoluMEDROL INJ) 40 mg DAILY IV PUSH 02/08/17 12:00 02/11/17 09:00 Piperacillin Sod/ Tazobactam Sod 50 ml @ 100 mls/hr Q6HR IV 02/08/17 18:00 02/11/17 12:22 (Protonix) 40 mg DAILY PO 02/11/17 09:00 (Norvasc) 2.5 mg DAILY PO 02/10/17 11:30 02/10/17 12:23 (Neurontin) 300 mg BID PO 02/10/17 21:00 Levofloxacin/ Dextrose 100 ml @ 100 mls/hr Q48H IV 02/10/17 20:00 02/11/17 00:25 Sodium Bicarbonate 150 meq/Dextrose 1,150 ml @ 125 mls/hr Q9H12M IV 02/10/17 22:00 02/11/17 07:51 (Ativan Inj) 1 mg Q5M PRN IV 02/11/17 02:15 02/11/17 11:30 (Pill Splitter) 1 ea UNSCH PRN OTHER 02/11/17 07:00 Propofol 100 ml @ 2.109 mls/ hr TITRATE PRN IV 02/11/17 07:45 02/11/17 11:30 Potassium Phosphate 15 mmol/ Sodium Chloride 155 ml @ 38.75 mls/ hr ONCE ONCE IV 02/11/17 11:00 02/11/17 14:59 02/11/17 11:29 Levetriacetam 100 ml @ 400 mls/hr Q12HR IV 02/11/17 15:00 Assessment and Plan Assessment and Plan 61 y.o with h/o KTX with DEANA with sepsis and mild/moderate hydro of transplant kidney Creatinine worsening to 4. with BUN up to 56 Continue present medical management; IV ABX Maintain li catheter US in AM to evaluate hydronephrosis 02/11 61 y.o male with h/o KTX with DEANA with sepsis s/p aspiration with cardiac arrest Repeat renal US showed improved resistant indices. [place] improve. Maintain li catheter Srinath Ireland DO Feb 11, 2017 13:11
--- NOTE | 2017-02-11 14:18 | PD.CONS ---
Consult Service Palliative Care Consult Requested By Dr Vanessa Leger . Primary Care Physician Matt Monet MD Reason for Consultation a. To assist with evaluation and management of symptoms including:dyspnea, encephalopathy b. To assist medical decision maker(s) with: better understanding of current medical conditions; weighing benefits/burdens of medical treatment options; making medical treatment decisions. HPI History of Present Illness This 61 yr old pt presented to the ED on 02/06/17 with c/o vomiting blood. He apparently was admitted a few days prior for dehydration. No history of GI bleed. + Reported hematuria when li catheter removed from prior hospitalization. Hospital course: * ED : +stool Hemoccult positive, UA possible UTI, WBC 17.3 . Some hypotension during the ED course. Receiving IV fluids, Solu-Cortef. Noted to be on long- term steroids for kidney transfer. Patient was admitted to ICU for further evaluation and management. GI consulted, critical care to follow. Started on broad-spectrum antibiotics. * GI: Plan for EGD. EGD= gastritis * Nephrology consulted 02/08 for acute renal insufficiency--- DEANA may be secondary to sepsis, end organ hypoperfusion; ultrasound of kidney= hydronephrosis, mild elevation in resistive indices which can relate to hydronephrosis, 2 cm focus of fluid adjacent to renal transplant * ID following; patient was gram-negative bacteremia, Klebsiella pneumoniae, continuing Zosyn, stool for C. difficile pending, noncontrast CT abdomen pelvis pending= no acute abnormality to explain diffuse abdominal pain, small bilateral pleural effusions right greater than left. Associated compressive atelectasis. Anasarca. [place] kidney atrophy consistent with history ESRD. Right lower quadrant transplant demonstrates mild degree of hydronephrosis. Multiple volume free fluid in abdomen and pelvis. Severe arthrosclerotic disease. * Patient stable, transferred out of ICU to regular floor. Urology consult to --recommends continue IV antibiotics, maintain Li catheter. May repeat ultrasound in the next few days to follow if hydronephrosis has improved. If evidence of obstruction may require percutaneous nephrostomy tube, will continue to evaluate * 02/10/17 While eating dinner patient suffered choking episode which resulted in cardiopulmonary arrest patient underwent approximately 35 minutes of CPR including multiple shocks for V. fib rhythm with multiple injections of epinephrine, as well as intubation. * 8/25 KUB noted with dilated bowel loops, attempted NG, OG tube placement GI reevaluation pending place NG tube. Positive for myoclonic seizures. Receiving Keppra, propofol, with intermittent myoclonus. Repeat ultrasound noted with improved resistant indices hydronephrosis improved. Urology recommends continue Li catheter. * Palliative care was consulted to assist with clarification of goals of treatment. Dual visit w S Lower STONECUTTER APPRENTICE HAND Seen in room, RN at bedside. Nonresponsive to exam. Cont EEG in process. Hemodynamics stable. Hypothermic, temp 94- on warming blanket. Nsg reports no family present, sister listed in chart, and a nonfamily caregiver is local. Discussed at length with critical care attending, primary nurse Function/Cognitive Trajectory Apparently lives with caregiver uses wheelchair, requires assistance with ADLs. In [facility] last year at that time noted to utilize wheelchair and have live-in caregiver. Has apparently been on disability for some time Review of Systems ROS Limitations: Clinical Condition (nonresponsive), Intubated, Altered Mental Status Past Family Social History Coded Allergies: No Known Allergies (Unverified , 10/27/16) Past Medical History Chronic kidney disease , S/P renal transplant Hypertension Hyperlipidemia Diabetes mellitus GERD Glaucoma Cardiac artery disease Hepatitis C, Tx naive History of DVT Possible history of seizures . Past Surgical History Kidney transplant 2006 Cardiac catheterization with PCI Hx LUE AVF Left AKA Right eye enucleation Reported Medications Oxycodone (Oxycodone HCl) 5 Mg Tab 5 Mg PO Q4H PRN Novolog Mix 70-30 Inj (Insulin Aspart Prota 70%/Aspart 30%) 1,000 Unit/10 Ml Vial 10 Units SQ DAILY Systane (Eyelid Cleanser Combination #9) 1 Each Towelette 1 Drop LEFT EYE BID Combigan Opth Drops (Brimonidine-Timolol Opth Drops) 0.2-0.5% Soln 1 Drop LEFT EYE TID Vitamin D (Cholecalciferol) 2,000 Unit Cap 1 Cap PO DAILY Flomax (Tamsulosin HCl) 0.4 Mg Cap 0.4 Mg PO HS Furosemide 40 Mg Tab 40 Mg PO DAILY Atorvastatin (Atorvastatin Calcium) 40 Mg Tab 40 Mg PO HS Calcitriol 0.25 Mcg Cap 0.25 Mcg PO DAILY Aspirin 81 (Aspirin) 81 Mg Tabdr 81 Mg PO DAILY Metoprolol Tartrate 100 Mg Tab 100 Mg PO BID Pantoprazole (Pantoprazole Sodium) 40 Mg Tab 40 Mg PO DAILY Gabapentin 400 Mg Cap 400 Cap PO TID Prednisone 5 Mg Tab 5 Mg PO DAILY Tacrolimus 1 Mg Cap 5 Mg PO Q12H . Current Medications Medications (Trade) Dose Ordered Sig/Pramod Route Start Time Stop Time Status Last Admin (Lipitor) 40 mg HS PO 02/07/17 21:00 02/09/17 20:37 (Rocaltrol) 0.25 mcg DAILY PO 02/07/17 09:00 02/10/17 08:29 Patient Own Medication PT OWN MED: SYST... BID LEFT EYE 02/07/17 09:00 02/10/17 21:00 (NovoLOG SUPPLEMENTAL SCALE) 1 ACHS SLIDING SCALE SQ 02/07/17 07:00 02/10/17 17:04 (NS Flush) 2 ml UNSCH PRN IV FLUSH 02/06/17 21:45 02/08/17 12:59 (NS Flush) 2 ml BID IV FLUSH 02/07/17 09:00 02/11/17 09:00 (Tylenol) 650 mg Q4H PRN PO 02/06/17 21:45 02/06/17 22:25 (Zofran Inj) 4 mg Q6H PRN IVP 02/06/17 21:45 (Tylenol) 650 mg Q6H PRN PO 02/06/17 21:45 (Percocet 5-325 Mg) 1 tab Q6H PRN PO 02/06/17 21:45 (Percocet 10-325 Mg) 1 tab Q6H PRN PO 02/06/17 21:45 02/10/17 13:19 (Morphine Inj) 1 mg Q3H PRN IV 02/06/17 21:45 (Narcan Inj) 0.4 mg UNSCH PRN IV 02/06/17 21:45 (Zuleyka-Colace) 1 tab BID PO 02/07/17 09:00 02/10/17 08:29 (Senokot) 17.2 mg Q12H PRN PO 02/06/17 21:45 (Lactulose Liq) 30 ml DAILY PRN PO 02/06/17 21:45 (Alphagan 0.2% Opth Soln) 1 drop DAILY@0900,1400,2100 LEFT EYE 02/07/17 09:00 02/11/17 09:00 (Timoptic 0.5% Opth Soln) 1 drop DAILY@0900,1400,2100 LEFT EYE 02/07/17 09:00 02/11/17 09:00 (Duoneb Neb) 1 ampule Q2HR NEB PRN INH 02/07/17 06:00 Norepinephrine Bitartrate 250 ml @ 7.5 mls/hr TITRATE PRN IV 02/07/17 06:00 (Brethine Inj) 1 mg UNSCH PRN SQ 02/07/17 06:00 (Flomax) 0.4 mg HS PO 02/07/17 21:00 02/09/17 20:37 Miscellaneous Information 1 Q361D XX 02/07/17 07:00 02/07/17 07:00 (Chlorhexidine 2% Cloth) 3 pack Taper DAILY@04 TOP 02/08/17 04:00 02/04/18 03:59 02/11/17 04:00 (Chlorhexidine 2% Cloth) 3 pack UNSCH PRN TOP 02/07/17 07:00 (Levemir Inj) 25 units DAILY SQ 02/08/17 09:00 02/10/17 08:37 (D50w (Vial) Inj) 50 ml UNSCH PRN IV 02/08/17 00:45 (Glucagon Inj) 1 mg UNSCH PRN OTHER 02/08/17 00:45 (SoluMEDROL INJ) 40 mg DAILY IV PUSH 02/08/17 12:00 02/11/17 09:00 Piperacillin Sod/ Tazobactam Sod 50 ml @ 100 mls/hr Q6HR IV 02/08/17 18:00 02/11/17 12:22 (Protonix) 40 mg DAILY PO 02/11/17 09:00 (Norvasc) 2.5 mg DAILY PO 02/10/17 11:30 02/10/17 12:23 (Neurontin) 300 mg BID PO 02/10/17 21:00 Levofloxacin/ Dextrose 100 ml @ 100 mls/hr Q48H IV 02/10/17 20:00 02/11/17 00:25 Sodium Bicarbonate 150 meq/Dextrose 1,150 ml @ 125 mls/hr Q9H12M IV 02/10/17 22:00 02/11/17 07:51 (Ativan Inj) 1 mg Q5M PRN IV 02/11/17 02:15 02/11/17 11:30 (Pill Splitter) 1 ea UNSCH PRN OTHER 02/11/17 07:00 Propofol 100 ml @ 2.109 mls/ hr TITRATE PRN IV 02/11/17 07:45 02/11/17 11:30 Potassium Phosphate 15 mmol/ Sodium Chloride 155 ml @ 38.75 mls/ hr ONCE ONCE IV 02/11/17 11:00 02/11/17 14:59 02/11/17 11:29 Levetriacetam 100 ml @ 400 mls/hr Q12HR IV 02/11/17 15:00 Family History Father had high blood pressure and diabetes Substance Use Tobacco: 1 PPD since age 19, quit 2005 Alcohol: Quit alcohol use 2005 Prescription med abuse: None reported Illicits: Stopped using crack cocaine 2005 . Psychosocial History Per review of available records. Patient originally from [facility] lived in [place] at some point, per his sister, has lived in [place] for many years. Apparently has not had contact with family for some time has a sister in [place] and possibly a half sister in [place] and a half brother in [facility]. Locally lived with 2 [place] caregivers per records and report. Has been on disability for some time based on available records. Spiritual/Cultural Factors Per review of 2011 electronic records patient practicing Zoroastrianism and Sixology Living Will: Never completed Health Care Surrogate: Never completed Durable Power of Senior Manufacturing Supervisor: Never completed Ethical and Legal Issues Status post prolonged cardiac arrest. Encephalopathic. Patient not able to participate in decision-making. No advanced directives per extensive review of records. No children, parents . Appears to have one or more siblings. Have been able to contact one sister in [place] who indicates there may be a half-sister in [place] and a half brother [facility]. At this time appears Per [place] statutes legal decision-making would fall to known sister in [place]. Physical Exam Vital Signs Date Time Temp Pulse Resp B/P (MAP) Pulse Ox O2 Delivery O2 Flow Rate FiO2 02/11/17 12:00 100 02/11/17 12:00 96.0 63 16 99/58 (72) 95 02/11/17 11:52 96 40 02/11/17 08:00 100 02/11/17 08:00 97.7 70 21 129/59 (82) 100 02/11/17 07:56 100 40 02/11/17 07:00 70 02/11/17 04:08 100 50 02/11/17 04:00 100 02/11/17 04:00 97.6 76 16 124/53 (76) 76 02/11/17 02:34 100 100 02/11/17 01:12 100 60 02/11/17 00:00 97.5 80 16 134/79 (97) 97 02/11/17 00:00 100 02/10/17 23:00 81 02/10/17 21:00 83 02/10/17 20:00 97 100 02/10/17 20:00 100 02/10/17 20:00 97.5 92 16 188/96 (126) 92 02/10/17 19:45 98 100 02/10/17 19:15 15.00 100 02/10/17 16:00 96.7 77 18 155/73 (100) 95 . 02/11/17 02/12/17 19:00 07:00 Intake Total 50 ml Balance 50 ml IV Total 50 ml Exam CONSTITUTIONAL/GENERAL: This is a chronically ill male patient, intubated and mechanically ventilated. TUBES/LINES/DRAINS: ETT, soft wrist restraints, Rt femoral a-line, Rt femoral CVL, li catheter SKIN: No jaundice, rashes, or lesions. Skin temperature is cool. Not diaphoretic. HEAD: Atraumatic. Normocephalic. EYES: Right eye enucleation. Left pupil 3mm slow reaction to light. No scleral icterus. No injection or drainage. Fundi not examined. ENT: Unable to assess secondary to clinical condition. Nose without bleeding or purulent drainage. NECK: Trachea midline. Supple. CARDIOVASCULAR: Regular rate and rhythm, distant. BUE edema. RESPIRATORY/CHEST: Symmetric, clear, diminished breath sounds equal bilaterally. Mechanically venitlated. No wheezes, rales, or rhonchi. GASTROINTESTINAL: Abdomen soft, mildly distended. No hepato-splenomegaly, or palpable masses. Bowel sounds hypoactive. GENITOURINARY: Without palpable bladder distension. Li catheter in place. + scrotal edema MUSCULOSKELETAL: Extremities without clubbing, cyanosis, or edema. No mottling or clubbing. Left AKA. NEUROLOGICAL: Sedated on mechanical ventilation. nonresponsive to pain stimuli. observe cont eeg in process. no eye opening. PSYCHIATRIC: Unable to assess secondary to clinical condition. . Diagnostic Tests Laboratory Laboratory Tests Test 02/08/17 16:39 02/09/17 20:30 02/10/17 20:05 02/10/17 20:40 Stool C. difficile Toxin (PCR) NEGATIVE (NEGATIVE) Stl C. difficile Toxin Epiderm 027 PRESUMPTIVE NEGATIVE Blood Urea Nitrogen 56 MG/DL (7-18) 58 MG/DL (7-18) Creatinine 4.68 MG/DL (0.60-1.30) 4.97 MG/DL (0.60-1.30) Random Glucose 384 MG/DL (74-106) 182 MG/DL (74-106) Total Protein 5.1 GM/DL (6.4-8.2) 5.5 GM/DL (6.4-8.2) Albumin 1.5 GM/DL (3.4-5.0) 1.5 GM/DL (3.4-5.0) Calcium Level 7.1 MG/DL (8.5-10.1) 8.2 MG/DL (8.5-10.1) Phosphorus Level 2.1 MG/DL (2.5-4.9) Magnesium Level 2.0 MG/DL (1.5-2.5) Alkaline Phosphatase 97 U/L (45-117) 140 U/L (45-117) Aspartate Amino Transf (AST/SGOT) 23 U/L (15-37) 90 U/L (15-37) Alanine Aminotransferase (ALT/SGPT) 16 U/L (12-78) 41 U/L (12-78) Total Bilirubin 0.6 MG/DL (0.2-1.0) 0.8 MG/DL (0.2-1.0) Sodium Level 136 MEQ/L (136-145) 145 MEQ/L (136-145) Potassium Level 4.1 MEQ/L (3.5-5.1) 3.4 MEQ/L (3.5-5.1) Chloride Level 110 MEQ/L (98-107) 108 MEQ/L (98-107) Carbon Dioxide Level 12.1 MEQ/L (21.0-32.0) 22.6 MEQ/L (21.0-32.0) Anion Gap 14 MEQ/L (5-15) 14 MEQ/L (5-15) Estimat Glomerular Filtration Rate 16 ML/MIN (>89) 15 ML/MIN (>89) Protein Corrected Calcium 8.2 MG/DL (8.5-10.1) Tacrolimus (Prograf) Level 16.4 NG/ML (5.0-20.0) B-Hydroxybutyrate 0.07 MMOL/L (0.00-0.39) Blood Gas Puncture Site ART LINE Blood Gas Patient Temperature 98.6 Blood Gas HCO3 8 mmol/L (22-26) Blood Gas Base Excess -17.1 mmol/L (-2-2) Blood Gas Oxygen Saturation 96 % (90-100) Arterial Blood pH 7.30 (7.380-7.420) Arterial Blood Partial Pressure CO2 18 mmHg (38-42) Arterial Blood Partial Pressure O2 99 mmHg (61-120) Arterial Blood Oxygen Content 12.6 Vol % (12.0-20.0) Arterial Blood Carboxyhemoglobin 0.9 % (0-4) Arterial Blood Methemoglobin 0.8 % (0-2) Blood Gas Hemoglobin 9.3 G/DL (12.0-16.0) Oxygen Delivery Device VENTILATOR Blood Gas Ventilator Setting PRVC/AC Blood Gas Inspired Oxygen 100 % White Blood Count 11.7 TH/MM3 (4.0-11.0) Red Blood Count 6.24 MIL/MM3 (4.50-5.90) Hemoglobin 15.7 GM/DL (13.0-17.0) Hematocrit 48.5 % (39.0-51.0) Mean Corpuscular Volume 77.9 FL (80.0-100.0) Mean Corpuscular Hemoglobin 25.2 PG (27.0-34.0) Mean Corpuscular Hemoglobin Concent 32.3 % (32.0-36.0) Red Cell Distribution Width 16.6 % (11.6-17.2) Platelet Count 118 TH/MM3 (150-450) Mean Platelet Volume 10.8 FL (7.0-11.0) CBC Comment AUTO DIFF Differential Total Cells Counted 100 Neutrophils % (Manual) 85 % (16-70) Band Neutrophils % 9 % (0-6) Lymphocytes % 3 % (9-44) Monocytes % 2 % (0-8) Neutrophils # (Manual) 11.1 TH/MM3 (1.8-7.7) Myelocytes 1 % (0-0) Nucleated Red Blood Cells 3 /100 WBC (0-0) Differential Comment FINAL DIFF MANUAL Atypical Lymphocytes % (0-0) Platelet Estimate LOW (NORMAL) Platelet Morphology Comment ENLARGED (NORMAL) Prothrombin Time 12.6 SEC (9.8-11.6) Prothromb Time International Ratio 1.1 RATIO Activated Partial Thromboplast Time 29.8 SEC (24.3-30.1) Lactic Acid Level 4.9 mmol/L (0.4-2.0) Test 02/11/17 05:00 White Blood Count 11.4 TH/MM3 (4.0-11.0) Red Blood Count 5.33 MIL/MM3 (4.50-5.90) Hemoglobin 13.6 GM/DL (13.0-17.0) Hematocrit 41.5 % (39.0-51.0) Mean Corpuscular Volume 77.8 FL (80.0-100.0) Mean Corpuscular Hemoglobin 25.4 PG (27.0-34.0) Mean Corpuscular Hemoglobin Concent 32.7 % (32.0-36.0) Red Cell Distribution Width 16.6 % (11.6-17.2) Platelet Count 72 TH/MM3 (150-450) Mean Platelet Volume 10.5 FL (7.0-11.0) Neutrophils (%) (Auto) 90.6 % (16.0-70.0) Lymphocytes (%) (Auto) 1.9 % (9.0-44.0) Monocytes (%) (Auto) 7.1 % (0.0-8.0) Eosinophils (%) (Auto) 0.0 % (0.0-4.0) Basophils (%) (Auto) 0.4 % (0.0-2.0) Neutrophils # (Auto) 10.3 TH/MM3 (1.8-7.7) Lymphocytes # (Auto) 0.2 TH/MM3 (1.0-4.8) Monocytes # (Auto) 0.8 TH/MM3 (0-0.9) Eosinophils # (Auto) 0.0 TH/MM3 (0-0.4) Basophils # (Auto) 0.0 TH/MM3 (0-0.2) CBC Comment AUTO DIFF Differential Comment AUTO DIFF CONFIRMED Platelet Estimate LOW (NORMAL) Platelet Morphology Comment NORMAL (NORMAL) Red Cell Morphology Comment NORMAL (NORMAL) Blood Urea Nitrogen 64 MG/DL (7-18) Creatinine 4.76 MG/DL (0.60-1.30) Random Glucose 136 MG/DL (74-106) Albumin 1.3 GM/DL (3.4-5.0) Calcium Level 7.6 MG/DL (8.5-10.1) Phosphorus Level 2.4 MG/DL (2.5-4.9) Magnesium Level 1.9 MG/DL (1.5-2.5) Sodium Level 145 MEQ/L (136-145) Potassium Level 3.0 MEQ/L (3.5-5.1) Chloride Level 109 MEQ/L (98-107) Carbon Dioxide Level 25.6 MEQ/L (21.0-32.0) Anion Gap 10 MEQ/L (5-15) Estimat Glomerular Filtration Rate 15 ML/MIN (>89) Tacrolimus (Prograf) Level 11.1 NG/ML (5.0-20.0) Result Diagram: 02/11/17 0500 02/11/17 0500 Microbiology Microbiology Date/Time Source Procedure Growth Status 02/09/17 20:30 Blood Peripheral Aerobic Blood Culture - Preliminary Gram Negative Benjamin Resulted 02/09/17 20:30 Blood Peripheral Anaerobic Blood Culture - Preliminary NO GROWTH IN 2 DAYS Resulted 02/09/17 20:30 Blood Peripheral Aerobic Blood Culture - Preliminary Gram Negative Benjamin Resulted 02/09/17 20:30 Blood Peripheral Anaerobic Blood Culture - Preliminary NO GROWTH IN 2 DAYS Resulted 02/11/17 13:30 Sputum Endotracheal Gram Stain Pending Received 02/11/17 13:30 Sputum Endotracheal Sputum Culture Pending Received Imaging Last Impressions Renal Ultrasound 02/11/17 0700 Signed Impressions: Service Date/Time: Saturday, February 11, 2017 07:56 - CONCLUSION: 1. Improved resistive indices, now in the normal range. 2. Stable hydronephrosis 3. Stable small amount of simple perinephric fluid. Jimbo De La Torre MD Scrotum Ultrasound 02/11/17 0600 Signed Impressions: Service Date/Time: Saturday, February 11, 2017 08:19 - CONCLUSION: 1. Small right epididymal cyst. 2. Diffuse scrotal soft tissue edema. 3. Otherwise, unremarkable testicular ultrasound examination. Jimbo De La Torre MD Chest X-Ray 02/11/17 0600 Signed Impressions: Service Date/Time: Saturday, February 11, 2017 04:52 - CONCLUSION: Patchy perihilar pulmonary infiltrates right greater than left. ET tube is in good position. Alf Britton MD Head CT 02/11/17 0000 Signed Impressions: Service Date/Time: Saturday, February 11, 2017 02:33 - CONCLUSION: Continued abnormality in the right globe. No evidence of acute hemorrhage or acute change. Alf Britton MD Abdomen X-Ray 02/10/17 0000 Signed Impressions: Service Date/Time: January 21:51 - CONCLUSION: Stable gaseous distention of the stomach and colon with new dilated segment of small bowel in the midabdomen. The dilated small bowel is new and abnormal. However, the overall distribution is not suggestive of small bowel obstruction. Suggest performing a followup imaging to confirm resolution. Salas Thompson MD Abdomen/Pelvis CT 02/08/17 0000 Signed Impressions: Service Date/Time: Wednesday, February 08, 2017 20:13 - CONCLUSION: 1. No acute abnormality is identified to explain the diffuse abdominal pain. 2. Small bilateral pleural effusions, right larger than left, with associated compressive atelectasis. 3. Anasarca. 4. [place] kidneys are atrophic consistent with history of end-stage renal disease. Right lower quadrant transplant demonstrates mild degree of hydronephrosis. There is a small volume of free fluid in the abdomen and pelvis. 5. Severe atherosclerotic disease. Salas Thompson MD Procedures 02/11/17 Cardiac arrest, CPR, intubation, femoral central line placed . Patient/Family Conference Family Conference Location: Telephone Issues Discussed: Limited discussion with sister Areli via phone utilizing hospital translation service creole clinical cytogeneticist. Even with translation sister seems to have a very limited understanding discussion included the following: * Palliative care role, purpose, approach * Additional medical, psychosocial, and spiritual history * Patient current condition, prognosis, current treatments * Legal decision makers * CODE STATUS * Questions answered to the best of my ability Sister appears to have a very basic understanding even with use of translation service. She asks me questions regarding unrelated subjects including that the patient has 2 [place]yan-speaking caregivers or roommates and she wonders if they will continue to live in his residence, or where he possibly will live if he survives hospitalization. She wonders how they will pay bills at his residence. I did attempt to explore with her his overall condition and prognosis. She tells me that the pt was very private about his medical conditions and that in the past even regarding his kidney transplant gave her very limited details/information. She endorses appreciation for the phone call and use of translation service, and that she would want us to continue to do whatever we can to try to help save him and help him survive, including full code and CPR again should he require. 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 Patient originally from [facility] lived in [place] at some point, per his sister, has lived in [place] for many years. Apparently has not had contact with family for some time has a sister in [place] and possibly a half sister in [place] and a half brother in [facility]. Locally lived with 2 [place] caregivers per records and report. Has been on disability for some time based on available records. Spiritual: Per records practices jordin Corley Legal:Status post prolonged cardiac arrest. Encephalopathic. Patient not able to participate in decision-making. No advanced directives per extensive review of records. No children, parents . Appears to have one or more siblings. Have been able to contact one sister in [place] who indicates there may be a half-sister in [place] and a half brother [facility]. At this time appears Per [place] statutes legal decision-making would fall to known sister in [place]. Ethical issues impacting care: Important Contacts Sister Areli South [phone] . Prognosis This patient has multiple chronic comorbidities including status post renal transplant 2012. Appears to be rather debilitated and in poor general health prior to admission. Was admitted for GI bleeding, sepsis. Subsequently, This admission suffered cardiac arrest resulting in prolonged CPR, now with poor neurological exam, likely significant anoxic brain injury. Very unlikely he will make meaningful neurologic recovery. High risk for further complications and decline. Code Status: Full Code Plan * Legal decision maker:Status post prolonged cardiac arrest. Encephalopathic. Patient not able to participate in decision-making. No advanced directives per extensive review of records. No children, parents . Appears to have one or more siblings. Have been able to contact one sister in [place] who indicates there may be a half-sister in [place] and a half brother [facility]. At this time appears Per [place] statutes legal decision-making would fall to known sister in [place]. * Goals: Spoke with sister in [place] today via phone. Sister appears to have a very basic understanding even with use of translation service. She asks me questions regarding unrelated subjects including that the patient has 2 [place]yan-speaking caregivers or roommates and she wonders if they will continue to live in his residence, or where he possibly will live if he survives hospitalization. She wonders how they will pay bills at his residence. I did attempt to explore with her his overall condition and prognosis. She endorses appreciation for the phone call and use of translation service, and that she would want us to continue to do whatever we can to try to help save him and help him survive, including full code and CPR again should he require. * CODE STATUS: Full code SYMPTOMS: --Encephalopathy-status post prolonged cardiac arrest and CPR; now with myoclonus, continuous EEG, very poor neurologic prognosis --Dyspnea-intubated secondary to cardiopulmonary arrest, nonresponsive no tachypnea now on mechanical vent * Palliative care will continue to follow during hospital course as condition evolves, to assist patient/decision-maker with understanding of medical conditions, weighing benefits/burdens of treatment options, for clarification of goals of treatment. Additionally will assist with any symptoms of palliative concern Thank you for the opportunity to participate in the care of Mr. Jackson. Attestation To help prompt me to consider important information that might be impacting today's encounter and assessment, information from prior notes written by myself or my colleagues may have been "brought forward" into today's note. My signature on this note, however, is an attestation that I personally performed the exam, history, and/or decision-making noted today, and, unless otherwise indicated, the interactions with patient, family, and staff as well as the review of records all occurred today. I also attest that the listed assessment and stated plan reflect my best clinical judgment today based on the combination of historical information, prior notes, and today's exam/ interactions. When time spent is documented, it refers only to time spent today by the signer, or if indicated, combined time spent today by collaborating physician/nurse practitioner. Rema Moore Feb 11, 2017 14:18
[2017-02-11] MEDS: levETIRAcetam 1000 MG INJ 100 ML IV SCH ×2 (14:46→20:22)
--- NOTE | 2017-02-11 17:12 | ECHRPT ---
Indication: VEGETATION CONCLUSIONS The left ventricular systolic function is severely reduced with an estimated ejection fraction in th e range of 20-25%. Normal left ventricular size. Wall thickness is measured at the upper limits of normal. There is global left ventricular dysfunction. Diffuse calcification of the aortic valve. Moderate aortic valve stenosis. Aortic valve area is 1.3 cm. Aortic valve mean gradient is 7 mmHg due to low EF. Moderate aortic valve regurgitation. No evidence of vegetation identified BP: 124 / 53 HR: 76 Rhythm: Sinus MEASUREMENTS (Male / Female) Normal Values Technical Quality:Good 2D ECHO LVOT Diameter 1.9 cm M-MODE Aortic Root Diameter MM 2.6 cm AV Cusp Separation MM 0.9 cm DOPPLER AV Peak Velocity 171.0 cm/s AV Peak Gradient 11.7 mmHg AV Mean Gradient 7.0 mmHg AV Velocity Time Integral 34.9 cm AI Peak Velocity 273.0 cm/s AI Peak Gradient 29.8 mmHg AI Pressure Half Time 462.0 ms LVOT Peak Velocity 49.6 cm/s LVOT Peak Gradient 1.0 mmHg LVOT Velocity Time Integral 15.3 cm LVOT Cardiac Index 1748.3 cm/minm AV Area Cont Eq vti 1.2 cm AV Area Cont Eq pk 0.8 cm FINDINGS LEFT VENTRICLE The left ventricular systolic function is severely reduced with an estimated ejection fraction in th e range of 20-25%. Normal left ventricular size. Wall thickness is measured at the upper limits of normal. There is global left ventricular dysfunction. AORTIC VALVE Diffuse calcification of the aortic valve. Moderate aortic valve stenosis. Aortic valve area is 1.3 cm. Aortic valve mean gradient is 7 mmHg due to low EF. Moderate aortic valve regurgitation. Oliver Rivas MD (Electronically Signed) Final Date:11 February 2017 17:11
--- NOTE | 2017-02-11 17:52 | HHI.IDPN ---
Subjective Subjective Remarks sp CODE BLUE yday with asystola aspiration is suspected Doing poorly On vent, FiO2 50%, PEEP 5 Hypothermic Not much ETT secretions Antibiotics zosyn levaquine Past Medical History renal ttransplant Allergies: Coded Allergies: No Known Allergies (Unverified , 10/27/16) Objective . Vital Signs Date Time Temp Pulse Resp B/P (MAP) Pulse Ox O2 Delivery O2 Flow Rate FiO2 02/11/17 15:00 62 02/11/17 12:00 100 02/11/17 12:00 96.0 63 16 99/58 (72) 95 02/11/17 11:52 96 40 02/11/17 08:00 100 02/11/17 08:00 97.7 70 21 129/59 (82) 100 02/11/17 07:56 100 40 02/11/17 07:00 70 02/11/17 04:08 100 50 02/11/17 04:00 100 02/11/17 04:00 97.6 76 16 124/53 (76) 76 02/11/17 02:34 100 100 02/11/17 01:12 100 60 02/11/17 00:00 97.5 80 16 134/79 (97) 97 02/11/17 00:00 100 02/10/17 23:00 81 02/10/17 21:00 83 02/10/17 20:00 97 100 02/10/17 20:00 100 02/10/17 20:00 97.5 92 16 188/96 (126) 92 02/10/17 19:45 98 100 02/10/17 19:15 15.00 100 02/11/17 02/11/17 02/12/17 15:00 23:00 07:00 Intake Total 150 ml 205 ml Balance 150 ml 205 ml IV Total 150 ml 205 ml . Laboratory Tests Test 02/10/17 20:40 02/11/17 05:00 White Blood Count 11.7 TH/MM3 11.4 TH/MM3 Red Blood Count 6.24 MIL/MM3 5.33 MIL/MM3 Hemoglobin 15.7 GM/DL 13.6 GM/DL Hematocrit 48.5 % 41.5 % Mean Corpuscular Volume 77.9 FL 77.8 FL Mean Corpuscular Hemoglobin 25.2 PG 25.4 PG Mean Corpuscular Hemoglobin Concent 32.3 % 32.7 % Red Cell Distribution Width 16.6 % 16.6 % Platelet Count 118 TH/MM3 72 TH/MM3 Mean Platelet Volume 10.8 FL 10.5 FL CBC Comment AUTO DIFF AUTO DIFF Differential Total Cells Counted 100 Neutrophils % (Manual) 85 % Band Neutrophils % 9 % Lymphocytes % 3 % Monocytes % 2 % Neutrophils # (Manual) 11.1 TH/MM3 Myelocytes 1 % Nucleated Red Blood Cells 3 /100 WBC Differential Comment FINAL DIFF MANUAL AUTO DIFF CONFIRMED Atypical Lymphocytes % Platelet Estimate LOW LOW Platelet Morphology Comment ENLARGED NORMAL Neutrophils (%) (Auto) 90.6 % Lymphocytes (%) (Auto) 1.9 % Monocytes (%) (Auto) 7.1 % Eosinophils (%) (Auto) 0.0 % Basophils (%) (Auto) 0.4 % Neutrophils # (Auto) 10.3 TH/MM3 Lymphocytes # (Auto) 0.2 TH/MM3 Monocytes # (Auto) 0.8 TH/MM3 Eosinophils # (Auto) 0.0 TH/MM3 Basophils # (Auto) 0.0 TH/MM3 Red Cell Morphology Comment NORMAL Laboratory Tests Test 02/09/17 20:30 02/10/17 20:40 02/11/17 05:00 Blood Urea Nitrogen 56 MG/DL 58 MG/DL 64 MG/DL Creatinine 4.68 MG/DL 4.97 MG/DL 4.76 MG/DL Random Glucose 384 MG/DL 182 MG/DL 136 MG/DL Total Protein 5.1 GM/DL 5.5 GM/DL Albumin 1.5 GM/DL 1.5 GM/DL 1.3 GM/DL Calcium Level 7.1 MG/DL 8.2 MG/DL 7.6 MG/DL Phosphorus Level 2.1 MG/DL 2.4 MG/DL Magnesium Level 2.0 MG/DL 1.9 MG/DL Alkaline Phosphatase 97 U/L 140 U/L Aspartate Amino Transf (AST/SGOT) 23 U/L 90 U/L Alanine Aminotransferase (ALT/SGPT) 16 U/L 41 U/L Total Bilirubin 0.6 MG/DL 0.8 MG/DL Sodium Level 136 MEQ/L 145 MEQ/L 145 MEQ/L Potassium Level 4.1 MEQ/L 3.4 MEQ/L 3.0 MEQ/L Chloride Level 110 MEQ/L 108 MEQ/L 109 MEQ/L Carbon Dioxide Level 12.1 MEQ/L 22.6 MEQ/L 25.6 MEQ/L Anion Gap 14 MEQ/L 14 MEQ/L 10 MEQ/L Estimat Glomerular Filtration Rate 16 ML/MIN 15 ML/MIN 15 ML/MIN Protein Corrected Calcium 8.2 MG/DL Lactic Acid Level 4.9 mmol/L Microbiology Date/Time Source Procedure Growth Status 02/09/17 20:30 Blood Peripheral Aerobic Blood Culture - Preliminary Gram Negative Benjamin Resulted 02/09/17 20:30 Blood Peripheral Anaerobic Blood Culture - Preliminary NO GROWTH IN 2 DAYS Resulted 02/09/17 20:30 Blood Peripheral Aerobic Blood Culture - Preliminary Gram Negative Benjamin Resulted 02/09/17 20:30 Blood Peripheral Anaerobic Blood Culture - Preliminary NO GROWTH IN 2 DAYS Resulted 02/11/17 13:30 Sputum Endotracheal Gram Stain Pending Received 02/11/17 13:30 Sputum Endotracheal Sputum Culture Pending Received Imaging Last Impressions Renal Ultrasound 02/11/17 0700 Signed Impressions: Service Date/Time: Saturday, February 11, 2017 07:56 - CONCLUSION: 1. Improved resistive indices, now in the normal range. 2. Stable hydronephrosis 3. Stable small amount of simple perinephric fluid. Jimbo De La Torre MD Scrotum Ultrasound 02/11/17 0600 Signed Impressions: Service Date/Time: Saturday, February 11, 2017 08:19 - CONCLUSION: 1. Small right epididymal cyst. 2. Diffuse scrotal soft tissue edema. 3. Otherwise, unremarkable testicular ultrasound examination. Jimbo De La Torre MD Chest X-Ray 02/11/17 0600 Signed Impressions: Service Date/Time: Saturday, February 11, 2017 04:52 - CONCLUSION: Patchy perihilar pulmonary infiltrates right greater than left. ET tube is in good position. Alf Britton MD Head CT 02/11/17 0000 Signed Impressions: Service Date/Time: Saturday, February 11, 2017 02:33 - CONCLUSION: Continued abnormality in the right globe. No evidence of acute hemorrhage or acute change. Alf Britton MD Abdomen X-Ray 02/10/17 0000 Signed Impressions: Service Date/Time: January 21:51 - CONCLUSION: Stable gaseous distention of the stomach and colon with new dilated segment of small bowel in the midabdomen. The dilated small bowel is new and abnormal. However, the overall distribution is not suggestive of small bowel obstruction. Suggest performing a followup imaging to confirm resolution. Salas Thompson MD Abdomen/Pelvis CT 02/08/17 0000 Signed Impressions: Service Date/Time: Wednesday, February 08, 2017 20:13 - CONCLUSION: 1. No acute abnormality is identified to explain the diffuse abdominal pain. 2. Small bilateral pleural effusions, right larger than left, with associated compressive atelectasis. 3. Anasarca. 4. [place] kidneys are atrophic consistent with history of end-stage renal disease. Right lower quadrant transplant demonstrates mild degree of hydronephrosis. There is a small volume of free fluid in the abdomen and pelvis. 5. Severe atherosclerotic disease. Salas Thompson MD Physical Exam CONSTITUTIONAL/GENERAL: [facility] TUBES/LINES/DRAINS: SKIN: + ? minimal jaundice, rashes, or lesions. Skin temperature appropriate. Not diaphoretic. HEAD: Atraumatic. Normocephalic. EYES: OD - absent OS with some injected conjuntiva No drainage. Fundi not examined. ENT: Hearing grossly normal. Nose without bleeding or purulent drainage.Oral mucosae dry without visible erythema, exudates, masses, or lesions. Dentition is poor orally intubated NECK: Trachea midline. Supple, nontender. CARDIOVASCULAR: Regular rate and rhythm without murmurs, gallops, or rubs. No JVD. Peripheral pulses symmetric. RESPIRATORY/CHEST: Symmetric, unlabored respirations. Clear to auscultation. Breath sounds equal bilaterally. No wheezes, rales, or rhonchi. GASTROINTESTINAL: Abdomen soft, non-tender, distended. No hepato-splenomegaly, or palpable masses. No guarding. Bowel sounds present. GENITOURINARY: Without palpable bladder distension. Mcmillan catheter in place with minimal amount of urine He has a non tender RLQ mass cw renal allograft MUSCULOSKELETAL: Extremities without clubbing, cyanosis, Prominent BUE edema. No joint tenderness or effusion noted. AKA L LYMPHATICS: No palpable cervical or supraclavicular adenopathy. NEUROLOGICAL: sedated unresponsive PSYCHIATRIC: unable to assess Assessment & Plan Remarks Sepsis with gram negative bacteremia in immunopcopromised pt sp renal allograft - fever, leukocotosuis and lactic acidosis - High grade Kleb pneumo bacteremia Complicated UTI, Kleb pneumo - persistent bactermia abd /pelvis CT unrevealing as far as abscess Critically ill sp code ? acute cardiac event Diarrhea, C.diff negative New issue - aspiration PNA 2 D echo w/o vegetations REC's: cont zosyn cont IV levaquine repeat Blood clx CT chest ? Zoë Hebert MD Feb 11, 2017 17:52
[2017-02-11] MEDS ORDERED: PROPOFOL 200 MG/20 ML AMP IV ONE (18:50)
--- NOTE | 2017-02-11 18:59 | GIPROC ---
[facility] [address] [facility]. [facility], [address] EGD PROCEDURE REPORT EXAM DATE: 02/11/2017 PATIENT NAME: Stephan Jackson MR #: [id number] BIRTHDATE: 1955 ATTENDING: Miah Mclaughlin MD ORDER #: [id number] NEEDLE LEADER: Michelle Pratt and [address] STATUS: inpatient INDICATIONS: The patient is a 61 yr old male here for an EGD due to foreign body removal PROCEDURE PERFORMED: EGD w/ fb removal MEDICATIONS: Per Anesthesia and None. TOPICAL ANESTHETIC: none CONSENT: The patient understands the risks and benefits of the procedure and understands that these risks include, but are not limited to: sedation, allergic reaction, infection, perforation and/or bleeding. Alternative means of evaluation and treatment include, among others: physical exam, x-rays, and/or surgical intervention. The patient elects to proceed with this endoscopic procedure. medical equipment was checked for proper function. Hand hygiene and appropriate measures for infection prevention was taken. After the risks, benefits and alternatives of the procedure were thoroughly explained, Informed consent was verified, confirmed and timeout was successfully executed by the treatment team. The patient was anesthetized with topical anesthesia and the Pentax EG-[id number] endoscope was introduced through the mouth and advanced to the second portion of the duodenum. Retroflexion was performed and was normal The gastroscope was then slowly withdrawn and removed. ESOPHAGUS: There was a large amount of residual food seen in the entire esophagus. Due to the residual food, complete mucosal examination could not be performed. STOMACH: There was a large amount of residual food seen in the gastric body. Due to the residual food, complete mucosal examination could not be performed. DUODENUM: The duodenal mucosa appeared normal in the bulb and second portion of the duodenum. ADVERSE EVENTS: There were no complications. IMPRESSIONS: 1. There was a large amount of residual food seen in the entire esophagus and oral caviety, disimpaction done successfully. 2. Food residue in the gastric body limiting the exam 3. Normal duodenal mucosa in the bulb and second portion of the duodenum 4. NG tube placed with endoscopic guidance RECOMMENDATIONS: Begin feeding tomorrow Keep NGT under low intermittent suction for now PATIENT CONDITION: stable DISPOSITION: Observation REPEAT EXAM: NONE Miah Mclaughlin MD eSigned: Miah Mclaughlin MD 02/11/2017 6:59 PM cc: PATIENT NAME: Stephan Jackson MR#: [id number]
[2017-02-11] MEDS: ATORVASTATIN 40 MG TAB PO SCH (20:23)
[2017-02-11] MEDS: TAMSULOSIN HCL 0.4 MG CAP PO SCH (20:23)
[2017-02-11] MEDS: PHENYTOIN INJ 100 MG/2 ML VIAL IV SCH (22:04)
--- NOTE | 2017-02-11 22:23 | MB ---
cc: JONO GRANT MD DATE OF CONSULTATION 02/11/17 REASON FOR CONSULTATION Anoxic brain injury. HISTORY OF PRESENT ILLNESS The patient is intubated and sedated thus the medical history is obtained from the RN and review of medical records. The patient admitted for GI bleeding and found that EEG done revealed gastritis. The patient was in septicemia. On , the patient choked resulting in respiratory cardiopulmonary arrest that required 35 minutes CPR. The patient was intubated, sedated on mechanical ventilation. He was noted to have "myoclonic seizures".Thus, neurology was consulted. REVIEW OF SYSTEMS Unable to obtain, however, on review of medical records a 12-point review of systems is negative except what is stated in the HPI. PAST MEDICAL HISTORY Review of medical records revealed 1. Hypertension, 2. Hyperlipidemia, 3. Diabetes, 4. Coronary artery disease, 5. History of coronary stent placement, 6. Right eye blindness 7. Hepatitis C exposure, 8. Chronic anemia, 9. Hyperthyroidism, 10. Peripheral vascular disease, 11. Glaucoma 12. Depression, 13. COPD PAST SURGICAL HISTORY Review of medical records revealed 1. Removal of right eye/enucleation 2. Below-knee amputation 3. Kidney transplant 4. AV fistula MEDICATIONS 1. Oxycodone 2. Novolog 3. Vitamin D. 5. Flomax 6. Furosemide 7. Atorvastatin. ALLERGIES ASPIRIN. METOPROLOL PANTOPRAZOLE GABAPENTIN PREDNISONE TRACROLIMUS FAMILY HISTORY Noncontributory SOCIAL HISTORY Quit smoking 2005, quit alcohol 2005. History of crack cocaine until 2005 as per medical record review. PHYSICAL EXAMINATION GENERAL: Intubated, sedated. HEENT: Atraumatic, right eye enucleated. NECK: Supple. No signs of meningeal irritation. CARDIOVASCULAR: Regular rate and rhythm. RESPIRATORY: Equal breath sounds. No wheezes. GASTROINTESTINAL: Soft, nontender MUSCULOSKELETAL: No edema. No cyanosis, left leg amputation. NEUROLOGIC: Sedated, intubated. DIAGNOSTIC STUDIES Stat EEG was done that was abnormal with evidence of electrographic seizures and of multiple epileptiform discharges, sharp waves and spikes that responded to Ativan. During the EEG recording, there was decrease in the frequency of the electrographic seizures. PLAN 1. Neuro checks q. four hourly 2. Continue Keppra 1000 mg q. 12 hourly 3. Add Dilantin 100 mg three times daily 4. Follow up EEG 5. Seizure precautions. 6. DVT prophylaxis SCDs. Thank you for the opportunity to participate in the care of your patient. MD AMELIA Servin/ /9:24 PM /9:59 PM AMBER
--- NOTE | 2017-02-11 23:30 | RADRPT ---
EXAM DATE/TIME: 02/11/2017 22:51 [facility] COMPARISON: CT ABDOMEN & PELVIS W/O CONTRAST, February 08, 2017, 20:13. INDICATIONS : Respiratory distress. Pneumonia. RADIATION DOSE: 7.97 CTDIvol (mGy) MEDICAL HISTORY : Chronic obstructive pulmonary disease. Hepatitis C. Coronary artery disease. Peripheral vascular dis ease.Hypertension. Deep vein thrombosis SURGICAL HISTORY : Coronary artery stent. ENCOUNTER: Subsequent ACUITY: 1 week PAIN SCALE: Non-responsive LOCATION: chest TECHNIQUE: Volumetric scanning of the chest was performed. Using automated exposure control and adjustment of t he mA and/or kV according to patient size, radiation dose was kept as low as reasonably achievable to obtain optimal diagnostic quality images. DICOM format image data is available electronically for r eview and comparison. Follow-up recommendations for detected pulmonary nodules are based at a minimum on nodule size and pa tient risk factors according to Fleischner Society Guidelines. FINDINGS: The patient has an endotracheal and nasogastric tube both in good position. LUNGS: There are extensive areas of consolidation both lung bases. No concerning pulmonary nodule is visual ized. PLEURAE: There is no pleural thickening. Moderate-sized bilateral pleural effusions right greater the left. MEDIASTINUM: The heart and great vessels demonstrate no acute abnormality. There is no mediastinal or hilar lymph adenopathy. Extensive coronary atherosclerotic disease AXILLAE: Within normal limits. No lymphadenopathy. MUSCULOSKELETAL: Very impressive diffuse soft tissue edema across the chest including the pectoralis muscle on the rig ht MISCELLANEOUS: The visualized upper abdominal organs demonstrate no acute abnormality. CONCLUSION: Moderate-sized bilateral pleural effusions right greater left with extensive passive atelectasis both lung bases. Dense coronary atherosclerotic disease. Diffuse soft tissue edema across the chest inclu ding the right pectoralis muscles Alf Britton MD on February 11, 2017 at 23:26 Board Certified Radiologist. This report was verified electronically.
[2017-02-12] VITALS (14 sets, daily range): BP systolic 110–166; BP diastolic 52–82; PULSE 64–74; RESP 12–16; TEMP 96.4–98.6; O2SAT 99–100
[2017-02-12] MEDS: PIPERACIL-TAZO 2.25 GM PREMIX 50 ML IV SCH ×5 (00:50→23:09)
[2017-02-12] MEDS: SODIUM BICARBONATE 8.4% INJ 150 MEQ in DEXTROSE 5% IN WATE 1000ML INJ 1,000 ML IV SCH ×6 (02:18→21:34)
[2017-02-12] MEDS: CHLORHEXIDINE GLUCONATE 2 % 1 PACK (2 CLOTHS) TOP SCH (05:18)
[2017-02-12] MEDS: PHENYTOIN INJ 100 MG/2 ML VIAL IV SCH ×3 (05:19→21:16)
[2017-02-12] MEDS: LORazepam 2 MG/ML VIAL IV PRN ×3 (05:19→13:10)
[2017-02-12 07:08] LABS: BASOPHIL % 0.1 % (0.0-2.0); HEMATOCRIT 39.6 % (39.0-51.0); LYMPH % 5.5 % (9.0-44.0); LYMPHOCYTE # 0.5 TH/MM3 (1.0-4.8); MEAN CORPUSCULAR HEMOGLOBIN 24.9 PG (27.0-34.0); MEAN CORPUSCULAR HGB CONC 32.4 % (32.0-36.0); MONO % 5.7 % (0.0-8.0); NEUT % 88.7 % (16.0-70.0); PLATELET COUNT 52 TH/MM3 (150-450); RED BLOOD COUNT 5.14 MIL/MM3 (4.50-5.90); RED CELL DISTRIBUTION WIDTH 16.1 % (11.6-17.2); WHITE BLOOD COUNT 9.1 TH/MM3 (4.0-11.0)
[2017-02-12 07:23] LABS: BICARBONATE 29.2 MEQ/L (21.0-32.0); CALCIUM-PROTEIN CORRECTED 8.4 MG/DL (8.5-10.1); POTASSIUM 3.1 MEQ/L (3.5-5.1); TOTAL BILIRUBIN ADULT 0.7 MG/DL (0.2-1.0)
[2017-02-12] MEDS: methylPREDNISolone SOD SUCC 40 MG/1 ML VIAL IV PUSH SCH (07:51)
[2017-02-12] MEDS: levETIRAcetam 1000 MG INJ 100 ML IV SCH ×2 (07:53→20:51)
[2017-02-12 08:46] LABS: HEMO FLAGS AUTO DIFF
[2017-02-12 08:50] LABS: BANDS 13 % (0-6); METAMYELOCYTES 1 % (0-1); NEUTROPHIL # MANUAL DIFF 7.3 TH/MM3 (1.8-7.7); POLYS (SEG NEUTROPHILS) 66 % (16-70); WBC DIFF SAMPLE 100
[2017-02-12 08:51] LABS: PLATELET ESTIMATE SMEAR LOW (NORMAL); PLATELET MORPHOLOGY ENLARGED (NORMAL); SCAN/DIFF FINAL DIFF MANUAL
[2017-02-12] MEDS: GABAPENTIN 300 MG CAP PO SCH ×2 (09:00→20:52)
[2017-02-12] MEDS: PANTOPRAZOLE SOD 40 MG DELAYED RELEASE TAB PO SCH (09:00)
[2017-02-12] MEDS: TIMOLOL MALEATE 0.5% OPHT SOLN 5 ML BTL LEFT EYE SCH ×3 (09:00→20:56)
[2017-02-12] MEDS: SYSTANE LEFT EYE SCH ×2 (09:00→20:55)
[2017-02-12] MEDS: BRIMONIDINE TARTRATE 0.2% OPHT SOLN 5 ML BTL LEFT EYE SCH ×3 (09:00→20:56)
[2017-02-12] MEDS: amLODIPine BESYLATE 5 MG TAB PO SCH (09:00)
[2017-02-12] MEDS: SODIUM CHLORIDE 0.9% FLUSH 10 ML FLUSH IV FLUSH SCH ×2 (09:00→20:55)
[2017-02-12] MEDS: CALCITRIOL 0.25 MCG CAP PO SCH (09:00)
[2017-02-12] MEDS: DOCUSATE SODIUM 50 MG/SENNA 8.6 MG TAB PO SCH ×2 (09:00→20:52)
[2017-02-12] MEDS: INSULIN DETEMIR 100 UNITS/ML VIAL SQ SCH (09:00)
[2017-02-12] MEDS ORDERED: PHENYTOIN INJ 1,500 MG in SODIUM CHLOR 0.9% 250 ML INJ 250 ML IV ONE (11:00)
[2017-02-12] MEDS: INSULIN ASPART SUPPLEMENTAL SCALE SQ SCH ×3 (11:00→21:00)
[2017-02-12 12:47] LABS: HEMATOCRIT 36.8 % (39.0-51.0); MEAN CELL VOLUME 77.2 FL (80.0-100.0); MEAN CORPUSCULAR HEMOGLOBIN 24.8 PG (27.0-34.0); MEAN CORPUSCULAR HGB CONC 32.2 % (32.0-36.0); PLATELET COUNT 44 TH/MM3 (150-450); RED BLOOD COUNT 4.77 MIL/MM3 (4.50-5.90); WHITE BLOOD COUNT 11.9 TH/MM3 (4.0-11.0)
[2017-02-12 12:51] LABS: REVIEW FLAG FINAL
[2017-02-12] MEDS ORDERED: NOREPINEPHRINE INJ 4 MG in SODIUM CHLOR 0.9% 250 ML INJ 246 ML IV PRN (13:00)
[2017-02-12] MEDS ORDERED: TERBUTALINE INJ 1 MG/ML AMP SQ PRN (13:00)
--- NOTE | 2017-02-12 13:08 | RADRPT ---
EXAM DATE/TIME: 02/12/2017 12:34 [facility] COMPARISON: CT THORAX W/O CONTRAST, February 11, 2017, 22:51. INDICATIONS : Shortness of breath. MEDICAL HISTORY : Chronic obstructive pulmonary disease. Hepatitis C. Coronary artery disease. Peripheral vascular SURGICAL HISTORY : Coronary artery stent. ENCOUNTER: Subsequent ACUITY: 1 week PAIN SCORE: Non-responsive. LOCATION: Bilateral chest FINDINGS: Bilateral right greater than left mid and lower lung predominant infiltrates persist but are modestly improved in the interim. Small, bilateral pleural effusions are likely. No pneumothorax. Heart size stable, within normal limits. Endotracheal tube tip is approximately 5 cm above the yusuf. Nasogastric tube has been placed with t ip in the distal stomach. CONCLUSION: Slightly improved bilateral airspace disease. Bilateral pleural effusions are probably not significan tly changed. Salas Campos MD on February 12, 2017 at 13:04 Board Certified Radiologist. This report was verified electronically.
[2017-02-12] MEDS: PROPOFOL 1000 MG/100 ML IV PRN ×2 (13:10→17:50)
[2017-02-12 13:13] LABS: BICARBONATE 28.8 MEQ/L (21.0-32.0); CALCIUM-PROTEIN CORRECTED 7.8 MG/DL (8.5-10.1); POTASSIUM 3.2 MEQ/L (3.5-5.1); TOTAL BILIRUBIN ADULT 0.6 MG/DL (0.2-1.0)
[2017-02-12 13:47] LABS: BLOOD GAS BASE EXCESS 4.8 mmol/L (-2-2); BLOOD GAS HCO3 26 mmol/L (22-26); BLOOD GAS METHEMOGLOBIN 0.8 % (0-2); BLOOD GAS O2 HGB SATURATION 98 % (90-100); BLOOD GAS OXYGEN CONTENT 19.8 Vol % (12.0-20.0); BLOOD GAS PCO2 23 mmHg (38-42); BLOOD GAS PO2 236 mmHg (61-120); TEMP CORR TO 98.6
[2017-02-12 13:48] LABS: CRITICAL VALUE YES; DRAW SITE ART LINE; FIO2 100 %; OXYGEN DEVICE VENTILATOR; STAT YES; ULNAR PULSE Y; VENT SETTINGS PRVC 16/500/1.2IT/8+
--- NOTE | 2017-02-12 13:59 | HHI.NPPN ---
Subjective Renal Failure: Chronic, Acute Additional Remarks had PEA/V tach/Shock/seizures on Vent after aspiration Objective Data Data Vital Signs Date Time Temp Pulse Resp B/P (MAP) Pulse Ox O2 Delivery O2 Flow Rate FiO2 02/12/17 09:52 99 40 02/12/17 08:00 40 02/12/17 08:00 97.2 70 16 115/58 (77) 100 02/12/17 07:00 70 02/12/17 04:21 100 40 02/12/17 04:00 40 02/12/17 04:00 98.6 74 16 113/55 (74) 99 02/12/17 01:00 99 40 02/12/17 00:00 40 02/12/17 00:00 97.3 73 16 116/52 (73) 99 02/11/17 23:00 70 02/11/17 22:52 100 100 02/11/17 20:17 98 40 02/11/17 20:00 95.2 69 16 114/55 (74) 99 02/11/17 20:00 40 02/11/17 16:00 100 02/11/17 16:00 94.5 62 16 119/90 (100) 98 02/11/17 15:00 62 -: 02/12/17 1234 02/12/17 1234 Microbiology 02/11/17 Aerobic Blood Culture - Preliminary, Resulted NO GROWTH IN 1 DAY 02/11/17 Anaerobic Blood Culture - Preliminary, Resulted NO GROWTH IN 1 DAY 02/11/17 Aerobic Blood Culture - Preliminary, Resulted NO GROWTH IN 1 DAY 02/11/17 Anaerobic Blood Culture - Preliminary, Resulted NO GROWTH IN 1 DAY Tubes & Lines: Mcmillan Physical Exam General Appearance: Well Developed Appearance Remarks intubated Eyes Eye Remarks blind right eye left pupil dilated Pulmonary Resp Exam: Decreased Bases Cardiology CV Exam: Regular Gastrointestinal/Abdomen GI Exam: Bowel Sounds Present, Distended Musculoskeletal MS Exam: Unable to Ambulate Integumentary Skin Exam: Clear, Warm, Dry Extremeties Extremities Exam: Trace Edema (Left AKA) Neurologic Neuro Exam: Unresponsive Assessment/Plan Discussed Condition With: Patient Assessment Summary: DEANA/Acute Renal Failure, Anemia of CKD, Proteinuria, Diabetes Mellitus, Transplant Kidney Status Electrolyte Assessment: Metabolic Acidosis Problem List: (1) Acute renal insufficiency ICD Codes: N28.9 - Disorder of kidney and ureter, unspecified Status: Acute Plan: in multi organ failure, aspirated on food/ has gram negative sepsis prolong resuscitation doing poorly dropped BP/Seizures poor prognosis add albumin 25 gm q [address] show hydronephrosis of transplanted kidney Cr 4.11 slight decline may still need dialysis prognosis is guarded had Klebsiella sepsis Acidosis on bicarb drip follow labs replace K/ resume Tacrolimus 2 mg q 12 (2) Renal transplant recipient ICD Codes: Z94.0 - Kidney transplant status Status: Chronic Plan: on tacrolimus 5 mg BID stopped as septic IV solumedrol his tacrolimus level reordered (3) GI bleed ICD Codes: K92.2 - Gastrointestinal hemorrhage, unspecified Plan: GI following, off protonix drip (on BID dosing) he apparently had blood in the stomach without identification of site of bleeding on EGD, + gastritis (4) Diabetes ICD Codes: E11.9 - Diabetes mellitus Status: Chronic Plan: resolved DKA continue insulin therapy , monitor glucose (5) Sepsis ICD Codes: A41.9 - Sepsis, unspecified organism Status: Acute Plan: suspected urosepsis, although culture is negative (he was given antibiotics prior to culture being obtained) + Klebsiella ID following, he is on Zosyn and Levaquin follow lactic acid monitor clinically (6) Metabolic encephalopathy ICD Codes: G93.41 - Metabolic encephalopathy Status: Acute Plan: due to infection continue supportive care (7) Cardiac arrest ICD Codes: I46.9 - Cardiac arrest, cause unspecified Status: Acute Plan: in ICU doing poorly, intubated septic and aspiration suspected Jose Eduardo Randle MD Feb 12, 2017 13:59
[2017-02-12] MEDS: ALBUMIN HUMAN 25% 25 GM/100 ML BAGP IV SCH (14:50)
[2017-02-12] MEDS ORDERED: POTASSIUM CHLOR 20 MEQ PREMIX 100 ML IV ONE (15:00)
--- NOTE | 2017-02-12 15:13 | EKG ---
Date Performed: 02/12/2017 Time Performed: 13:25:50 PTAGE: 61 years EKG: Sinus rhythm LOW QRS VOLTAGE IN EXTREMITY LEADS POSSIBLE INFERIOR MYOCARDIAL INFARCTION , PROBABLY OLD ANTEROSEPT AL MYOCARDIAL INFARCTION , OF INDETERMINATE AGE ABNORMAL ECG PREVIOUS TRACING : 02/03/2017 14.12 Compared to prior tracing no significant change DOCTOR: Jasmine Arboleda Interpretating Date/Time 02/12/2017 15:11:12
--- NOTE | 2017-02-12 15:30 | HHI.PR ---
Review/Management Diagnosis Encephalopathy Myoclonic seizures Electrographic seizures Likely etiology is cerebral hypoxia/anoxia Plan - Neuro checks Q1h - Keppra 1gm Q12h - Dilantin 100mg Q8h - Pending Dilantin level - Obtain Dilantin level am. - Seizure precautions' -Continue supportive medical therapy Diagnosis/Plan: Subjective Subjective Comments Continued clinical myoclonic activity EEG with evidence of electrographic/ictal activity Pending Dilantin level Loaded with Dilantin Active Medications Current Medications Medications (Trade) Dose Ordered Sig/Pramod Route Start Time Stop Time Status Last Admin (Lipitor) 40 mg HS PO 02/07/17 21:00 02/09/17 20:37 (Rocaltrol) 0.25 mcg DAILY PO 02/07/17 09:00 02/10/17 08:29 Patient Own Medication PT OWN MED: SYST... BID LEFT EYE 02/07/17 09:00 02/10/17 21:00 (NovoLOG SUPPLEMENTAL SCALE) 1 ACHS SLIDING SCALE SQ 02/07/17 07:00 02/12/17 11:00 (NS Flush) 2 ml UNSCH PRN IV FLUSH 02/06/17 21:45 02/08/17 12:59 (NS Flush) 2 ml BID IV FLUSH 02/07/17 09:00 02/12/17 09:00 (Tylenol) 650 mg Q4H PRN PO 02/06/17 21:45 02/06/17 22:25 (Zofran Inj) 4 mg Q6H PRN IVP 02/06/17 21:45 (Tylenol) 650 mg Q6H PRN PO 02/06/17 21:45 (Percocet 5-325 Mg) 1 tab Q6H PRN PO 02/06/17 21:45 (Percocet 10-325 Mg) 1 tab Q6H PRN PO 02/06/17 21:45 02/10/17 13:19 (Morphine Inj) 1 mg Q3H PRN IV 02/06/17 21:45 (Narcan Inj) 0.4 mg UNSCH PRN IV 02/06/17 21:45 (Zuleyka-Colace) 1 tab BID PO 02/07/17 09:00 02/10/17 08:29 (Senokot) 17.2 mg Q12H PRN PO 02/06/17 21:45 (Lactulose Liq) 30 ml DAILY PRN PO 02/06/17 21:45 (Alphagan 0.2% Opth Soln) 1 drop DAILY@0900,1400,2100 LEFT EYE 02/07/17 09:00 02/11/17 20:23 (Timoptic 0.5% Opth Soln) 1 drop DAILY@0900,1400,2100 LEFT EYE 02/07/17 09:00 02/11/17 20:23 (Duoneb Neb) 1 ampule Q2HR NEB PRN INH 02/07/17 06:00 Norepinephrine Bitartrate 250 ml @ 7.5 mls/hr TITRATE PRN IV 02/07/17 06:00 (Brethine Inj) 1 mg UNSCH PRN SQ 02/07/17 06:00 (Flomax) 0.4 mg HS PO 02/07/17 21:00 02/09/17 20:37 Miscellaneous Information 1 Q361D XX 02/07/17 07:00 02/07/17 07:00 (Chlorhexidine 2% Cloth) 3 pack Taper DAILY@04 TOP 02/08/17 04:00 02/04/18 03:59 02/12/17 05:18 (Chlorhexidine 2% Cloth) 3 pack UNSCH PRN TOP 02/07/17 07:00 (Levemir Inj) 25 units DAILY SQ 02/08/17 09:00 02/10/17 08:37 (D50w (Vial) Inj) 50 ml UNSCH PRN IV 02/08/17 00:45 (Glucagon Inj) 1 mg UNSCH PRN OTHER 02/08/17 00:45 (SoluMEDROL INJ) 40 mg DAILY IV PUSH 02/08/17 12:00 02/12/17 07:51 Piperacillin Sod/ Tazobactam Sod 50 ml @ 100 mls/hr Q6HR IV 02/08/17 18:00 02/12/17 11:58 (Protonix) 40 mg DAILY PO 02/11/17 09:00 (Norvasc) 2.5 mg DAILY PO 02/10/17 11:30 02/10/17 12:23 (Neurontin) 300 mg BID PO 02/10/17 21:00 Levofloxacin/ Dextrose 100 ml @ 100 mls/hr Q48H IV 02/10/17 20:00 02/11/17 00:25 Sodium Bicarbonate 150 meq/Dextrose 1,150 ml @ 125 mls/hr Q9H12M IV 02/10/17 22:00 02/12/17 10:48 (Ativan Inj) 1 mg Q5M PRN IV 02/11/17 02:15 02/12/17 13:10 (Pill Splitter) 1 ea UNSCH PRN OTHER 02/11/17 07:00 Propofol 100 ml @ 2.109 mls/ hr TITRATE PRN IV 02/11/17 07:45 02/12/17 13:10 Levetriacetam 100 ml @ 400 mls/hr Q12HR IV 02/11/17 15:00 02/12/17 07:53 (Dilantin Inj) 100 mg Q8HR IV 02/11/17 22:00 02/12/17 14:47 Norepinephrine Bitartrate 4 mg/ Sodium Chloride 250 ml @ 7.5 mls/hr TITRATE PRN IV 02/12/17 13:00 (Prograf) 2 mg BID@06,18 PO 02/12/17 18:00 (Albumin 25% Inj) 25 gm Q12H IV 02/12/17 15:00 02/12/17 14:50 Potassium Chloride 100 ml @ 50 mls/hr BOLUS ONCE IV 02/12/17 15:00 02/12/17 16:59 02/12/17 14:50 Allergies Allergies Coded Allergies No Known Allergies (Unverified10/27/16) Review of Systems All other ROS: ROS reviewed as documented in chart Exam I&O / VS Vital Signs Date Time Temp Pulse Resp B/P (MAP) Pulse Ox O2 Delivery O2 Flow Rate FiO2 02/12/17 09:52 99 40 02/12/17 08:00 40 02/12/17 08:00 97.2 70 16 115/58 (77) 100 02/12/17 07:00 70 02/12/17 04:21 100 40 02/12/17 04:00 40 02/12/17 04:00 98.6 74 16 113/55 (74) 99 02/12/17 01:00 99 40 02/12/17 00:00 40 02/12/17 00:00 97.3 73 16 116/52 (73) 99 02/11/17 23:00 70 02/11/17 22:52 100 100 02/11/17 20:17 98 40 02/11/17 20:00 95.2 69 16 114/55 (74) 99 02/11/17 20:00 40 02/11/17 16:00 100 02/11/17 16:00 94.5 62 16 119/90 (100) 98 Respiratory: Lungs CTA, Non-labored respirations Cardiology: Normal rate Musculoskeletal: ROM, Other Exam Comments unchanged neurologic exam Objective Radiology Results Last 72 hours Impressions Chest X-Ray 02/12/17 0000 Signed Impressions: Service Date/Time: Sunday, February 12, 2017 12:34 - CONCLUSION: Slightly improved bilateral airspace disease. Bilateral pleural effusions are probably not significantly changed. Salas Campos MD Renal Ultrasound 02/11/17 0700 Signed Impressions: Service Date/Time: Saturday, February 11, 2017 07:56 - CONCLUSION: 1. Improved resistive indices, now in the normal range. 2. Stable hydronephrosis 3. Stable small amount of simple perinephric fluid. Jimbo De La Torre MD Scrotum Ultrasound 02/11/17 0600 Signed Impressions: Service Date/Time: Saturday, February 11, 2017 08:19 - CONCLUSION: 1. Small right epididymal cyst. 2. Diffuse scrotal soft tissue edema. 3. Otherwise, unremarkable testicular ultrasound examination. Jimbo De La Torre MD Chest X-Ray 02/11/17 0600 Signed Impressions: Service Date/Time: Saturday, February 11, 2017 04:52 - CONCLUSION: Patchy perihilar pulmonary infiltrates right greater than left. ET tube is in good position. Alf Britton MD Head CT 02/11/17 0000 Signed Impressions: Service Date/Time: Saturday, February 11, 2017 02:33 - CONCLUSION: Continued abnormality in the right globe. No evidence of acute hemorrhage or acute change. Alf Britton MD Chest CT 02/11/17 0000 Signed Impressions: Service Date/Time: Saturday, February 11, 2017 22:51 - CONCLUSION: Moderate- sized bilateral pleural effusions right greater left with extensive passive atelectasis both lung bases. Dense coronary atherosclerotic disease. Diffuse soft tissue edema across the chest including the right pectoralis muscles Alf Britton MD Chest X-Ray 02/10/17 0000 Signed Impressions: Service Date/Time: January 20:29 - CONCLUSION: 1. Bilateral perihilar distribution consolidation new from the prior study from 4 days ago. The appearance and distribution suggests pulmonary edema as the cause. 2. No concerning radiopaque foreign body is identified. There multiple lines overlying the patient and ET tube is present. Salas Thompson MD Abdomen X-Ray 02/10/17 0000 Signed Impressions: Service Date/Time: January 21:51 - CONCLUSION: Stable gaseous distention of the stomach and colon with new dilated segment of small bowel in the midabdomen. The dilated small bowel is new and abnormal. However, the overall distribution is not suggestive of small bowel obstruction. Suggest performing a followup imaging to confirm resolution. Salas Thompson MD Micro and Labs Laboratory Tests Test 02/12/17 06:00 02/12/17 12:34 02/12/17 13:35 White Blood Count 9.1 11.9 Red Blood Count 5.14 4.77 Hemoglobin 12.8 11.8 Hematocrit 39.6 36.8 Mean Corpuscular Volume 77.0 77.2 Mean Corpuscular Hemoglobin 24.9 24.8 Mean Corpuscular Hemoglobin Concent 32.4 32.2 Red Cell Distribution Width 16.1 16.0 Platelet Count 52 44 Mean Platelet Volume 10.5 10.3 Neutrophils (%) (Auto) 88.7 Lymphocytes (%) (Auto) 5.5 Monocytes (%) (Auto) 5.7 Eosinophils (%) (Auto) 0.0 Basophils (%) (Auto) 0.1 Neutrophils # (Auto) 8.0 Lymphocytes # (Auto) 0.5 Monocytes # (Auto) 0.5 Eosinophils # (Auto) 0.0 Basophils # (Auto) 0.0 CBC Comment AUTO DIFF Differential Total Cells Counted 100 Neutrophils % (Manual) 66 Band Neutrophils % 13 Lymphocytes % 12 Monocytes % 8 Neutrophils # (Manual) 7.3 Metamyelocytes 1 Differential Comment FINAL DIFF MANUAL Platelet Estimate LOW Platelet Morphology Comment ENLARGED Blood Urea Nitrogen 58 56 Creatinine 4.33 4.11 Random Glucose 180 369 Total Protein 4.5 4.1 Albumin 1.1 1.0 Calcium Level 7.0 6.3 Phosphorus Level 2.7 Alkaline Phosphatase 80 70 Aspartate Amino Transf (AST/SGOT) 49 46 Alanine Aminotransferase (ALT/SGPT) 22 20 Total Bilirubin 0.7 0.6 Sodium Level 145 142 Potassium Level 3.1 3.2 Chloride Level 103 94 Carbon Dioxide Level 29.2 28.8 Anion Gap 13 19 Estimat Glomerular Filtration Rate 17 18 Protein Corrected Calcium 8.4 7.8 Tacrolimus (Prograf) Level 7.2 Total Creatine Kinase 61 Troponin I 0.80 Blood Gas Puncture Site ART LINE Blood Gas Patient Temperature 98.6 Blood Gas HCO3 26 Blood Gas Base Excess 4.8 Blood Gas Oxygen Saturation 98 Arterial Blood pH 7.65 Arterial Blood Partial Pressure CO2 23 Arterial Blood Partial Pressure O2 236 Arterial Blood Oxygen Content 19.8 Arterial Blood Carboxyhemoglobin 1.0 Arterial Blood Methemoglobin 0.8 Blood Gas Hemoglobin 14.0 Oxygen Delivery Device VENTILATOR Blood Gas Ventilator Setting PRVC 16/500/1.2IT/8+ Blood Gas Inspired Oxygen 100 Date/Time Source Procedure Growth Status 02/11/17 22:14 Blood Peripheral Aerobic Blood Culture - Preliminary NO GROWTH IN 1 DAY Resulted 02/11/17 22:14 Blood Peripheral Anaerobic Blood Culture - Preliminary NO GROWTH IN 1 DAY Resulted 02/11/17 13:30 Sputum Endotracheal Gram Stain - Final Resulted 02/11/17 13:30 Sputum Endotracheal Sputum Culture - Preliminary HEAVY GROWTH NORMAL RESPIRATORY PRAVEEN... Resulted 02/08/17 02:20 Urine Clean Catch Urine Culture - Final <10,000 CFU/ML GRAM NEGATIVE REMA Complete Darius Powell MD Feb 12, 2017 15:30
--- NOTE | 2017-02-12 15:40 | HHI.CCPN ---
Subjective Remarks/Hospital Course 02/08: patient went for EGD yesterday with lots of blood in the stomach but no active signs of bleeding. today went back to EGD which found gastritis without any evidence of ulcerative disease. anion gap closed yesterday and transitioned off of insulin drip. blood growing klebsiella and ID on board, on abx. patient without complaints and feeling well and improved from yesterday. ROS negative. 02/10 while on the floor patient choked on the dinner food, resulting in respiratory layer cardiopulmonary arrest requiring 35 minutes of CPR multiple shocks for V. fib rhythm and injections of epinephrine, including endotracheal intubation 02/11: Remains sedated, orally intubated on mechanical ventilation. Having myoclonic seizures. Multiple attempted NG tube/OG tube placement unsuccessful overnight hence GI evaluation awaited to place NG tube as well as for further evaluation of dilated bowel loops noted on KUB. Has been loaded with Keppra and is currently on propofol and having intermittent myoclonus. 02/12: Remains sedated, orally intubated on mechanical ventilation. Continues to have myoclonic seizures off and on. Underwent EGD on 02/12 with large quantities of food material noted impacted and the esophagus as well as in the stomach. OG tube placed by GI during endoscopy. Objective Vital Signs Date Time Temp Pulse Resp B/P (MAP) Pulse Ox O2 Delivery O2 Flow Rate FiO2 02/12/17 09:52 99 40 02/12/17 08:00 97.2 70 16 115/58 (77) 02/10/17 19:15 15.00 02/08/17 12:20 Nasal Cannula Intake and Output 02/12/17 02/12/17 02/13/17 08:00 16:00 00:00 Intake Total 1869 ml Output Total 226 ml Balance 1643 ml Result Diagram: 02/12/17 1234 02/12/17 1234 Other Results Laboratory Tests Test 02/12/17 06:00 02/12/17 12:34 02/12/17 13:35 White Blood Count 9.1 TH/MM3 11.9 TH/MM3 Red Blood Count 5.14 MIL/MM3 4.77 MIL/MM3 Hemoglobin 12.8 GM/DL 11.8 GM/DL Hematocrit 39.6 % 36.8 % Mean Corpuscular Volume 77.0 FL 77.2 FL Mean Corpuscular Hemoglobin 24.9 PG 24.8 PG Mean Corpuscular Hemoglobin Concent 32.4 % 32.2 % Red Cell Distribution Width 16.1 % 16.0 % Platelet Count 52 TH/MM3 44 TH/MM3 Mean Platelet Volume 10.5 FL 10.3 FL Neutrophils (%) (Auto) 88.7 % Lymphocytes (%) (Auto) 5.5 % Monocytes (%) (Auto) 5.7 % Eosinophils (%) (Auto) 0.0 % Basophils (%) (Auto) 0.1 % Neutrophils # (Auto) 8.0 TH/MM3 Lymphocytes # (Auto) 0.5 TH/MM3 Monocytes # (Auto) 0.5 TH/MM3 Eosinophils # (Auto) 0.0 TH/MM3 Basophils # (Auto) 0.0 TH/MM3 CBC Comment AUTO DIFF Differential Total Cells Counted 100 Neutrophils % (Manual) 66 % Band Neutrophils % 13 % Lymphocytes % 12 % Monocytes % 8 % Neutrophils # (Manual) 7.3 TH/MM3 Metamyelocytes 1 % Differential Comment FINAL DIFF MANUAL Platelet Estimate LOW Platelet Morphology Comment ENLARGED Blood Urea Nitrogen 58 MG/DL 56 MG/DL Creatinine 4.33 MG/DL 4.11 MG/DL Random Glucose 180 MG/DL 369 MG/DL Total Protein 4.5 GM/DL 4.1 GM/DL Albumin 1.1 GM/DL 1.0 GM/DL Calcium Level 7.0 MG/DL 6.3 MG/DL Phosphorus Level 2.7 MG/DL Alkaline Phosphatase 80 U/L 70 U/L Aspartate Amino Transf (AST/SGOT) 49 U/L 46 U/L Alanine Aminotransferase (ALT/SGPT) 22 U/L 20 U/L Total Bilirubin 0.7 MG/DL 0.6 MG/DL Sodium Level 145 MEQ/L 142 MEQ/L Potassium Level 3.1 MEQ/L 3.2 MEQ/L Chloride Level 103 MEQ/L 94 MEQ/L Carbon Dioxide Level 29.2 MEQ/L 28.8 MEQ/L Anion Gap 13 MEQ/L 19 MEQ/L Estimat Glomerular Filtration Rate 17 ML/MIN 18 ML/MIN Protein Corrected Calcium 8.4 MG/DL 7.8 MG/DL Tacrolimus (Prograf) Level 7.2 NG/ML Total Creatine Kinase 61 U/L Troponin I 0.80 NG/ML Blood Gas Puncture Site ART LINE Blood Gas Patient Temperature 98.6 Blood Gas HCO3 26 mmol/L Blood Gas Base Excess 4.8 mmol/L Blood Gas Oxygen Saturation 98 % Arterial Blood pH 7.65 Arterial Blood Partial Pressure CO2 23 mmHg Arterial Blood Partial Pressure O2 236 mmHg Arterial Blood Oxygen Content 19.8 Vol % Arterial Blood Carboxyhemoglobin 1.0 % Arterial Blood Methemoglobin 0.8 % Blood Gas Hemoglobin 14.0 G/DL Oxygen Delivery Device VENTILATOR Blood Gas Ventilator Setting PRVC 16/500/1.2IT/8+ Blood Gas Inspired Oxygen 100 % Imaging Last 24 hours Impressions Chest X-Ray 02/12/17 0000 Signed Impressions: Service Date/Time: Sunday, February 12, 2017 12:34 - CONCLUSION: Slightly improved bilateral airspace disease. Bilateral pleural effusions are probably not significantly changed. Salas Campos MD Last 48 hours Impressions Renal Ultrasound 02/11/17 0700 Signed Impressions: Service Date/Time: Saturday, February 11, 2017 07:56 - CONCLUSION: 1. Improved resistive indices, now in the normal range. 2. Stable hydronephrosis 3. Stable small amount of simple perinephric fluid. Jimbo De La Torre MD Scrotum Ultrasound 02/11/17 0600 Signed Impressions: Service Date/Time: Saturday, February 11, 2017 08:19 - CONCLUSION: 1. Small right epididymal cyst. 2. Diffuse scrotal soft tissue edema. 3. Otherwise, unremarkable testicular ultrasound examination. Jimbo De La Torre MD Chest X-Ray 02/11/17 06 Signed Impressions: Service Date/Time: Saturday, February 11, 2017 04:52 - CONCLUSION: Patchy perihilar pulmonary infiltrates right greater than left. ET tube is in good position. Alf Britton MD Head CT 02/11/17 0000 Signed Impressions: Service Date/Time: Saturday, February 11, 2017 02:33 - CONCLUSION: Continued abnormality in the right globe. No evidence of acute hemorrhage or acute change. Alf Britton MD Chest X-Ray 02/10/17 0000 Signed Impressions: Service Date/Time: January 20:29 - CONCLUSION: 1. Bilateral perihilar distribution consolidation new from the prior study from 4 days ago. The appearance and distribution suggests pulmonary edema as the cause. 2. No concerning radiopaque foreign body is identified. There multiple lines overlying the patient and ET tube is present. Salas Thompson MD Abdomen X-Ray 02/10/17 0000 Signed Impressions: Service Date/Time: January 21:51 - CONCLUSION: Stable gaseous distention of the stomach and colon with new dilated segment of small bowel in the midabdomen. The dilated small bowel is new and abnormal. However, the overall distribution is not suggestive of small bowel obstruction. Suggest performing a followup imaging to confirm resolution. Salas Thompson MD Objective Remarks GENERAL: Elderly sick appearing man intubated SKIN: Warm and dry. HEAD: Normocephalic. EYES: No scleral icterus. No injection or drainage on left. 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 No JVD CARDIOVASCULAR: Regular rate and rhythm without murmurs, gallops, or rubs. RESPIRATORY: Orally intubated on mechanical ventilation, good air entry bilaterally, scattered rhonchi more on the right, no wheezing or crackles. GASTROINTESTINAL: Abdomen soft, non-tender, distended. Bowel sounds sluggish MUSCULOSKELETAL: No cyanosis, or edema. Status post left leg amputation Neuro: Sedated, orally intubated, occasional myoclonic jerks noted not responding to painful stimuli Procedures 02/08- EGD- gastritis, biopsy done 02/10 cardiopulmonary resuscitation - Arterial line placed Urinary Catheter: Yes Assessment to: Continue Date of Insertion: Feb 06, 2017 Date of Insertion: Feb 10, 2017 Line: Central Venous Catheter Side: Right Location: Femoral A/P Assessment and Plan Cardiopulmonary arrest Suspected anoxic brain injury secondary to cardiac arrest - Due to aspiration - 35 minutes of CPR and ACLS protocol - Multiple cardioversions due to V. fib rhythm and injections of epinephrine - did not initiate hypothermia protocol due to sepsis and persistent bacteremia - Myoclonic seizures noted. EEG and neurology consult noted. - Continue Keppra, Dilantin, Ativan when necessary for myoclonic seizures. Propofol for sedation. Daily sedation vacation if seizures controlled. Acute Respiratory failure on mechanical ventilation - Due to above - No weaning until neurologically improved - Continue mechanical ventilation -Vent bundle, bronchodilators as needed. Hematemesis - Protonix IV twice a day, -GI placed OG tube after EGD on 02/12 with findings of large amounts of undigested food in esophagus as well as stomach - H&H stable - gastritis per EGD. Hypotension- resolved. Klebsiella Bacteremia Complicated UTI - Leukocytosis and fever - resolving sepsis. - Aggressive IV fluids resuscitation - Broad-spectrum antibiotics - Follow-up cultures -Antibiotics per ID Diabetes DKA- resolved. - SSI. Hold Levemir is nothing by mouth currently. Once tube feeds started will resume Levemir. Acute on chronic kidney injury - IV fluids resuscitation - Nephrology consult - Monitor tacrolimus level - Strict I's and O's - Creatinine and electrolyte level DVT GI prophylaxis - Teds SCDs - DVT prophylaxis with subcutaneous heparin to be started 02/12 - IV Protonix twice a day Discussed with CERTIFIED [facility] ENDOSCOPE REPROCESSORlawn care specialist following to assist with deciding goals of therapy in view of poor prognosis. Condition critical with significant anoxic brain injury following cardiac arrest on mechanical ventilation with active myoclonic seizures. The total critical care time was 40 minutes. Time to perform other separately billable procedures was not included in the critical care time. Calvin Leger MD Feb 12, 2017 15:40
[2017-02-12] MEDS: TACROLIMUS 1 MG CAP PO SCH (16:39)
--- NOTE | 2017-02-12 17:23 | RADRPT ---
EXAM DATE/TIME: 02/12/2017 16:21 [facility] COMPARISON: No previous studies available for comparison. INDICATIONS : Bilateral leg edema. MEDICAL HISTORY : Hypercholesterolemia. Hypertension. Chronic obstructive pulmonary disease. Coronary artery disease. Peripheral vascular disease. Deep vein thrombosis. Hepatitis C. Renal failure. Dialysis. Arthrit is. Diabetes. Blood transfusion. C-Diff. SURGICAL HISTORY : Nephrectomy, left. Cataract extraction. Arteriovenous shunt. Coronary stent. Cardiac catheterizati on. Right kidney transplant. Left BKA, Left AKA. ENCOUNTER: Initial ACUITY: 1 day PAIN SCORE: Non-responsive LOCATION: Bilateral legs. TECHNIQUE: Venous ultrasound of the left and right leg was performed from the inguinal ligament to the proximal calf. Real-time, color Doppler and spectral tracing, compression and augmentation techniques were us ed. FINDINGS: RIGHT LEG: There is bandage material overlying the right groin by technologist report and unable to visualize th e right common femoral vein, superficial femoral vein to secondary to bandage an IV within the groin. There is normal compressibility of the right proximal mid and distal femoral vein as well as the pop liteal vein, peroneal vein and posterior tibial vein as well as the greater saphenous vein. Augmentat ion was not performed. LEFT LEG: The patient is status post [id number] amputation with occlusive thrombus seen within the superfic ial femoral vein proximal and mid vein.. There is normal flow and respiratory variation identified wi thin the left greater saphenous vein and within the common femoral vein. Normal flow is seen within t he left iliac vein CONCLUSION: 1. Left [id number] amputation with clot identified within the left superficial femoral vein proxi mal and mid vein. There is normal flow and respiratory variation identified within the more proximal portions of the left deep venous system. 2. Overlying bandage and IV material limit evaluation of the more proximal right deep venous system with normal compressibility identified within the femoral vein, popliteal and veins of the calf. No a ugmentation maneuvers were performed on the right. Chantale Rothman MD on February 12, 2017 at 17:14 Board Certified Radiologist. This report was verified electronically.
[2017-02-12] MEDS: LEVOFLOXACIN 500 MG PREMIX INJ 100 ML IV SCH (20:51)
[2017-02-12] MEDS: TAMSULOSIN HCL 0.4 MG CAP PO SCH (20:52)
[2017-02-12] MEDS: ATORVASTATIN 40 MG TAB PO SCH (20:52)
--- NOTE | 2017-02-12 21:46 | HHI.IDPN ---
Subjective Subjective Remarks Intubate on vent Continues to have myoclonic seizures off and on. Underwent EGD on 02/12 with large quantities of food material noted impacted and the esophagus as well as in the stomach. OG tube placed by GI during endoscopy. no fever Antibiotics zosyn levaquine Past Medical History renal ttransplant Allergies: Coded Allergies: No Known Allergies (Unverified , 10/27/16) Objective . Vital Signs Date Time Temp Pulse Resp B/P (MAP) Pulse Ox O2 Delivery O2 Flow Rate FiO2 02/12/17 20:00 97.0 64 12 110/82 (91) 100 02/12/17 16:11 100 50 02/12/17 16:00 97.2 66 12 166/74 (104) 100 02/12/17 16:00 40 02/12/17 15:00 70 02/12/17 12:00 96.4 70 16 145/65 (91) 100 02/12/17 12:00 40 02/12/17 09:52 99 40 02/12/17 08:00 40 02/12/17 08:00 97.2 70 16 115/58 (77) 100 02/12/17 07:00 70 02/12/17 04:21 100 40 02/12/17 04:00 40 02/12/17 04:00 98.6 74 16 113/55 (74) 99 02/12/17 01:00 99 40 02/12/17 00:00 40 02/12/17 00:00 97.3 73 16 116/52 (73) 99 02/11/17 23:00 70 02/11/17 22:52 100 100 02/12/17 02/12/17 02/13/17 14:59 22:59 06:59 Intake Total 530 ml 2095 ml Output Total 2000 ml Balance 530 ml 95 ml IV Total 530 ml 2095 ml Output Urine Total 2000 ml . Laboratory Tests Test 02/11/17 05:00 02/12/17 06:00 02/12/17 12:34 White Blood Count 11.4 TH/MM3 9.1 TH/MM3 11.9 TH/MM3 Red Blood Count 5.33 MIL/MM3 5.14 MIL/MM3 4.77 MIL/MM3 Hemoglobin 13.6 GM/DL 12.8 GM/DL 11.8 GM/DL Hematocrit 41.5 % 39.6 % 36.8 % Mean Corpuscular Volume 77.8 FL 77.0 FL 77.2 FL Mean Corpuscular Hemoglobin 25.4 PG 24.9 PG 24.8 PG Mean Corpuscular Hemoglobin Concent 32.7 % 32.4 % 32.2 % Red Cell Distribution Width 16.6 % 16.1 % 16.0 % Platelet Count 72 TH/MM3 52 TH/MM3 44 TH/MM3 Mean Platelet Volume 10.5 FL 10.5 FL 10.3 FL Neutrophils (%) (Auto) 90.6 % 88.7 % Lymphocytes (%) (Auto) 1.9 % 5.5 % Monocytes (%) (Auto) 7.1 % 5.7 % Eosinophils (%) (Auto) 0.0 % 0.0 % Basophils (%) (Auto) 0.4 % 0.1 % Neutrophils # (Auto) 10.3 TH/MM3 8.0 TH/MM3 Lymphocytes # (Auto) 0.2 TH/MM3 0.5 TH/MM3 Monocytes # (Auto) 0.8 TH/MM3 0.5 TH/MM3 Eosinophils # (Auto) 0.0 TH/MM3 0.0 TH/MM3 Basophils # (Auto) 0.0 TH/MM3 0.0 TH/MM3 CBC Comment AUTO DIFF AUTO DIFF Differential Comment AUTO DIFF CONFIRMED FINAL DIFF MANUAL Platelet Estimate LOW LOW Platelet Morphology Comment NORMAL ENLARGED Red Cell Morphology Comment NORMAL Differential Total Cells Counted 100 Neutrophils % (Manual) 66 % Band Neutrophils % 13 % Lymphocytes % 12 % Monocytes % 8 % Neutrophils # (Manual) 7.3 TH/MM3 Metamyelocytes 1 % Laboratory Tests Test 02/11/17 05:00 02/12/17 06:00 02/12/17 12:34 Blood Urea Nitrogen 64 MG/DL 58 MG/DL 56 MG/DL Creatinine 4.76 MG/DL 4.33 MG/DL 4.11 MG/DL Random Glucose 136 MG/DL 180 MG/DL 369 MG/DL Albumin 1.3 GM/DL 1.1 GM/DL 1.0 GM/DL Calcium Level 7.6 MG/DL 7.0 MG/DL 6.3 MG/DL Phosphorus Level 2.4 MG/DL 2.7 MG/DL Magnesium Level 1.9 MG/DL Sodium Level 145 MEQ/L 145 MEQ/L 142 MEQ/L Potassium Level 3.0 MEQ/L 3.1 MEQ/L 3.2 MEQ/L Chloride Level 109 MEQ/L 103 MEQ/L 94 MEQ/L Carbon Dioxide Level 25.6 MEQ/L 29.2 MEQ/L 28.8 MEQ/L Anion Gap 10 MEQ/L 13 MEQ/L 19 MEQ/L Estimat Glomerular Filtration Rate 15 ML/MIN 17 ML/MIN 18 ML/MIN Total Protein 4.5 GM/DL 4.1 GM/DL Alkaline Phosphatase 80 U/L 70 U/L Aspartate Amino Transf (AST/SGOT) 49 U/L 46 U/L Alanine Aminotransferase (ALT/SGPT) 22 U/L 20 U/L Total Bilirubin 0.7 MG/DL 0.6 MG/DL Protein Corrected Calcium 8.4 MG/DL 7.8 MG/DL Total Creatine Kinase 61 U/L Troponin I 0.80 NG/ML Microbiology Date/Time Source Procedure Growth Status 02/11/17 22:14 Blood Peripheral Aerobic Blood Culture - Preliminary NO GROWTH IN 1 DAY Resulted 02/11/17 22:14 Blood Peripheral Anaerobic Blood Culture - Preliminary NO GROWTH IN 1 DAY Resulted 02/11/17 21:16 Blood Peripheral Aerobic Blood Culture - Preliminary NO GROWTH IN 1 DAY Resulted 02/11/17 21:16 Blood Peripheral Anaerobic Blood Culture - Preliminary NO GROWTH IN 1 DAY Resulted 02/11/17 13:30 Sputum Endotracheal Gram Stain - Final Resulted 02/11/17 13:30 Sputum Endotracheal Sputum Culture - Preliminary HEAVY GROWTH NORMAL RESPIRATORY PRAVEEN... Resulted Imaging Last Impressions Renal Ultrasound 02/11/17 07 Signed Impressions: Service Date/Time: Saturday, February 11, 2017 07:56 - CONCLUSION: 1. Improved resistive indices, now in the normal range. 2. Stable hydronephrosis 3. Stable small amount of simple perinephric fluid. Jimbo De La Torre MD Scrotum Ultrasound 02/11/17 0600 Signed Impressions: Service Date/Time: Saturday, February 11, 2017 08:19 - CONCLUSION: 1. Small right epididymal cyst. 2. Diffuse scrotal soft tissue edema. 3. Otherwise, unremarkable testicular ultrasound examination. Jimbo De La Torre MD Chest X-Ray 02/11/17 0600 Signed Impressions: Service Date/Time: Saturday, February 11, 2017 04:52 - CONCLUSION: Patchy perihilar pulmonary infiltrates right greater than left. ET tube is in good position. Alf Britton MD Head CT 02/11/17 0000 Signed Impressions: Service Date/Time: Saturday, February 11, 2017 02:33 - CONCLUSION: Continued abnormality in the right globe. No evidence of acute hemorrhage or acute change. Alf Britton MD Abdomen X-Ray 02/10/17 0000 Signed Impressions: Service Date/Time: January 21:51 - CONCLUSION: Stable gaseous distention of the stomach and colon with new dilated segment of small bowel in the midabdomen. The dilated small bowel is new and abnormal. However, the overall distribution is not suggestive of small bowel obstruction. Suggest performing a followup imaging to confirm resolution. Salas Thompson MD Abdomen/Pelvis CT 02/08/17 0000 Signed Impressions: Service Date/Time: Wednesday, February 08, 2017 20:13 - CONCLUSION: 1. No acute abnormality is identified to explain the diffuse abdominal pain. 2. Small bilateral pleural effusions, right larger than left, with associated compressive atelectasis. 3. Anasarca. 4. [place] kidneys are atrophic consistent with history of end-stage renal disease. Right lower quadrant transplant demonstrates mild degree of hydronephrosis. There is a small volume of free fluid in the abdomen and pelvis. 5. Severe atherosclerotic disease. Salas Thompson MD Physical Exam CONSTITUTIONAL/GENERAL: sed[facility] int'd [facility] TUBES/LINES/DRAINS: SKIN: + ? minimal jaundice, rashes, or lesions. Skin temperature appropriate. Not diaphoretic. EYES: OD - absent OS with some injected conjuntiva No drainage. Fundi not examined. ENT: Hearing grossly normal. Nose without bleeding or purulent drainage.Oral mucosae dry without visible erythema, exudates, masses, or lesions. Dentition is poor orally intubated CARDIOVASCULAR: Regular rate and rhythm without murmurs, gallops, or rubs. No JVD. Peripheral pulses symmetric. RESPIRATORY/CHEST: Symmetric, unlabored respirations. Clear to auscultation. Breath sounds equal bilaterally. No wheezes, rales, or rhonchi. GASTROINTESTINAL: Abdomen soft, non-tender, distended. No hepato-splenomegaly, or palpable masses. No guarding. Bowel sounds present. GENITOURINARY: Without palpable bladder distension. Mcmillan catheter in place with minimal amount of urine He has a non tender RLQ mass cw renal allograft MUSCULOSKELETAL: Extremities without clubbing, cyanosis, Prominent BUE edema. No joint tenderness or effusion noted. AKA L LYMPHATICS: No palpable cervical or supraclavicular adenopathy. NEUROLOGICAL: sedated unresponsive PSYCHIATRIC: unable to assess Assessment & Plan Remarks Sepsis with gram negative bacteremia in immunopcopromised pt sp renal allograft - fever, leukocotosuis and lactic acidosis - High grade Kleb pneumo bacteremia Complicated UTI, Kleb pneumo - persistent bactermia abd /pelvis CT unrevealing as far as abscess - last blood clx is negative Critically ill - code in progress ? acute cardiac event Diarrhea, C.diff negative New issue - aspiration PNA 2 D echo w/o vegetations Anoxic brain injury REC's: cont zosyn cont IV levaquine fu repeat Blood clx Zoë Hebert MD Feb 12, 2017 21:46
[2017-02-13] VITALS (14 sets, daily range): BP systolic 100–128; BP diastolic 46–59; PULSE 62–82; RESP 12; TEMP 95.4–99; O2SAT 98–100
[2017-02-13 02:25] LABS: BICARBONATE 31.7 MEQ/L (21.0-32.0); MAGNESIUM 1.6 MG/DL (1.5-2.5); POTASSIUM 3.3 MEQ/L (3.5-5.1)
[2017-02-13] MEDS: ALBUMIN HUMAN 25% 25 GM/100 ML BAGP IV SCH ×2 (02:46→15:57)
[2017-02-13 02:53] LABS: CALCIUM-PROTEIN CORRECTED 7.6 MG/DL (8.5-10.1)
[2017-02-13] MEDS: CHLORHEXIDINE GLUCONATE 2 % 1 PACK (2 CLOTHS) TOP SCH (03:14)
[2017-02-13] MEDS: PROPOFOL 1000 MG/100 ML IV PRN ×4 (04:15→23:52)
[2017-02-13 04:32] LABS: AUTOMATED NEUTROPHIL # 10.4 TH/MM3 (1.8-7.7); BASOPHIL % 0.1 % (0.0-2.0); EOSINOPHIL % 0.4 % (0.0-4.0); HEMATOCRIT 33.9 % (39.0-51.0); LYMPH % 5.4 % (9.0-44.0); LYMPHOCYTE # 0.6 TH/MM3 (1.0-4.8); MEAN CELL VOLUME 77.6 FL (80.0-100.0); MEAN CORPUSCULAR HEMOGLOBIN 25.4 PG (27.0-34.0); MEAN CORPUSCULAR HGB CONC 32.8 % (32.0-36.0); MONO % 2.9 % (0.0-8.0); NEUT % 91.2 % (16.0-70.0); PLATELET COUNT 48 TH/MM3 (150-450); RED BLOOD COUNT 4.37 MIL/MM3 (4.50-5.90); RED CELL DISTRIBUTION WIDTH 16.1 % (11.6-17.2); WHITE BLOOD COUNT 11.4 TH/MM3 (4.0-11.0)
--- NOTE | 2017-02-13 04:37 | MG ---
cc: JONO POWELL MD Sex: M DATE OF 1955 MEDICAL HISTORY: Intubated, sedated, cardiac arrest, encephalopathic, diabetes, dialysis hypertension, nephrectomy, headache, dizziness and syncope. MEDICATIONS 1. Propofol 2. Sodium bicarb/Dextrose. 3. Amlodipine 4. Dilantin. 5. Keppra 6. Ativan 7. Sodium chloride DESCRIPTION At the beginning of the EEG recording there is evidence of electrographic seizures with spike and wave activity, left more than right with intermittent sharp waves. After the patient was given 1 mg of Ativan, there was some sensation in the electrical activity, however, still intermittent sharp and spike waves, another milligram of Ativan. After the Diprivan was up there was still electrographic seizures but with mild slowing of the background. Photic stimulation did not elicit a driving response. Hyperventilation was not done. After Ativan was increased there was another cessation of the electrographic seizures but still with intermittent sharp waves and poly spikes. INTERPRETATION This is an abnormal EEG with evidence of electrographic seizures, poly spike and sharp waves bilaterally but more to the left hemisphere. Clinical correlation is recommended. Jono Powell MD [facility]EL /12:19 AM /3:55 AM MTDD
[2017-02-13 04:43] LABS: HEMO FLAGS AUTO DIFF
[2017-02-13] MEDS: TACROLIMUS 1 MG CAP PO SCH ×2 (05:10→17:25)
[2017-02-13] MEDS: PIPERACIL-TAZO 2.25 GM PREMIX 50 ML IV SCH ×4 (05:10→23:44)
[2017-02-13] MEDS: SODIUM BICARBONATE 8.4% INJ 150 MEQ in DEXTROSE 5% IN WATE 1000ML INJ 1,000 ML IV SCH ×2 (05:15)
[2017-02-13] MEDS: PHENYTOIN INJ 100 MG/2 ML VIAL IV SCH ×3 (05:19→21:02)
[2017-02-13 05:36] LABS: BANDS 4 % (0-6); CORRECTED NUCLEATED RBC 2 /100 WBC (0-0); EOSINOPHILS 2 % (0-4); NEUTROPHIL # MANUAL DIFF 10.4 TH/MM3 (1.8-7.7); POLYS (SEG NEUTROPHILS) 87 % (16-70); WBC DIFF SAMPLE 100
[2017-02-13 05:37] LABS: PLATELET ESTIMATE SMEAR LOW (NORMAL); PLATELET MORPHOLOGY NORMAL (NORMAL); SCAN/DIFF FINAL DIFF MANUAL; TARGET CELLS 1+ (NORMAL)
[2017-02-13] MEDS: INSULIN ASPART SUPPLEMENTAL SCALE SQ SCH ×4 (06:31→23:50)
[2017-02-13] MEDS: NOREPINEPHRINE-DEXTROSE DRIP 250 ML IV PRN ×2 (07:00→14:50)
[2017-02-13] MEDS ORDERED: POTASSIUM CHLOR 40 MEQ PREMIX 100 ML IV ONE (08:00)
--- NOTE | 2017-02-13 08:55 | HHI.CCPN ---
Subjective Remarks/Hospital Course 02/08: patient went for EGD yesterday with lots of blood in the stomach but no active signs of bleeding. today went back to EGD which found gastritis without any evidence of ulcerative disease. anion gap closed yesterday and transitioned off of insulin drip. blood growing klebsiella and ID on board, on abx. patient without complaints and feeling well and improved from yesterday. ROS negative. 02/10 while on the floor patient choked on the dinner food, resulting in respiratory layer cardiopulmonary arrest requiring 35 minutes of CPR multiple shocks for V. fib rhythm and injections of epinephrine, including endotracheal intubation 02/11: Remains sedated, orally intubated on mechanical ventilation. Having myoclonic seizures. Multiple attempted NG tube/OG tube placement unsuccessful overnight hence GI evaluation awaited to place NG tube as well as for further evaluation of dilated bowel loops noted on KUB. Has been loaded with Keppra and is currently on propofol and having intermittent myoclonus. 02/12: Remains sedated, orally intubated on mechanical ventilation. Continues to have myoclonic seizures off and on. Underwent EGD on 02/12 with large quantities of food material noted impacted and the esophagus as well as in the stomach. OG tube placed by GI during endoscopy. 02/13: Remains sedated, orally intubated on mechanical ventilation. On Levophed 1 lindsay per minute for hypotension. On propofol currently 30 mics per KG per minute. On Keppra and Dilantin for myoclonic seizures. Starting tube feeds with Nepro today. Objective Vital Signs Date Time Temp Pulse Resp B/P (MAP) Pulse Ox O2 Delivery O2 Flow Rate FiO2 02/13/17 04:28 100 35 02/13/17 04:00 95.9 63 12 124/59 (80) 02/10/17 19:15 15.00 Intake and Output 02/13/17 02/13/17 02/14/17 08:00 16:00 00:00 Intake Total 1146 ml Output Total 1700 ml Balance -554 ml Result Diagram: 02/13/17 0410 02/13/17 0140 Other Results Laboratory Tests Test 02/12/17 12:34 02/12/17 13:35 02/13/17 01:40 02/13/17 04:10 White Blood Count 11.9 TH/MM3 11.4 TH/MM3 Red Blood Count 4.77 MIL/MM3 4.37 MIL/MM3 Hemoglobin 11.8 GM/DL 11.1 GM/DL Hematocrit 36.8 % 33.9 % Mean Corpuscular Volume 77.2 FL 77.6 FL Mean Corpuscular Hemoglobin 24.8 PG 25.4 PG Mean Corpuscular Hemoglobin Concent 32.2 % 32.8 % Red Cell Distribution Width 16.0 % 16.1 % Platelet Count 44 TH/MM3 48 TH/MM3 Mean Platelet Volume 10.3 FL 11.5 FL Blood Urea Nitrogen 56 MG/DL 52 MG/DL Creatinine 4.11 MG/DL 4.05 MG/DL Random Glucose 369 MG/DL 314 MG/DL Total Protein 4.1 GM/DL 4.9 GM/DL Albumin 1.0 GM/DL Calcium Level 6.3 MG/DL 6.5 MG/DL Alkaline Phosphatase 70 U/L Aspartate Amino Transf (AST/SGOT) 46 U/L Alanine Aminotransferase (ALT/SGPT) 20 U/L Total Bilirubin 0.6 MG/DL Sodium Level 142 MEQ/L 145 MEQ/L Potassium Level 3.2 MEQ/L 3.3 MEQ/L Chloride Level 94 MEQ/L 100 MEQ/L Carbon Dioxide Level 28.8 MEQ/L 31.7 MEQ/L Anion Gap 19 MEQ/L 13 MEQ/L Estimat Glomerular Filtration Rate 18 ML/MIN 18 ML/MIN Protein Corrected Calcium 7.8 MG/DL 7.6 MG/DL Total Creatine Kinase 61 U/L 63 U/L Troponin I 0.80 NG/ML 0.78 NG/ML Blood Gas Puncture Site ART LINE Blood Gas Patient Temperature 98.6 Blood Gas HCO3 26 mmol/L Blood Gas Base Excess 4.8 mmol/L Blood Gas Oxygen Saturation 98 % Arterial Blood pH 7.65 Arterial Blood Partial Pressure CO2 23 mmHg Arterial Blood Partial Pressure O2 236 mmHg Arterial Blood Oxygen Content 19.8 Vol % Arterial Blood Carboxyhemoglobin 1.0 % Arterial Blood Methemoglobin 0.8 % Blood Gas Hemoglobin 14.0 G/DL Oxygen Delivery Device VENTILATOR Blood Gas Ventilator Setting [facility] 16/500/1.2IT/8+ Blood Gas Inspired Oxygen 100 % Phosphorus Level 3.3 MG/DL Magnesium Level 1.6 MG/DL Phenytoin (Dilantin) Level 17.6 MCG/ML 20.0 MCG/ML Neutrophils (%) (Auto) 91.2 % Lymphocytes (%) (Auto) 5.4 % Monocytes (%) (Auto) 2.9 % Eosinophils (%) (Auto) 0.4 % Basophils (%) (Auto) 0.1 % Neutrophils # (Auto) 10.4 TH/MM3 Lymphocytes # (Auto) 0.6 TH/MM3 Monocytes # (Auto) 0.3 TH/MM3 Eosinophils # (Auto) 0.0 TH/MM3 Basophils # (Auto) 0.0 TH/MM3 CBC Comment AUTO DIFF Differential Total Cells Counted 100 Neutrophils % (Manual) 87 % Band Neutrophils % 4 % Lymphocytes % 6 % Monocytes % 1 % Eosinophils % 2 % Neutrophils # (Manual) 10.4 TH/MM3 Nucleated Red Blood Cells 2 /100 WBC Differential Comment FINAL DIFF MANUAL Platelet Estimate LOW Platelet Morphology Comment NORMAL Target Cells 1+ Lactic Acid Level 3.5 mmol/L Imaging Last 24 hours Impressions Chest X-Ray 02/12/17 0000 Signed Impressions: Service Date/Time: Sunday, February 12, 2017 12:34 - CONCLUSION: Slightly improved bilateral airspace disease. Bilateral pleural effusions are probably not significantly changed. Salas Campos MD Last 48 hours Impressions Renal Ultrasound 02/11/17 0700 Signed Impressions: Service Date/Time: Saturday, February 11, 2017 07:56 - CONCLUSION: 1. Improved resistive indices, now in the normal range. 2. Stable hydronephrosis 3. Stable small amount of simple perinephric fluid. Jimbo De La Torre MD Scrotum Ultrasound 02/11/17 0600 Signed Impressions: Service Date/Time: Saturday, February 11, 2017 08:19 - CONCLUSION: 1. Small right epididymal cyst. 2. Diffuse scrotal soft tissue edema. 3. Otherwise, unremarkable testicular ultrasound examination. Jimbo De La Torre MD Chest X-Ray 02/11/17 0600 Signed Impressions: Service Date/Time: Saturday, February 11, 2017 04:52 - CONCLUSION: Patchy perihilar pulmonary infiltrates right greater than left. ET tube is in good position. Alf Britton MD Head CT 02/11/17 0000 Signed Impressions: Service Date/Time: Saturday, February 11, 2017 02:33 - CONCLUSION: Continued abnormality in the right globe. No evidence of acute hemorrhage or acute change. Alf Britton MD Chest X-Ray 02/10/17 0000 Signed Impressions: Service Date/Time: January 20:29 - CONCLUSION: 1. Bilateral perihilar distribution consolidation new from the prior study from 4 days ago. The appearance and distribution suggests pulmonary edema as the cause. 2. No concerning radiopaque foreign body is identified. There multiple lines overlying the patient and ET tube is present. Salas Thompson MD Abdomen X-Ray 02/10/17 0000 Signed Impressions: Service Date/Time: January 21:51 - CONCLUSION: Stable gaseous distention of the stomach and colon with new dilated segment of small bowel in the midabdomen. The dilated small bowel is new and abnormal. However, the overall distribution is not suggestive of small bowel obstruction. Suggest performing a followup imaging to confirm resolution. Salas Thompson MD Objective Remarks GENERAL: Elderly sick appearing man intubated SKIN: Warm and dry. HEAD: Normocephalic. EYES: No scleral icterus. No injection or drainage on left. 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 No JVD CARDIOVASCULAR: Regular rate and rhythm without murmurs, gallops, or rubs. RESPIRATORY: Orally intubated on mechanical ventilation, good air entry bilaterally, scattered rhonchi more on the right, no wheezing or crackles. GASTROINTESTINAL: Abdomen soft, non-tender, distended. Bowel sounds sluggish MUSCULOSKELETAL: No cyanosis, or edema. Status post left leg amputation Neuro: Sedated, orally intubated, occasional myoclonic jerks noted not responding to painful stimuli Procedures 02/08- EGD- gastritis, biopsy done 02/10 cardiopulmonary resuscitation - Arterial line placed Date of Insertion: Feb 06, 2017 Date of Insertion: Feb 10, 2017 Line: Central Venous Catheter Side: Right Location: Femoral A/P Assessment and Plan Cardiopulmonary arrest Suspected anoxic brain injury secondary to cardiac arrest - Due to aspiration - 35 minutes of CPR and ACLS protocol - Multiple cardioversions due to V. fib rhythm and injections of epinephrine - did not initiate hypothermia protocol due to sepsis and persistent bacteremia - Myoclonic seizures noted. EEG and neurology consult noted. - Continue Keppra, Dilantin, Ativan when necessary for myoclonic seizures. Propofol for sedation. Daily sedation vacation if seizures controlled. Acute Respiratory failure on mechanical ventilation - Due to above - No weaning until neurologically improved - Continue mechanical ventilation -Vent bundle, bronchodilators as needed. Hematemesis - Protonix IV twice a day, -GI placed OG tube after EGD on 02/12 with findings of large amounts of undigested food in esophagus as well as stomach - H&H stable - gastritis per EGD. - GI okay with starting tube feedings. Starting Nepro 15 cc/h on 02/13 to be advanced to goal of 30 cc per hour. Hypotension- resolved. Klebsiella Bacteremia Complicated UTI - Leukocytosis and fever - resolving sepsis. - Aggressive IV fluids resuscitation - Broad-spectrum antibiotics - Follow-up cultures -Antibiotics per ID Diabetes DKA- resolved. - SSI. - Started tube feeds with Nepro on 02/13 to be advanced to goal as tolerated.. Resume Levemir 10 units P every 12 hourly on 02/13. Acute on chronic kidney injury -Change IV fluid from bicarbonate drip to normal saline in view of improvement in metabolic acidosis. - Nephrology following - Monitor tacrolimus level - Strict I's and O's. Increase urine output noted this morning, if persists will consider workup for GD insipidus. - Creatinine and electrolyte level DVT GI prophylaxis - Teds SCDs -No subcutaneous heparin in view of thrombocytopenia and recent GI bleed - IV Protonix twice a day Discussed with PICC NURSElivestock caretaker following to assist with deciding goals of therapy in view of poor prognosis. Condition critical with significant anoxic brain injury following cardiac arrest on mechanical ventilation with active myoclonic seizures. The total critical care time was 40 minutes. Time to perform other separately billable procedures was not included in the critical care time. Calvin Leger MD Feb 13, 2017 08:55
[2017-02-13] MEDS: amLODIPine BESYLATE 5 MG TAB PO SCH (09:00)
[2017-02-13] MEDS: PANTOPRAZOLE SOD 40 MG DELAYED RELEASE TAB PO SCH (09:00)
[2017-02-13] MEDS: SYSTANE LEFT EYE SCH ×2 (09:00→20:01)
[2017-02-13] MEDS: BRIMONIDINE TARTRATE 0.2% OPHT SOLN 5 ML BTL LEFT EYE SCH ×3 (09:00→20:01)
[2017-02-13] MEDS: TIMOLOL MALEATE 0.5% OPHT SOLN 5 ML BTL LEFT EYE SCH ×3 (09:00→20:02)
[2017-02-13] MEDS: INSULIN DETEMIR 100 UNITS/ML VIAL SQ SCH ×2 (09:59→20:38)
[2017-02-13] MEDS: methylPREDNISolone SOD SUCC 40 MG/1 ML VIAL IV PUSH SCH (10:00)
[2017-02-13] MEDS: CALCITRIOL 0.25 MCG CAP PO SCH (10:00)
[2017-02-13] MEDS: GABAPENTIN 300 MG CAP PO SCH ×2 (10:00→20:00)
[2017-02-13] MEDS: DOCUSATE SODIUM 50 MG/SENNA 8.6 MG TAB PO SCH ×2 (10:00→20:00)
[2017-02-13] MEDS: levETIRAcetam 1000 MG INJ 100 ML IV SCH ×2 (10:00→20:00)
[2017-02-13] MEDS: SODIUM CHLOR 0.9% 1000 ML INJ 1,000 ML IV SCH ×2 (10:01→17:25)
[2017-02-13] MEDS: SODIUM CHLORIDE 0.9% FLUSH 10 ML FLUSH IV FLUSH SCH ×2 (10:01→20:01)
--- NOTE | 2017-02-13 12:40 | HHI.NPPN ---
Subjective Renal Failure: Chronic, Acute Additional Remarks had PEA/V tach/Shock/seizures on Vent after aspiration Objective Data Data 02/13/17 02/14/17 18:59 06:59 Intake Total 509 ml Balance 509 ml IV Total 509 ml Vital Signs Date Time Temp Pulse Resp B/P (MAP) Pulse Ox O2 Delivery O2 Flow Rate FiO2 02/13/17 11:55 100 35 02/13/17 10:05 67 97/46 02/13/17 10:00 82 02/13/17 09:22 100 35 02/13/17 08:00 62 02/13/17 08:00 95.4 62 12 100/48 (65) 98 02/13/17 08:00 35 02/13/17 07:00 59 135/56 02/13/17 04:28 100 35 02/13/17 04:00 35 02/13/17 04:00 95.9 63 12 124/59 (80) 100 02/13/17 00:00 40 02/13/17 00:00 96.6 62 12 117/58 (77) 100 02/12/17 23:52 100 40 02/12/17 22:00 45 02/12/17 21:18 100 45 02/12/17 20:00 97.0 64 12 110/82 (91) 100 02/12/17 16:11 100 50 02/12/17 16:00 97.2 66 12 166/74 (104) 100 02/12/17 16:00 40 02/12/17 15:00 70 -: 02/13/17 0410 02/13/17 0140 Tubes & Lines: Mcmillan Physical Exam General Appearance: Well Developed Appearance Remarks intubated Eyes Eye Remarks blind right eye left pupil dilated Pulmonary Resp Exam: Decreased Bases Cardiology CV Exam: Regular Gastrointestinal/Abdomen GI Exam: Bowel Sounds Present, Distended Musculoskeletal MS Exam: Unable to Ambulate Integumentary Skin Exam: Clear, Warm, Dry Extremeties Extremities Exam: Trace Edema (Left AKA) Neurologic Neuro Exam: Unresponsive Assessment/Plan Discussed Condition With: Patient Assessment Summary: DEANA/Acute Renal Failure, Anemia of CKD, Proteinuria, Diabetes Mellitus, Transplant Kidney Status Electrolyte Assessment: Metabolic Acidosis Problem List: (1) Acute renal insufficiency ICD Codes: N28.9 - Disorder of kidney and ureter, unspecified Status: Acute Plan: in multi organ failure, aspirated on food/ has gram negative sepsis prolong resuscitation doing poorly BP/Seizures poor prognosis addED albumin 25 gm q [address] show hydronephrosis of transplanted kidney Cr 4.05 slight decline may still need dialysis prognosis is guarded had Klebsiella sepsis Acidosis on bicarb drip follow labs replace K/Mg Tacrolimus 2 mg q 12 Last Tacrolimus level 4.8 keep it on lower side 4-6 (2) Renal transplant recipient ICD Codes: Z94.0 - Kidney transplant status Status: Chronic Plan: on tacrolimus 5 mg BID stopped as septic IV solumedrol his tacrolimus level reordered (3) GI bleed ICD Codes: K92.2 - Gastrointestinal hemorrhage, unspecified Plan: GI following, off protonix drip (on BID dosing) he apparently had blood in the stomach without identification of site of bleeding on EGD, + gastritis (4) Diabetes ICD Codes: E11.9 - Diabetes mellitus Status: Chronic Plan: resolved DKA continue insulin therapy , monitor glucose (5) Sepsis ICD Codes: A41.9 - Sepsis, unspecified organism Status: Acute Plan: suspected urosepsis, although culture is negative (he was given antibiotics prior to culture being obtained) + Klebsiella ID following, he is on Zosyn and Levaquin follow lactic acid monitor clinically (6) Metabolic encephalopathy ICD Codes: G93.41 - Metabolic encephalopathy Status: Acute Plan: due to infection continue supportive care (7) Cardiac arrest ICD Codes: I46.9 - Cardiac arrest, cause unspecified Status: Acute Plan: in ICU doing poorly, intubated septic and aspiration suspected Jose Eduardo Randle MD Feb 13, 2017 12:40
[2017-02-13] MEDS ORDERED: MAGNESIUM SULFATE 1 GM PREMIX 100 ML IV ONE (14:00)
[2017-02-13] MEDS: LACOSAMIDE INJ 100 MG in SODIUM CHLORIDE 0.9% INJ 100 ML IV SCH ×2 (14:16→20:40)
[2017-02-13] MEDS: POTASSIUM CHLORIDE INJ 30 MEQ in SODIUM CHLORIDE 0.9% INJ 100 ML IV-CENTRAL SCH ×2 (14:36→16:55)
--- NOTE | 2017-02-13 16:57 | HHI.GIFU ---
Subjective Remarks Pt on vent. TF just started, running 15ml/hr and pt has had 96ml total with residual 75ml per RN. (Kiana Villavicencio) Objective Vitals I&O Vital Signs Date Time Temp Pulse Resp B/P (MAP) Pulse Ox O2 Delivery O2 Flow Rate FiO2 02/13/17 14:50 69 139/60 02/13/17 14:31 100 35 02/13/17 14:00 70 02/13/17 12:00 98.6 68 12 108/46 (66) 100 02/13/17 12:00 35 02/13/17 12:00 68 02/13/17 11:55 100 35 02/13/17 10:05 67 97/46 02/13/17 10:00 82 02/13/17 09:22 100 35 02/13/17 08:00 62 02/13/17 08:00 95.4 62 12 100/48 (65) 98 02/13/17 08:00 35 02/13/17 07:00 59 135/56 02/13/17 04:28 100 35 02/13/17 04:00 35 02/13/17 04:00 95.9 63 12 124/59 (80) 100 02/13/17 00:00 40 02/13/17 00:00 96.6 62 12 117/58 (77) 100 02/12/17 23:52 100 40 02/12/17 22:00 45 02/12/17 21:18 100 45 02/12/17 20:00 97.0 64 12 110/82 (91) 100 I/O 02/12/17 02/12/17 02/12/17 02/13/17 02/13/17 02/13/17 07:00 15:00 23:00 07:00 15:00 23:00 Intake Total 1869 ml 530 ml 2727 ml 1146 ml 659 ml 210 ml Output Total 226 ml 3050 ml 1700 ml Balance 1643 ml 530 ml -323 ml -554 ml 659 ml 210 ml IV Total 1869 ml 530 ml 2727 ml 1146 ml 659 ml 210 ml Output Urine Total 225 ml 2950 ml 1450 ml Stool Total 1 ml Gastric Drainage Total 100 ml 250 ml # Bowel Movements 0 0 Laboratory Laboratory Tests Test 02/13/17 01:40 02/13/17 04:10 Blood Urea Nitrogen 52 Creatinine 4.05 Random Glucose 314 Total Protein 4.9 Calcium Level 6.5 Phosphorus Level 3.3 Magnesium Level 1.6 Sodium Level 145 Potassium Level 3.3 Chloride Level 100 Carbon Dioxide Level 31.7 Anion Gap 13 Estimat Glomerular Filtration Rate 18 Protein Corrected Calcium 7.6 Total Creatine Kinase 63 Troponin I 0.78 Phenytoin (Dilantin) Level 17.6 20.0 White Blood Count 11.4 Red Blood Count 4.37 Hemoglobin 11.1 Hematocrit 33.9 Mean Corpuscular Volume 77.6 Mean Corpuscular Hemoglobin 25.4 Mean Corpuscular Hemoglobin Concent 32.8 Red Cell Distribution Width 16.1 Platelet Count 48 Mean Platelet Volume 11.5 Neutrophils (%) (Auto) 91.2 Lymphocytes (%) (Auto) 5.4 Monocytes (%) (Auto) 2.9 Eosinophils (%) (Auto) 0.4 Basophils (%) (Auto) 0.1 Neutrophils # (Auto) 10.4 Lymphocytes # (Auto) 0.6 Monocytes # (Auto) 0.3 Eosinophils # (Auto) 0.0 Basophils # (Auto) 0.0 CBC Comment AUTO DIFF Differential Total Cells Counted 100 Neutrophils % (Manual) 87 Band Neutrophils % 4 Lymphocytes % 6 Monocytes % 1 Eosinophils % 2 Neutrophils # (Manual) 10.4 Nucleated Red Blood Cells 2 Differential Comment FINAL DIFF MANUAL Platelet Estimate LOW Platelet Morphology Comment NORMAL Target Cells 1+ Lactic Acid Level 3.5 Tacrolimus (Prograf) Level 4.8 Date/Time Source Procedure Growth Status 02/11/17 22:14 Blood Peripheral Aerobic Blood Culture - Preliminary NO GROWTH IN 2 DAYS Resulted 02/11/17 22:14 Blood Peripheral Anaerobic Blood Culture - Preliminary NO GROWTH IN 2 DAYS Resulted 02/11/17 13:30 Sputum Endotracheal Gram Stain - Final Complete 02/11/17 13:30 Sputum Endotracheal Sputum Culture - Final HEAVY GROWTH NORMAL RESPIRATORY PRAVEEN Complete 02/08/17 02:20 Urine Clean Catch Urine Culture - Final <10,000 CFU/ML GRAM NEGATIVE REMA Complete Physical Exam HEENT: Normocephalic; atraumatic; no jaundice. CHEST: OETT to sophie, resp. even/unlabored, course breath sounds. CARDIAC: RRR + murmur ABDOMEN: Soft, mildly distended, no hepatosplenomegaly; bowel sounds are hypoactive EXTREMITIES:Left AKA SKIN: Normal; no rash; no jaundice. HOST/HOSTESS GROUND: Sedated on vent. (Kiana Villavicencio) Assessment and Plan Plan ASSESSMENT: - Nausea/vomiting with gaseous distention of stomach, small bowel, colon. KUB ( 02/10/17)----> Stable gaseous distention of the stomach and colon with new dilated segment of small bowel in the midabdomen. The dilated small bowel is new and abnormal. However, the overall distribution is not suggestive of small bowel obstruction. Suggest performing a followup imaging to confirm resolution. s /p EGD with OGT placement, found erythematous gastritis, large amount residual food disimpacted TF running 15ml/hr, initially high residual - S/P Code. Per report, choked while eating and went into cardiopulmonary arrest, s/p ACLS protocol. - Resp. failure/COPD. Vent per CCM. Levaquin, Zosy, Steroid, nebs - Upper GIB, Hematemesis. S/P EGD (02/08/17)----> 1. The esophagus was otherwise normal 2. There was erythematous gastritis in the gastric antrum; multiple biopsies were performed 3. Normal duodenal mucosa in the bulb and second portion of the duodenum 4. Retroflexion was performed and was normal. Pathology antral mucosa with mild chronic inflammation of the lamina propria. Acute inflammation is not identified. A clifford stain is negative for helicobacter. No further episodes. HH gradual decrease - Diarrhea, 3-4 loose stools today. CDiff negative on 02/08. - Leukocytosis/Bacteremia. Cx with klebsiella pneumoniae, repeat with GNR. Levaquin, Zosyn. - Elevated Glucose/Uncontrolled DM. Per attending. - Acute on CKD with hx of renal transplant. Creat 4.05. Renal following. - CAD, HTN, Hyperlipidemia, PVD, Depression - Hx HCV antibodies, but undetectable viral load x 2. PLAN: - continue TF at 15ml hr until residuals improve - Reglan 5mg IV q8h - Cont. PPI - Monitor HH - Transfuse as necessary - Supportive care - Pt seen and examined by Dr. Mclaughlin and myself and this note is written on his behalf (Kiana Villavicencio) Physician Comments Seen and examined, plan as above. Will follow up with you periodically. (Miah Mclaughlin MD) Kiana Villavicencio Feb 13, 2017 16:57 Miah Mclaughlin MD Feb 13, 2017 22:58
--- NOTE | 2017-02-13 17:31 | HHI.PR ---
Review/Management Diagnosis Encephalopathy Myoclonic seizures Electrographic seizures Likely etiology is cerebral hypoxia/anoxia Plan - Neuro checks Q1h - Keppra 1gm Q12h - Dilantin 100mg Q8h - Added Lacosamide (Vimpat 100mg Q12h) - Seizure precautions' -Continue supportive medical therapy Diagnosis/Plan: Subjective Subjective Comments Patient is intubated Myoclonic jerking of UE and LE extremities, intermittent EEG with evidence of electrographic seizures Dilantin level is therapeutic Active Medications Current Medications Medications (Trade) Dose Ordered Sig/Pramod Route Start Time Stop Time Status Last Admin (Lipitor) 40 mg HS PO 02/07/17 21:00 02/12/17 20:52 (Rocaltrol) 0.25 mcg DAILY PO 02/07/17 09:00 02/13/17 10:00 Patient Own Medication PT OWN MED: SYST... BID LEFT EYE 02/07/17 09:00 02/10/17 21:00 (NS Flush) 2 ml UNSCH PRN IV FLUSH 02/06/17 21:45 02/08/17 12:59 (NS Flush) 2 ml BID IV FLUSH 02/07/17 09:00 02/13/17 10:01 (Tylenol) 650 mg Q4H PRN PO 02/06/17 21:45 02/06/17 22:25 (Zofran Inj) 4 mg Q6H PRN IVP 02/06/17 21:45 (Tylenol) 650 mg Q6H PRN PO 02/06/17 21:45 (Percocet 5-325 Mg) 1 tab Q6H PRN PO 02/06/17 21:45 (Percocet 10-325 Mg) 1 tab Q6H PRN PO 02/06/17 21:45 02/10/17 13:19 (Morphine Inj) 1 mg Q3H PRN IV 02/06/17 21:45 (Narcan Inj) 0.4 mg UNSCH PRN IV 02/06/17 21:45 (Zuleyka-Colace) 1 tab BID PO 02/07/17 09:00 02/13/17 10:00 (Senokot) 17.2 mg Q12H PRN PO 02/06/17 21:45 (Lactulose Liq) 30 ml DAILY PRN PO 02/06/17 21:45 (Alphagan 0.2% Opth Soln) 1 drop DAILY@0900,1400,2100 LEFT EYE 02/07/17 09:00 02/11/17 20:23 (Timoptic 0.5% Opth Soln) 1 drop DAILY@0900,1400,2100 LEFT EYE 02/07/17 09:00 02/11/17 20:23 (Duoneb Neb) 1 ampule Q2HR NEB PRN INH 02/07/17 06:00 Norepinephrine Bitartrate 250 ml @ 7.5 mls/hr TITRATE PRN IV 02/07/17 06:00 02/13/17 14:50 (Brethine Inj) 1 mg UNSCH PRN SQ 02/07/17 06:00 (Flomax) 0.4 mg HS PO 02/07/17 21:00 02/12/17 20:52 Miscellaneous Information 1 Q361D XX 02/07/17 07:00 02/07/17 07:00 (Chlorhexidine 2% Cloth) Taper DAILY@04 TOP 02/08/17 04:00 02/04/18 03:59 02/13/17 03:14 (Chlorhexidine 2% Cloth) 3 pack UNSCH PRN TOP 02/07/17 07:00 (D50w (Vial) Inj) 50 ml UNSCH PRN IV 02/08/17 00:45 (Glucagon Inj) 1 mg UNSCH PRN OTHER 02/08/17 00:45 (SoluMEDROL INJ) 40 mg DAILY IV PUSH 02/08/17 12:00 02/13/17 10:00 Piperacillin Sod/ Tazobactam Sod 50 ml @ 100 mls/hr Q6HR IV 02/08/17 18:00 02/13/17 17:25 (Protonix) 40 mg DAILY PO 02/11/17 09:00 (Norvasc) 2.5 mg DAILY PO 02/10/17 11:30 02/10/17 12:23 (Neurontin) 300 mg BID PO 02/10/17 21:00 02/13/17 10:00 Levofloxacin/ Dextrose 100 ml @ 100 mls/hr Q48H IV 02/10/17 20:00 02/12/17 20:51 (Ativan Inj) 1 mg Q5M PRN IV 02/11/17 02:15 02/12/17 13:10 (Pill Splitter) 1 ea UNSCH PRN OTHER 02/11/17 07:00 Propofol 100 ml @ 2.109 mls/ hr TITRATE PRN IV 02/11/17 07:45 02/13/17 17:25 Levetriacetam 100 ml @ 400 mls/hr Q12HR IV 02/11/17 15:00 02/13/17 10:00 (Dilantin Inj) 100 mg Q8HR IV 02/11/17 22:00 02/13/17 14:48 Norepinephrine Bitartrate 4 mg/ Sodium Chloride 250 ml @ 7.5 mls/hr TITRATE PRN IV 02/12/17 13:00 (Prograf) 2 mg BID@06,18 PO 02/12/17 18:00 02/13/17 17:25 (Albumin 25% Inj) 25 gm Q12H IV 02/12/17 15:00 02/13/17 15:57 (Levemir Inj) 10 units Q12HR SQ 02/13/17 09:00 04/19/17 12:00 02/13/17 09:59 (NovoLOG SUPPLEMENTAL SCALE) 1 Q6HR SQ 02/13/17 12:00 06/19/17 12:00 02/13/17 17:21 Sodium Chloride 1,000 ml @ 100 mls/hr Q10H IV 02/13/17 08:00 02/13/17 10:01 Lacosamide 100 mg/ Sodium Chloride 110 ml @ 110 mls/hr Q12HR IV 02/13/17 13:00 02/13/17 14:16 Potassium Chloride 30 meq/ Sodium Chloride 115 ml @ 38.333 mls/ hr Q3H IV-CENTRAL 02/13/17 15:00 02/13/17 20:59 02/13/17 16:55 Allergies Allergies Coded Allergies No Known Allergies (Unverified10/27/16) Review of Systems All other ROS: ROS reviewed as documented in chart Exam I&O / VS 02/13/17 02/13/17 02/14/17 15:00 23:00 07:00 Intake Total 659 ml 210 ml Balance 659 ml 210 ml IV Total 659 ml 210 ml Vital Signs Date Time Temp Pulse Resp B/P (MAP) Pulse Ox O2 Delivery O2 Flow Rate FiO2 02/13/17 14:50 69 139/60 02/13/17 14:31 100 35 02/13/17 14:00 70 02/13/17 12:00 98.6 68 12 108/46 (66) 100 02/13/17 12:00 35 02/13/17 12:00 68 02/13/17 11:55 100 35 02/13/17 10:05 67 97/46 02/13/17 10:00 82 02/13/17 09:22 100 35 02/13/17 08:00 62 02/13/17 08:00 95.4 62 12 100/48 (65) 98 02/13/17 08:00 35 02/13/17 07:00 59 135/56 02/13/17 04:28 100 35 02/13/17 04:00 35 02/13/17 04:00 95.9 63 12 124/59 (80) 100 02/13/17 00:00 40 02/13/17 00:00 96.6 62 12 117/58 (77) 100 02/12/17 23:52 100 40 02/12/17 22:00 45 02/12/17 21:18 100 45 02/12/17 20:00 97.0 64 12 110/82 (91) 100 Respiratory: Lungs CTA, Non-labored respirations Cardiology: Normal rate Musculoskeletal: ROM, Other Exam Comments unchanged neurologic exam Objective Radiology Results Last 72 hours Impressions Lower Extremity Ultrasound 02/12/17 0000 Signed Impressions: Service Date/Time: Sunday, February 12, 2017 16:21 - CONCLUSION: 1. Left [id number] amputation with clot identified within the left superficial femoral vein proximal and mid vein. There is normal flow and respiratory variation identified within the more proximal portions of the left deep venous system. 2. Overlying bandage and IV material limit evaluation of the more proximal right deep venous system with normal compressibility identified within the femoral vein, popliteal and veins of the calf. No augmentation maneuvers were performed on the right. Chantale Rothman MD Chest X-Ray 02/12/17 0000 Signed Impressions: Service Date/Time: Sunday, February 12, 2017 12:34 - CONCLUSION: Slightly improved bilateral airspace disease. Bilateral pleural effusions are probably not significantly changed. Salas Campos MD Renal Ultrasound 02/11/17699 Signed Impressions: Service Date/Time: Saturday, February 11, 2017 07:56 - CONCLUSION: 1. Improved resistive indices, now in the normal range. 2. Stable hydronephrosis 3. Stable small amount of simple perinephric fluid. Jimbo De La Torre MD Scrotum Ultrasound 02/11/17599 Signed Impressions: Service Date/Time: Saturday, February 11, 2017 08:19 - CONCLUSION: 1. Small right epididymal cyst. 2. Diffuse scrotal soft tissue edema. 3. Otherwise, unremarkable testicular ultrasound examination. Jimbo De La Torre MD Chest X-Ray 02/11/17599 Signed Impressions: Service Date/Time: Saturday, February 11, 2017 04:52 - CONCLUSION: Patchy perihilar pulmonary infiltrates right greater than left. ET tube is in good position. Alf Britton MD Micro and Labs Laboratory Tests Test 02/13/17 01:40 02/13/17 04:10 Blood Urea Nitrogen 52 Creatinine 4.05 Random Glucose 314 Total Protein 4.9 Calcium Level 6.5 Phosphorus Level 3.3 Magnesium Level 1.6 Sodium Level 145 Potassium Level 3.3 Chloride Level 100 Carbon Dioxide Level 31.7 Anion Gap 13 Estimat Glomerular Filtration Rate 18 Protein Corrected Calcium 7.6 Total Creatine Kinase 63 Troponin I 0.78 Phenytoin (Dilantin) Level 17.6 20.0 White Blood Count 11.4 Red Blood Count 4.37 Hemoglobin 11.1 Hematocrit 33.9 Mean Corpuscular Volume 77.6 Mean Corpuscular Hemoglobin 25.4 Mean Corpuscular Hemoglobin Concent 32.8 Red Cell Distribution Width 16.1 Platelet Count 48 Mean Platelet Volume 11.5 Neutrophils (%) (Auto) 91.2 Lymphocytes (%) (Auto) 5.4 Monocytes (%) (Auto) 2.9 Eosinophils (%) (Auto) 0.4 Basophils (%) (Auto) 0.1 Neutrophils # (Auto) 10.4 Lymphocytes # (Auto) 0.6 Monocytes # (Auto) 0.3 Eosinophils # (Auto) 0.0 Basophils # (Auto) 0.0 CBC Comment AUTO DIFF Differential Total Cells Counted 100 Neutrophils % (Manual) 87 Band Neutrophils % 4 Lymphocytes % 6 Monocytes % 1 Eosinophils % 2 Neutrophils # (Manual) 10.4 Nucleated Red Blood Cells 2 Differential Comment FINAL DIFF MANUAL Platelet Estimate LOW Platelet Morphology Comment NORMAL Target Cells 1+ Lactic Acid Level 3.5 Tacrolimus (Prograf) Level 4.8 Date/Time Source Procedure Growth Status 02/11/17 22:14 Blood Peripheral Aerobic Blood Culture - Preliminary NO GROWTH IN 2 DAYS Resulted 02/11/17 22:14 Blood Peripheral Anaerobic Blood Culture - Preliminary NO GROWTH IN 2 DAYS Resulted 02/11/17 13:30 Sputum Endotracheal Gram Stain - Final Complete 02/11/17 13:30 Sputum Endotracheal Sputum Culture - Final HEAVY GROWTH NORMAL RESPIRATORY PRAVEEN Complete 02/08/17 02:20 Urine Clean Catch Urine Culture - Final <10,000 CFU/ML GRAM NEGATIVE REMA Complete Darius Powell MD Feb 13, 2017 17:31
[2017-02-13] MEDS: TAMSULOSIN HCL 0.4 MG CAP PO SCH (20:00)
[2017-02-13] MEDS: ATORVASTATIN 40 MG TAB PO SCH (20:00)
[2017-02-14] VITALS (15 sets, daily range): BP systolic 116–147; BP diastolic 49–66; PULSE 62–80; RESP 12; TEMP 96.6–98.1; O2SAT 95–100
[2017-02-14] MEDS: SODIUM CHLOR 0.9% 1000 ML INJ 1,000 ML IV SCH ×2 (00:27→13:43)
[2017-02-14] MEDS: ALBUMIN HUMAN 25% 25 GM/100 ML BAGP IV SCH ×2 (02:33→13:49)
[2017-02-14] MEDS: CHLORHEXIDINE GLUCONATE 2 % 1 PACK (2 CLOTHS) TOP SCH (03:04)
[2017-02-14] MEDS: PHENYTOIN INJ 100 MG/2 ML VIAL IV SCH ×3 (04:35→22:33)
[2017-02-14] MEDS: PIPERACIL-TAZO 2.25 GM PREMIX 50 ML IV SCH ×3 (04:35→19:02)
[2017-02-14] MEDS: TACROLIMUS 1 MG CAP PO SCH ×2 (05:09→19:02)
[2017-02-14] MEDS: INSULIN ASPART SUPPLEMENTAL SCALE SQ SCH ×3 (05:13→18:00)
[2017-02-14 05:19] LABS: AUTOMATED NEUTROPHIL # 13.4 TH/MM3 (1.8-7.7); BASOPHIL % 0.1 % (0.0-2.0); EOSINOPHIL # 0.1 TH/MM3 (0-0.4); EOSINOPHIL % 0.8 % (0.0-4.0); HEMATOCRIT 35.7 % (39.0-51.0); LYMPH % 3.8 % (9.0-44.0); LYMPHOCYTE # 0.6 TH/MM3 (1.0-4.8); MEAN CELL VOLUME 78.1 FL (80.0-100.0); MEAN CORPUSCULAR HEMOGLOBIN 25.4 PG (27.0-34.0); MEAN CORPUSCULAR HGB CONC 32.6 % (32.0-36.0); MONO % 3.1 % (0.0-8.0); NEUT % 92.2 % (16.0-70.0); PLATELET COUNT 67 TH/MM3 (150-450); RED BLOOD COUNT 4.57 MIL/MM3 (4.50-5.90); RED CELL DISTRIBUTION WIDTH 16.2 % (11.6-17.2); WHITE BLOOD COUNT 14.5 TH/MM3 (4.0-11.0)
[2017-02-14 05:22] LABS: HEMO FLAGS DIFF FINAL
[2017-02-14 05:33] LABS: BICARBONATE 30.1 MEQ/L (21.0-32.0); CALCIUM-PROTEIN CORRECTED 7.8 MG/DL (8.5-10.1); MAGNESIUM 1.8 MG/DL (1.5-2.5); POTASSIUM 3.3 MEQ/L (3.5-5.1); TOTAL BILIRUBIN ADULT 0.8 MG/DL (0.2-1.0)
[2017-02-14] MEDS: PROPOFOL 1000 MG/100 ML IV PRN ×3 (08:20→23:22)
[2017-02-14] MEDS: levETIRAcetam 1000 MG INJ 100 ML IV SCH ×2 (08:22→20:37)
[2017-02-14] MEDS: methylPREDNISolone SOD SUCC 40 MG/1 ML VIAL IV PUSH SCH (08:22)
[2017-02-14] MEDS: GABAPENTIN 300 MG CAP PO SCH ×2 (08:23→20:38)
[2017-02-14] MEDS: amLODIPine BESYLATE 5 MG TAB PO SCH (08:25)
[2017-02-14] MEDS: INSULIN DETEMIR 100 UNITS/ML VIAL SQ SCH ×2 (08:25→21:46)
[2017-02-14] MEDS: CALCITRIOL 0.25 MCG CAP PO SCH (08:25)
[2017-02-14] MEDS: DOCUSATE SODIUM 50 MG/SENNA 8.6 MG TAB PO SCH ×2 (08:25→20:38)
[2017-02-14] MEDS: TIMOLOL MALEATE 0.5% OPHT SOLN 5 ML BTL LEFT EYE SCH ×3 (08:26→21:00)
[2017-02-14] MEDS: BRIMONIDINE TARTRATE 0.2% OPHT SOLN 5 ML BTL LEFT EYE SCH ×3 (08:26→21:00)
[2017-02-14] MEDS: PANTOPRAZOLE SOD 40 MG DELAYED RELEASE TAB PO SCH (08:26)
[2017-02-14] MEDS: SODIUM CHLORIDE 0.9% FLUSH 10 ML FLUSH IV FLUSH SCH ×2 (09:00→21:00)
[2017-02-14] MEDS: LACOSAMIDE INJ 100 MG in SODIUM CHLORIDE 0.9% INJ 100 ML IV SCH ×2 (09:04→21:18)
--- NOTE | 2017-02-14 11:43 | HHI.NPPN ---
Subjective Renal Failure: Chronic, Acute Interval History Remains unresponsive on ventilator. Pupils not reactive. Renal function is slightly better. (Nila Mckeon) Review of Systems General General Remarks unable to evaluate (Nila Mckeon) Objective Data Data 02/14/17 02/15/17 19:00 07:00 Intake Total 205 ml Balance 205 ml IV Total 205 ml Vital Signs Date Time Temp Pulse Resp B/P (MAP) Pulse Ox O2 Delivery O2 Flow Rate FiO2 02/14/17 10:00 65 02/14/17 09:13 100 35 02/14/17 08:00 35 02/14/17 08:00 97.8 65 12 145/62 (89) 100 02/14/17 08:00 66 02/14/17 04:00 96.6 62 12 119/49 (72) 100 02/14/17 04:00 35 02/14/17 02:27 100 35 02/14/17 00:00 97.3 63 12 116/50 (72) 100 02/14/17 00:00 35 02/13/17 20:00 98.4 71 12 120/54 (76) 100 02/13/17 20:00 35 02/13/17 18:09 100 35 02/13/17 18:00 68 02/13/17 16:00 35 02/13/17 16:00 99.0 68 12 128/56 (80) 100 02/13/17 16:00 68 02/13/17 14:50 69 139/60 02/13/17 14:31 100 35 02/13/17 14:00 70 02/13/17 12:00 98.6 68 12 108/46 (66) 100 02/13/17 12:00 35 02/13/17 12:00 68 02/13/17 11:55 100 35 (Nila Mckeon) -: 02/14/17 0450 02/14/17 0450 Imaging Last 72 hours Impressions Lower Extremity Ultrasound 02/12/17 0000 Signed Impressions: Service Date/Time: Sunday, February 12, 2017 16:21 - CONCLUSION: 1. Left smviz-plr-[id number] amputation with clot identified within the left superficial femoral vein proximal and mid vein. There is normal flow and respiratory variation identified within the more proximal portions of the left deep venous system. 2. Overlying bandage and IV material limit evaluation of the more proximal right deep venous system with normal compressibility identified within the femoral vein, popliteal and veins of the calf. No augmentation maneuvers were performed on the right. Chantale Rothman MD Chest X-Ray 02/12/17 0000 Signed Impressions: Service Date/Time: Sunday, February 12, 2017 12:34 - CONCLUSION: Slightly improved bilateral airspace disease. Bilateral pleural effusions are probably not significantly changed. Salas Campos MD Tubes & Lines: [facility]millan Tubes & Lines Comment A line Drip Comment Levophed, propofol, 0.9% NS (MikeNila fraser B. [employer]) Physical Exam General Appearance: Well Developed, No Acute Distress, Sleeping Appearance Remarks intubated/unresponsive (Nila Mckeon B. [employer]) Throat Throat Exam: Oral Mucosa [place] & Moist (Nila Mckeon B. [employer]) Pulmonary Resp Exam: Decreased Bases Resp Remarks vented lung sounds (Nila Mckeon B. [employer]) Cardiology CV Exam: Regular, Normal Sinus Rhythm, Murmur CV Remarks IV/ systolic murmur (Nila Mckeon B. [employer]) Gastrointestinal/Abdomen GI Exam: Soft, Non-Tender, Bowel Sounds Present GI Remarks renal transplant palpable RLQ, non tender (Nila Mckeon B. [employer]) Genitourinary Exam: Clear Urine (Nila Mckeon B. [employer]) Musculoskeletal MS Exam: Unable to Ambulate MS Remarks s/p left AKA , well healed (Nila Mckeon B. [employer]) Integumentary Skin Exam: Clear, Warm, Dry, Intact (MikeNila B. [employer]) Extremeties Extremities Exam: Moderate Edema Extremeties Remarks right arm edematous (Nila Mckeon B. [employer]) Neurologic Neuro Exam: Unresponsive, Sedated (MikeNila B. [employer]) Assessment/Plan Assessment Summary: DEANA/Acute Renal Failure, Anemia of CKD, Proteinuria, Diabetes Mellitus, Transplant Kidney Status Electrolyte Assessment: Metabolic Acidosis Problem List: (1) Acute renal insufficiency ICD Codes: N28.9 - Disorder of kidney and ureter, unspecified Status: Acute Plan: renal US and CT show hydronephrosis of transplanted kidney urology has evaluated DEANA due to sepsis hx of renal transplant, tacrolimus level is acceptable, monitor intermittently renal function improved slightly he is non oliguric continue IVF prognosis is guarded obtain daily labs (2) Renal transplant recipient ICD Codes: Z94.0 - Kidney transplant status Status: Chronic Plan: on tacrolimus 5 mg BID also on IV solumedrol his tacrolimus level is acceptable (3) GI bleed ICD Codes: K92.2 - Gastrointestinal hemorrhage, unspecified Plan: GI following, s/p EGD last week tube feeding has been started (4) Diabetes ICD Codes: E11.9 - Diabetes mellitus Status: Chronic Plan: resolved DKA continue insulin therapy , monitor glucose (5) Sepsis ICD Codes: A41.9 - Sepsis, unspecified organism Status: Acute Plan: suspected urosepsis, although culture is negative (he was given antibiotics prior to culture being obtained) + Klebsiella ID following, he is on Zosyn and Levaquin follow lactic acid monitor clinically (6) Metabolic encephalopathy ICD Codes: G93.41 - Metabolic encephalopathy Status: Acute Plan: due to infection he also developed seizures now unresponsive with fixed/dilated pupils family in route to vaed with palliative care and discuss goals continue supportive care for now (7) Cardiac arrest ICD Codes: I46.9 - Cardiac arrest, cause unspecified Status: Acute Plan: monitor cardiopulmonary status A line placed, still on pressors and intubated (Nila Mckeon) Plan patient was seen and examined. Agree with above assessment and plan. Poor prognosis. No immediate need for dialysis. On antibiotics for sepsis. (Roshan Burciaga MD) Nila Mckeon Feb 14, 2017 11:43 Roshan Burciaga MD Feb 15, 2017 10:09
--- NOTE | 2017-02-14 15:57 | HHI.CCPN ---
Subjective Remarks/Hospital Course 02/08: patient went for EGD yesterday with lots of blood in the stomach but no active signs of bleeding. today went back to EGD which found gastritis without any evidence of ulcerative disease. anion gap closed yesterday and transitioned off of insulin drip. blood growing klebsiella and ID on board, on abx. patient without complaints and feeling well and improved from yesterday. ROS negative. 02/10 while on the floor patient choked on the dinner food, resulting in respiratory layer cardiopulmonary arrest requiring 35 minutes of CPR multiple shocks for V. fib rhythm and injections of epinephrine, including endotracheal intubation 02/11: Remains sedated, orally intubated on mechanical ventilation. Having myoclonic seizures. Multiple attempted NG tube/OG tube placement unsuccessful overnight hence GI evaluation awaited to place NG tube as well as for further evaluation of dilated bowel loops noted on KUB. Has been loaded with Keppra and is currently on propofol and having intermittent myoclonus. 02/12: Remains sedated, orally intubated on mechanical ventilation. Continues to have myoclonic seizures off and on. Underwent EGD on 02/12 with large quantities of food material noted impacted and the esophagus as well as in the stomach. OG tube placed by GI during endoscopy. 02/13: Remains sedated, orally intubated on mechanical ventilation. On Levophed 1 lindsay per minute for hypotension. On propofol currently 30 mics per KG per minute. On Keppra and Dilantin for myoclonic seizures. Starting tube feeds with Nepro today. 02/14: Remains sedated, orally intubated on mechanical ventilation. Remains on Levophed at 1 lindsay per minute. Tolerating tube feeds. Objective Vital Signs Date Time Temp Pulse Resp B/P (MAP) Pulse Ox O2 Delivery O2 Flow Rate FiO2 02/14/17 14:00 66 02/14/17 12:54 99 35 02/14/17 12:00 97.9 12 146/64 (91) 02/10/17 19:15 15.00 Intake and Output 02/14/17 02/14/17 02/15/17 08:00 16:00 00:00 Intake Total 1941 ml 1345 ml Output Total 1550 ml Balance 391 ml 1345 ml Result Diagram: 02/14/17 0450 02/14/17 0450 Other Results Blood cultures from 02/11, 02/09 growing Klebsiella Imaging Last 24 hours Impressions Chest X-Ray 02/12/17 0000 Signed Impressions: Service Date/Time: Sunday, February 12, 2017 12:34 - CONCLUSION: Slightly improved bilateral airspace disease. Bilateral pleural effusions are probably not significantly changed. Salas Campos MD Last 48 hours Impressions Renal Ultrasound 02/11/17 0700 Signed Impressions: Service Date/Time: Saturday, February 11, 2017 07:56 - CONCLUSION: 1. Improved resistive indices, now in the normal range. 2. Stable hydronephrosis 3. Stable small amount of simple perinephric fluid. Jimbo De La Torre MD Scrotum Ultrasound 02/11/17 06 Signed Impressions: Service Date/Time: Saturday, February 11, 2017 08:19 - CONCLUSION: 1. Small right epididymal cyst. 2. Diffuse scrotal soft tissue edema. 3. Otherwise, unremarkable testicular ultrasound examination. Jimbo De La Torre MD Chest X-Ray 02/11/17 06 Signed Impressions: Service Date/Time: Saturday, February 11, 2017 04:52 - CONCLUSION: Patchy perihilar pulmonary infiltrates right greater than left. ET tube is in good position. Alf Britton MD Head CT 02/11/17 Signed Impressions: Service Date/Time: Saturday, February 11, 2017 02:33 - CONCLUSION: Continued abnormality in the right globe. No evidence of acute hemorrhage or acute change. Alf Britton MD Chest X-Ray 02/10/17 Signed Impressions: Service Date/Time: January 20:29 - CONCLUSION: 1. Bilateral perihilar distribution consolidation new from the prior study from 4 days ago. The appearance and distribution suggests pulmonary edema as the cause. 2. No concerning radiopaque foreign body is identified. There multiple lines overlying the patient and ET tube is present. Salas Thompson MD Abdomen X-Ray 02/10/17 0000 Signed Impressions: Service Date/Time: January 21:51 - CONCLUSION: Stable gaseous distention of the stomach and colon with new dilated segment of small bowel in the midabdomen. The dilated small bowel is new and abnormal. However, the overall distribution is not suggestive of small bowel obstruction. Suggest performing a followup imaging to confirm resolution. Salas Thompson MD Objective Remarks GENERAL: Elderly sick appearing man intubated SKIN: Warm and dry. HEAD: Normocephalic. EYES: No scleral icterus. No injection or drainage on left. 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 No JVD CARDIOVASCULAR: Regular rate and rhythm without murmurs, gallops, or rubs. RESPIRATORY: Orally intubated on mechanical ventilation, good air entry bilaterally, scattered rhonchi more on the right, no wheezing or crackles. GASTROINTESTINAL: Abdomen soft, non-tender, distended. Bowel sounds sluggish MUSCULOSKELETAL: No cyanosis, or edema. Status post left leg amputation Neuro: Sedated, orally intubated, occasional myoclonic jerks noted not responding to painful stimuli Procedures 02/08- EGD- gastritis, biopsy done 02/10 cardiopulmonary resuscitation - Arterial line placed Date of Insertion: Feb 06, 2017 Date of Insertion: Feb 10, 2017 Line: Central Venous Catheter Side: Right Location: Femoral A/P Assessment and Plan Cardiopulmonary arrest Suspected anoxic brain injury secondary to cardiac arrest - Due to aspiration - 35 minutes of CPR and ACLS protocol - Multiple cardioversions due to V. fib rhythm and injections of epinephrine - did not initiate hypothermia protocol due to sepsis and persistent bacteremia - Myoclonic seizures noted. EEG and neurology consult noted. - Continue Keppra, Dilantin, Ativan when necessary for myoclonic seizures. Propofol for sedation. Daily sedation vacation if seizures controlled. Acute Respiratory failure on mechanical ventilation - Due to above - No weaning until neurologically improved - Continue mechanical ventilation -Vent bundle, bronchodilators as needed. Hematemesis - Protonix IV twice a day, -GI placed OG tube after EGD on 02/12 with findings of large amounts of undigested food in esophagus as well as stomach - H&H stable - gastritis per EGD. - GI okay with starting tube feedings. Started Nepro 15 cc/h on 02/13 to be advanced to goal of 30 cc per hour. Hypotension- resolved. Klebsiella Bacteremia Complicated UTI - Leukocytosis and fever - resolving sepsis. - Aggressive IV fluids resuscitation - Broad-spectrum antibiotics - Follow-up cultures -Antibiotics per ID Diabetes DKA- resolved. - SSI. - Started tube feeds with Nepro on 02/13 to be advanced to goal as tolerated.. Resume Levemir 10 units P every 12 hourly on 02/13. Acute on chronic kidney injury -Continue normal saline - Nephrology following - Monitor tacrolimus level - Strict I's and O's. - Creatinine and electrolyte level DVT GI prophylaxis - Teds SCDs -No subcutaneous heparin in view of thrombocytopenia and recent GI bleed - IV Protonix twice a day Discussed with MEDICAL TERMINOLOGISTanimal care assistant following to assist with deciding goals of therapy in view of poor prognosis. Condition critical with significant anoxic brain injury following cardiac arrest on mechanical ventilation with active myoclonic seizures. The total critical care time was 40 minutes. Time to perform other separately billable procedures was not included in the critical care time. Calvin Leger MD Feb 14, 2017 15:57
--- NOTE | 2017-02-14 17:15 | HHI.GIFU ---
Subjective Remarks Pt intubated on vent. Per RN large BM last night, better tolerating TF, up to 30ml/hr. (Kiana Villavicencio) Objective Vitals I&O Vital Signs Date Time Temp Pulse Resp B/P (MAP) Pulse Ox O2 Delivery O2 Flow Rate FiO2 02/14/17 16:00 68 02/14/17 16:00 35 02/14/17 16:00 97.6 68 12 147/66 (93) 100 02/14/17 14:00 66 02/14/17 12:54 99 35 02/14/17 12:00 64 02/14/17 12:00 35 02/14/17 12:00 97.9 64 12 146/64 (91) 99 02/14/17 10:00 65 02/14/17 09:13 100 35 02/14/17 08:00 35 02/14/17 08:00 97.8 65 12 145/62 (89) 100 02/14/17 08:00 66 02/14/17 04:00 96.6 62 12 119/49 (72) 100 02/14/17 04:00 35 02/14/17 02:27 100 35 02/14/17 00:00 97.3 63 12 116/50 (72) 100 02/14/17 00:00 35 02/13/17 20:00 98.4 71 12 120/54 (76) 100 02/13/17 20:00 35 02/13/17 18:09 100 35 02/13/17 18:00 68 I/O 02/13/17 02/13/17 02/13/17 02/14/17 02/14/17 02/14/17 06:59 14:59 22:59 06:59 14:59 22:59 Intake Total 1146 ml 759 ml 1112 ml 1941 ml 1245 ml 100 ml Output Total 1700 ml 2250 ml 1550 ml Balance -554 ml 759 ml -1138 ml 391 ml 1245 ml 100 ml IV Total 1146 ml 759 ml 939 ml 1603 ml 1245 ml 100 ml Tube Feeding 113 ml 188 ml Tube Irrigant 60 ml Other 150 ml Output Urine Total 1450 ml 2250 ml 1550 ml Gastric Drainage Total 250 ml 0 ml Tube Feeding Residual Discard 0 ml # Bowel Movements 0 0 2 Laboratory Laboratory Tests Test 02/14/17 04:50 White Blood Count 14.5 Red Blood Count 4.57 Hemoglobin 11.6 Hematocrit 35.7 Mean Corpuscular Volume 78.1 Mean Corpuscular Hemoglobin 25.4 Mean Corpuscular Hemoglobin Concent 32.6 Red Cell Distribution Width 16.2 Platelet Count 67 Mean Platelet Volume 10.7 Neutrophils (%) (Auto) 92.2 Lymphocytes (%) (Auto) 3.8 Monocytes (%) (Auto) 3.1 Eosinophils (%) (Auto) 0.8 Basophils (%) (Auto) 0.1 Neutrophils # (Auto) 13.4 Lymphocytes # (Auto) 0.6 Monocytes # (Auto) 0.5 Eosinophils # (Auto) 0.1 Basophils # (Auto) 0.0 CBC Comment DIFF FINAL Differential Comment Blood Urea Nitrogen 44 Creatinine 3.58 Random Glucose 135 Total Protein 5.4 Albumin 2.6 Calcium Level 6.9 Phosphorus Level 2.8 Magnesium Level 1.8 Alkaline Phosphatase 91 Aspartate Amino Transf (AST/SGOT) 38 Alanine Aminotransferase (ALT/SGPT) 15 Total Bilirubin 0.8 Sodium Level 147 Potassium Level 3.3 Chloride Level 105 Carbon Dioxide Level 30.1 Anion Gap 12 Estimat Glomerular Filtration Rate 21 Protein Corrected Calcium 7.8 Tacrolimus (Prograf) Level 4.0 Date/Time Source Procedure Growth Status 02/11/17 22:14 Blood Peripheral Aerobic Blood Culture - Preliminary NO GROWTH IN 3 DAYS Resulted 02/11/17 22:14 Blood Peripheral Anaerobic Blood Culture - Preliminary NO GROWTH IN 3 DAYS Resulted 02/11/17 13:30 Sputum Endotracheal Gram Stain - Final Complete 02/11/17 13:30 Sputum Endotracheal Sputum Culture - Final HEAVY GROWTH NORMAL RESPIRATORY PRAVEEN Complete 02/08/17 02:20 Urine Clean Catch Urine Culture - Final <10,000 CFU/ML GRAM NEGATIVE REMA Complete Imaging Last Impressions Lower Extremity Ultrasound 02/12/17 0000 Signed Impressions: Service Date/Time: Sunday, February 12, 2017 16:21 - CONCLUSION: 1. Left nyzji-rsh-[id number] amputation with clot identified within the left superficial femoral vein proximal and mid vein. There is normal flow and respiratory variation identified within the more proximal portions of the left deep venous system. 2. Overlying bandage and IV material limit evaluation of the more proximal right deep venous system with normal compressibility identified within the femoral vein, popliteal and veins of the calf. No augmentation maneuvers were performed on the right. Chantale Rothman MD Chest X-Ray 02/12/17 0000 Signed Impressions: Service Date/Time: Sunday, February 12, 2017 12:34 - CONCLUSION: Slightly improved bilateral airspace disease. Bilateral pleural effusions are probably not significantly changed. Salas Campos MD Renal Ultrasound 02/11/17 0700 Signed Impressions: Service Date/Time: Saturday, February 11, 2017 07:56 - CONCLUSION: 1. Improved resistive indices, now in the normal range. 2. Stable hydronephrosis 3. Stable small amount of simple perinephric fluid. Jimbo De La Torre MD Scrotum Ultrasound 02/11/17 0600 Signed Impressions: Service Date/Time: Saturday, February 11, 2017 08:19 - CONCLUSION: 1. Small right epididymal cyst. 2. Diffuse scrotal soft tissue edema. 3. Otherwise, unremarkable testicular ultrasound examination. Jimbo De La Torre MD Head CT 02/11/17 0000 Signed Impressions: Service Date/Time: Saturday, February 11, 2017 02:33 - CONCLUSION: Continued abnormality in the right globe. No evidence of acute hemorrhage or acute change. Alf Britton MD Chest CT 02/11/17 0000 Signed Impressions: Service Date/Time: Saturday, February 11, 2017 22:51 - CONCLUSION: Moderate- sized bilateral pleural effusions right greater left with extensive passive atelectasis both lung bases. Dense coronary atherosclerotic disease. Diffuse soft tissue edema across the chest including the right pectoralis muscles Alf Britton MD Abdomen X-Ray 02/10/17 0000 Signed Impressions: Service Date/Time: January 21:51 - CONCLUSION: Stable gaseous distention of the stomach and colon with new dilated segment of small bowel in the midabdomen. The dilated small bowel is new and abnormal. However, the overall distribution is not suggestive of small bowel obstruction. Suggest performing a followup imaging to confirm resolution. Salas Thompson MD Abdomen/Pelvis CT 02/08/17 0000 Signed Impressions: Service Date/Time: Wednesday, February 08, 2017 20:13 - CONCLUSION: 1. No acute abnormality is identified to explain the diffuse abdominal pain. 2. Small bilateral pleural effusions, right larger than left, with associated compressive atelectasis. 3. Anasarca. 4. [place] kidneys are atrophic consistent with history of end-stage renal disease. Right lower quadrant transplant demonstrates mild degree of hydronephrosis. There is a small volume of free fluid in the abdomen and pelvis. 5. Severe atherosclerotic disease. Salas Thompson MD Physical Exam HEENT: Normocephalic; atraumatic; no jaundice. CHEST: OETT to sophie, resp. even/unlabored, coarse breath sounds. CARDIAC: RRR + murmur ABDOMEN: Soft, mildly distended, no hepatosplenomegaly; bowel sounds are hypoactive EXTREMITIES:Left AKA SKIN: Normal; no rash; no jaundice. SKY CAP: Sedated on vent. (Kiana Villavicencio) Assessment and Plan Plan ASSESSMENT: - Nausea/vomiting with gaseous distention of stomach, small bowel, colon. KUB ( 02/10/17)----> Stable gaseous distention of the stomach and colon with new dilated segment of small bowel in the midabdomen. The dilated small bowel is new and abnormal. However, the overall distribution is not suggestive of small bowel obstruction. Suggest performing a followup imaging to confirm resolution. s /p EGD with OGT placement, found erythematous gastritis, large amount residual food disimpacted TF running 30ml/hr + BM - S/P Code. Per report, choked while eating and went into cardiopulmonary arrest, s/p ACLS protocol. - Resp. failure/COPD. Vent per CCM. Levaquin, Zosy, Steroid, nebs - Upper GIB, Hematemesis. S/P EGD (02/08/17)----> 1. The esophagus was otherwise normal 2. There was erythematous gastritis in the gastric antrum; multiple biopsies were performed 3. Normal duodenal mucosa in the bulb and second portion of the duodenum 4. Retroflexion was performed and was normal. Pathology antral mucosa with mild chronic inflammation of the lamina propria. Acute inflammation is not identified. A clifford stain is negative for helicobacter. No further episodes. HH gradual decrease - Diarrhea, 3-4 loose stools today. CDiff negative on 02/08. - Leukocytosis/Bacteremia. Cx with klebsiella pneumoniae, repeat with GNR. Levaquin, Zosyn. - Elevated Glucose/Uncontrolled DM. Per attending. - Acute on CKD with hx of renal transplant. Renal following. - CAD, HTN, Hyperlipidemia, PVD, Depression - Hx HCV antibodies, but undetectable viral load x 2. PLAN: - continue increasing TF to GR - Reglan 5mg IV q8h - Cont. PPI - Monitor HH - Transfuse as necessary - Supportive care - Pt seen and examined by Dr. Mclaughlin and myself and this note is written on his behalf (Kiana Villavicencio) Physician Comments Seen and examined, plan as above , will follow up with you periodically. (Miah Mclaughlin MD) Kiana Villavicencio Feb 14, 2017 17:15 Miah Mclaughlin MD Feb 14, 2017 22:01
[2017-02-14] MEDS: LEVOFLOXACIN 500 MG PREMIX INJ 100 ML IV SCH (20:19)
[2017-02-14] MEDS: TAMSULOSIN HCL 0.4 MG CAP PO SCH (20:37)
[2017-02-14] MEDS: ATORVASTATIN 40 MG TAB PO SCH (20:38)
[2017-02-14] MEDS: SYSTANE LEFT EYE SCH (21:00)
--- NOTE | 2017-02-14 22:59 | HHI.IDPN ---
Subjective Subjective Remarks ID - delayed entry, pt was seen earlier today around 4 pm remains on vent afebrile persistently + blood cl for Kleb pneumo tolerating tube feeds Antibiotics zosyn levaquine Past Medical History renal ttransplant Allergies: Coded Allergies: No Known Allergies (Unverified , 10/27/16) Objective . Vital Signs Date Time Temp Pulse Resp B/P (MAP) Pulse Ox O2 Delivery O2 Flow Rate FiO2 02/14/17 20:56 95 35 02/14/17 18:00 79 02/14/17 17:59 100 35 02/14/17 16:00 68 02/14/17 16:00 35 02/14/17 16:00 97.6 68 12 147/66 (93) 100 02/14/17 14:00 66 02/14/17 12:54 99 35 02/14/17 12:00 64 02/14/17 12:00 35 02/14/17 12:00 97.9 64 12 146/64 (91) 99 02/14/17 10:00 65 02/14/17 09:13 100 35 02/14/17 08:00 35 02/14/17 08:00 97.8 65 12 145/62 (89) 100 02/14/17 08:00 66 02/14/17 04:00 96.6 62 12 119/49 (72) 100 02/14/17 04:00 35 02/14/17 02:27 100 35 02/14/17 00:00 97.3 63 12 116/50 (72) 100 02/14/17 00:00 35 02/14/17 02/14/17 02/15/17 15:00 23:00 07:00 Intake Total 1245 ml 475 ml Output Total 2400 ml Balance 1245 ml -1925 ml IV Total 1245 ml 150 ml Tube Feeding 325 ml Output Urine Total 2400 ml . Laboratory Tests Test 02/13/17 04:10 02/14/17 04:50 White Blood Count 11.4 TH/MM3 14.5 TH/MM3 Red Blood Count 4.37 MIL/MM3 4.57 MIL/MM3 Hemoglobin 11.1 GM/DL 11.6 GM/DL Hematocrit 33.9 % 35.7 % Mean Corpuscular Volume 77.6 FL 78.1 FL Mean Corpuscular Hemoglobin 25.4 PG 25.4 PG Mean Corpuscular Hemoglobin Concent 32.8 % 32.6 % Red Cell Distribution Width 16.1 % 16.2 % Platelet Count 48 TH/MM3 67 TH/MM3 Mean Platelet Volume 11.5 FL 10.7 FL Neutrophils (%) (Auto) 91.2 % 92.2 % Lymphocytes (%) (Auto) 5.4 % 3.8 % Monocytes (%) (Auto) 2.9 % 3.1 % Eosinophils (%) (Auto) 0.4 % 0.8 % Basophils (%) (Auto) 0.1 % 0.1 % Neutrophils # (Auto) 10.4 TH/MM3 13.4 TH/MM3 Lymphocytes # (Auto) 0.6 TH/MM3 0.6 TH/MM3 Monocytes # (Auto) 0.3 TH/MM3 0.5 TH/MM3 Eosinophils # (Auto) 0.0 TH/MM3 0.1 TH/MM3 Basophils # (Auto) 0.0 TH/MM3 0.0 TH/MM3 CBC Comment AUTO DIFF DIFF FINAL Differential Total Cells Counted 100 Neutrophils % (Manual) 87 % Band Neutrophils % 4 % Lymphocytes % 6 % Monocytes % 1 % Eosinophils % 2 % Neutrophils # (Manual) 10.4 TH/MM3 Nucleated Red Blood Cells 2 /100 WBC Differential Comment FINAL DIFF MANUAL Platelet Estimate LOW Platelet Morphology Comment NORMAL Target Cells 1+ Laboratory Tests Test 02/13/17 01:40 02/13/17 04:10 02/14/17 04:50 Blood Urea Nitrogen 52 MG/DL 44 MG/DL Creatinine 4.05 MG/DL 3.58 MG/DL Random Glucose 314 MG/DL 135 MG/DL Total Protein 4.9 GM/DL 5.4 GM/DL Calcium Level 6.5 MG/DL 6.9 MG/DL Phosphorus Level 3.3 MG/DL 2.8 MG/DL Magnesium Level 1.6 MG/DL 1.8 MG/DL Sodium Level 145 MEQ/L 147 MEQ/L Potassium Level 3.3 MEQ/L 3.3 MEQ/L Chloride Level 100 MEQ/L 105 MEQ/L Carbon Dioxide Level 31.7 MEQ/L 30.1 MEQ/L Anion Gap 13 MEQ/L 12 MEQ/L Estimat Glomerular Filtration Rate 18 ML/MIN 21 ML/MIN Protein Corrected Calcium 7.6 MG/DL 7.8 MG/DL Total Creatine Kinase 63 U/L Troponin I 0.78 NG/ML Lactic Acid Level 3.5 mmol/L Albumin 2.6 GM/DL Alkaline Phosphatase 91 U/L Aspartate Amino Transf (AST/SGOT) 38 U/L Alanine Aminotransferase (ALT/SGPT) 15 U/L Total Bilirubin 0.8 MG/DL Imaging Last Impressions Lower Extremity Ultrasound 02/12/17 0000 Signed Impressions: Service Date/Time: Sunday, February 12, 2017 16:21 - CONCLUSION: 1. Left xluoc-[id number]-[id number] amputation with clot identified within the left superficial femoral vein proximal and mid vein. There is normal flow and respiratory variation identified within the more proximal portions of the left deep venous system. 2. Overlying bandage and IV material limit evaluation of the more proximal right deep venous system with normal compressibility identified within the femoral vein, popliteal and veins of the calf. No augmentation maneuvers were performed on the right. Chantale Rothman MD Chest X-Ray 02/12/17 0000 Signed Impressions: Service Date/Time: Sunday, February 12, 2017 12:34 - CONCLUSION: Slightly improved bilateral airspace disease. Bilateral pleural effusions are probably not significantly changed. Salas Campos MD Renal Ultrasound 02/11/17 0700 Signed Impressions: Service Date/Time: Saturday, February 11, 2017 07:56 - CONCLUSION: 1. Improved resistive indices, now in the normal range. 2. Stable hydronephrosis 3. Stable small amount of simple perinephric fluid. Jimbo De La Torre MD Scrotum Ultrasound 02/11/17 0600 Signed Impressions: Service Date/Time: Saturday, February 11, 2017 08:19 - CONCLUSION: 1. Small right epididymal cyst. 2. Diffuse scrotal soft tissue edema. 3. Otherwise, unremarkable testicular ultrasound examination. Jimbo De La Torre MD Head CT 02/11/17 0000 Signed Impressions: Service Date/Time: Saturday, February 11, 2017 02:33 - CONCLUSION: Continued abnormality in the right globe. No evidence of acute hemorrhage or acute change. Alf Britton MD Chest CT 02/11/17 0000 Signed Impressions: Service Date/Time: Saturday, February 11, 2017 22:51 - CONCLUSION: Moderate- sized bilateral pleural effusions right greater left with extensive passive atelectasis both lung bases. Dense coronary atherosclerotic disease. Diffuse soft tissue edema across the chest including the right pectoralis muscles Alf Britton MD Abdomen X-Ray 02/10/17 0000 Signed Impressions: Service Date/Time: January 21:51 - CONCLUSION: Stable gaseous distention of the stomach and colon with new dilated segment of small bowel in the midabdomen. The dilated small bowel is new and abnormal. However, the overall distribution is not suggestive of small bowel obstruction. Suggest performing a followup imaging to confirm resolution. Salas Thompson MD Abdomen/Pelvis CT 02/08/17 0000 Signed Impressions: Service Date/Time: Wednesday, February 08, 2017 20:13 - CONCLUSION: 1. No acute abnormality is identified to explain the diffuse abdominal pain. 2. Small bilateral pleural effusions, right larger than left, with associated compressive atelectasis. 3. Anasarca. 4. [place] kidneys are atrophic consistent with history of end-stage renal disease. Right lower quadrant transplant demonstrates mild degree of hydronephrosis. There is a small volume of free fluid in the abdomen and pelvis. 5. Severe atherosclerotic disease. Salas Thompson MD Physical Exam CONSTITUTIONAL/GENERAL: sedated int'd and on [facility] vent TUBES/LINES/DRAINS: SKIN: + ? minimal jaundice, rashes, or lesions. Skin temperature appropriate. Not diaphoretic. EYES: OD - absent OS with some injected conjuntiva No drainage. Fundi not examined. ENT: Hearing grossly normal. Nose without bleeding or purulent drainage.Oral mucosae dry without visible erythema, exudates, masses, or lesions. Dentition is poor orally intubated CARDIOVASCULAR: Regular rate and rhythm without murmurs, gallops, or rubs.+ Systolic murmur, holosystolic 2/6, harsh No JVD. Peripheral pulses symmetric. RESPIRATORY/CHEST: Symmetric, unlabored respirations. Clear to auscultation. Breath sounds equal bilaterally. No wheezes, rales, or rhonchi. GASTROINTESTINAL: Abdomen soft, non-tender, distended. No hepato-splenomegaly, or palpable masses. No guarding. Bowel sounds present. GENITOURINARY: Without palpable bladder distension. Mcmillan catheter in place with minimal amount of urine He has a non tender RLQ mass cw renal allograft MUSCULOSKELETAL: Extremities without clubbing, cyanosis, Prominent BUE edema. No joint tenderness or effusion noted. AKA L LYMPHATICS: No palpable cervical or supraclavicular adenopathy. NEUROLOGICAL: sedated unresponsive PSYCHIATRIC: unable to assess Assessment & Plan Remarks Sepsis with gram negative bacteremia in immunopcopromised pt sp renal allograft - fever, leukocotosuis and lactic acidosis - High grade Kleb pneumo bacteremia Complicated UTI, Kleb pneumo - persistent bactermia abd /pelvis CT unrevealing as far as abscess - last blood clx is negative Critically ill - code in progress ? acute cardiac event Diarrhea, C.diff negative New issue - aspiration PNA 2 D echo w/o vegetations, not a candidate for CHRISTI Anoxic brain injury Fsmily to decide on level of care REC's: cont zosyn cont IV levaquine repeat Blood clx Zoë Hebert MD Feb 14, 2017 22:59
[2017-02-15] VITALS (17 sets, daily range): BP systolic 116–146; BP diastolic 44–60; PULSE 66–83; RESP 12–16; TEMP 98–100.5; O2SAT 95–100
[2017-02-15] MEDS: SODIUM CHLOR 0.9% 1000 ML INJ 1,000 ML IV SCH ×2 (00:22→10:14)
[2017-02-15] MEDS: PIPERACIL-TAZO 2.25 GM PREMIX 50 ML IV SCH ×5 (00:25→23:32)
[2017-02-15] MEDS: ALBUMIN HUMAN 25% 25 GM/100 ML BAGP IV SCH ×2 (02:15→16:26)
[2017-02-15] MEDS: CHLORHEXIDINE GLUCONATE 2 % 1 PACK (2 CLOTHS) TOP SCH (04:00)
[2017-02-15] MEDS: PHENYTOIN INJ 100 MG/2 ML VIAL IV SCH ×3 (05:24→21:51)
[2017-02-15] MEDS: TACROLIMUS 1 MG CAP PO SCH ×2 (05:25→19:47)
[2017-02-15] MEDS: INSULIN ASPART SUPPLEMENTAL SCALE SQ SCH ×4 (06:00→18:00)
[2017-02-15] MEDS: PROPOFOL 1000 MG/100 ML IV PRN ×3 (07:05→21:52)
[2017-02-15] MEDS: BRIMONIDINE TARTRATE 0.2% OPHT SOLN 5 ML BTL LEFT EYE SCH ×3 (09:00→20:43)
[2017-02-15] MEDS: SODIUM CHLORIDE 0.9% FLUSH 10 ML FLUSH IV FLUSH SCH ×2 (09:00→20:41)
[2017-02-15] MEDS: INSULIN DETEMIR 100 UNITS/ML VIAL SQ SCH ×2 (09:00→20:42)
[2017-02-15] MEDS: DOCUSATE SODIUM 50 MG/SENNA 8.6 MG TAB PO SCH ×2 (09:00→20:41)
[2017-02-15] MEDS: PANTOPRAZOLE SOD 40 MG DELAYED RELEASE TAB PO SCH (09:00)
[2017-02-15] MEDS: GABAPENTIN 300 MG CAP PO SCH ×2 (09:57→20:41)
[2017-02-15] MEDS: CALCITRIOL 0.25 MCG CAP PO SCH (09:58)
[2017-02-15] MEDS: LACOSAMIDE INJ 100 MG in SODIUM CHLORIDE 0.9% INJ 100 ML IV SCH ×2 (09:59→21:51)
[2017-02-15] MEDS: levETIRAcetam 1000 MG INJ 100 ML IV SCH ×2 (09:59→20:38)
[2017-02-15] MEDS: amLODIPine BESYLATE 5 MG TAB PO SCH (09:59)
[2017-02-15] MEDS: methylPREDNISolone SOD SUCC 40 MG/1 ML VIAL IV PUSH SCH (10:00)
[2017-02-15] MEDS: TIMOLOL MALEATE 0.5% OPHT SOLN 5 ML BTL LEFT EYE SCH ×3 (10:01→20:43)
--- NOTE | 2017-02-15 12:21 | HHI.NPPN ---
Subjective Renal Failure: Chronic, Acute Interval History Remains unresponsive. Still on Levophed. He has worsening edema to all extremities. (Nila Mckeon) Review of Systems General General Remarks unable to evaluate (Nila Mckeon) Objective Data Data Vital Signs Date Time Temp Pulse Resp B/P (MAP) Pulse Ox O2 Delivery O2 Flow Rate FiO2 02/15/17 09:39 95 35 02/15/17 06:00 78 02/15/17 04:18 100 35 02/15/17 04:00 80 02/15/17 04:00 100.5 80 16 138/58 (84) 99 02/15/17 04:00 35 02/15/17 02:00 76 02/15/17 01:05 100 35 02/15/17 00:00 72 02/15/17 00:00 35 02/15/17 00:00 99.1 72 12 118/60 (79) 100 02/14/17 22:00 72 02/14/17 20:56 95 35 02/14/17 20:00 35 02/14/17 20:00 98.1 68 12 147/66 (93) 100 02/14/17 20:00 80 02/14/17 18:00 79 02/14/17 17:59 100 35 02/14/17 16:00 68 02/14/17 16:00 35 02/14/17 16:00 97.6 68 12 147/66 (93) 100 02/14/17 14:00 66 02/14/17 12:54 99 35 (Nila Mckeon) -: 02/14/17 0450 02/14/17 0450 Imaging Last Impressions Lower Extremity Ultrasound 02/12/17 0000 Signed Impressions: Service Date/Time: Sunday, February 12, 2017 16:21 - CONCLUSION: 1. Left [id number] amputation with clot identified within the left superficial femoral vein proximal and mid vein. There is normal flow and respiratory variation identified within the more proximal portions of the left deep venous system. 2. Overlying bandage and IV material limit evaluation of the more proximal right deep venous system with normal compressibility identified within the femoral vein, popliteal and veins of the calf. No augmentation maneuvers were performed on the right. Chantale Rothman MD Chest X-Ray 02/12/17 0000 Signed Impressions: Service Date/Time: Sunday, February 12, 2017 12:34 - CONCLUSION: Slightly improved bilateral airspace disease. Bilateral pleural effusions are probably not significantly changed. Salas Campos MD Renal Ultrasound 02/11/17 0700 Signed Impressions: Service Date/Time: Saturday, February 11, 2017 07:56 - CONCLUSION: 1. Improved resistive indices, now in the normal range. 2. Stable hydronephrosis 3. Stable small amount of simple perinephric fluid. Jimbo De La Torre MD Scrotum Ultrasound 02/11/17 0600 Signed Impressions: Service Date/Time: Saturday, February 11, 2017 08:19 - CONCLUSION: 1. Small right epididymal cyst. 2. Diffuse scrotal soft tissue edema. 3. Otherwise, unremarkable testicular ultrasound examination. Jimbo De La Torre MD Head CT 02/11/17 0000 Signed Impressions: Service Date/Time: Saturday, February 11, 2017 02:33 - CONCLUSION: Continued abnormality in the right globe. No evidence of acute hemorrhage or acute change. Alf Britton MD Chest CT 02/11/17 0000 Signed Impressions: Service Date/Time: Saturday, February 11, 2017 22:51 - CONCLUSION: Moderate- sized bilateral pleural effusions right greater left with extensive passive atelectasis both lung bases. Dense coronary atherosclerotic disease. Diffuse soft tissue edema across the chest including the right pectoralis muscles Alf Britton MD Abdomen X-Ray 02/10/17 0000 Signed Impressions: Service Date/Time: January 21:51 - CONCLUSION: Stable gaseous distention of the stomach and colon with new dilated segment of small bowel in the midabdomen. The dilated small bowel is new and abnormal. However, the overall distribution is not suggestive of small bowel obstruction. Suggest performing a followup imaging to confirm resolution. Salas Thompson MD Abdomen/Pelvis CT 02/08/17 0000 Signed Impressions: Service Date/Time: Wednesday, February 08, 2017 20:13 - CONCLUSION: 1. No acute abnormality is identified to explain the diffuse abdominal pain. 2. Small bilateral pleural effusions, right larger than left, with associated compressive atelectasis. 3. Anasarca. 4. [place] kidneys are atrophic consistent with history of end-stage renal disease. Right lower quadrant transplant demonstrates mild degree of hydronephrosis. There is a small volume of free fluid in the abdomen and pelvis. 5. Severe atherosclerotic disease. Salas Thompson MD Tubes & Lines: Li Tubes & Lines Comment A line Drip Comment Levophed, propofol, 0.9% NS (Nila Mckeon. COMMUNITY COORDINATOR) Physical Exam General Appearance: Well Developed, No Acute Distress, Sleeping Appearance Remarks intubated/unresponsive (Nila Mckeon. COMMUNITY COORDINATOR) Eyes Eye Remarks s/p enucleation (Nila Mckeon COMMUNITY COORDINATOR) Throat Throat Exam: Oral Mucosa [place] & Moist (Nila Mckeon COMMUNITY COORDINATOR) Neck Neck Exam: Trachea Midline (Nila Mckeon COMMUNITY COORDINATOR) Pulmonary Resp Exam: Decreased Bases Resp Remarks vented lung sounds (Nila Mckeon BFranklin COMMUNITY COORDINATOR) Cardiology CV Exam: Regular, Normal Sinus Rhythm, Murmur CV Remarks IV/ systolic murmur (Nila Mckeon COMMUNITY COORDINATOR) Gastrointestinal/Abdomen GI Exam: Soft, Non-Tender, Bowel Sounds Present GI Remarks renal transplant palpable RLQ, non tender (Nila Mckeon B[place]lin COMMUNITY COORDINATOR) Genitourinary Exam: Clear Urine (Nila Mckeon COMMUNITY COORDINATOR) Musculoskeletal MS Exam: Unable to Ambulate MS Remarks s/p left AKA , well healed (Nila Mckeon B. COMMUNITY COORDINATOR) Integumentary Skin Exam: Clear, Warm, Dry, Intact (Nila Mckeon COMMUNITY COORDINATOR) Extremeties Extremities Exam: Moderate Edema Extremeties Remarks right arm edematous (Nila Mckeon COMMUNITY COORDINATOR) Neurologic Neuro Exam: Unresponsive, Sedated (Nila Mckeon COMMUNITY COORDINATOR) Assessment/Plan Assessment Summary: DEANA/Acute Renal Failure, Anemia of CKD, Proteinuria, Diabetes Mellitus, Transplant Kidney Status Electrolyte Assessment: Metabolic Acidosis Problem List: (1) Acute renal insufficiency ICD Codes: N28.9 - Disorder of kidney and ureter, unspecified Status: Acute Plan: imaging revealed hydronephrosis of transplanted kidney, urology has evaluated DEANA due to sepsis hx of renal transplant, tacrolimus level is lwo but acceptable, monitor intermittently pending today's renal function developing edema, stop IVF and begin bumex 2 mg BID he is non oliguric with li prognosis is guarded obtain daily labs (2) Renal transplant recipient ICD Codes: Z94.0 - Kidney transplant status Status: Chronic Plan: on tacrolimus 5 mg BID also on IV solumedrol his tacrolimus level is acceptable (3) GI bleed ICD Codes: K92.2 - Gastrointestinal hemorrhage, unspecified Plan: GI following, s/p EGD last week tolerating tube feeding (4) Diabetes ICD Codes: E11.9 - Diabetes mellitus Status: Chronic Plan: resolved DKA continue insulin therapy , monitor glucose (5) Sepsis ICD Codes: A41.9 - Sepsis, unspecified organism Status: Acute Plan: suspected urosepsis, although culture is negative (he was given antibiotics prior to culture being obtained) + Klebsiella ID following, he is on Zosyn and Levaquin follow lactic acid monitor clinically (6) Metabolic encephalopathy ICD Codes: G93.41 - Metabolic encephalopathy Status: Acute Plan: due to infection he also developed seizures now unresponsive with fixed pupil on left [place] [facility] [place] and discuss goals continue supportive care for now (7) Cardiac arrest ICD Codes: I46.9 - Cardiac arrest, cause unspecified Status: Acute Plan: monitor cardiopulmonary status A line placed, still on pressors and intubated (Nila Mckeon) Plan patient was seen and examined. Unresponsive on the ventilator. Renal function is stable. Fluid overload. Stop IVF, start IV diuretics. (Roshan Burciaga MD) Nila Mckeon Feb 15, 2017 12:21 Roshan Burciaga MD Feb 15, 2017 13:22
[2017-02-15] MEDS ORDERED: BUMETANIDE INJ 1 MG/4 ML VIAL IV PUSH ONE (12:30)
[2017-02-15 13:05] LABS: BICARBONATE 27.7 MEQ/L (21.0-32.0); POTASSIUM 3.1 MEQ/L (3.5-5.1)
--- NOTE | 2017-02-15 13:21 | HHI.HCPN ---
Reason for visit a. To assist with evaluation and management of symptoms including:dyspnea, encephalopathy b. To assist medical decision maker(s) with: better understanding of current medical conditions; weighing benefits/burdens of medical treatment options; making medical treatment decisions. Subjective/Interval History Notified by nursing prior to arrival to unit that family is at bedside requesting follow-up. Patient remains on mechanical vent, continued on Diprivan to assist with seizure control. Remains on Keppra and Dilantin. 35% FiO2. Low-grade fever MAXIMUM TEMPERATURE 100.5. Blood culture 02/11 no growth to date. On 1 g Levophed. Tolerating tube feeding, having bowel movements. Dual visit with Tray LEA. Patient examined in room no visitors present. Non-responsive to exam. No apparent distress. Following exam met with patient and sister Areli, and nephew in law at length incompetence room approximately 1 hour utilizing translation service. Family/friend interactions Met with patient's sister Areli who has traveled from [place], as well as her son-in-law , utilizing translation service per hospital protocol. Met approximately one hour discussion included: * Additional medical/social/spiritual history * Review of patient health, conditions leading up to current admission * family understanding of current medical conditions, prognosis, treatment options * Revealed option for continued aggressive treatments which could eventually include tracheostomy, PEG tube, and long-term residential placement versus de- escalation in transition to comfort measures * Review of family/appropriate legal proxy-sister affirms she would be primary contact patient with half-brother, half sister * CODE STATUS[] sister elects DNR * Palliative care contact information provided Sister appears to have a reasonable understanding of conditions. Her son-in- law is supporting her. She indicates she last spoke to the patient a few weeks prior to this admission, and that he had been indicating overall he felt ill and felt like he may not "make it ". She indicates that he shared he felt like he was going to . She indicates that he did not communicate great detail about his conditions but she was aware of some general illness and general decline. She voices understanding of patient current neurological assessments and conditions and feels that he would not want to remain on life support if he would not make a full recovery. She indicates that he would want to be comfortable and allow for natural versus continuing artificial measures without a meaningful recovery. Anticipatory guidance provided of withdrawal procedure, comfort measures. She, supported by her son-in-law endorses that she would want to proceed with withdrawal of life support tentatively around 10 or 11 AM tomorrow. She will be in town through and then has to return to her home in [place] to attend to her own children and family. All questions answered. She voices appreciation for the medical care patient has been provided. She requests to be able to obtain patient's belongings so she may secure his apartment, advise nursing will assist with location of any personal affects. Upon review of spiritual support they're not certain if patient was recently active in evangelical and indicate that he was Yazidism and may want diamond sorter visit. *Discussed at length with primary nurse, critical care attending. Exhibits B, C placed in chart. Publicity Director notified of requests for diamond sorter visit. . Advance Directives Living Will: Never completed Health Care Surrogate: Never completed Durable Power of Office Aide: Never completed Objective Vital Signs Date Time Temp Pulse Resp B/P (MAP) Pulse Ox O2 Delivery O2 Flow Rate FiO2 02/15/17 09:39 95 35 02/15/17 06:00 78 02/15/17 04:18 100 35 02/15/17 04:00 80 02/15/17 04:00 100.5 80 16 138/58 (84) 99 02/15/17 04:00 35 02/15/17 02:00 76 02/15/17 01:05 100 35 02/15/17 00:00 72 02/15/17 00:00 35 02/15/17 00:00 99.1 72 12 118/60 (79) 100 02/14/17 22:00 72 02/14/17 20:56 95 35 02/14/17 20:00 35 02/14/17 20:00 98.1 68 12 147/66 (93) 100 02/14/17 20:00 80 02/14/17 18:00 79 02/14/17 17:59 100 35 02/14/17 16:00 68 02/14/17 16:00 35 02/14/17 16:00 97.6 68 12 147/66 (93) 100 02/14/17 14:00 66 Intake & Output 02/15/17 02/15/17 07:00 19:00 Intake Total 1275.4 ml Output Total 1350 ml Balance -74.6 ml IV Total 821.4 ml Tube Feeding 334 ml Other 120 ml Output Urine Total 1350 ml # Bowel Movements 2 Physical Exam CONSTITUTIONAL/GENERAL: This is a chronically ill male patient, intubated and mechanically ventilated. TUBES/LINES/DRAINS: ETT, soft wrist restraints, Rt femoral a-line, Rt femoral CVL, li catheter EYES: Right eye enucleation. Left pupil 2mm ?able reaction to light. No scleral icterus. No injection or drainage. Fundi not examined. ENT: Unable to assess secondary to clinical condition. Nose without bleeding or purulent drainage. NECK: Trachea midline. Supple. CARDIOVASCULAR: Regular rate and rhythm, distant. BUE edema. RESPIRATORY/CHEST: Symmetric respirations via mechanical vent. Course rhonchi throughout, diminished breath sounds equal bilaterally. GASTROINTESTINAL: Abdomen soft, mildly distended. No hepato-splenomegaly, or palpable masses. Bowel sounds hypoactive. GENITOURINARY: Without palpable bladder distension. Li catheter in place. + scrotal edema MUSCULOSKELETAL: Extremities without clubbing, cyanosis, or edema. No mottling or clubbing. Left AKA. Right second toe old amputation. NEUROLOGICAL: Sedated on mechanical ventilation. nonresponsive to pain stimuli. No eye opening. No response to pain stimuli. PSYCHIATRIC: Unable to assess secondary to clinical condition. . Diagnostic Tests Laboratory Laboratory Tests Test 02/12/17 13:35 02/13/17 01:40 02/13/17 04:10 02/14/17 04:50 Blood Gas Puncture Site ART LINE Blood Gas Patient Temperature 98.6 Blood Gas HCO3 26 mmol/L (22-26) Blood Gas Base Excess 4.8 mmol/L (-2-2) Blood Gas Oxygen Saturation 98 % (90-100) Arterial Blood pH 7.65 (7.380-7.420) Arterial Blood Partial Pressure CO2 23 mmHg (38-42) Arterial Blood Partial Pressure O2 236 mmHg (61-120) Arterial Blood Oxygen Content 19.8 Vol % (12.0-20.0) Arterial Blood Carboxyhemoglobin 1.0 % (0-4) Arterial Blood Methemoglobin 0.8 % (0-2) Blood Gas Hemoglobin 14.0 G/DL (12.0-16.0) Oxygen Delivery Device VENTILATOR Blood Gas Ventilator Setting PRVC 16/500/1.2IT/8+ Blood Gas Inspired Oxygen 100 % Blood Urea Nitrogen 52 MG/DL (7-18) 44 MG/DL (7-18) Creatinine 4.05 MG/DL (0.60-1.30) 3.58 MG/DL (0.60-1.30) Random Glucose 314 MG/DL (74-106) 135 MG/DL (74-106) Total Protein 4.9 GM/DL (6.4-8.2) 5.4 GM/DL (6.4-8.2) Calcium Level 6.5 MG/DL (8.5-10.1) 6.9 MG/DL (8.5-10.1) Phosphorus Level 3.3 MG/DL (2.5-4.9) 2.8 MG/DL (2.5-4.9) Magnesium Level 1.6 MG/DL (1.5-2.5) 1.8 MG/DL (1.5-2.5) Sodium Level 145 MEQ/L (136-145) 147 MEQ/L (136-145) Potassium Level 3.3 MEQ/L (3.5-5.1) 3.3 MEQ/L (3.5-5.1) Chloride Level 100 MEQ/L (98-107) 105 MEQ/L (98-107) Carbon Dioxide Level 31.7 MEQ/L (21.0-32.0) 30.1 MEQ/L (21.0-32.0) Anion Gap 13 MEQ/L (5-15) 12 MEQ/L (5-15) Estimat Glomerular Filtration Rate 18 ML/MIN (>89) 21 ML/MIN (>89) Protein Corrected Calcium 7.6 MG/DL (8.5-10.1) 7.8 MG/DL (8.5-10.1) Total Creatine Kinase 63 U/L (39-308) Troponin I 0.78 NG/ML (0.02-0.05) Phenytoin (Dilantin) Level 17.6 MCG/ML (10.0-20.0) 20.0 MCG/ML (10.0-20.0) White Blood Count 11.4 TH/MM3 (4.0-11.0) 14.5 TH/MM3 (4.0-11.0) Red Blood Count 4.37 MIL/MM3 (4.50-5.90) 4.57 MIL/MM3 (4.50-5.90) Hemoglobin 11.1 GM/DL (13.0-17.0) 11.6 GM/DL (13.0-17.0) Hematocrit 33.9 % (39.0-51.0) 35.7 % (39.0-51.0) Mean Corpuscular Volume 77.6 FL (80.0-100.0) 78.1 FL (80.0-100.0) Mean Corpuscular Hemoglobin 25.4 PG (27.0-34.0) 25.4 PG (27.0-34.0) Mean Corpuscular Hemoglobin Concent 32.8 % (32.0-36.0) 32.6 % (32.0-36.0) Red Cell Distribution Width 16.1 % (11.6-17.2) 16.2 % (11.6-17.2) Platelet Count 48 TH/MM3 (150-450) 67 TH/MM3 (150-450) Mean Platelet Volume 11.5 FL (7.0-11.0) 10.7 FL (7.0-11.0) Neutrophils (%) (Auto) 91.2 % (16.0-70.0) 92.2 % (16.0-70.0) Lymphocytes (%) (Auto) 5.4 % (9.0-44.0) 3.8 % (9.0-44.0) Monocytes (%) (Auto) 2.9 % (0.0-8.0) 3.1 % (0.0-8.0) Eosinophils (%) (Auto) 0.4 % (0.0-4.0) 0.8 % (0.0-4.0) Basophils (%) (Auto) 0.1 % (0.0-2.0) 0.1 % (0.0-2.0) Neutrophils # (Auto) 10.4 TH/MM3 (1.8-7.7) 13.4 TH/MM3 (1.8-7.7) Lymphocytes # (Auto) 0.6 TH/MM3 (1.0-4.8) 0.6 TH/MM3 (1.0-4.8) Monocytes # (Auto) 0.3 TH/MM3 (0-0.9) 0.5 TH/MM3 (0-0.9) Eosinophils # (Auto) 0.0 TH/MM3 (0-0.4) 0.1 TH/MM3 (0-0.4) Basophils # (Auto) 0.0 TH/MM3 (0-0.2) 0.0 TH/MM3 (0-0.2) CBC Comment AUTO DIFF DIFF FINAL Differential Total Cells Counted 100 Neutrophils % (Manual) 87 % (16-70) Band Neutrophils % 4 % (0-6) Lymphocytes % 6 % (9-44) Monocytes % 1 % (0-8) Eosinophils % 2 % (0-4) Neutrophils # (Manual) 10.4 TH/MM3 (1.8-7.7) Nucleated Red Blood Cells 2 /100 WBC (0-0) Differential Comment FINAL DIFF MANUAL Platelet Estimate LOW (NORMAL) Platelet Morphology Comment NORMAL (NORMAL) Target Cells 1+ (NORMAL) Lactic Acid Level 3.5 mmol/L (0.4-2.0) Tacrolimus (Prograf) Level 4.8 NG/ML (5.0-20.0) 4.0 NG/ML (5.0-20.0) Albumin 2.6 GM/DL (3.4-5.0) Alkaline Phosphatase 91 U/L (45-117) Aspartate Amino Transf (AST/SGOT) 38 U/L (15-37) Alanine Aminotransferase (ALT/SGPT) 15 U/L (12-78) Total Bilirubin 0.8 MG/DL (0.2-1.0) Test 02/15/17 11:30 Blood Urea Nitrogen 35 MG/DL (7-18) Creatinine 2.82 MG/DL (0.60-1.30) Random Glucose 39 MG/DL (74-106) Albumin 2.4 GM/DL (3.4-5.0) Calcium Level 7.1 MG/DL (8.5-10.1) Phosphorus Level 2.7 MG/DL (2.5-4.9) Sodium Level 148 MEQ/L (136-145) Potassium Level 3.1 MEQ/L (3.5-5.1) Chloride Level 111 MEQ/L (98-107) Carbon Dioxide Level 27.7 MEQ/L (21.0-32.0) Anion Gap 9 MEQ/L (5-15) Estimat Glomerular Filtration Rate 28 ML/MIN (>89) Result Diagram: 02/14/17 0450 02/15/17 1130 Microbiology Microbiology Date/Time Source Procedure Growth Status 02/15/17 11:45 Blood Peripheral Aerobic Blood Culture Pending Received 02/15/17 11:45 Blood Peripheral Anaerobic Blood Culture Pending Received Imaging Last Impressions Lower Extremity Ultrasound 02/12/17 0000 Signed Impressions: Service Date/Time: Sunday, February 12, 2017 16:21 - CONCLUSION: 1. Left [id number] amputation with clot identified within the left superficial femoral vein proximal and mid vein. There is normal flow and respiratory variation identified within the more proximal portions of the left deep venous system. 2. Overlying bandage and IV material limit evaluation of the more proximal right deep venous system with normal compressibility identified within the femoral vein, popliteal and veins of the calf. No augmentation maneuvers were performed on the right. Chantale Rothman MD Chest X-Ray 02/12/17 0000 Signed Impressions: Service Date/Time: Sunday, February 12, 2017 12:34 - CONCLUSION: Slightly improved bilateral airspace disease. Bilateral pleural effusions are probably not significantly changed. Salas Campos MD Renal Ultrasound 02/11/17 0700 Signed Impressions: Service Date/Time: Saturday, February 11, 2017 07:56 - CONCLUSION: 1. Improved resistive indices, now in the normal range. 2. Stable hydronephrosis 3. Stable small amount of simple perinephric fluid. Jimbo De La Torre MD Scrotum Ultrasound 02/11/17 0600 Signed Impressions: Service Date/Time: Saturday, February 11, 2017 08:19 - CONCLUSION: 1. Small right epididymal cyst. 2. Diffuse scrotal soft tissue edema. 3. Otherwise, unremarkable testicular ultrasound examination. Jimbo De La Torre MD Head CT 02/11/17 0000 Signed Impressions: Service Date/Time: Saturday, February 11, 2017 02:33 - CONCLUSION: Continued abnormality in the right globe. No evidence of acute hemorrhage or acute change. Alf Britton MD Chest CT 02/11/17 0000 Signed Impressions: Service Date/Time: Saturday, February 11, 2017 22:51 - CONCLUSION: Moderate- sized bilateral pleural effusions right greater left with extensive passive atelectasis both lung bases. Dense coronary atherosclerotic disease. Diffuse soft tissue edema across the chest including the right pectoralis muscles Alf Britton MD Abdomen X-Ray 02/10/17 0000 Signed Impressions: Service Date/Time: January 21:51 - CONCLUSION: Stable gaseous distention of the stomach and colon with new dilated segment of small bowel in the midabdomen. The dilated small bowel is new and abnormal. However, the overall distribution is not suggestive of small bowel obstruction. Suggest performing a followup imaging to confirm resolution. Salas Thompson MD Abdomen/Pelvis CT 02/08/17 0000 Signed Impressions: Service Date/Time: Wednesday, February 08, 2017 20:13 - CONCLUSION: 1. No acute abnormality is identified to explain the diffuse abdominal pain. 2. Small bilateral pleural effusions, right larger than left, with associated compressive atelectasis. 3. Anasarca. 4. [place] kidneys are atrophic consistent with history of end-stage renal disease. Right lower quadrant transplant demonstrates mild degree of hydronephrosis. There is a small volume of free fluid in the abdomen and pelvis. 5. Severe atherosclerotic disease. Salas Thompson MD Procedures 02/11/17 Cardiac arrest, CPR, intubation, femoral central line placed . 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 Patient originally from [facility] lived in [place] at some point, per his sister, has lived in [place] for many years. Apparently has not had contact with family for some time has a sister in [place] and possibly a half sister in [place] and a half brother in [facility]. Locally lived with 2 Uz[place] caregivers per records and report. Has been on disability for some time based on available records. Spiritual: Per records practices jordin Corley Legal:Status post prolonged cardiac arrest. Encephalopathic. Patient not able to participate in decision-making. No advanced directives per extensive review of records. No children, parents . Appears to have one or more siblings. Have been able to contact one sister in [place] who indicates there may be a half-sister in [place] and a half brother [facility]. At this time appears Per [place] statutes legal decision-making would fall to known sister in [place]. Ethical issues impacting care: Important Contacts Sister Areli South [phone] . Prognosis This patient has multiple chronic comorbidities including status post renal transplant 2012. Appears to be rather debilitated and in poor general health prior to admission. Was admitted for GI bleeding, sepsis. Subsequently, This admission suffered cardiac arrest resulting in prolonged CPR, now with poor neurological exam, likely significant anoxic brain injury. Very unlikely he will make meaningful neurologic recovery. High risk for further complications and decline. Code Status: Full Code Plan * Legal decision maker:Status post prolonged cardiac arrest. Encephalopathic. Patient not able to participate in decision-making. No advanced directives per extensive review of records. No children, parents . Appears to have one or more siblings. Have been able to contact one sister in [place] who indicates there may be a half-sister in [place] and a half brother [facility]. At this time appears Per [place] statGingr legal decision-making would fall to known sister in [place]. Sister has arrived in town and wishes to serve as proxy. * Goals: Met with patient and sister at length today in person. PLAN FOR withdrawal of mechanical vent/artificial measures around 10/11am tomorrow, transition to comfort measures only tomorrow. * CODE STATUS: Elected DNR today SYMPTOMS: --Encephalopathy-status post prolonged cardiac arrest and CPR; now with myoclonus, continuous EEG, very poor neurologic prognosis. Remains unresponsive to stimuli --Dyspnea-intubated secondary to cardiopulmonary arrest, nonresponsive no tachypnea now on mechanical vent * Palliative care will continue to follow during hospital course as condition evolves, to assist patient/decision-maker with understanding of medical conditions, weighing benefits/burdens of treatment options, for clarification of goals of treatment. Additionally will assist with any symptoms of palliative concern Time Spent Total Floor Time (mins): 70 >50% Counseling/Coord of Care: Yes (discussed with primary nurse, critical care ) Attestation To help prompt me to consider important information that might be impacting today's encounter and assessment, information from prior notes written by myself or my colleagues may have been "brought forward" into today's note. My signature on this note, however, is an attestation that I personally performed the exam, history, and/or decision-making noted today, and, unless otherwise indicated, the interactions with patient, family, and staff as well as the review of records all occurred today. I also attest that the listed assessment and stated plan reflect my best clinical judgment today based on the combination of historical information, prior notes, and today's exam/ interactions. When time spent is documented, it refers only to time spent today by the signer, or if indicated, combined time spent today by collaborating physician/nurse practitioner. Rema Moore Feb 15, 2017 13:21
[2017-02-15] MEDS ORDERED: DEXTROSE 50% IN WATER 50 ML SYRINGE ONE (13:37)
--- NOTE | 2017-02-15 16:19 | HHI.PR ---
Addendum to Inpatient Note Additional Information chart reviewed plan for withdrawing of care for tomorrow noted dw Zoë Jules MD Feb 15, 2017 16:19
[2017-02-15] MEDS ORDERED: POTASSIUM CHLOR 20 MEQ PREMIX 100 ML IV ONE (17:00)
[2017-02-15] MEDS: BUMETANIDE INJ 1 MG/4 ML VIAL IV PUSH SCH (17:56)
[2017-02-15] MEDS: FREE WATER G-TUBE SCH ×2 (17:56→23:36)
--- NOTE | 2017-02-15 18:29 | HHI.CCPN ---
Subjective Remarks/Hospital Course 02/08: patient went for EGD yesterday with lots of blood in the stomach but no active signs of bleeding. today went back to EGD which found gastritis without any evidence of ulcerative disease. anion gap closed yesterday and transitioned off of insulin drip. blood growing klebsiella and ID on board, on abx. patient without complaints and feeling well and improved from yesterday. ROS negative. 02/10 while on the floor patient choked on the dinner food, resulting in respiratory layer cardiopulmonary arrest requiring 35 minutes of CPR multiple shocks for V. fib rhythm and injections of epinephrine, including endotracheal intubation 02/11: Remains sedated, orally intubated on mechanical ventilation. Having myoclonic seizures. Multiple attempted NG tube/OG tube placement unsuccessful overnight hence GI evaluation awaited to place NG tube as well as for further evaluation of dilated bowel loops noted on KUB. Has been loaded with Keppra and is currently on propofol and having intermittent myoclonus. 02/12: Remains sedated, orally intubated on mechanical ventilation. Continues to have myoclonic seizures off and on. Underwent EGD on 02/12 with large quantities of food material noted impacted and the esophagus as well as in the stomach. OG tube placed by GI during endoscopy. 02/13: Remains sedated, orally intubated on mechanical ventilation. On Levophed 1 lindsay per minute for hypotension. On propofol currently 30 mics per KG per minute. On Keppra and Dilantin for myoclonic seizures. Starting tube feeds with Nepro today. 02/14: Remains sedated, orally intubated on mechanical ventilation. Remains on Levophed at 1 lindsay per minute. Tolerating tube feeds. 02/15: Remains encephalopathic/sedated, orally intubated on mechanical ventilation. Tolerating tube feeds. Objective Vital Signs Date Time Temp Pulse Resp B/P (MAP) Pulse Ox O2 Delivery O2 Flow Rate FiO2 02/15/17 18:10 100 35 02/15/17 16:00 98.0 83 12 116/44 (68) Intake and Output 02/15/17 02/15/17 02/16/17 08:00 16:00 00:00 Intake Total 841.3 ml Output Total 1350 ml Balance -508.7 ml Result Diagram: 02/14/17 0450 02/15/17 1130 Imaging Last 24 hours Impressions Chest X-Ray 02/12/17 0000 Signed Impressions: Service Date/Time: Sunday, February 12, 2017 12:34 - CONCLUSION: Slightly improved bilateral airspace disease. Bilateral pleural effusions are probably not significantly changed. Salas Campos MD Last 48 hours Impressions Renal Ultrasound 02/11/17 0700 Signed Impressions: Service Date/Time: Saturday, February 11, 2017 07:56 - CONCLUSION: 1. Improved resistive indices, now in the normal range. 2. Stable hydronephrosis 3. Stable small amount of simple perinephric fluid. Jimbo De La Torre MD Scrotum Ultrasound 02/11/17 0600 Signed Impressions: Service Date/Time: Saturday, February 11, 2017 08:19 - CONCLUSION: 1. Small right epididymal cyst. 2. Diffuse scrotal soft tissue edema. 3. Otherwise, unremarkable testicular ultrasound examination. Jimbo De La Torre MD Chest X-Ray 02/11/17 06 Signed Impressions: Service Date/Time: Saturday, February 11, 2017 04:52 - CONCLUSION: Patchy perihilar pulmonary infiltrates right greater than left. ET tube is in good position. Alf Britton MD Head CT 02/11/17 0000 Signed Impressions: Service Date/Time: Saturday, February 11, 2017 02:33 - CONCLUSION: Continued abnormality in the right globe. No evidence of acute hemorrhage or acute change. Alf Britton MD Chest X-Ray 02/10/17 0000 Signed Impressions: Service Date/Time: January 20:29 - CONCLUSION: 1. Bilateral perihilar distribution consolidation new from the prior study from 4 days ago. The appearance and distribution suggests pulmonary edema as the cause. 2. No concerning radiopaque foreign body is identified. There multiple lines overlying the patient and ET tube is present. Salas Thompson MD Abdomen X-Ray 02/10/17 0000 Signed Impressions: Service Date/Time: January 21:51 - CONCLUSION: Stable gaseous distention of the stomach and colon with new dilated segment of small bowel in the midabdomen. The dilated small bowel is new and abnormal. However, the overall distribution is not suggestive of small bowel obstruction. Suggest performing a followup imaging to confirm resolution. Salas Thompson MD Objective Remarks GENERAL: Elderly sick appearing man intubated SKIN: Warm and dry. HEAD: Normocephalic. EYES: No scleral icterus. No injection or drainage on left. 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 No JVD CARDIOVASCULAR: Regular rate and rhythm without murmurs, gallops, or rubs. RESPIRATORY: Orally intubated on mechanical ventilation, good air entry bilaterally, scattered rhonchi more on the right, no wheezing or crackles. GASTROINTESTINAL: Abdomen soft, non-tender, distended. Bowel sounds sluggish MUSCULOSKELETAL: No cyanosis, or edema. Status post left leg amputation Neuro: Sedated, orally intubated, not responding to painful stimuli Procedures 02/08- EGD- gastritis, biopsy done 02/10 cardiopulmonary resuscitation - Arterial line placed Date of Insertion: Feb 06, 2017 Date of Insertion: Feb 10, 2017 Line: Central Venous Catheter Side: Right Location: Femoral A/P Assessment and Plan Cardiopulmonary arrest Suspected anoxic brain injury secondary to cardiac arrest - Due to aspiration - 35 minutes of CPR and ACLS protocol - Multiple cardioversions due to V. fib rhythm and injections of epinephrine - did not initiate hypothermia protocol due to sepsis and persistent bacteremia - Myoclonic seizures noted. EEG and neurology consult noted. - Continue Keppra, Dilantin, Ativan when necessary for myoclonic seizures. Propofol for sedation. Daily sedation vacation if seizures controlled. Acute Respiratory failure on mechanical ventilation - Due to above - No weaning until neurologically improved - Continue mechanical ventilation -Vent bundle, bronchodilators as needed. Hematemesis - Protonix IV twice a day, -GI placed OG tube after EGD on 02/12 with findings of large amounts of undigested food in esophagus as well as stomach - H&H stable - gastritis per EGD. - GI okay with starting tube feedings. Started Nepro 15 cc/h on 02/13 to be advanced to goal of 30 cc per hour. Hypotension- resolved. Klebsiella Bacteremia Complicated UTI - Leukocytosis and fever - resolving sepsis. - Aggressive IV fluids resuscitation - Broad-spectrum antibiotics - Follow-up cultures -Antibiotics per ID Diabetes DKA- resolved. - SSI. - Started tube feeds with Nepro on 02/13 to be advanced to goal as tolerated.. Resume Levemir 10 units P every 12 hourly on 02/13. Acute on chronic kidney injury -Continue normal saline - Nephrology following - Monitor tacrolimus level - Strict I's and O's. - Creatinine and electrolyte level DVT GI prophylaxis - Teds SCDs -No subcutaneous heparin in view of thrombocytopenia and recent GI bleed - IV Protonix twice a day Discussed with FUNERAL ARRANGEMENT DIRECTORcareer technical education instructor following to assist with deciding goals of therapy in view of poor prognosis. Patient's sister arrived from [place] and palliative care had an extensive discussion with her regarding severity of anoxic brain injury. She has decided to proceed with focusing on comfort measures changing CODE STATUS to DNR and wishes to perform terminal wean and withdrawal of care for . Condition critical with significant anoxic brain injury following cardiac arrest on mechanical ventilation with active myoclonic seizures. The total critical care time was 40 minutes. Time to perform other separately billable procedures was not included in the critical care time. Calvin Leger MD Feb 15, 2017 18:29
[2017-02-15] MEDS: TAMSULOSIN HCL 0.4 MG CAP PO SCH (20:41)
[2017-02-15] MEDS: ATORVASTATIN 40 MG TAB PO SCH (20:41)
[2017-02-15] MEDS: SYSTANE LEFT EYE SCH (20:43)
[2017-02-16] VITALS (18 sets, daily range): BP systolic 109–150; BP diastolic 44–62; PULSE 68–84; RESP 12–15; TEMP 99.6–101.8; O2SAT 99–100
[2017-02-16] MEDS: INSULIN ASPART SUPPLEMENTAL SCALE SQ SCH ×4 (01:22→18:27)
[2017-02-16] MEDS: ALBUMIN HUMAN 25% 25 GM/100 ML BAGP IV SCH ×2 (02:12→15:53)
[2017-02-16] MEDS: LORazepam 2 MG/ML VIAL IV PRN ×2 (02:44→22:43)
[2017-02-16] MEDS: CHLORHEXIDINE GLUCONATE 2 % 1 PACK (2 CLOTHS) TOP SCH (03:39)
[2017-02-16] MEDS: PROPOFOL 1000 MG/100 ML IV PRN (04:33)
[2017-02-16] MEDS: PHENYTOIN INJ 100 MG/2 ML VIAL IV SCH ×3 (05:24→20:55)
[2017-02-16] MEDS: PIPERACIL-TAZO 2.25 GM PREMIX 50 ML IV SCH ×3 (05:24→18:00)
[2017-02-16] MEDS: FREE WATER G-TUBE SCH ×3 (05:24→18:00)
[2017-02-16] MEDS: TACROLIMUS 1 MG CAP PO SCH ×2 (05:24→18:25)
[2017-02-16] MEDS: SODIUM CHLORIDE 0.9% FLUSH 10 ML FLUSH IV FLUSH SCH ×2 (08:58→20:52)
[2017-02-16] MEDS: SYSTANE LEFT EYE SCH ×2 (09:00→20:53)
[2017-02-16] MEDS: amLODIPine BESYLATE 5 MG TAB PO SCH (09:00)
[2017-02-16] MEDS: INSULIN DETEMIR 100 UNITS/ML VIAL SQ SCH ×2 (09:00→21:00)
[2017-02-16] MEDS: TIMOLOL MALEATE 0.5% OPHT SOLN 5 ML BTL LEFT EYE SCH ×3 (09:00→20:54)
[2017-02-16] MEDS: DOCUSATE SODIUM 50 MG/SENNA 8.6 MG TAB PO SCH ×2 (09:00→19:52)
--- NOTE | 2017-02-16 09:38 | HHI.CCPN ---
Subjective Remarks/Hospital Course 02/08: patient went for EGD yesterday with lots of blood in the stomach but no active signs of bleeding. today went back to EGD which found gastritis without any evidence of ulcerative disease. anion gap closed yesterday and transitioned off of insulin drip. blood growing klebsiella and ID on board, on abx. patient without complaints and feeling well and improved from yesterday. ROS negative. 02/10 while on the floor patient choked on the dinner food, resulting in respiratory layer cardiopulmonary arrest requiring 35 minutes of CPR multiple shocks for V. fib rhythm and injections of epinephrine, including endotracheal intubation 02/11: Remains sedated, orally intubated on mechanical ventilation. Having myoclonic seizures. Multiple attempted NG tube/OG tube placement unsuccessful overnight hence GI evaluation awaited to place NG tube as well as for further evaluation of dilated bowel loops noted on KUB. Has been loaded with Keppra and is currently on propofol and having intermittent myoclonus. 02/12: Remains sedated, orally intubated on mechanical ventilation. Continues to have myoclonic seizures off and on. Underwent EGD on 02/12 with large quantities of food material noted impacted and the esophagus as well as in the stomach. OG tube placed by GI during endoscopy. 02/13: Remains sedated, orally intubated on mechanical ventilation. On Levophed 1 lindsay per minute for hypotension. On propofol currently 30 mics per KG per minute. On Keppra and Dilantin for myoclonic seizures. Starting tube feeds with Nepro today. 02/14: Remains sedated, orally intubated on mechanical ventilation. Remains on Levophed at 1 lindsay per minute. Tolerating tube feeds. 02/15: Remains encephalopathic/sedated, orally intubated on mechanical ventilation. Tolerating tube feeds. 02/16: No change in neuro exam remains encephalopathic. Currently on Levothroid at 1 mcg/m. Plan is for withdrawal of life support and, transition to comfort measures today Objective Vital Signs Date Time Temp Pulse Resp B/P (MAP) Pulse Ox O2 Delivery O2 Flow Rate FiO2 02/16/17 07:48 100 35 02/16/17 06:00 76 02/16/17 04:00 100.6 12 126/46 (72) Intake and Output 02/16/17 02/16/17 02/17/17 08:00 16:00 00:00 Intake Total 1150 ml Output Total 2025 ml Balance -875 ml Result Diagram: 02/14/17 0450 02/15/17 1130 Imaging Last 24 hours Impressions Chest X-Ray 02/12/17 0000 Signed Impressions: Service Date/Time: Sunday, February 12, 2017 12:34 - CONCLUSION: Slightly improved bilateral airspace disease. Bilateral pleural effusions are probably not significantly changed. Salas Campos MD Last 48 hours Impressions Renal Ultrasound 02/11/17 0700 Signed Impressions: Service Date/Time: Saturday, February 11, 2017 07:56 - CONCLUSION: 1. Improved resistive indices, now in the normal range. 2. Stable hydronephrosis 3. Stable small amount of simple perinephric fluid. Jimbo De La Torre MD Scrotum Ultrasound 02/11/17 0600 Signed Impressions: Service Date/Time: Saturday, February 11, 2017 08:19 - CONCLUSION: 1. Small right epididymal cyst. 2. Diffuse scrotal soft tissue edema. 3. Otherwise, unremarkable testicular ultrasound examination. Jimbo De La Torre MD Chest X-Ray 02/11/17 0600 Signed Impressions: Service Date/Time: Saturday, February 11, 2017 04:52 - CONCLUSION: Patchy perihilar pulmonary infiltrates right greater than left. ET tube is in good position. Alf Britton MD Head CT 02/11/17 0000 Signed Impressions: Service Date/Time: Saturday, February 11, 2017 02:33 - CONCLUSION: Continued abnormality in the right globe. No evidence of acute hemorrhage or acute change. Alf Britton MD Chest X-Ray 02/10/17 0000 Signed Impressions: Service Date/Time: January 20:29 - CONCLUSION: 1. Bilateral perihilar distribution consolidation new from the prior study from 4 days ago. The appearance and distribution suggests pulmonary edema as the cause. 2. No concerning radiopaque foreign body is identified. There multiple lines overlying the patient and ET tube is present. Salas Thompson MD Abdomen X-Ray 02/10/17 0000 Signed Impressions: Service Date/Time: January 21:51 - CONCLUSION: Stable gaseous distention of the stomach and colon with new dilated segment of small bowel in the midabdomen. The dilated small bowel is new and abnormal. However, the overall distribution is not suggestive of small bowel obstruction. Suggest performing a followup imaging to confirm resolution. Salas Thompson MD Objective Remarks GENERAL: Critically ill man intubated SKIN: Warm and dry. HEAD: Normocephalic. EYES: No scleral icterus. No injection or drainage on left. 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 No JVD CARDIOVASCULAR: Regular rate and rhythm without murmurs, gallops, or rubs. RESPIRATORY: Orally intubated on mechanical ventilation, good air entry bilaterally, scattered rhonchi more on the right GASTROINTESTINAL: Abdomen soft, non-tender, distended. Bowel sounds sluggish MUSCULOSKELETAL: No cyanosis, or edema. Status post left leg amputation Neuro: Sedated, orally intubated, not responding to painful stimuli Procedures 02/08- EGD- gastritis, biopsy done 02/10 cardiopulmonary resuscitation - Arterial line placed Date of Insertion: Feb 06, 2017 Date of Insertion: Feb 10, 2017 Line: Central Venous Catheter Side: Right Location: Femoral A/P Assessment and Plan Cardiopulmonary arrest Suspected anoxic brain injury secondary to cardiac arrest - Due to aspiration - 35 minutes of CPR and ACLS protocol - Multiple cardioversions due to V. fib rhythm and injections of epinephrine - Did not initiate hypothermia protocol due to sepsis and persistent bacteremia - Myoclonic seizures noted. EEG and neurology consult noted. - Continue Keppra, Dilantin, Ativan when necessary for myoclonic seizures. - Propofol for sedation. Daily sedation vacation if seizures controlled. Acute Respiratory failure on mechanical ventilation - No weaning Continue mechanical ventilation, until withdrawal of life support/ comfort measure - Vent bundle, bronchodilators as needed. Hematemesis - Protonix IV twice a day, - GI placed OG tube after EGD on 02/12 with findings of large amounts of undigested food in esophagus as well as stomach - H&H stable - gastritis on EGD. - Nepro tube feeds Hypotension - remains on Levophed 1 mcg/min Klebsiella Bacteremia Complicated UTI - Leukocytosis and fever - resolving sepsis. - Aggressive IV fluids resuscitation - Broad-spectrum antibiotics - Follow-up cultures - Antibiotics per ID Diabetes DKA- resolved. - Tube feeds with Nepro. SSI, Levemir 10 units P every 12 hourly on 02/13. Acute on chronic kidney injury - Continue Bumex - Nephrology following - Monitor tacrolimus level - Strict I's and O's. - Creatinine and electrolyte level DVT GI prophylaxis - Teds SCDs - No subcutaneous heparin in view of thrombocytopenia and recent GI bleed - IV Protonix twice a day Discussed with BOOKMAKER'S CLERKmanaged care director following to assist with deciding goals of therapy in view of poor prognosis. Patient's sister arrived from [place] and palliative care had an extensive discussion with her regarding severity of anoxic brain injury. She has decided to proceed with focusing on comfort measures changing CODE STATUS to DNR and wishes to perform terminal wean and withdrawal of care for . Condition critical with significant anoxic brain injury following cardiac arrest on mechanical ventilation with active myoclonic seizures. Level 2 Alonso Marina MD Feb 16, 2017 09:38
--- NOTE | 2017-02-16 09:43 | HHI.HCPN ---
Reason for visit a. To assist with evaluation and management of symptoms including:dyspnea, encephalopathy b. To assist medical decision maker(s) with: better understanding of current medical conditions; weighing benefits/burdens of medical treatment options; making medical treatment decisions. Subjective/Interval History Pt seen today to follow up on goals, planned withdrawal of artificial life support. No family present at time of my arrival-- yesterday they indicated they would be in around 10 am for planned withdrawal. Patient remains on mechanical vent, continued on Diprivan to assist with seizure control. Remains on Keppra and Dilantin. Dual visit with Tray LEA. Patient examined in room no visitors present. Nursing has held diprivan for neuro exam. Non-responsive to exam. NO eye opening. No response to sternal rub. + persistent twitching to mouth, extremities, . D/w primary RN, d/w critical care Dr Marina, d/w palliative MD Dr Gregory. Exhibits B,C signed and in chart, awaiting family arrival for sister signature. Family/friend interactions family arrived 1130- met with pt sister Ms. Dobson, her daughter, using translation service per hospital protocol. Sister endorses that she still wants to withdrawal life support and make pt comfortable, however would like to wait until tomorrow. She wishes to visit w him today, will be returning to [place] tomorrow, wants to withdraw 10am tomorrow. Review conditions, current assessment. She affirms wishes for comfort care only as consistent w pt wishes. anticipatory guidance provided. She would like nsg to call once he has been withdrawn and when he dies. RN present for discussion. Sister signed exhibits. . Advance Directives Living Will: Never completed Health Care Surrogate: Never completed Durable Power of [employer] Specials: Never completed Objective Vital Signs Date Time Temp Pulse Resp B/P (MAP) Pulse Ox O2 Delivery O2 Flow Rate FiO2 02/16/17 07:48 100 35 02/16/17 06:00 76 02/16/17 04:08 100 35 02/16/17 04:00 35 02/16/17 04:00 74 02/16/17 04:00 100.6 74 12 126/46 (72) 100 02/16/17 02:00 74 02/16/17 01:06 100 45 02/16/17 00:00 72 02/16/17 00:00 35 02/16/17 00:00 100.4 72 15 128/52 (77) 99 02/15/17 22:00 74 02/15/17 20:57 100 35 02/15/17 20:00 35 02/15/17 20:00 74 02/15/17 20:00 100.4 74 12 132/44 (73) 98 02/15/17 18:10 100 35 02/15/17 18:00 76 02/15/17 16:00 35 02/15/17 16:00 98.0 83 12 116/44 (68) 100 02/15/17 16:00 83 02/15/17 14:00 66 02/15/17 12:00 35 02/15/17 12:00 68 02/15/17 12:00 99.0 68 12 146/54 (84) 96 02/15/17 10:00 76 Intake & Output 02/16/17 02/16/17 07:00 19:00 Intake Total 1487.1 ml Output Total 2025 ml Balance -537.9 ml IV Total 527.1 ml Tube Feeding 300 ml Other 660 ml Output Urine Total 2025 ml # Bowel Movements 3 Physical Exam CONSTITUTIONAL/GENERAL: This is a chronically ill male patient, intubated and mechanically ventilated. TUBES/LINES/DRAINS: ETT, soft wrist restraints, Rt femoral a-line, Rt femoral CVL, li catheter EYES: Right eye enucleation. Left pupil 2mm ?able reaction to light. No scleral icterus. No injection or drainage. Fundi not examined. ENT: Unable to assess secondary to clinical condition. Nose without bleeding or purulent drainage. CARDIOVASCULAR: Regular rate and rhythm, distant. BUE edema. RESPIRATORY/CHEST: Symmetric respirations via mechanical vent. Course rhonchi throughout, diminished breath sounds equal bilaterally. GASTROINTESTINAL: Abdomen soft, mildly distended. No hepato-splenomegaly, or palpable masses. Bowel sounds normoactive. +mod amt liq brown stool present in bed-nsg notified GENITOURINARY: Without palpable bladder distension. Li catheter in place. + scrotal edema MUSCULOSKELETAL: Extremities without clubbing, cyanosis. No mottling or clubbing. Left AKA. Right second toe old amputation. NEUROLOGICAL: Sedated on mechanical ventilation. nonresponsive to pain stimuli. No eye opening. No response to pain stimuli. PSYCHIATRIC: Unable to assess secondary to clinical condition. . Diagnostic Tests Laboratory Laboratory Tests Test 02/14/17 04:50 02/15/17 11:30 02/16/17 03:45 White Blood Count 14.5 TH/MM3 (4.0-11.0) Red Blood Count 4.57 MIL/MM3 (4.50-5.90) Hemoglobin 11.6 GM/DL (13.0-17.0) Hematocrit 35.7 % (39.0-51.0) Mean Corpuscular Volume 78.1 FL (80.0-100.0) Mean Corpuscular Hemoglobin 25.4 PG (27.0-34.0) Mean Corpuscular Hemoglobin Concent 32.6 % (32.0-36.0) Red Cell Distribution Width 16.2 % (11.6-17.2) Platelet Count 67 TH/MM3 (150-450) Mean Platelet Volume 10.7 FL (7.0-11.0) Neutrophils (%) (Auto) 92.2 % (16.0-70.0) Lymphocytes (%) (Auto) 3.8 % (9.0-44.0) Monocytes (%) (Auto) 3.1 % (0.0-8.0) Eosinophils (%) (Auto) 0.8 % (0.0-4.0) Basophils (%) (Auto) 0.1 % (0.0-2.0) Neutrophils # (Auto) 13.4 TH/MM3 (1.8-7.7) Lymphocytes # (Auto) 0.6 TH/MM3 (1.0-4.8) Monocytes # (Auto) 0.5 TH/MM3 (0-0.9) Eosinophils # (Auto) 0.1 TH/MM3 (0-0.4) Basophils # (Auto) 0.0 TH/MM3 (0-0.2) CBC Comment DIFF FINAL Differential Comment Blood Urea Nitrogen 44 MG/DL (7-18) 35 MG/DL (7-18) Creatinine 3.58 MG/DL (0.60-1.30) 2.82 MG/DL (0.60-1.30) Random Glucose 135 MG/DL (74-106) 39 MG/DL (74-106) Total Protein 5.4 GM/DL (6.4-8.2) Albumin 2.6 GM/DL (3.4-5.0) 2.4 GM/DL (3.4-5.0) Calcium Level 6.9 MG/DL (8.5-10.1) 7.1 MG/DL (8.5-10.1) Phosphorus Level 2.8 MG/DL (2.5-4.9) 2.7 MG/DL (2.5-4.9) Magnesium Level 1.8 MG/DL (1.5-2.5) Alkaline Phosphatase 91 U/L (45-117) Aspartate Amino Transf (AST/SGOT) 38 U/L (15-37) Alanine Aminotransferase (ALT/SGPT) 15 U/L (12-78) Total Bilirubin 0.8 MG/DL (0.2-1.0) Sodium Level 147 MEQ/L (136-145) 148 MEQ/L (136-145) Potassium Level 3.3 MEQ/L (3.5-5.1) 3.1 MEQ/L (3.5-5.1) Chloride Level 105 MEQ/L (98-107) 111 MEQ/L (98-107) Carbon Dioxide Level 30.1 MEQ/L (21.0-32.0) 27.7 MEQ/L (21.0-32.0) Anion Gap 12 MEQ/L (5-15) 9 MEQ/L (5-15) Estimat Glomerular Filtration Rate 21 ML/MIN (>89) 28 ML/MIN (>89) Protein Corrected Calcium 7.8 MG/DL (8.5-10.1) Tacrolimus (Prograf) Level 4.0 NG/ML (5.0-20.0) Result Diagram: 02/14/17 0450 02/15/17 1130 Microbiology Microbiology Date/Time Source Procedure Growth Status 02/15/17 11:45 Blood Peripheral Aerobic Blood Culture Pending Received 02/15/17 11:45 Blood Peripheral Anaerobic Blood Culture Pending Received Imaging Last Impressions Lower Extremity Ultrasound 02/12/17 0000 Signed Impressions: Service Date/Time: Sunday, February 12, 2017 16:21 - CONCLUSION: 1. Left [id number] amputation with clot identified within the left superficial femoral vein proximal and mid vein. There is normal flow and respiratory variation identified within the more proximal portions of the left deep venous system. 2. Overlying bandage and IV material limit evaluation of the more proximal right deep venous system with normal compressibility identified within the femoral vein, popliteal and veins of the calf. No augmentation maneuvers were performed on the right. Chantale Rothman MD Chest X-Ray 02/12/17 0000 Signed Impressions: Service Date/Time: Sunday, February 12, 2017 12:34 - CONCLUSION: Slightly improved bilateral airspace disease. Bilateral pleural effusions are probably not significantly changed. Salas Campos MD Renal Ultrasound 02/11/17 0700 Signed Impressions: Service Date/Time: Saturday, February 11, 2017 07:56 - CONCLUSION: 1. Improved resistive indices, now in the normal range. 2. Stable hydronephrosis 3. Stable small amount of simple perinephric fluid. Jimbo De La Torre MD Scrotum Ultrasound 02/11/17 0600 Signed Impressions: Service Date/Time: Saturday, February 11, 2017 08:19 - CONCLUSION: 1. Small right epididymal cyst. 2. Diffuse scrotal soft tissue edema. 3. Otherwise, unremarkable testicular ultrasound examination. Jimbo De La Torre MD Head CT 02/11/17 0000 Signed Impressions: Service Date/Time: Saturday, February 11, 2017 02:33 - CONCLUSION: Continued abnormality in the right globe. No evidence of acute hemorrhage or acute change. Alf Britton MD Chest CT 02/11/17 0000 Signed Impressions: Service Date/Time: Saturday, February 11, 2017 22:51 - CONCLUSION: Moderate- sized bilateral pleural effusions right greater left with extensive passive atelectasis both lung bases. Dense coronary atherosclerotic disease. Diffuse soft tissue edema across the chest including the right pectoralis muscles Alf Britton MD Abdomen X-Ray 02/10/17 0000 Signed Impressions: Service Date/Time: January 21:51 - CONCLUSION: Stable gaseous distention of the stomach and colon with new dilated segment of small bowel in the midabdomen. The dilated small bowel is new and abnormal. However, the overall distribution is not suggestive of small bowel obstruction. Suggest performing a followup imaging to confirm resolution. Salas Thompson MD Abdomen/Pelvis CT 02/08/17 0000 Signed Impressions: Service Date/Time: Wednesday, February 08, 2017 20:13 - CONCLUSION: 1. No acute abnormality is identified to explain the diffuse abdominal pain. 2. Small bilateral pleural effusions, right larger than left, with associated compressive atelectasis. 3. Anasarca. 4. [place] kidneys are atrophic consistent with history of end-stage renal disease. Right lower quadrant transplant demonstrates mild degree of hydronephrosis. There is a small volume of free fluid in the abdomen and pelvis. 5. Severe atherosclerotic disease. Salas Thompson MD Procedures 02/11/17 Cardiac arrest, CPR, intubation, femoral central line placed . 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 Patient originally from [facility] lived in [place] at some point, per his sister, has lived in [place] for many years. Apparently has not had contact with family for some time has a sister in [place] and possibly a half sister in [place] and a half brother in [facility] [place]. Locally lived with 2 [place] caregivers per records and report. Has been on disability for some time based on available records. Spiritual: Per records practices jordin Corley Legal:Status post prolonged cardiac arrest. Encephalopathic. Patient not able to participate in decision-making. No advanced directives per extensive review of records. No children, parents . Appears to have one or more siblings. Have been able to contact one sister in [place] who indicates there may be a half-sister in [place] and a half brother [facility]. At this time appears Per [place] statutes legal decision-making would fall to known sister in [place]. Ethical issues impacting care: Important Contacts Sister Areli South [phone] . Prognosis This patient has multiple chronic comorbidities including status post renal transplant 2012. Appears to be rather debilitated and in poor general health prior to admission. Was admitted for GI bleeding, sepsis. Subsequently, This admission suffered cardiac arrest resulting in prolonged CPR, now with poor neurological exam, likely significant anoxic brain injury. Very unlikely he will make meaningful neurologic recovery. High risk for further complications and decline. Code Status: Full Code Plan * Legal decision maker:Status post prolonged cardiac arrest. Encephalopathic. Patient not able to participate in decision-making. No advanced directives per extensive review of records. No children, parents . Appears to have one or more siblings. Have been able to contact one sister in [place] who indicates there may be a half-sister in [place] and a half brother [facility]. At this time appears Per [place] statutes legal decision-making would fall to known sister in [place]. Sister has arrived in town and wishes to serve as proxy. * Goals: Met with patient and sister at length 02/15/17 in person. met again w sister 02/16, initially planned for withdrawal today. Sister endorses that she still wants to withdrawal life support and make pt comfortable , however would like to wait until tomorrow 02/17. She wishes to visit w him today, will be returning to [place] tomorrow, wants to withdraw 10am tomorrow. She will not remain present for withdrawal. Review conditions, current assessment. She affirms wishes for comfort care only as consistent w pt wishes. anticipatory guidance provided. She would like nsg to call once he has been withdrawn and when he dies. RN present for discussion. Sister signed exhibits. Palliative will enter comfort medication orders for pre withdraw, post withdraw tomorrow at 10am. * CODE STATUS: DNR SYMPTOMS: --Encephalopathy-status post prolonged cardiac arrest and CPR; now with myoclonus, continuous EEG, very poor neurologic prognosis. Remains unresponsive to stimuli --Dyspnea-intubated secondary to cardiopulmonary arrest, nonresponsive no tachypnea now on mechanical vent -- seizure- has had persistent seizure activity, managed by critical care/ neuro. + on multiple antiepileptics, +Diprivan ,ativan * Palliative care will continue to follow during hospital course as condition evolves, to assist patient/decision-maker with understanding of medical conditions, weighing benefits/burdens of treatment options, for clarification of goals of treatment. Additionally will assist with any symptoms of palliative concern Time Spent >50% Counseling/Coord of Care: Yes (d/w critical care, rn) Attestation To help prompt me to consider important information that might be impacting today's encounter and assessment, information from prior notes written by myself or my colleagues may have been "brought forward" into today's note. My signature on this note, however, is an attestation that I personally performed the exam, history, and/or decision-making noted today, and, unless otherwise indicated, the interactions with patient, family, and staff as well as the review of records all occurred today. I also attest that the listed assessment and stated plan reflect my best clinical judgment today based on the combination of historical information, prior notes, and today's exam/ interactions. When time spent is documented, it refers only to time spent today by the signer, or if indicated, combined time spent today by collaborating physician/nurse practitioner. Rema Moore Feb 16, 2017 09:43
[2017-02-16] MEDS: methylPREDNISolone SOD SUCC 40 MG/1 ML VIAL IV PUSH SCH (09:47)
[2017-02-16] MEDS: GABAPENTIN 300 MG CAP PO SCH ×2 (09:48→20:54)
[2017-02-16] MEDS: CALCITRIOL 0.25 MCG CAP PO SCH (09:48)
[2017-02-16] MEDS: BUMETANIDE INJ 1 MG/4 ML VIAL IV PUSH SCH ×2 (09:48→18:24)
[2017-02-16] MEDS: ACETAMINOPHEN 325 MG TAB PO PRN ×2 (09:49→22:44)
[2017-02-16] MEDS: PANTOPRAZOLE SODIUM 40 MG VIAL IV PUSH SCH (09:49)
[2017-02-16] MEDS: LACOSAMIDE INJ 100 MG in SODIUM CHLORIDE 0.9% INJ 100 ML IV SCH ×2 (09:50→20:52)
[2017-02-16] MEDS: levETIRAcetam 1000 MG INJ 100 ML IV SCH ×2 (09:50→20:51)
[2017-02-16] MEDS: BRIMONIDINE TARTRATE 0.2% OPHT SOLN 5 ML BTL LEFT EYE SCH ×3 (09:51→20:53)
[2017-02-16] MEDS: LEVOFLOXACIN 500 MG PREMIX INJ 100 ML IV SCH (20:51)
[2017-02-16] MEDS: TAMSULOSIN HCL 0.4 MG CAP PO SCH (20:54)
[2017-02-16] MEDS: ATORVASTATIN 40 MG TAB PO SCH (20:54)
[2017-02-16] MEDS: MORPHINE SULFATE 4 MG/ML INJ IV PRN (22:44)
[2017-02-17] VITALS (9 sets, daily range): BP systolic 98–123; BP diastolic 43–47; PULSE 74–86; RESP 12–16; TEMP 100.9–102.8; O2SAT 100
[2017-02-17] MEDS: PIPERACIL-TAZO 2.25 GM PREMIX 50 ML IV SCH ×2 (00:45→05:32)
[2017-02-17] MEDS: INSULIN ASPART SUPPLEMENTAL SCALE SQ SCH ×2 (01:04→05:59)
[2017-02-17] MEDS: ALBUMIN HUMAN 25% 25 GM/100 ML BAGP IV SCH (02:59)
[2017-02-17] MEDS: CHLORHEXIDINE GLUCONATE 2 % 1 PACK (2 CLOTHS) TOP SCH (04:00)
[2017-02-17] MEDS: LORazepam 2 MG/ML VIAL IV PRN (05:23)
[2017-02-17] MEDS: FREE WATER G-TUBE SCH ×2 (05:32)
[2017-02-17] MEDS: TACROLIMUS 1 MG CAP PO SCH (05:32)
[2017-02-17] MEDS: PHENYTOIN INJ 100 MG/2 ML VIAL IV SCH (05:32)
[2017-02-17] MEDS: MORPHINE SULFATE 4 MG/ML INJ IV PRN (06:20)
[2017-02-17] MEDS: GABAPENTIN 300 MG CAP PO SCH (08:48)
[2017-02-17] MEDS: amLODIPine BESYLATE 5 MG TAB PO SCH ×2 (08:48→09:00)
[2017-02-17] MEDS: PANTOPRAZOLE SODIUM 40 MG VIAL IV PUSH SCH (08:48)
[2017-02-17] MEDS: LACOSAMIDE INJ 100 MG in SODIUM CHLORIDE 0.9% INJ 100 ML IV SCH (08:49)
[2017-02-17] MEDS: methylPREDNISolone SOD SUCC 40 MG/1 ML VIAL IV PUSH SCH (08:49)
[2017-02-17] MEDS: levETIRAcetam 1000 MG INJ 100 ML IV SCH (08:49)
[2017-02-17] MEDS: CALCITRIOL 0.25 MCG CAP PO SCH (08:51)
[2017-02-17] MEDS: BUMETANIDE INJ 1 MG/4 ML VIAL IV PUSH SCH (09:00)
[2017-02-17] MEDS: DOCUSATE SODIUM 50 MG/SENNA 8.6 MG TAB PO SCH (09:00)
[2017-02-17] MEDS: SODIUM CHLORIDE 0.9% FLUSH 10 ML FLUSH IV FLUSH SCH (09:00)
--- NOTE | 2017-02-17 10:09 | HHI.CCPN ---
Subjective Remarks/Hospital Course 02/08: patient went for EGD yesterday with lots of blood in the stomach but no active signs of bleeding. today went back to EGD which found gastritis without any evidence of ulcerative disease. anion gap closed yesterday and transitioned off of insulin drip. blood growing klebsiella and ID on board, on abx. patient without complaints and feeling well and improved from yesterday. ROS negative. 02/10 while on the floor patient choked on the dinner food, resulting in respiratory layer cardiopulmonary arrest requiring 35 minutes of CPR multiple shocks for V. fib rhythm and injections of epinephrine, including endotracheal intubation 02/11: Remains sedated, orally intubated on mechanical ventilation. Having myoclonic seizures. Multiple attempted NG tube/OG tube placement unsuccessful overnight hence GI evaluation awaited to place NG tube as well as for further evaluation of dilated bowel loops noted on KUB. Has been loaded with Keppra and is currently on propofol and having intermittent myoclonus. 02/12: Remains sedated, orally intubated on mechanical ventilation. Continues to have myoclonic seizures off and on. Underwent EGD on 02/12 with large quantities of food material noted impacted and the esophagus as well as in the stomach. OG tube placed by GI during endoscopy. 02/13: Remains sedated, orally intubated on mechanical ventilation. On Levophed 1 lindsay per minute for hypotension. On propofol currently 30 mics per KG per minute. On Keppra and Dilantin for myoclonic seizures. Starting tube feeds with Nepro today. 02/14: Remains sedated, orally intubated on mechanical ventilation. Remains on Levophed at 1 lindsya per minute. Tolerating tube feeds. 02/15: Remains encephalopathic/sedated, orally intubated on mechanical ventilation. Tolerating tube feeds. 02/16: No change in neuro exam remains encephalopathic. Currently on Levophed at 1 mcg/m. Plan is for withdrawal of life support and, transition to comfort measures today 02/17: No improvement in neuro exam. Plan for withdrawal of life support today. D /W Palliative care Objective Vital Signs Date Time Temp Pulse Resp B/P (MAP) Pulse Ox O2 Delivery O2 Flow Rate FiO2 02/17/17 07:39 100 35 02/17/17 06:00 86 02/17/17 04:00 100.9 15 123/47 (72) Intake and Output 02/17/17 02/17/17 02/17/17 07:59 15:59 23:59 Intake Total 884 ml Output Total 3600 ml Balance -2716 ml Result Diagram: 02/14/17 0450 02/15/17 1130 Imaging Last 24 hours Impressions Chest X-Ray 02/12/17 0000 Signed Impressions: Service Date/Time: Sunday, February 12, 2017 12:34 - CONCLUSION: Slightly improved bilateral airspace disease. Bilateral pleural effusions are probably not significantly changed. Salas Campos MD Last 48 hours Impressions Renal Ultrasound 02/11/17 0700 Signed Impressions: Service Date/Time: Saturday, February 11, 2017 07:56 - CONCLUSION: 1. Improved resistive indices, now in the normal range. 2. Stable hydronephrosis 3. Stable small amount of simple perinephric fluid. Jimbo De La Torre MD Scrotum Ultrasound 02/11/17 0600 Signed Impressions: Service Date/Time: Saturday, February 11, 2017 08:19 - CONCLUSION: 1. Small right epididymal cyst. 2. Diffuse scrotal soft tissue edema. 3. Otherwise, unremarkable testicular ultrasound examination. Jimbo De La Torre MD Chest X-Ray 02/11/17 0600 Signed Impressions: Service Date/Time: Saturday, February 11, 2017 04:52 - CONCLUSION: Patchy perihilar pulmonary infiltrates right greater than left. ET tube is in good position. Alf Britton MD Head CT 02/11/17 0000 Signed Impressions: Service Date/Time: Saturday, February 11, 2017 02:33 - CONCLUSION: Continued abnormality in the right globe. No evidence of acute hemorrhage or acute change. Alf Britton MD Chest X-Ray 02/10/17 0000 Signed Impressions: Service Date/Time: January 20:29 - CONCLUSION: 1. Bilateral perihilar distribution consolidation new from the prior study from 4 days ago. The appearance and distribution suggests pulmonary edema as the cause. 2. No concerning radiopaque foreign body is identified. There multiple lines overlying the patient and ET tube is present. Salas Thompson MD Abdomen X-Ray 02/10/17 0000 Signed Impressions: Service Date/Time: January 21:51 - CONCLUSION: Stable gaseous distention of the stomach and colon with new dilated segment of small bowel in the midabdomen. The dilated small bowel is new and abnormal. However, the overall distribution is not suggestive of small bowel obstruction. Suggest performing a followup imaging to confirm resolution. Salas Thompson MD Objective Remarks GENERAL: Critically ill man intubated encephalopathic SKIN: Warm and dry. HEAD: Normocephalic. EYES: No scleral icterus. No injection or drainage on left. 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 No JVD CARDIOVASCULAR: Regular rate and rhythm without murmurs, gallops, or rubs. RESPIRATORY: Orally intubated on mechanical ventilation, good air entry bilaterally, scattered rhonchi more on the right GASTROINTESTINAL: Abdomen soft, non-tender, distended. Bowel sounds sluggish MUSCULOSKELETAL: No cyanosis, or edema. Status post left leg amputation Neuro: Orally intubated, not responding to painful stimuli Procedures 02/08- EGD- gastritis, biopsy done 02/10 cardiopulmonary resuscitation - Arterial line placed Date of Insertion: Feb 06, 2017 Date of Insertion: Feb 10, 2017 Line: Central Venous Catheter Side: Right Location: Femoral A/P Assessment and Plan Cardiopulmonary arrest Suspected anoxic brain injury secondary to cardiac arrest - Due to aspiration - 35 minutes of CPR and ACLS protocol - Multiple cardioversions due to V. fib rhythm and injections of epinephrine - Did not initiate hypothermia protocol due to sepsis and persistent bacteremia - Myoclonic seizures noted. EEG and neurology consult noted. - Continue Keppra, Dilantin, Ativan when necessary for myoclonic seizures. - Propofol for sedation. Daily sedation vacation if seizures controlled. - Plan for withdrawal of life support today Acute Respiratory failure on mechanical ventilation - No weaning Continue mechanical ventilation, until withdrawal of life support/ comfort measure - Vent bundle, bronchodilators as needed. Hematemesis - Protonix IV twice a day, - GI placed OG tube after EGD on 02/12 with findings of large amounts of undigested food in esophagus as well as stomach - H&H stable - gastritis on EGD. - Nepro tube feeds Hypotension - remains on Levophed 1 mcg/min Klebsiella Bacteremia Complicated UTI - resolving sepsis. - Broad-spectrum antibiotics- DC once withdrawal orders are placed - Follow-up cultures - Antibiotics per ID Diabetes DKA- resolved. - Tube feeds with Nepro. SSI, Levemir 10 units every 12 hourly on 02/13. Acute on chronic kidney injury - Continue Bumex - Nephrology following - Monitor tacrolimus level - Strict I's and O's. - Creatinine and electrolyte level DVT GI prophylaxis - Teds SCDs - No subcutaneous heparin in view of thrombocytopenia and recent GI bleed - IV Protonix twice a day D[facility]ed with [facility] following to assist with deciding goals of therapy in view of poor prognosis. Patient's sister arrived from [place] and palliative care had an extensive discussion with her regarding severity of anoxic brain injury. She has decided to proceed with focusing on comfort measures changing CODE STATUS to DNR and wishes to perform terminal wean and withdrawal of care for . Level 1 Alonso Marina MD Feb 17, 2017 10:09
--- NOTE | 2017-02-17 10:27 | HHI.HCPN ---
Reason for visit a. To assist with evaluation and management of symptoms including:dyspnea, encephalopathy b. To assist medical decision maker(s) with: better understanding of current medical conditions; weighing benefits/burdens of medical treatment options; making medical treatment decisions. Subjective/Interval History Patient examined in room remains intubated and mechanically ventilated. Patient' s domestic partner Cristina Calderon present during exam. Patient is nonresponsive to exam, no eye opening, does not withdraw to noxious stimuli. Plans for withdrawal of life support today. Combined visit with LEONORA Munoz and LEONORA Ramirez. D/w primary RN, d/ w critical care Dr Marina. Orders placed for comfort medications for withdrawal of life support. Family/friend interactions Bedside conversation with patient's domestic partner of 10 years Cristina Calderon. . Advance Directives Living Will: Never completed Health Care Surrogate: Never completed Durable Power of Bleach Boiler Packer: Never completed Objective Vital Signs Date Time Temp Pulse Resp B/P (MAP) Pulse Ox O2 Delivery O2 Flow Rate FiO2 02/17/17 10:00 78 02/17/17 08:00 35 02/17/17 08:00 76 02/17/17 08:00 102.0 76 16 106/43 (64) 100 02/17/17 07:39 100 35 02/17/17 06:00 86 02/17/17 04:20 100 35 02/17/17 04:00 100.9 78 15 123/47 (72) 100 02/17/17 04:00 78 02/17/17 04:00 35 02/17/17 02:00 74 02/17/17 01:11 100 35 02/17/17 00:00 102.8 76 12 98/44 (62) 100 02/17/17 00:00 35 02/17/17 00:00 76 02/16/17 22:00 78 02/16/17 20:00 78 02/16/17 20:00 101.0 78 12 150/62 (91) 100 02/16/17 20:00 35 02/16/17 19:36 100 35 02/16/17 18:00 80 02/16/17 16:00 35 02/16/17 16:00 99.6 78 15 130/50 (76) 100 02/16/17 16:00 78 02/16/17 15:01 100 35 02/16/17 14:00 68 02/16/17 12:01 100 35 02/16/17 12:00 35 02/16/17 12:00 76 02/16/17 12:00 100.3 76 12 109/44 (65) 100 Intake & Output 02/17/17 02/17/17 07:00 19:00 Intake Total 884 ml Output Total 3600 ml Balance -2716 ml IV Total 596 ml Tube Feeding 288 ml Output Urine Total 3600 ml # Bowel Movements 2 . Physical Exam CONSTITUTIONAL/GENERAL: This is a chronically ill male patient, intubated and mechanically ventilated. TUBES/LINES/DRAINS: ETT, soft wrist restraints, Rt femoral a-line, Rt femoral CVL, li catheter EYES: Right eye enucleation. No scleral icterus. No injection or drainage. Fundi not examined. ENT: Unable to assess secondary to clinical condition. Nose without bleeding or purulent drainage. CARDIOVASCULAR: Regular rate and rhythm, distant. BUE edema. RESPIRATORY/CHEST: Symmetric respirations via mechanical vent. Course rhonchi throughout, diminished breath sounds equal bilaterally. GASTROINTESTINAL: Abdomen soft, mildly distended. No hepato-splenomegaly, or palpable masses. Bowel sounds normoactive. GENITOURINARY: Without palpable bladder distension. Li catheter in place. + scrotal edema MUSCULOSKELETAL: Extremities without clubbing, cyanosis. No mottling or clubbing. Left AKA. Right second toe old amputation. NEUROLOGICAL: Sedated on mechanical ventilation. nonresponsive to pain stimuli. No eye opening. No response to pain stimuli. PSYCHIATRIC: Unable to assess secondary to clinical condition. . Diagnostic Tests Laboratory Laboratory Tests Test 02/15/17 11:30 02/16/17 03:45 Blood Urea Nitrogen 35 MG/DL (7-18) Creatinine 2.82 MG/DL (0.60-1.30) Random Glucose 39 MG/DL (74-106) Albumin 2.4 GM/DL (3.4-5.0) Calcium Level 7.1 MG/DL (8.5-10.1) Phosphorus Level 2.7 MG/DL (2.5-4.9) Sodium Level 148 MEQ/L (136-145) Potassium Level 3.1 MEQ/L (3.5-5.1) Chloride Level 111 MEQ/L (98-107) Carbon Dioxide Level 27.7 MEQ/L (21.0-32.0) Anion Gap 9 MEQ/L (5-15) Estimat Glomerular Filtration Rate 28 ML/MIN (>89) Tacrolimus (Prograf) Level LESS THAN 2.0 NG/ML Result Diagram: 02/14/17 0450 02/15/17 1130 Microbiology Microbiology Date/Time Source Procedure Growth Status 02/15/17 11:45 Blood Peripheral Aerobic Blood Culture - Preliminary Gram Positive Rods Gram Positive Cocci Resulted 02/15/17 11:45 Blood Peripheral Anaerobic Blood Culture - Final QNS - SEE AEROBE REPORT Resulted Procedures 02/11/17 Cardiac arrest, CPR, intubation, femoral central line placed . Assessment and Plan Disease Oriented Problem List: (1) Cardiac arrest (2) Metabolic encephalopathy (3) Sepsis (4) Kidney transplant status, cadaveric (5) Chronic kidney disease (CKD) (6) Coronary artery disease (7) GI bleed (8) Diabetes (9) Status post above knee amputation of left lower extremity Symptom Scale: (1) Dyspnea (2) Encephalopathy Pertinent Non-Medical Issues Psychosocial:Per review of available records. Patient originally from [facility] lived in [place] at some point, per his sister, has lived in [place] for many years. Apparently has not had contact with family for some time has a sister in [place] and possibly a half sister in [place] and a half brother in [facility]. Locally lived with 2 Ukrainian caregivers per records and report. Has been on disability for some time based on available records. Spiritual: Family states patient was Confucianism. Alarm Mechanism Adjuster notified. Legal:Status post prolonged cardiac arrest. Encephalopathic. Patient not able to participate in decision-making. No advanced directives per extensive review of records. No children, parents . Appears to have one or more siblings. Have been able to contact one sister in [place] who indicates there may be a half-sister in [place] and a half brother [facility]. At this time appears Per [place] statutes legal decision-making would fall to known sister in [place], Areli Dobson. Ethical issues impacting care: None known. . Important Contacts Sister Areli South [phone] . Prognosis This patient has multiple chronic comorbidities including status post renal transplant 2012. Appears to be rather debilitated and in poor general health prior to admission. Was admitted for GI bleeding, sepsis. Subsequently, This admission suffered cardiac arrest resulting in prolonged CPR, now with poor neurological exam, likely significant anoxic brain injury. Very unlikely he will make meaningful neurologic recovery. High risk for further complications and decline. Poor prognosis. . Code Status: No Code Plan * Legal decision maker:Status post prolonged cardiac arrest. Encephalopathic. Patient not able to participate in decision-making. No advanced directives per extensive review of records. No children, parents . Appears to have one or more siblings. Have been able to contact one sister in [place] who indicates there may be a half-sister in [place] and a half brother [facility]. At this time appears Per [place] statutes legal decision-making would fall to known sister in [place]. Sister has arrived in town and wishes to serve as proxy. * Goals: Met with patient and sister at length on 02/16 and initially planned for withdrawal that day. Patient's sister decided to today 02/17. Exhibits were signed yesterday 02/16. * Patient's domestic partner of 10 years Cristina Calderon present at bedside today anticipatory guidance provided. Alarm Mechanism Adjuster contacted to provide support. * CODE STATUS: DNR SYMPTOMS: --Encephalopathy-status post prolonged cardiac arrest and CPR; now with myoclonus, continuous EEG, very poor neurologic prognosis. Remains unresponsive to stimuli. No recommendations at this time. --Dyspnea-intubated secondary to cardiopulmonary arrest, nonresponsive no tachypnea now on mechanical vent. No recommendations at this time. -- seizure- has had persistent seizure activity, managed by critical care/ neuro. + on multiple antiepileptics, ativan. No recommendations at this time. * Palliative care will continue to follow during hospital course as condition evolves, to assist patient/decision-maker with understanding of medical conditions, weighing benefits/burdens of treatment options, for clarification of goals of treatment. Additionally will assist with any symptoms of palliative concern Attestation To help prompt me to consider important information that might be impacting today's encounter and assessment, information from prior notes written by myself or my colleagues may have been "brought forward" into today's note. My signature on this note, however, is an attestation that I personally performed the exam, history, and/or decision-making noted today, and, unless otherwise indicated, the interactions with patient, family, and staff as well as the review of records all occurred today. I also attest that the listed assessment and stated plan reflect my best clinical judgment today based on the combination of historical information, prior notes, and today's exam/ interactions. When time spent is documented, it refers only to time spent today by the signer, or if indicated, combined time spent today by collaborating physician/nurse practitioner. Corrine Grossman Feb 17, 2017 10:27
[2017-02-17] MEDS ORDERED: FUROSEMIDE 20 MG/2 ML VIAL IV PRN (11:00)
[2017-02-17] MEDS ORDERED: BISACODYL 10 MG SUPP RECTAL PRN (11:00)
[2017-02-17] MEDS ORDERED: ACETAMINOPHEN 650 MG SUPP RECTAL PRN (11:00)
[2017-02-17] MEDS ORDERED: LORazepam 2 MG/ML VIAL IV PRN ×2 (11:00)
[2017-02-17] MEDS ORDERED: HYOSCYAMINE 0.5 MG/ML AMP IV ONE (11:00)
[2017-02-17] MEDS ORDERED: HYOSCYAMINE 0.5 MG/ML AMP IV PRN (11:00)
[2017-02-17] MEDS ORDERED: LORazepam 2 MG/ML VIAL IVS PRN (11:00)
[2017-02-17] MEDS ORDERED: HYDROmorphone HCL PF 2 MG/ML VIAL IV PRN ×2 (11:00)
[2017-02-17] MEDS ORDERED: LORazepam 2 MG/ML VIAL IV ONE ×2 (11:00)
[2017-02-17] MEDS ORDERED: HYDROmorphone HCL PF 2 MG/ML VIAL IV ONE ×2 (11:00)
[2017-02-17] MEDS ORDERED: HYDROmorphone HCL PF 2 MG/ML VIAL IV SCH (12:00)
[2017-02-17] MEDS ORDERED: LORazepam 2 MG/ML VIAL IV SCH (12:00)
--- NOTE | 2017-02-17 15:11 | DEATH SUM ---
Summary Demographics Date Pronounced : Feb 17, 2017 Time Of : 12:01 Pronounced By: RN Preliminary Cause of : Cardiac arrest Alonso Marina MD Feb 17, 2017 15:10
--- NOTE | 2017-02-17 15:14 | HHI.DS ---
Summary Note Date of : Feb 17, 2017 Time Of : 1201 Admission Date Feb 06, 2017 at 21:42 Admitting Diagnosis UTI, SEPSIS, POSS GI BLEED Diagnosis at Time of : (1) Cardiac arrest ICD Code: I46.9 - Cardiac arrest, cause unspecified Diagnosis: Principal (2) Acute respiratory failure ICD Code: J96.00 - Acute respiratory failure, unspecified whether with hypoxia or hypercapnia Diagnosis: Principal (3) Septic shock ICD Code: A41.9 - Sepsis, unspecified organism; R65.21 - Severe sepsis with septic shock Diagnosis: Principal (4) Seizure ICD Code: R56.9 - Unspecified convulsions Diagnosis: Principal (5) Bacteremia ICD Code: R78.81 - Bacteremia Diagnosis: Principal (6) Anoxic brain injury ICD Code: G93.1 - Anoxic brain damage, not elsewhere classified Diagnosis: Principal (7) Metabolic encephalopathy ICD Code: G93.41 - Metabolic encephalopathy Diagnosis: Principal (8) Acute on chronic kidney disease, stage 3 ICD Code: N18.3 - Chronic kidney disease, stage 3 (moderate) Diagnosis: Principal (9) Urinary tract infection ICD Code: N39.0 - Urinary tract infection, site not specified Diagnosis: Principal (10) Leukocytosis ICD Code: D72.829 - Elevated white blood cell count, unspecified Diagnosis: Principal (11) Diabetes ICD Code: E11.9 - Diabetes mellitus Diagnosis: Secondary (12) Chronic kidney disease (CKD) ICD Code: N18.9 - Chronic kidney disease Diagnosis: Secondary Procedures 02/08- EGD- gastritis, biopsy done 02/10 cardiopulmonary resuscitation - Arterial line placed Brief History This is a 61 year old male who was brought to the ER by ambulance for hematemesis,and DKA on 02/07/17. The patient is a very poor historian and it is difficult to obtain any information from him. He was admitted on 02/03 through for uncontrolled diabetes, metabolic encephalopathy, seizure activity, and acute on chronic kidney disease. His symptoms resolved and he was discharged home at that time. Patient went for EGD 02/07 with lots of blood in the stomach but no active signs of bleeding. 02/08 went back to EGD which found gastritis without any evidence of ulcerative disease. anion gap closed yesterday and transitioned off of insulin drip. Blood growing klebsiella and ID on board, on abx. He was transferred to [facility] service on 02/09/17. On 02/10 while on the floor patient choked on the dinner food, resulting in cardiopulmonary arrest requiring 35 minutes of CPR multiple shocks for V. fib rhythm and injections of epinephrine, including endotracheal intubation, and patient was re admitted to ICU under critical care CBC/BMP: 02/14/17 0450 02/15/17 1130 Significant Findings Laboratory Tests Test 02/15/17 11:30 02/16/17 03:45 Blood Urea Nitrogen 35 MG/DL (7-18) Creatinine 2.82 MG/DL (0.60-1.30) Random Glucose 39 MG/DL (74-106) Albumin 2.4 GM/DL (3.4-5.0) Calcium Level 7.1 MG/DL (8.5-10.1) Sodium Level 148 MEQ/L (136-145) Potassium Level 3.1 MEQ/L (3.5-5.1) Chloride Level 111 MEQ/L (98-107) Estimat Glomerular Filtration Rate 28 ML/MIN (>89) Tacrolimus (Prograf) Level LESS THAN 2.0 NG/ML Imaging Last 24 hours Impressions Chest X-Ray 02/12/17 0000 Signed Impressions: Service Date/Time: Sunday, February 12, 2017 12:34 - CONCLUSION: Slightly improved bilateral airspace disease. Bilateral pleural effusions are probably not significantly changed. Salas Campos MD Last 48 hours Impressions Renal Ultrasound 02/11/17 0700 Signed Impressions: Service Date/Time: Saturday, February 11, 2017 07:56 - CONCLUSION: 1. Improved resistive indices, now in the normal range. 2. Stable hydronephrosis 3. Stable small amount of simple perinephric fluid. Jimbo De La Torre MD Scrotum Ultrasound 02/11/17 0600 Signed Impressions: Service Date/Time: Saturday, February 11, 2017 08:19 - CONCLUSION: 1. Small right epididymal cyst. 2. Diffuse scrotal soft tissue edema. 3. Otherwise, unremarkable testicular ultrasound examination. Jimbo De La Torre MD Chest X-Ray 02/11/17 0600 Signed Impressions: Service Date/Time: Saturday, February 11, 2017 04:52 - CONCLUSION: Patchy perihilar pulmonary infiltrates right greater than left. ET tube is in good position. Alf Britton MD Head CT 02/11/17 0000 Signed Impressions: Service Date/Time: Saturday, February 11, 2017 02:33 - CONCLUSION: Continued abnormality in the right globe. No evidence of acute hemorrhage or acute change. Alf Britton MD Chest X-Ray 02/10/17 0000 Signed Impressions: Service Date/Time: January 20:29 - CONCLUSION: 1. Bilateral perihilar distribution consolidation new from the prior study from 4 days ago. The appearance and distribution suggests pulmonary edema as the cause. 2. No concerning radiopaque foreign body is identified. There multiple lines overlying the patient and ET tube is present. Salas Thompson MD Abdomen X-Ray 02/10/17 0000 Signed Impressions: Service Date/Time: January 21:51 - CONCLUSION: Stable gaseous distention of the stomach and colon with new dilated segment of small bowel in the midabdomen. The dilated small bowel is new and abnormal. However, the overall distribution is not suggestive of small bowel obstruction. Suggest performing a followup imaging to confirm resolution. Salas Thompson MD Hospital Course This is a 61 year old male who was brought to the ER by ambulance for hematemesis,and DKA on 02/07/17. EGD showed large amount of blood in the stomach but no active signs of bleeding. 02/08 went back to EGD which found gastritis without any evidence of ulcerative disease. anion gap closed and transitioned to sq Insulin. Blood culture growing klebsiella and ID on board, on abx. He was transferred to [facility] service on 02/09/17. On 02/10 while on the floor patient choked on the dinner food, resulting in cardiopulmonary arrest requiring 35 minutes of CPR multiple shocks for V. fib rhythm and injections of epinephrine, including endotracheal intubation, and patient was re admitted to ICU under critical care 02/11: Remains sedated, orally intubated on mechanical ventilation. Having myoclonic seizures. Has been loaded with Keppra and is currently on propofol and having intermittent myoclonus. palliative care consulted to assist with goals of care 02/12: Continues to have myoclonic seizures off and on. Underwent EGD on 02/12 with large quantities of food material noted impacted and the esophagus as well as in the stomach. OG tube placed by GI during endoscopy. 02/13: No improvement note in neuro exam. On Levophed 1 lindsay per minute for hypotension. On propofol currently 30 mics per KG per minute. On Keppra and Dilantin for myoclonic seizures. Started tube feeds with Nepro 02/14-02/15 Remained severely encephalopathic without any improvement in neuro. 02/16: Family has decided to withdraw life support on 02/17/17. Discussed with neurologist Dr. Powell and he is agreeable with comfort measure and withdrawal of life support due to poor neuro prognosis 02/17: After pre medication, life support was withdrawn and patient at 1201 on 02/17/17. family notified by Alonso Hernandez MD Feb 17, 2017 15:14
== END 2017-02-17 17:38 | disposition expired | DRG 870 ==
LOC: PHED 17:38 → PHEDA 21:42 → HIMN 02-07 03:18 → N07B 02-08 17:28 → N03A 02-10 19:49
PROVIDERS: ADMIT Internal Medicine Critical Care Medicine; ATTEND Internal Medicine Critical Care Medicine
PROC: 0DB78ZX Excision of Stomach, Pylorus, Via Natural or Artificial Opening Endoscopic, Diagnostic (ICD-10-PCS; 2017-02-08)
PROC: 5A12012 Performance of Cardiac Output, Single, Manual (ICD-10-PCS; principal; 2017-02-10)
PROC: 5A1955Z Respiratory Ventilation, Greater than 96 Consecutive Hours (ICD-10-PCS; 2017-02-10)
PROC: 03HY32Z Insertion of Monitoring Device into Upper Artery, Percutaneous Approach (ICD-10-PCS; 2017-02-10)
PROC: 5A2204Z Restoration of Cardiac Rhythm, Single (ICD-10-PCS; 2017-02-10)
PROC: 0BH17EZ Insertion of Endotracheal Airway into Trachea, Via Natural or Artificial Opening (ICD-10-PCS; 2017-02-11)
PROC: 06HY33Z Insertion of Infusion Device into Lower Vein, Percutaneous Approach (ICD-10-PCS; 2017-02-11)
PROC: 0DC68ZZ Extirpation of Matter from Stomach, Via Natural or Artificial Opening Endoscopic (ICD-10-PCS; 2017-02-11)
PROC: 0DC58ZZ Extirpation of Matter from Esophagus, Via Natural or Artificial Opening Endoscopic (ICD-10-PCS; 2017-02-11)
PROC: 0D9680Z Drainage of Stomach with Drainage Device, Via Natural or Artificial Opening Endoscopic (ICD-10-PCS; 2017-02-11)
DX: A41.59 Other Gram-negative sepsis (principal); J96.01 Acute respiratory failure with hypoxia; R65.21 Severe sepsis with septic shock; J69.0 Pneumonitis due to inhalation of food and vomit; G93.41 Metabolic encephalopathy; G93.1 Anoxic brain damage, not elsewhere classified; E13.10 Other specified diabetes mellitus with ketoacidosis without coma; I47.2 Ventricular tachycardia; K29.71 Gastritis, unspecified, with bleeding; K92.0 Hematemesis; T86.12 Kidney transplant failure; N39.0 Urinary tract infection, site not specified; T86.19 Other complication of kidney transplant; N13.30 Unspecified hydronephrosis; I95.9 Hypotension, unspecified; E11.51 Type 2 diabetes mellitus with diabetic peripheral angiopathy without gangrene; I25.10 Atherosclerotic heart disease of native coronary artery without angina pectoris; Z87.891 Personal history of nicotine dependence; Z90.01 Acquired absence of eye; Z95.5 Presence of coronary angioplasty implant and graft; Z79.4 Long term (current) use of insulin; Z89.512 Acquired absence of left leg below knee; B19.20 Unspecified viral hepatitis C without hepatic coma; J44.9 Chronic obstructive pulmonary disease, unspecified; F32.9 Major depressive disorder, single episode, unspecified; M19.90 Unspecified osteoarthritis, unspecified site; E78.5 Hyperlipidemia, unspecified; E21.3 Hyperparathyroidism, unspecified; Y83.0 Surgical operation with transplant of whole organ as the cause of abnormal reaction of the patient, or of later complication, without mention of misadventure at the time of the procedure; I46.9 Cardiac arrest, cause unspecified; E11.649 Type 2 diabetes mellitus with hypoglycemia without coma; R19.7 Diarrhea, unspecified; I12.9 Hypertensive chronic kidney disease with stage 1 through stage 4 chronic kidney disease, or unspecified chronic kidney disease; G40.409 Other generalized epilepsy and epileptic syndromes, not intractable, without status epilepticus; B96.1 Klebsiella pneumoniae [K. pneumoniae] as the cause of diseases classified elsewhere; D63.1 Anemia in chronic kidney disease; E11.22 Type 2 diabetes mellitus with diabetic chronic kidney disease; H54.41 Blindness, right eye, normal vision left eye; K21.9 Gastro-esophageal reflux disease without esophagitis; N49.2 Inflammatory disorders of scrotum; T38.0X5A Adverse effect of glucocorticoids and synthetic analogues, initial encounter; Z51.5 Encounter for palliative care; Z66 Do not resuscitate; Z79.52 Long term (current) use of systemic steroids; Z86.718 Personal history of other venous thrombosis and embolism; D69.6 Thrombocytopenia, unspecified; N18.3 Chronic kidney disease, stage 3 (moderate)
CPT/HCPCS: 31500; 36556; 36620; 70450; 71010; 71250; 74000; 74176; 76776; 76870; 80048; 80053; 80069; 80185; 80197; 81001; 82010; 82550; 82805; 82947; 82948; 83605; 83735; 84100; 84155; 84484; 85007; 85025; 85027; 85610; 85730; 86850; 86900; 86901; 87040; 87070; 87077; 87086; 87186; 87205; 87493; 87641; 88305; 88312; 92950; 93005; 93308; 93970; 93975; 94002; 94003; 95819; 96365; 96366; 96368; 96375; C9113; C9254; J0171; J0282; J0461; J1165; J1170; J1720; J1815; J1953; J1956; J1980; J2060; J2250; J2270; J2405; J2543; J2920; J3010; J3370; J3475; J3480; J7030; J7040; J7042; J7050; J7070; J7507; J7512; P9047; Q9963